=== PATIENT | male | born 1960 ===

== ENCOUNTER 2016-09-08 18:34 | Inpatient (IN) | payer MEDICARE, MEDICAID ==
[2016-09-08 18:34] VITALS: BMI 31.9
--- NOTE | 2016-09-08 19:11 | C.PDOC ---
History Of Present Illness Patient presents to the ER with a complaint of pain and swelling to the dorsal aspect of the left for for the past 3-4 days that worsens with movement. 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 Time Seen by Provider: 09/08/16 19:11 Chief Complaint (Nursing): Lower Extremity Problem/Injury History Per: Patient History/Exam Limitations: no limitations Onset/Duration Of Symptoms: Days Current Symptoms Are (Timing): Still Present Severity: Moderate Pain Scale Rating Of: 4 Recent travel outside of the [place]: No Past Medical History Reviewed: Historical Data, Nursing Documentation, Vital Signs Vital Signs: Last Vital Signs Temp 97.9 F 09/08/16 18:42 Pulse 66 09/08/16 18:42 Resp 18 09/08/16 18:42 BP 121/72 09/08/16 18:42 Pulse Ox 96 09/08/16 20:02 - Medical History PMH: Arthritis, Asthma, Diabetes, HTN, Hypercholesterolemia Denies: Atrial Fibrillation Surgical History: CABG (12/26) Family History: States: No Known Family Hx - Social History Hx Alcohol Use: Yes ([employer]- OCC) Hx Substance Use: No - Immunization History Hx Tetanus Toxoid Vaccination: No Hx Influenza Vaccination: Yes (01/2016) Hx Pneumococcal Vaccination: Yes (01/2016) Review Of Systems Constitutional: Negative for: Fever, Chills Gastrointestinal: Negative for: Nausea, Vomiting Musculoskeletal: Positive for: Foot Pain Skin: Positive for: Other (Swelling) Physical Exam - Physical Exam Appears: Non-toxic Skin: Warm, Dry, Rash Head: Normacephalic Eye(s): bilateral: Normal Inspection Oral Mucosa: Moist Neck: Supple Chest: Symmetrical, No Tenderness Cardiovascular: Rhythm Regular, No Murmur Respiratory: No Rales, No Rhonchi, No Wheezing Gastrointestinal/Abdominal: Soft, No Tenderness Back: No CVA Tenderness Extremity: Tenderness (w/ redness to lateral aspect of left foot), Capillary Refill (good), Swelling (to dorsum of left foot), Other (Interdigital skin break down between 4th and 5th digits of left foot) Extremity: Bilateral: Atraumatic Pulses: Left Femoral: Normal, Right Femoral: Normal, Left Dorsalis Pedis: Normal , Right Dorsalis Pedis: Normal Neurological/Psych: Oriented x3, Normal Speech, Normal Cognition Gait: Steady ED Course And Treatment - Laboratory Results Result Diagrams: 09/08/16 19:50 09/08/16 20:40 ECG: Interpreted By Me, Viewed By Me ECG Rhythm: Sinus Rhythm (67), Nonspecific Changes O2 Sat by Pulse Oximetry: 96 (Room air) Pulse Ox Interpretation: Normal - Radiology CXR: Interpreted by Me, Viewed By Me CXR Interpretation: Yes: Other (top nl heart, cabg). No: Infiltrates, Fracture , Pnemothorax Progress Note: EKG, blood work, CXR, and urinalysis ordered. Morphine administered. using doppler -good dorsal pedis pulses Disposition Discussed With Dr.: Eduin Dee Comment: accepted the pt on his service and took over the care at 9:42 PM Doctor Will See Patient In The: ED Counseled Patient/Family Regarding: Studies Performed, Diagnosis - Disposition Disposition: HOSPITALIZED Disposition Time: 19:11 Condition: FAIR - POA Present On Arrival: Poor Glycemic Control - Clinical Impression Clinical Impression: Cellulitis of foot, left, Hyperglycemia without ketosis - Scribe Statement The provider has reviewed the documentation as recorded by the Scribaz Hernandez All medical record entries made by the Scribe were at my direction and personally dictated by me. I have reviewed the chart and agree that the record accurately reflects my personal performance of the history, physical exam, medical decision making, and the department course for this patient. I have also personally directed, reviewed, and agree with the discharge instructions and disposition. Decision To Admit - Pt Status Changed To: Hospital Disposition Of: Inpatient - Admit Certification Admit to Inpatient:: After my assessment, the patient will require hospitalization for at least two midnights. This is because of the severity of symptoms shown, intensity of services needed, and/or the medical risk in this patient being treated as an outpatient. - InPatient: Physician Admission Certification: I certify that this patient requires 2 or more midnights of care for the following reason:: After my assessment, the patient will require hospitalization for at least two midnights. This is because of the severity of symptoms shown, intensity of services needed, and/or the medical risk in this patient being treated as an outpatient. - . Bed Request Type: Regular Admitting Physician: Eduin Dee Patient Diagnosis: Cellulitis of foot, left, Hyperglycemia without ketosis
[2016-09-08] MEDS ORDERED: Morphine 4 MG/ML VIAL ONE (19:37)
[2016-09-08 19:53] LABS: BASO # 0.1 K/uL (0.0-0.2); EOS # 0.1 K/uL (0.0-0.7); EOS % 0.5 % (0.0-4.0); HEMATOCRIT 35.5 % (35.0-51.0); LYMPH # 2.3 K/uL (1.0-4.3); MEAN CELL VOLUME 87.6 fL (80.0-94.0); MEAN CORPUSCULAR HEMOGLOBIN 28.8 pg (27.0-31.0); MEAN CORPUSCULAR HGB CONC 32.9 g/dL (33.0-37.0); MEAN PLATELET VOLUME 8.8 fL (7.2-11.7); MONO # 1.3 K/uL (0.0-0.8); MONO % 10.7 % (0.0-10.0); NRBC % 0.1 % (0.0-2.0); WHITE BLOOD COUNT 12.3 K/uL (4.8-10.8)
[2016-09-08 20:04] LABS: VENOUS BLOOD GAS BASE EXCESS 1.8 mmol/L (0.0-2.0); VENOUS BLOOD GAS PCO2 53 mmHg (40-60); VENOUS BLOOD PH 7.34 (7.32-7.43)
[2016-09-08 20:11] LABS: RBC URINE < 1 /hpf (0-3); TRANSITIONAL EPITHIAL < 1 /hpf (0-3); URINE BACTERIA RARE (<OCC); URINE BILIRUBIN NEGATIVE (NEGATIVE); URINE BLOOD NEGATIVE (NEGATIVE); URINE COLOR Straw (YELLOW); URINE GLUCOSE (UA) 3+ mg/dL (Normal); URINE KETONE NEGATIVE (NEGATIVE); URINE LEUKOCYTE ESTERASE NEG Leu/uL (Negative); URINE PROTEIN NEGATIVE (NEGATIVE); URINE UROBILINOGEN NORMAL mg/dL (0.2-1.0); WBC URINE < 1 /hpf (0-5)
[2016-09-08 20:54] LABS: CHLORIDE 86 mmol/L (98-107); POTASSIUM 5.1 mmol/L (3.6-5.2); SODIUM 128 mmol/L (132-148)
[2016-09-08 20:56] LABS: BILIRUBIN,TOTAL 0.6 mg/dL (0.2-1.3); GFR AFRICAN-AMERICAN > 60
[2016-09-08 20:57] LABS: ALB/GLOB RATIO 1.2 (1.0-2.1); ALKALINE PHOSPHATASE 73 U/L (38-126); ALT/SGPT 30 U/L (21-72); AST/SGOT 15 U/L (17-59); BLOOD UREA NITROGEN 38 mg/dL (9-20); CALCIUM 8.7 mg/dl (8.6-10.4); CARBON DIOXIDE 27 mmol/L (22-30); TOTAL PROTEIN 6.9 g/dL (6.3-8.3)
[2016-09-08 21:04] LABS: GLUCOSE,RANDOM 548 mg/dL (75-110)
[2016-09-08] MEDS ORDERED: (Novolin R) Insulin Human Regular 100 units/ml vial ONE ×2 (21:18→23:17)
[2016-09-08] MEDS ORDERED: Sodium Chloride 0.9% 1,000 ML IV ONE (21:36)
[2016-09-08] MEDS ORDERED: (Novolin R) Insulin Human Regular 100 units/ml vial SC ONE (21:36)
[2016-09-08] MEDS ORDERED: Clindamycin 300 MG in Sodium Chloride 0.9% 50 ML IVPB STA (21:37)
[2016-09-08] MEDS ORDERED: Vancomycin 1 GM 1 GM/250 ML BAG IVPB STA (21:45)
[2016-09-08] MEDS ORDERED: Vancomycin 1 GM 1 GM/250 ML BAG IVPB ONE (21:56)
[2016-09-08] MEDS ORDERED: (Novolin R) Insulin Human Regular 100 units/ml vial IV ONE (22:56)
--- NOTE | 2016-09-08 23:04 | CP.PCM.HP ---
<Hilaria Sy - Last Filed: 09/09/16 03:28> History of Present Illness - History of Present Illness History of Present Illness: Pt was seen and evaluated at approximately 22:15PM on 09/08/16. CC: foot pain HPI: 55 year old male with PMHx significant for HTN, DM, atrial fibrillation and quadruple bypass surgery presents with complaints of left lower extremity pain of 3 day duration. Patient states that there is some drainage between the webs of his feet and discoloration noted as well. Per son, patient rolled in on his ankle, but denies any physical trauma to the affected foot. Nonetheless, patient did not have associated swelling immediately after the incident. Patient states that he waited to seek evaluation because he was not sure whether he needed to go to the hospital. He eventually came in for further treatment when his symptoms did not improve. Patient states that he has not been complying with a healthy diet in the past few weeks. Patient admits to tenderness to affected area with palpation. He denies any insect bites, nausea, vomiting, diarrhea, constipation, chest pain, headaches, palpitations, subjective fevers or chills PMHx- as noted above Surgical Hx- 4 vessel disease cardiac bypass in 2016 with lower extremity vessel grafting Fam Hx- Several brothers have diabetes Medications- Januvia, Metformin, Novolog ( unknown dose), Oradaxa, Amiodarone, Zetia, Valsartan-HCTZ, Venlafaxine, Seroquel. Please refer to MAR for dosing information Social Hx- Smoked 3-4packs of cigarettes a day for 9 years but has since quit; Patient denies alcohol use; He denies illicit drug use Allergies- Patient denied however medical record indicates shellfish allergy that results in vomiting PMD- Dr. Vines Present on Admission - Present on Admission Any Indicators Present on Admission: No History of Uncontrolled Diabetes: Yes Review of Systems - Review of Systems Systems not reviewed;Unavailable: Language Barrier - Constitutional Constitutional: absent: Chills, Fever, Headache - EENT Eyes: absent: Blurred Vision, Change in Vision - Cardiovascular Cardiovascular: absent: Chest Pain, Chest Pain at Rest, Dyspnea - Respiratory Respiratory: absent: Cough, Dyspnea - Gastrointestinal Gastrointestinal: absent: Nausea, Vomiting - Musculoskeletal Musculoskeletal: absent: Arthralgias, Atrophy - Integumentary Integumentary: Dry Skin, Skin Pain, Swelling, Wounds - Neurological Neurological: absent: Tremor, Weakness - Psychiatric Psychiatric: Anxiety. absent: Confusion - Hematologic/Lymphatic Hematologic: As Per HPI Past Patient History - Past Social History Smoking Status: Former Smoker - CARDIAC Hx Atrial Fibrillation: No Hx Hypercholesterolemia: Yes Hx Hypertension: Yes - PULMONARY Hx Asthma: Yes - NEUROLOGICAL Hx Seizures: No - HEMATOLOGICAL/ONCOLOGICAL Hx Blood Transfusions: No Hx Blood Transfusion Reaction: No - MUSCULOSKELETAL/RHEUMATOLOGICAL Hx Arthritis: Yes - PSYCHIATRIC Hx Substance Use: No - SURGICAL HISTORY Hx Coronary Artery Bypass Graft: Yes (12/26) - ANESTHESIA Hx Anesthesia: Yes Hx Anesthesia Reactions: No Meds Allergies/Adverse Reactions: Allergies Allergy/AdvReac Type Severity Reaction Status Date / Time shellfish derived Allergy Intermediate VOMITING Verified 09/08/16 19:06 Physical Exam - Constitutional Appears: Non-toxic, No Acute Distress - Head Exam Head Exam: ATRAUMATIC, NORMAL INSPECTION, NORMOCEPHALIC - Eye Exam Eye Exam: EOMI, Normal appearance, PERRL Pupil Exam: NORMAL ACCOMODATION - ENT Exam ENT Exam: Mucous Membranes Moist - Neck Exam Neck exam: Positive for: Full Rom - Respiratory Exam Respiratory Exam: NORMAL BREATHING PATTERN. absent: Respiratory Distress - Cardiovascular Exam Cardiovascular Exam: +S1, +S2 - GI/Abdominal Exam GI & Abdominal Exam: Distended, Normal Bowel Sounds, Soft. absent: Firm, Guarding, Tenderness - Extremities Exam Extremities exam: Positive for: full ROM, normal capillary refill, pedal edema ( LLE), tenderness (LLE), pedal pulses present. Negative for: calf tenderness - Expanded Lower Extremities Exam Left Foot/Toe exam: erythema, full ROM, swelling, tenderness (left lateral dorsal surface of foot) Neuro vacular tendon exam: absent: decreased fine/light touch Gait: not tested/not observed (extremity warmer to touch in comparison to RLE) - Back Exam Back exam: FULL ROM - Neurological Exam Neurological exam: Alert, CN II-XII Intact, Oriented x3 - Psychiatric Exam Psychiatric exam: Normal Affect, Normal Mood - Skin Skin Exam: Dry, Erythema, Warm (LLE) Results - Vital Signs Recent Vital Signs: Last Vital Signs Temp 97.9 F 09/08/16 18:42 Pulse 66 09/08/16 18:42 Resp 18 09/08/16 18:42 BP 121/72 09/08/16 18:42 Pulse Ox 96 09/08/16 21:43 - Labs Result Diagrams: 09/08/16 19:50 09/08/16 20:40 Labs: Laboratory Results - last 24 hr 09/08/16 22:42 POC Glucose (mg/dL) 450 H* Assessment & Plan (1) Hyperglycemia without ketosis Assessment and Plan: In ED, Blood glucose initially 548 UA showed 3+ glucose without evidence of serum ketones Patient administered 15 units of Insulin IV and 15 units SC with moderate response Patient to Begin regiment: Lantus 20 units HS, Novolog 8 units TID, and Medium dose sliding scale F/U accuchecks, A1c, lipid panel Patient counseled on dietary changes. Patient could benefit from additional counseling Will hold home meds: Januvia and Metformin at this time. Status: Acute (2) Cellulitis of foot, left Assessment and Plan: Rule out Diabetic source of cellulitis F/U MRI of foot F/U Podiatry recommendations Patient received Vanc and Clindamycin in the ED. Now on Vanc and Zosyn . First dose Vanc started on 09/08. Zosyn to begin 09/09 n.s at 100 cc for dehydration F/U BC Tylenol for pain Monitor Status: Acute (3) History of heart bypass surgery Assessment and Plan: Currently asymptomatic Continue Pradaxa, Cozaar, Zetia Begin ASA daily Status: Acute (4) Atrial fibrillation Assessment and Plan: Amiodarone daily F/U thyroid studies Currently rate controlled and asymptomatic Cont to monitor Status: Acute (5) HTN (hypertension) Assessment and Plan: Continue Cozaar and HCTZ Patient normally takes Diovan at home but non-formulary here. Status: Acute (6) Prophylactic measure Assessment and Plan: Heparin SC Q12 GI prophylaxis not indicated at this time F/U PT evaluation Status: Acute <Eduin Dee P - Last Filed: 09/10/16 05:42> Results - Vital Signs Recent Vital Signs: Last Vital Signs Temp 98.8 F 09/09/16 23:24 Pulse 66 09/09/16 23:24 Resp 20 09/09/16 23:24 BP 146/71 09/09/16 23:24 Pulse Ox 97 09/09/16 23:24 - Labs Result Diagrams: 09/09/16 07:22 09/09/16 07:22 Labs: Laboratory Results - last 24 hr 09/09/16 09/09/16 09/09/16 06:34 07:22 07:22 WBC 10.8 RBC 3.73 L Hgb 10.8 L Hct 31.9 L MCV 85.7 MCH 29.0 MCHC 33.8 RDW 12.5 Plt Count 255 MPV 8.5 Neut % (Auto) 67.7 Lymph % (Auto) 20.5 Roberts % (Auto) 10.7 H Eos % (Auto) 0.3 Baso % (Auto) 0.8 Neut # 7.3 H Lymph # 2.2 Roberts # 1.2 H Eos # 0.0 Baso # 0.1 PT 11.4 INR 1.0 APTT 31 D Sodium Potassium Chloride Carbon Dioxide Anion Gap BUN Creatinine Est GFR ( Amer) Est GFR (Non-Af Amer) POC Glucose (mg/dL) 321 H Random Glucose Hemoglobin A1c Calcium Phosphorus Magnesium Total Bilirubin AST ALT Alkaline Phosphatase Total Protein Albumin Globulin Albumin/Globulin Ratio Triglycerides Cholesterol LDL Cholesterol Direct HDL Cholesterol Free T4 TSH 3rd Generation 09/09/16 09/09/16 09/09/16 07:22 07:22 07:22 WBC RBC Hgb Hct MCV MCH MCHC RDW Plt Count MPV Neut % (Auto) Lymph % (Auto) Roberts % (Auto) Eos % (Auto) Baso % (Auto) Neut # Lymph # Roberts # Eos # Baso # PT INR APTT Sodium 132 Potassium 4.4 Chloride 92 L Carbon Dioxide 26 Anion Gap 18 BUN 29 H Creatinine 1.1 Est GFR ( Amer) > 60 Est GFR (Non-Af Amer) > 60 POC Glucose (mg/dL) Random Glucose 314 H Hemoglobin A1c 13.3 H Calcium 8.4 L Phosphorus 3.3 Magnesium 2.0 Total Bilirubin 0.5 AST 15 L ALT 25 Alkaline Phosphatase 65 Total Protein 6.4 Albumin 3.3 L Globulin 3.1 Albumin/Globulin Ratio 1.1 Triglycerides 109 Cholesterol 78 LDL Cholesterol Direct < 30 HDL Cholesterol 34 Free T4 2.01 TSH 3rd Generation 0.73 09/09/16 09/09/16 09/09/16 11:01 16:21 21:12 WBC RBC Hgb Hct MCV MCH MCHC RDW Plt Count MPV Neut % (Auto) Lymph % (Auto) Roberts % (Auto) Eos % (Auto) Baso % (Auto) Neut # Lymph # Roberts # Eos # Baso # PT INR APTT Sodium Potassium Chloride Carbon Dioxide Anion Gap BUN Creatinine Est GFR ( Amer) Est GFR (Non-Af Amer) POC Glucose (mg/dL) 356 H 327 H 256 H Random Glucose Hemoglobin A1c Calcium Phosphorus Magnesium Total Bilirubin AST ALT Alkaline Phosphatase Total Protein Albumin Globulin Albumin/Globulin Ratio Triglycerides Cholesterol LDL Cholesterol Direct HDL Cholesterol Free T4 TSH 3rd Generation Attending/Attestation - Attestation I have personally seen and examined this patient.: Yes I have fully participated in the care of the patient.: Yes I have reviewed all pertinent clinical information: Yes Notes (Text): Uncontrolled DM, type 2, h/o afib on pradaxa, amiodarone, CAD, CABG, h/o wearing socks for long hours, left foot cellulitis, infected wound bet 4th and 5th toe, maceration of skin between other toes. IV abx with broad coverage, arterial dopplers, MRI of foot, podiatry consult, DM control starting about 44 units of insulin/day as 20 lantus, 8 humlog tidac, with sliding scale coverage, patient on average uses bet 40-60 units of insulin at home. See orders for detail.
[2016-09-09] MEDS: (Novolog) Insulin Aspart, Recombinant 100 u/ml 10 ml vial SC SCH ×7 (02:25→21:42)
[2016-09-09] MEDS: Sodium Chloride 0.9% 1,000 ML IV SCH ×2 (05:42→13:20)
[2016-09-09 07:30] LABS: BASO # 0.1 K/uL (0.0-0.2); BASO % 0.8 % (0.0-2.0); EOS % 0.3 % (0.0-4.0); HEMATOCRIT 31.9 % (35.0-51.0); LYMPH # 2.2 K/uL (1.0-4.3); LYMPH % 20.5 % (20.0-40.0); MEAN CELL VOLUME 85.7 fL (80.0-94.0); MEAN CORPUSCULAR HGB CONC 33.8 g/dL (33.0-37.0); MEAN PLATELET VOLUME 8.5 fL (7.2-11.7); MONO # 1.2 K/uL (0.0-0.8); MONO % 10.7 % (0.0-10.0); RED CELL DISTRIBUTION WIDTH 12.5 % (11.5-14.5); WHITE BLOOD COUNT 10.8 K/uL (4.8-10.8)
[2016-09-09 07:56] LABS: CHLORIDE 92 mmol/L (98-107); SODIUM 132 mmol/L (132-148)
[2016-09-09 07:57] LABS: POTASSIUM 4.4 mmol/L (3.6-5.2)
[2016-09-09 07:58] LABS: CARBON DIOXIDE 26 mmol/L (22-30); CHOLESTEROL 78 mg/dL (0-199); GFR AFRICAN-AMERICAN > 60
[2016-09-09 07:59] LABS: ALB/GLOB RATIO 1.1 (1.0-2.1); ALKALINE PHOSPHATASE 65 U/L (38-126); ALT/SGPT 25 U/L (21-72); AST/SGOT 15 U/L (17-59); BILIRUBIN,TOTAL 0.5 mg/dL (0.2-1.3); BLOOD UREA NITROGEN 29 mg/dL (9-20); CALCIUM 8.4 mg/dl (8.6-10.4); GLUCOSE,RANDOM 314 mg/dL (75-110); PHOSPHOROUS 3.3 mg/dL (2.5-4.5); TOTAL PROTEIN 6.4 g/dL (6.3-8.3)
--- NOTE | 2016-09-09 08:19 | CP.PCM.PN ---
<Desi Guadarrama - Last Filed: 09/09/16 14:05> Subjective - Date & Time of Evaluation Date of Evaluation: 09/09/16 Time of Evaluation: 08:19 - Subjective Subjective: Medicine Note for Dr. Gabriel Patient was seen and examined at bedside. Patient reported left foot pain and requested pain medications. Denied any fever, chills, headache, abdominal pain, n/v/d/c, or urinary symptoms. Objective - Vital Signs/Intake and Output Vital Signs (last 24 hours): Temp Pulse Resp BP Pulse Ox 97.8 F 61 20 125/71 97 09/09/16 07:48 09/09/16 07:48 09/09/16 07:48 09/09/16 07:48 09/09/16 07:48 - Medications Medications: Current Medications Acetaminophen (Tylenol 325mg Tab) 650 mg PO Q6 PRN PRN Reason: Pain, Mild (1-3) Last Admin: 09/09/16 07:02 Dose: 650 mg Amiodarone HCl (Cordarone) 200 mg PO DAILY [facility] Aspirin (Ecotrin) 81 mg PO DAILY [facility] Dabigatran (Pradaxa) 150 mg PO BID [facility] Ezetimibe (Zetia) 10 mg PO DAILY [facility] Heparin Sodium (Porcine) (Heparin) 5,000 units SC Q12 [facility] Hydrochlorothiazide (Hydrodiuril) 25 mg PO DAILY [facility] Piperacillin Sod/Tazobactam (Sod 2.25 gm/ Sodium Chloride) 100 mls @ 200 mls/ hr IVPB Q8H [facility] Vancomycin HCl 1 gm/ Sodium (Chloride) 250 mls @ 166.7 mls/hr IVPB Q24H [facility] Sodium Chloride (Sodium Chloride 0.9%) 1,000 mls @ 100 mls/hr IV .Q10H [facility] Last Admin: 09/09/16 05:42 Dose: 100 mls/hr Influenza Virus Vaccine (Afluria) 45 mcg IM .ONCE ONE Stop: 09/11/16 14:01 Insulin Aspart (Novolog) 0 unit SC ACHS [facility] PRN Reason: Protocol Last Admin: 09/09/16 02:25 Dose: Not Given Insulin Aspart (Novolog) 8 unit SC TID [facility] Insulin Glargine (Lantus) 20 unit SC HS [facility] Losartan Potassium (Cozaar) 100 mg PO DAILY [facility] Pneumococcal Polyvalent Vaccine (Pneumovax 23 Vaccine) 0.5 ml IM .ONCE ONE Stop: 09/11/16 14:01 Quetiapine Fumarate (Seroquel) 200 mg PO HS [facility] Venlafaxine HCl (Effexor Xr) 150 mg PO DAILY [facility] - Labs Labs: 09/09/16 07:22 09/09/16 07:22 PT 10.8 SECONDS (9.7-12.2) 09/08/16 19:50 INR 1.0 09/08/16 19:50 APTT 24 SECONDS (21-34) 09/08/16 19:50 - Constitutional Appears: No Acute Distress - Head Exam Head Exam: NORMAL INSPECTION, NORMOCEPHALIC - Eye Exam Eye Exam: EOMI, Normal appearance, PERRL Pupil Exam: NORMAL ACCOMODATION - ENT Exam ENT Exam: Mucous Membranes Moist - Respiratory Exam Respiratory Exam: Clear to Ausculation Bilateral, NORMAL BREATHING PATTERN. absent: Wheezes - Cardiovascular Exam Cardiovascular Exam: REGULAR RHYTHM, RRR, +S1, +S2 - GI/Abdominal Exam GI & Abdominal Exam: Soft, Normal Bowel Sounds. absent: Distended, Tenderness - Extremities Exam Extremities Exam: Normal Inspection. absent: Pedal Edema, Tenderness Additional comments: Left lateral aspect of the foot was warm to touch, TTP, pus and blood from between 3rd and 4th toes, and 4th and 5th toes. Sensation intact. Motor +5 - Neurological Exam Neurological Exam: Alert, Awake, Oriented x3 - Skin Skin Exam: Dry, Intact, Normal Color, Warm Assessment and Plan - Assessment and Plan (Free Text) Plan: Hyperglycemia without ketosis Assessment and Plan: In ED, Blood glucose initially 548 UA showed 3+ glucose without evidence of serum ketones N.S. at 100 cc for dehydration Patient administered 15 units of Insulin IV and 15 units SC with moderate response Patient was started on: Lantus 20 units HS, Novolog 10 units TID, and Medium dose sliding scale Status: Acute Diabetes Mellitus Assessment and Plan: Accuchecks HbgA1c = 13.3 Will hold home meds: Januvia 100mg QHS and Metformin 1000mg PO BID, and Prandin 1mg PO BID (confirmed with Pharmacy). According to the patient he takes Lantus 20mg SC BID (however the pharmacy did not confirm this). Started on: Lantus 20 units HS, Novolog 10 units TID, and Medium dose sliding scale DM counseling ordered Status: Chronic Cellulitis of foot, left Assessment and Plan: Patient received Vanc and Clindamycin in the ED. Now on Vanc and Zosyn . First dose Vanc started on 09/08. Zosyn to begin 09/09 Perococet PRN and Tylenol PRN for pain F/U Bone Scan of Left Foot (patient refuses to have MRI done due to claustrophobia) F/U Podiatry recommendations F/U BC, WC Status: Acute History of quadriple vessel bypass surgery Assessment and Plan: Currently asymptomatic Continue Pradaxa, Cozaar, Zetia Started on ASA daily Lipid Panel and TSH, T4 - WNL F/U Arterial PVR/ SEG B/L Status: Acute Atrial fibrillation Assessment and Plan: Amiodarone daily TSH, T4 - WNL Currently rate controlled and asymptomatic Cont to monitor Status: Acute HTN (hypertension) Assessment and Plan: Continue Cozaar and HCTZ Patient normally takes Diovan at home but non-formulary here. Status: Acute Prophylactic measure Assessment and Plan: DVT VTE c/i since patient is already on anticoagulation for AFib GI prophylaxis not indicated at this time F/U PT evaluation Status: Acute DW Chiara Forman DO, PGY-1 <Reid Gabriel - Last Filed: 09/09/16 15:58> Objective - Vital Signs/Intake and Output Vital Signs (last 24 hours): Temp Pulse Resp BP Pulse Ox 98 F 60 20 145/77 99 09/09/16 15:23 09/09/16 15:23 09/09/16 15:23 09/09/16 15:23 09/09/16 15:23 - Medications Medications: Current Medications Acetaminophen (Tylenol 325mg Tab) 650 mg PO Q6 PRN PRN Reason: Pain, Mild (1-3) Last Admin: 09/09/16 07:02 Dose: 650 mg Amiodarone HCl (Cordarone) 200 mg PO DAILY [facility] Last Admin: 09/09/16 10:39 Dose: 200 mg Aspirin (Ecotrin) 81 mg PO DAILY [facility] Last Admin: 09/09/16 10:39 Dose: 81 mg Dabigatran (Pradaxa) 150 mg PO BID [facility] Last Admin: 09/09/16 10:39 Dose: 150 mg Ezetimibe (Zetia) 10 mg PO DAILY [facility] Last Admin: 09/09/16 10:40 Dose: 10 mg Hydrochlorothiazide (Hydrodiuril) 25 mg PO DAILY [facility] Last Admin: 09/09/16 10:39 Dose: 25 mg Piperacillin Sod/Tazobactam (Sod 2.25 gm/ Sodium Chloride) 100 mls @ 200 mls/ hr IVPB Q8H [facility] Last Admin: 09/09/16 10:41 Dose: 200 mls/hr Sodium Chloride (Sodium Chloride 0.9%) 1,000 mls @ 100 mls/hr IV .Q10H [facility] Last Admin: 09/09/16 13:20 Dose: Not Given Vancomycin HCl 1 gm/ Sodium (Chloride) 250 mls @ 166.7 mls/hr IVPB Q24H [facility] Last Admin: 09/09/16 12:26 Dose: 166.7 mls/hr Influenza Virus Vaccine (Afluria) 45 mcg IM .ONCE ONE Stop: 09/11/16 14:01 Insulin Aspart (Novolog) 0 unit SC ACHS [facility] PRN Reason: Protocol Last Admin: 09/09/16 11:45 Dose: 8 unit Insulin Aspart (Novolog) 10 unit SC TIDAC [facility] Last Admin: 09/09/16 11:45 Dose: 10 unit Insulin Glargine (Lantus) 20 unit SC [facility] Losartan Potassium (Cozaar) 100 mg PO DAILY [facility] Last Admin: 09/09/16 10:39 Dose: 100 mg Oxycodone/Acetaminophen (Percocet 5/325 Mg Tab) 1 tab PO Q6H PRN PRN Reason: Pain, severe (8-10) Stop: 09/12/16 11:21 Last Admin: 09/09/16 11:45 Dose: 1 tab Pneumococcal Polyvalent Vaccine (Pneumovax 23 Vaccine) 0.5 ml IM .ONCE ONE Stop: 09/11/16 14:01 Quetiapine Fumarate (Seroquel) 200 mg PO [facility] Venlafaxine HCl (Effexor Xr) 150 mg PO DAILY [facility] Last Admin: 09/09/16 10:39 Dose: 150 mg - Labs Labs: 09/09/16 07:22 09/09/16 07:22 PT 11.4 SECONDS (9.7-12.2) 09/09/16 07:22 INR 1.0 09/09/16 07:22 APTT 31 SECONDS (21-34) D 09/09/16 07:22 Attending/Attestation - Attestation I have personally seen and examined this patient.: Yes I have fully participated in the care of the patient.: Yes I have reviewed all pertinent clinical information, including history, physical exam and plan: Yes Notes (Text): 09/09/16 15:57 Patient was seen and examined at bedside with the resident Podiatry is on board. We will obtain MRI of the foot to rule out osteomyelitis Patient is on vancomycin and Zosyn. Follow-up cultures of the wound. Diabetes remains uncontrolled. We'll start the patient on insulin basal bolus regimen and also on sliding scale. We will titrate the medication as needed I discussed the plan of care with the resident and agree with the history and physical and assessment/plan recommended by the resident.
[2016-09-09 08:37] LABS: THYROID STIMULATING HORMONE 0.73 mIU/L (0.46-4.68)
[2016-09-09] MEDS ORDERED: Vitamins A & D Oint UD Foilpak TOP ONE (09:05)
--- NOTE | 2016-09-09 09:08 | RAD ---
PROCEDURE: CHEST RADIOGRAPH, 1 VIEW HISTORY: Shortness of breath COMPARISON: None available. FINDINGS: LUNGS: Mild venous congestion. PLEURA: No pneumothorax or pleural fluid seen. CARDIOVASCULAR: Status post median sternotomy. OSSEOUS STRUCTURES: No significant abnormalities. VISUALIZED UPPER ABDOMEN: Normal. OTHER FINDINGS: None. IMPRESSION: Mild venous congestion.
[2016-09-09] MEDS ORDERED: (Novolog) Insulin Aspart, Recombinant 100 u/ml 10 ml vial SC SCH (10:00)
[2016-09-09] MEDS: Venlafaxine 150 mg ER Cap PO SCH (10:39)
[2016-09-09] MEDS: Piperacillin/Tazobact 2.25 GM in Sodium Chloride 100 ML IVPB SCH ×2 (10:41→18:12)
[2016-09-09] MEDS: Oxycodone/Acetaminophen 5/325 mg Tab PO PRN (11:45)
--- NOTE | 2016-09-09 13:45 | CARD ---
APPROVED REPORT EKG Measurement Heart [id number] MI [id number] [id number] <Conclusion> Normal sinus rhythm Minimal voltage criteria for LVH, may be normal variant Cannot rule out Inferior infarct, age undetermined Abnormal ECG
--- NOTE | 2016-09-09 14:52 | VASCLAB ---
STUDY DESCRIPTION: HISTORY: Diabetic with Peripheral Artery Disease PRIORS: None. TECHNIQUE: Pulse volume recording waveforms and segmental pressures of bilateral lower extremities at multiple levels were obtained. Ankle Brachial Indices (ABIs) were calculated. Report prepared by GIRISH Cummings RIGHT LOWER EXTREMITY: * Brachial artery: Pressure - 139 mmHg. * High thigh: Pressure - 220 mmHg: Ratio - n/c: PVR waveform - Pulsatile * Low thigh: Pressure - 98 mmHg: Ratio - 0.71 PVR waveform: Pulsatile * Calf: Pressure - 97 mmHg: Ratio - 0.70 PVR waveform: Reduced * Posterior tibial Artery: Pressure - 86 mmHg: Ratio - 0.62 PVR waveform: Reduced * Dorsalis pedis Artery: Pressure - 94 mmHg: Ratio - 0.68 PVR waveform: Reduced * Great toe: Pressure - 55 mmHg: Ratio - 0.40 PVR waveform: Reduced Ankle brachial index (SOFI): 0.68 LEFT LOWER EXTREMITY: * Brachial artery: Pressure - 128 mmHg. * High thigh: Pressure - 125 mmHg: Ratio - 0.90: PVR waveform - Pulsatile * Low thigh: Pressure - 90 mmHg: Ratio - 0.65 PVR waveform: Pulsatile * Calf: Pressure - 84 mmHg: Ratio - 0.60 PVR waveform: Reduced * Posterior tibial Artery: Pressure - 79 mmHg: Ratio - 0.57 PVR waveform: Reduced * Dorsalis pedis Artery: Non audible pulse * Great toe: Pressure - 30 mmHg: Ratio - 0.22 PVR waveform: Reduced Ankle brachial index (SOFI): 0.57 OTHER FINDINGS: IMPRESSION: Right: Reduced ankle brachial index of 0.68. Reduced toe brachial index of 0.40. Left: Reduced ankle brachial index of 0.57. Reduced toe brachial index of 0.22. Arterial waveforms and segmental pressures are suggestive of mild to moderate arterial insufficiency of bilateral lower extremities, at rest, beginning at the superficial femoral artery levels. There is more disease of the left lower extremity than of the right.
--- NOTE | 2016-09-09 16:58 | CP.PCM.CON ---
History of Present Illness - History of Present Illness History of Present Illness: 55 year old male with PMHx significant for HTN, DM, atrial fibrillation and quadruple bypass surgery presents with complaints of left lower extremity pain of 4 day duration. Patient states that he has had redness, and swelling in his foot and states that the pain is very severe. Patient appears in NAD and AAOx3. Patient denies any other pedal complaints at this time. Patient denies any numbness or burning in his foot. Patient denies n/f/c/v/d/sob. Review of Systems - Constitutional Constitutional: As Per HPI Past Patient History - Past Medical History & Family History Past Medical History?: Yes - Past Social History Smoking Status: Former Smoker - CARDIAC Hx Hypercholesterolemia: Yes Hx Hypertension: Yes - PULMONARY Hx Asthma: Yes - NEUROLOGICAL Hx Seizures: No - ENDOCRINE/METABOLIC Hx Diabetes Mellitus Type 1: Yes - HEMATOLOGICAL/ONCOLOGICAL Hx Blood Transfusions: No Hx Blood Transfusion Reaction: No - MUSCULOSKELETAL/RHEUMATOLOGICAL Hx Arthritis: Yes - PSYCHIATRIC Hx Substance Use: No - SURGICAL HISTORY Hx Coronary Artery Bypass Graft: Yes (12/26) - ANESTHESIA Hx Anesthesia: Yes Hx Anesthesia Reactions: No Meds Allergies/Adverse Reactions: Allergies Allergy/AdvReac Type Severity Reaction Status Date / Time shellfish derived Allergy Intermediate VOMITING Verified 09/08/16 19:06 - Medications Medications: Current Medications Acetaminophen (Tylenol 325mg Tab) 650 mg PO Q6 PRN PRN Reason: Pain, Mild (1-3) Last Admin: 09/09/16 07:02 Dose: 650 mg Amiodarone HCl (Cordarone) 200 mg PO DAILY [facility] Last Admin: 09/09/16 10:39 Dose: 200 mg Aspirin (Ecotrin) 81 mg PO DAILY [facility] Last Admin: 09/09/16 10:39 Dose: 81 mg Dabigatran (Pradaxa) 150 mg PO BID [facility] Last Admin: 09/09/16 10:39 Dose: 150 mg Ezetimibe (Zetia) 10 mg PO DAILY [facility] Last Admin: 09/09/16 10:40 Dose: 10 mg Hydrochlorothiazide (Hydrodiuril) 25 mg PO DAILY [facility] Last Admin: 09/09/16 10:39 Dose: 25 mg Piperacillin Sod/Tazobactam (Sod 2.25 gm/ Sodium Chloride) 100 mls @ 200 mls/ hr IVPB Q8H [facility] Last Admin: 09/09/16 10:41 Dose: 200 mls/hr Sodium Chloride (Sodium Chloride 0.9%) 1,000 mls @ 100 mls/hr IV .Q10H [facility] Last Admin: 09/09/16 13:20 Dose: Not Given Vancomycin HCl 1 gm/ Sodium (Chloride) 250 mls @ 166.7 mls/hr IVPB Q24H [facility] Last Admin: 09/09/16 12:26 Dose: 166.7 mls/hr Influenza Virus Vaccine (Afluria) 45 mcg IM .ONCE ONE Stop: 09/11/16 14:01 Insulin Aspart (Novolog) 0 unit SC ACHS [facility] PRN Reason: Protocol Last Admin: 09/09/16 11:45 Dose: 8 unit Insulin Aspart (Novolog) 10 unit SC TIDAC [facility] Last Admin: 09/09/16 11:45 Dose: 10 unit Insulin Glargine (Lantus) 20 unit SC HS [facility] Losartan Potassium (Cozaar) 100 mg PO DAILY [facility] Last Admin: 09/09/16 10:39 Dose: 100 mg Oxycodone/Acetaminophen (Percocet 5/325 Mg Tab) 1 tab PO Q6H PRN PRN Reason: Pain, severe (8-10) Stop: 09/12/16 11:21 Last Admin: 09/09/16 11:45 Dose: 1 tab Pneumococcal Polyvalent Vaccine (Pneumovax 23 Vaccine) 0.5 ml IM .ONCE ONE Stop: 09/11/16 14:01 Quetiapine Fumarate (Seroquel) 200 mg PO [facility] Venlafaxine HCl (Effexor Xr) 150 mg PO DAILY [facility] Last Admin: 09/09/16 10:39 Dose: 150 mg Physical Exam - Constitutional Appears: Well, Non-toxic, No Acute Distress - Extremities Exam Additional comments: left lower extremity focused: Vasc: lightly palpable pulses, TG warm to warm, CFT < 3 sec to all digits neuro: grossly intact derm: localized nonpitting edema and erythema extending to the anterior ankle joint, interdigital maceration to left 4th interspace, no probe to bone, mild malodor, no fluctuance, no purulence, no underlying abscess formation ortho: pain on palpation to dorsal left foot - Neurological Exam Neurological exam: Alert, Oriented x3 - Psychiatric Exam Psychiatric exam: Normal Affect, Normal Mood Results - Vital Signs Recent Vital Signs: Last Vital Signs Temp 98 F 09/09/16 15:23 Pulse 60 09/09/16 15:23 Resp 20 09/09/16 15:23 BP 145/77 09/09/16 15:23 Pulse Ox 99 09/09/16 15:23 - Labs Result Diagrams: 09/09/16 07:22 09/09/16 07:22 Labs: Laboratory Results - last 24 hr 09/08/16 09/08/16 09/09/16 22:42 23:35 02:23 WBC RBC Hgb Hct MCV MCH MCHC RDW Plt Count MPV Neut % (Auto) Lymph % (Auto) [place] % (Auto) Eos % (Auto) Baso % (Auto) Neut # Lymph # [place] # Eos # Baso # PT INR APTT Sodium Potassium Chloride Carbon Dioxide Anion Gap BUN Creatinine Est GFR ( Amer) Est GFR (Non-Af Amer) POC Glucose (mg/dL) 450 H* 389 H 251 H Random Glucose Hemoglobin A1c Calcium Phosphorus Magnesium Total Bilirubin AST ALT Alkaline Phosphatase Total Protein Albumin Globulin Albumin/Globulin Ratio Triglycerides Cholesterol LDL Cholesterol Direct HDL Cholesterol Free T4 TSH 3rd Generation 09/09/16 09/09/16 09/09/16 06:34 07:22 07:22 WBC 10.8 RBC 3.73 L Hgb 10.8 L Hct 31.9 L MCV 85.7 MCH 29.0 MCHC 33.8 RDW 12.5 Plt Count 255 MPV 8.5 Neut % (Auto) 67.7 Lymph % (Auto) 20.5 [place] % (Auto) 10.7 H Eos % (Auto) 0.3 Baso % (Auto) 0.8 Neut # 7.3 H Lymph # 2.2 [place] # 1.2 H Eos # 0.0 Baso # 0.1 PT 11.4 INR 1.0 APTT 31 D Sodium Potassium Chloride Carbon Dioxide Anion Gap BUN Creatinine Est GFR ( Amer) Est GFR (Non-Af Amer) POC Glucose (mg/dL) 321 H Random Glucose Hemoglobin A1c Calcium Phosphorus Magnesium Total Bilirubin AST ALT Alkaline Phosphatase Total Protein Albumin Globulin Albumin/Globulin Ratio Triglycerides Cholesterol LDL Cholesterol Direct HDL Cholesterol Free T4 TSH 3rd Generation 09/09/16 09/09/16 09/09/16 07:22 07:22 07:22 WBC RBC Hgb Hct MCV MCH MCHC RDW Plt Count MPV Neut % (Auto) Lymph % (Auto) [place] % (Auto) Eos % (Auto) Baso % (Auto) Neut # Lymph # [place] # Eos # Baso # PT INR APTT Sodium 132 Potassium 4.4 Chloride 92 L Carbon Dioxide 26 Anion Gap 18 BUN 29 H Creatinine 1.1 Est GFR ( Amer) > 60 Est GFR (Non-Af Amer) > 60 POC Glucose (mg/dL) Random Glucose 314 H Hemoglobin A1c 13.3 H Calcium 8.4 L Phosphorus 3.3 Magnesium 2.0 Total Bilirubin 0.5 AST 15 L ALT 25 Alkaline Phosphatase 65 Total Protein 6.4 Albumin 3.3 L Globulin 3.1 Albumin/Globulin Ratio 1.1 Triglycerides 109 Cholesterol 78 LDL Cholesterol Direct < 30 HDL Cholesterol 34 Free T4 2.01 TSH 3rd Generation 0.73 09/09/16 09/09/16 11:01 16:21 WBC RBC Hgb Hct MCV MCH MCHC RDW Plt Count MPV Neut % (Auto) Lymph % (Auto) [place] % (Auto) Eos % (Auto) Baso % (Auto) Neut # Lymph # [place] # Eos # Baso # PT INR APTT Sodium Potassium Chloride Carbon Dioxide Anion Gap BUN Creatinine Est GFR ( Amer) Est GFR (Non-Af Amer) POC Glucose (mg/dL) 356 H 327 H Random Glucose Hemoglobin A1c Calcium Phosphorus Magnesium Total Bilirubin AST ALT Alkaline Phosphatase Total Protein Albumin Globulin Albumin/Globulin Ratio Triglycerides Cholesterol LDL Cholesterol Direct HDL Cholesterol Free T4 TSH 3rd Generation Assessment & Plan - Assessment and Plan (Free Text) Assessment: 55 y/o male seen at bedside regarding left lower extremity cellulitis and interdigital maceration to 4th interspace Plan: patient evaluated and chart reviewed discussed in detail with attending Dr. Jo labs and vitals reviewed; WBC 10.8 applied betadine, DSD to left foot monitor cellulitis continue IV abx as per ID f/u x ray of left foot podiatry will continue to follow while patient remains in house
--- NOTE | 2016-09-09 17:32 | RAD ---
PROCEDURE: Left Foot Radiographs. HISTORY: rule out OM COMPARISON: None. FINDINGS: BONES: No fracture. No osseous erosion or periosteal reaction. Bandage material seen about 5th digit. JOINTS: Normal. SOFT TISSUES: Normal. OTHER FINDINGS: None. IMPRESSION: No plain radiographic evidence of osteomyelitis.
[2016-09-09] MEDS ORDERED: (Lantus) Insulin Glargine, Recombinant SC SCH (22:00)
[2016-09-10] MEDS: Piperacillin/Tazobact 2.25 GM in Sodium Chloride 100 ML IVPB SCH ×3 (01:10→18:00)
[2016-09-10] MEDS: Sodium Chloride 0.9% 1,000 ML IV SCH ×3 (01:12→20:30)
[2016-09-10] MEDS: Oxycodone/Acetaminophen 5/325 mg Tab PO PRN ×2 (05:03→11:11)
[2016-09-10 07:14] LABS: BASO # 0.1 K/uL (0.0-0.2); BASO % 0.6 % (0.0-2.0); EOS % 0.4 % (0.0-4.0); HEMATOCRIT 33.8 % (35.0-51.0); LYMPH # 1.9 K/uL (1.0-4.3); LYMPH % 15.8 % (20.0-40.0); MEAN CELL VOLUME 86.1 fL (80.0-94.0); MEAN CORPUSCULAR HEMOGLOBIN 28.1 pg (27.0-31.0); MEAN CORPUSCULAR HGB CONC 32.7 g/dL (33.0-37.0); MEAN PLATELET VOLUME 8.7 fL (7.2-11.7); MONO # 1.1 K/uL (0.0-0.8); MONO % 8.8 % (0.0-10.0); RED CELL DISTRIBUTION WIDTH 12.2 % (11.5-14.5); WHITE BLOOD COUNT 12.2 K/uL (4.8-10.8)
[2016-09-10 07:38] LABS: CHLORIDE 93 mmol/L (98-107); POTASSIUM 4.6 mmol/L (3.6-5.2); SODIUM 132 mmol/L (132-148)
[2016-09-10 07:40] LABS: BILIRUBIN,TOTAL 0.6 mg/dL (0.2-1.3); GFR AFRICAN-AMERICAN > 60
[2016-09-10 07:41] LABS: ALKALINE PHOSPHATASE 73 U/L (38-126); ALT/SGPT 25 U/L (21-72); AST/SGOT 17 U/L (17-59); BLOOD UREA NITROGEN 13 mg/dL (9-20); CARBON DIOXIDE 24 mmol/L (22-30); GLUCOSE,RANDOM 268 mg/dL (75-110); PHOSPHOROUS 2.2 mg/dL (2.5-4.5); TOTAL PROTEIN 6.8 g/dL (6.3-8.3)
[2016-09-10 07:42] LABS: CALCIUM 8.7 mg/dl (8.6-10.4); MAGNESIUM 1.8 mg/dL (1.6-2.3)
[2016-09-10] MEDS: (Novolog) Insulin Aspart, Recombinant 100 u/ml 10 ml vial SC SCH ×7 (08:29→22:00)
[2016-09-10] MEDS: Venlafaxine 150 mg ER Cap PO SCH (09:55)
--- NOTE | 2016-09-10 10:22 | CP.PCM.PN ---
<Desi Guadarrama - Last Filed: 09/10/16 13:11> Subjective - Date & Time of Evaluation Date of Evaluation: 09/10/16 Time of Evaluation: 07:00 - Subjective Subjective: Medicine Note for Dr. Gabriel Patient was seen and examined at bedside. Patient reports his pain is well controlled. Denied any fever, chills, headache, abdominal pain, n/v/d/c, or urinary symptoms. Patient is to have Bone scan done today to evaluate for Osteomyelitis Objective - Vital Signs/Intake and Output Vital Signs (last 24 hours): Temp Pulse Resp BP Pulse Ox 98.4 F 59 L 18 143/73 98 09/10/16 08:00 09/10/16 08:00 09/10/16 08:00 09/10/16 08:00 09/10/16 08:00 Intake and Output: 09/10/16 09/10/16 06:59 18:59 Intake Total 1100 Output Total 240 Balance 860 - Medications Medications: Current Medications Acetaminophen (Tylenol 325mg Tab) 650 mg PO Q6 PRN PRN Reason: Pain, Mild (1-3) Last Admin: 09/09/16 07:02 Dose: 650 mg Amiodarone HCl (Cordarone) 200 mg PO DAILY [facility] Last Admin: 09/10/16 09:54 Dose: 200 mg Aspirin (Ecotrin) 81 mg PO DAILY [facility] Last Admin: 09/10/16 09:54 Dose: 81 mg Dabigatran (Pradaxa) 150 mg PO BID [facility] Last Admin: 09/10/16 09:53 Dose: 150 mg Ezetimibe (Zetia) 10 mg PO DAILY [facility] Last Admin: 09/10/16 09:54 Dose: 10 mg Hydrochlorothiazide (Hydrodiuril) 25 mg PO DAILY [facility] Last Admin: 09/10/16 09:53 Dose: 25 mg Piperacillin Sod/Tazobactam (Sod 2.25 gm/ Sodium Chloride) 100 mls @ 200 mls/ hr IVPB Q8H [facility] Last Admin: 09/10/16 09:55 Dose: 200 mls/hr Sodium Chloride (Sodium Chloride 0.9%) 1,000 mls @ 100 mls/hr IV .Q10H [facility] Last Admin: 09/10/16 01:12 Dose: 100 mls/hr Vancomycin/Sodium Chloride (Vancocin) 1 gm in 200 mls @ 133.333 mls/hr IVPB Q24H [facility] Influenza Virus Vaccine (Afluria) 45 mcg IM .ONCE ONE Stop: 09/11/16 14:01 Insulin Aspart (Novolog) 0 unit SC ACHS [facility] PRN Reason: Protocol Last Admin: 09/10/16 08:30 Dose: 4 unit Insulin Aspart (Novolog) 10 unit SC TIDAC [facility] Last Admin: 09/10/16 08:29 Dose: 10 unit Insulin Glargine (Lantus) 20 unit SC HS [facility] Last Admin: 09/09/16 21:58 Dose: 20 units Losartan Potassium (Cozaar) 100 mg PO DAILY [facility] Last Admin: 09/10/16 09:53 Dose: 100 mg Oxycodone/Acetaminophen (Percocet 5/325 Mg Tab) 1 tab PO Q6H PRN PRN Reason: Pain, severe (8-10) Stop: 09/12/16 11:21 Last Admin: 09/10/16 05:03 Dose: 1 tab Pneumococcal Polyvalent Vaccine (Pneumovax 23 Vaccine) 0.5 ml IM .ONCE ONE Stop: 09/11/16 14:01 Quetiapine Fumarate (Seroquel) 200 mg PO [facility] Last Admin: 09/09/16 21:55 Dose: Not Given Venlafaxine HCl (Effexor Xr) 150 mg PO DAILY [facility] Last Admin: 09/10/16 09:55 Dose: 150 mg - Labs Labs: 09/10/16 07:01 09/10/16 07:01 PT 11.4 SECONDS (9.7-12.2) 09/09/16 07:22 INR 1.0 09/09/16 07:22 APTT 31 SECONDS (21-34) D 09/09/16 07:22 - Constitutional Appears: No Acute Distress - Head Exam Head Exam: NORMAL INSPECTION, NORMOCEPHALIC - Eye Exam Eye Exam: EOMI, Normal appearance, PERRL Pupil Exam: NORMAL ACCOMODATION - ENT Exam ENT Exam: Mucous Membranes Moist - Neck Exam Neck Exam: Normal Inspection - Respiratory Exam Respiratory Exam: Clear to Ausculation Bilateral, NORMAL BREATHING PATTERN. absent: Wheezes - Cardiovascular Exam Cardiovascular Exam: REGULAR RHYTHM, RRR - GI/Abdominal Exam GI & Abdominal Exam: Soft, Normal Bowel Sounds. absent: Distended, Tenderness - Extremities Exam Extremities Exam: Normal Inspection. absent: Pedal Edema, Tenderness Additional comments: left foot wrapped - Neurological Exam Neurological Exam: Alert, Awake, Oriented x3 - Psychiatric Exam Psychiatric exam: Normal Affect, Normal Mood - Skin Skin Exam: Dry, Intact, Normal Color, Warm Assessment and Plan - Assessment and Plan (Free Text) Plan: Cellulitis of foot, left Assessment and Plan: Want to rule out Osteo Patient received Vanc and Clindamycin in the ED. Now on Vanc and Zosyn . First dose Vanc started on 09/08. Zosyn to begin 09/09 Perococet PRN and Tylenol PRN for pain Left foot xray - no osteo Podiatry recommendations: applied betadine, DSD to left foot, continue current regimen F/U Bone Scan of Left Foot (patient refuses to have MRI done due to claustrophobia) BC- no growth, WC- pending Status: Acute Diabetes Mellitus Assessment and Plan: Accuchecks HbgA1c = 13.3 Will hold home meds: Januvia 100mg QHS and Metformin 1000mg PO BID, and Prandin 1mg PO BID (confirmed with Pharmacy). According to the patient he takes Lantus 20mg SC BID (however the pharmacy did not confirm this). Started on: Lantus increased to 30 units HS, Novolog increased to 12 units TID, and Medium dose sliding scale DM counseling ordered Status: Chronic Hyperglycemia without ketosis Assessment and Plan: In ED, Blood glucose initially 548 UA showed 3+ glucose without evidence of serum ketones N.S. at 100 cc for dehydration Patient administered 15 units of Insulin IV and 15 units SC with moderate response Patient was started on: Lantus increased to 30 units HS, Novolog increased to 12 units TID, and Medium dose sliding scale Status: Acute History of quadriple vessel bypass surgery Assessment and Plan: Currently asymptomatic Continue Pradaxa, Cozaar, Zetia Started on ASA daily Lipid Panel and TSH, T4 - WNL Arterial PVR/ SEG B/L: mild to moderate BL arterial insufficiency beginning at SFA left with more disease than right, L> R. Status: Acute Atrial fibrillation Assessment and Plan: Amiodarone daily TSH, T4 - WNL Currently rate controlled and asymptomatic Cont to monitor Status: Acute HTN (hypertension) Assessment and Plan: Continue Cozaar and HCTZ Patient normally takes Diovan at home but non-formulary here. Status: Acute Prophylactic measure Assessment and Plan: DVT VTE c/i since patient is already on anticoagulation for AFib GI prophylaxis not indicated at this time F/U PT evaluation Status: Acute DW Chiara Forman DO, PGY-1 <Reid Gabriel M - Last Filed: 09/10/16 17:07> Objective - Vital Signs/Intake and Output Vital Signs (last 24 hours): Temp Pulse Resp BP Pulse Ox 98.4 F 59 L 18 143/73 98 09/10/16 08:00 09/10/16 08:00 09/10/16 08:00 09/10/16 08:00 09/10/16 08:00 Intake and Output: 09/10/16 09/10/16 06:59 18:59 Intake Total 1100 1350 Output Total 240 Balance 860 1350 - Medications Medications: Current Medications Acetaminophen (Tylenol 325mg Tab) 650 mg PO Q6 PRN PRN Reason: Pain, Mild (1-3) Last Admin: 09/09/16 07:02 Dose: 650 mg Amiodarone HCl (Cordarone) 200 mg PO DAILY [facility] Last Admin: 09/10/16 09:54 Dose: 200 mg Aspirin (Ecotrin) 81 mg PO DAILY [facility] Last Admin: 09/10/16 09:54 Dose: 81 mg Dabigatran (Pradaxa) 150 mg PO BID [facility] Last Admin: 09/10/16 09:53 Dose: 150 mg Ezetimibe (Zetia) 10 mg PO DAILY [facility] Last Admin: 09/10/16 09:54 Dose: 10 mg Hydrochlorothiazide (Hydrodiuril) 25 mg PO DAILY [facility] Last Admin: 09/10/16 09:53 Dose: 25 mg Piperacillin Sod/Tazobactam (Sod 2.25 gm/ Sodium Chloride) 100 mls @ 200 mls/ hr IVPB Q8H [facility] Last Admin: 09/10/16 09:55 Dose: 200 mls/hr Sodium Chloride (Sodium Chloride 0.9%) 1,000 mls @ 100 mls/hr IV .Q10H [facility] Last Admin: 09/10/16 10:40 Dose: Not Given Vancomycin/Sodium Chloride (Vancocin) 1 gm in 200 mls @ 133.333 mls/hr IVPB Q24H [facility] Last Admin: 09/10/16 12:45 Dose: 133.333 mls/hr Influenza Virus Vaccine (Afluria) 45 mcg IM .ONCE ONE Stop: 09/11/16 14:01 Insulin Aspart (Novolog) 0 unit SC ACHS [facility] PRN Reason: Protocol Last Admin: 09/10/16 12:46 Dose: 4 unit Insulin Aspart (Novolog) 12 unit SC TIDAC [facility] Last Admin: 09/10/16 12:46 Dose: 12 unit Insulin Glargine (Lantus) 30 unit SC HS [facility] Losartan Potassium (Cozaar) 100 mg PO DAILY [facility] Last Admin: 09/10/16 09:53 Dose: 100 mg Oxycodone/Acetaminophen (Percocet 5/325 Mg Tab) 1 tab PO Q6H PRN PRN Reason: Pain, severe (8-10) Stop: 09/12/16 11:21 Last Admin: 09/10/16 11:11 Dose: 1 tab Pneumococcal Polyvalent Vaccine (Pneumovax 23 Vaccine) 0.5 ml IM .ONCE ONE Stop: 09/11/16 14:01 Potassium Phos/Sodium Phos (Neutra-Phos) 1 pkt PO TID [facility] Stop: 09/11/16 11:01 Last Admin: 09/10/16 14:38 Dose: 1 pkt Quetiapine Fumarate (Seroquel) 200 mg PO [facility] Last Admin: 09/09/16 21:55 Dose: Not Given Venlafaxine HCl (Effexor Xr) 150 mg PO DAILY [facility] Last Admin: 09/10/16 09:55 Dose: 150 mg - Labs Labs: 09/10/16 07:01 09/10/16 07:01 PT 11.4 SECONDS (9.7-12.2) 09/09/16 07:22 INR 1.0 09/09/16 07:22 APTT 31 SECONDS (21-34) D 09/09/16 07:22 Attending/Attestation - Attestation I have personally seen and examined this patient.: Yes I have fully participated in the care of the patient.: Yes I have reviewed all pertinent clinical information, including history, physical exam and plan: Yes Notes (Text): 09/10/16 17:05 Patient was seen and examined at bedside with the resident. Complains of pain in the left. Dressing is in place. Podiatry is on board. Follow-up report of the nuclear bone scan. Rule out osteomyelitis Continue IV antibiotics. Patient is on vancomycin and Zosyn. I discussed the plan of care with the resident and agree with the history and physical and assessment/plan recommended above.
[2016-09-10] MEDS ORDERED: (Lantus) Insulin Glargine, Recombinant SC SCH ×2 (11:04→22:00)
[2016-09-10] MEDS ORDERED: Vancomycin 1 gm/NS 200 ml 1 GM/200 ML BAG IVPB SCH (12:00)
[2016-09-10] MEDS: Potassium & Sodium Phosphate PO SCH ×3 (12:46→17:21)
--- NOTE | 2016-09-10 14:22 | CP.PCM.PN ---
Subjective - Date & Time of Evaluation Date of Evaluation: 09/10/16 Time of Evaluation: 11:00 - Subjective Subjective: 55 year old male was seen at bedside regarding left foot cellulitis. He states that he is feeling better today and has a little less pain to his left foot. Patient appears in NAD and AAOx3. Patient denies any other pedal complaints at this time. Patient denies any numbness or burning in his foot. Patient denies n/ f/c/v/d/sob. Objective - Vital Signs/Intake and Output Vital Signs (last 24 hours): Temp Pulse Resp BP Pulse Ox 98.4 F 59 L 18 143/73 98 09/10/16 08:00 09/10/16 08:00 09/10/16 08:00 09/10/16 08:00 09/10/16 08:00 Intake and Output: 09/10/16 09/10/16 06:59 18:59 Intake Total 1100 Output Total 240 Balance 860 - Medications Medications: Current Medications Acetaminophen (Tylenol 325mg Tab) 650 mg PO Q6 PRN PRN Reason: Pain, Mild (1-3) Last Admin: 09/09/16 07:02 Dose: 650 mg Amiodarone HCl (Cordarone) 200 mg PO DAILY [facility] Last Admin: 09/10/16 09:54 Dose: 200 mg Aspirin (Ecotrin) 81 mg PO DAILY [facility] Last Admin: 09/10/16 09:54 Dose: 81 mg Dabigatran (Pradaxa) 150 mg PO BID [facility] Last Admin: 09/10/16 09:53 Dose: 150 mg Ezetimibe (Zetia) 10 mg PO DAILY [facility] Last Admin: 09/10/16 09:54 Dose: 10 mg Hydrochlorothiazide (Hydrodiuril) 25 mg PO DAILY [facility] Last Admin: 09/10/16 09:53 Dose: 25 mg Piperacillin Sod/Tazobactam (Sod 2.25 gm/ Sodium Chloride) 100 mls @ 200 mls/ hr IVPB Q8H [facility] Last Admin: 09/10/16 09:55 Dose: 200 mls/hr Sodium Chloride (Sodium Chloride 0.9%) 1,000 mls @ 100 mls/hr IV .Q10H [facility] Last Admin: 09/10/16 10:40 Dose: Not Given Vancomycin/Sodium Chloride (Vancocin) 1 gm in 200 mls @ 133.333 mls/hr IVPB Q24H [facility] Last Admin: 09/10/16 12:45 Dose: 133.333 mls/hr Influenza Virus Vaccine (Afluria) 45 mcg IM .ONCE ONE Stop: 09/11/16 14:01 Insulin Aspart (Novolog) 0 unit SC ACHS [facility] PRN Reason: Protocol Last Admin: 09/10/16 12:46 Dose: 4 unit Insulin Aspart (Novolog) 12 unit SC TIDAC [facility] Last Admin: 09/10/16 12:46 Dose: 12 unit Insulin Glargine (Lantus) 30 unit SC HS [facility] Losartan Potassium (Cozaar) 100 mg PO DAILY [facility] Last Admin: 09/10/16 09:53 Dose: 100 mg Oxycodone/Acetaminophen (Percocet 5/325 Mg Tab) 1 tab PO Q6H PRN PRN Reason: Pain, severe (8-10) Stop: 09/12/16 11:21 Last Admin: 09/10/16 11:11 Dose: 1 tab Pneumococcal Polyvalent Vaccine (Pneumovax 23 Vaccine) 0.5 ml IM .ONCE ONE Stop: 09/11/16 14:01 Potassium Phos/Sodium Phos (Neutra-Phos) 1 pkt PO TID [facility] Stop: 09/11/16 11:01 Last Admin: 09/10/16 12:46 Dose: 1 pkt Quetiapine Fumarate (Seroquel) 200 mg PO HS [facility] Last Admin: 09/09/16 21:55 Dose: Not Given Venlafaxine HCl (Effexor Xr) 150 mg PO DAILY [facility] Last Admin: 09/10/16 09:55 Dose: 150 mg - Labs Labs: 09/10/16 07:01 09/10/16 07:01 PT 11.4 SECONDS (9.7-12.2) 09/09/16 07:22 INR 1.0 09/09/16 07:22 APTT 31 SECONDS (21-34) D 09/09/16 07:22 - Constitutional Appears: Well, Non-toxic, No Acute Distress - Extremities Exam Additional comments: left lower extremity focused exam: Vasc: DP and PT pulses palpable 1/4, TG warm to warm with increased warmth noted to the lateral aspect of the left foot, CFT < 3 sec to all digits neuro: gross sensation intact derm: localized non-pitting edema and erythema extending to from the 4th and 5th digits to the lateral aspect of the midfoot, interdigital maceration to left 4th interspace, no probe to bone, mild malodor, no fluctuance, no purulence , no underlying abscess formation ortho: pain on palpation to dorsal left foot - Neurological Exam Neurological Exam: Alert, Awake, Oriented x3 - Psychiatric Exam Psychiatric exam: Normal Affect, Normal Mood Assessment and Plan - Assessment and Plan (Free Text) Assessment: 55 y/o male with left lower extremity cellulitis and interdigital maceration to 4th interspace Plan: patient examined and evaluated discussed in detail with attending Dr. Jo chart,labs and vitals reviewed; WBC 12.2 applied betadine, DSD to left foot monitor cellulitis continue IV abx as per ID bone scan pending podiatry will continue to follow while patient remains in house
--- NOTE | 2016-09-10 16:19 | NM ---
PROCEDURE: Whole Body Bone Scan HISTORY: Cellulitis left foot. Negative study COMPARISON: September 09, 2016. Radiographs left foot. September 09, 2016. Arterial low peripheral vascular ankle-brachial index examination TECHNIQUE: 24.1 mCi technetium 99 M MDP administered intravenously right upper extremity indwelling IV line. FINDINGS: Flow component: Increased flow left lower extremity primarily foot and left ankle without focal abnormality. Blood pool component: Increased Accumulation of radionuclide in the soft tissues left ankle left foot compared to the right. Delayed images at 3:00: Retention of radionuclide primarily in the soft tissues left ankle-foot compared to right. IMPRESSION: Negative study For acute osseous process. Findings consistent with severe cellulitis left ankle and left foot.
[2016-09-11] MEDS: Piperacillin/Tazobact 2.25 GM in Sodium Chloride 100 ML IVPB SCH (01:32)
[2016-09-11 07:20] LABS: BASO # 0.1 K/uL (0.0-0.2); BASO % 0.8 % (0.0-2.0); EOS % 0.4 % (0.0-4.0); HEMATOCRIT 35.3 % (35.0-51.0); LYMPH # 2.3 K/uL (1.0-4.3); LYMPH % 18.2 % (20.0-40.0); MEAN CORPUSCULAR HEMOGLOBIN 28.3 pg (27.0-31.0); MEAN CORPUSCULAR HGB CONC 32.9 g/dL (33.0-37.0); MEAN PLATELET VOLUME 8.5 fL (7.2-11.7); MONO # 1.2 K/uL (0.0-0.8); MONO % 9.8 % (0.0-10.0); RED CELL DISTRIBUTION WIDTH 12.7 % (11.5-14.5); WHITE BLOOD COUNT 12.4 K/uL (4.8-10.8)
[2016-09-11 07:38] LABS: CHLORIDE 92 mmol/L (98-107); POTASSIUM 4.4 mmol/L (3.6-5.2); SODIUM 134 mmol/L (132-148)
[2016-09-11 07:40] LABS: GFR AFRICAN-AMERICAN > 60
[2016-09-11 07:41] LABS: ALB/GLOB RATIO 1.1 (1.0-2.1); ALKALINE PHOSPHATASE 75 U/L (38-126); ALT/SGPT 22 U/L (21-72); AST/SGOT 18 U/L (17-59); BILIRUBIN,TOTAL 0.6 mg/dL (0.2-1.3); BLOOD UREA NITROGEN 6 mg/dL (9-20); CARBON DIOXIDE 26 mmol/L (22-30); GLUCOSE,RANDOM 232 mg/dL (75-110); PHOSPHOROUS 2.7 mg/dL (2.5-4.5); TOTAL PROTEIN 7.1 g/dL (6.3-8.3)
[2016-09-11 07:42] LABS: CALCIUM 9.1 mg/dl (8.6-10.4); MAGNESIUM 1.5 mg/dL (1.6-2.3)
[2016-09-11] MEDS: (Novolog) Insulin Aspart, Recombinant 100 u/ml 10 ml vial SC SCH ×7 (08:12→21:36)
--- NOTE | 2016-09-11 09:11 | CP.PCM.PN ---
Addendum entered and electronically signed by Desi Guadarrama DO 09/11/16 12:22 : IR consult placed for PICC line so patient can be discharged to TCU. Original Note: <Desi Guadarrama - Last Filed: 09/11/16 09:07> Subjective - Date & Time of Evaluation Date of Evaluation: 09/11/16 Time of Evaluation: 07:00 - Subjective Subjective: Medicine Note for Dr. Gabriel Patient was seen and examined at bedside. Patient reports his pain is well controlled. Denied any fever, chills, headache, abdominal pain, n/v/d/c, or urinary symptoms. Objective - Vital Signs/Intake and Output Vital Signs (last 24 hours): Temp Pulse Resp BP Pulse Ox 98 F 79 20 129/69 99 09/11/16 08:15 09/11/16 08:15 09/11/16 08:15 09/11/16 08:15 09/11/16 08:15 Intake and Output: 09/11/16 09/11/16 06:59 18:59 Intake Total 1100 Output Total 1 Balance 1099 - Medications Medications: Current Medications Acetaminophen (Tylenol 325mg Tab) 650 mg PO Q6 PRN PRN Reason: Pain, Mild (1-3) Last Admin: 09/09/16 07:02 Dose: 650 mg Amiodarone HCl (Cordarone) 200 mg PO DAILY [facility] Last Admin: 09/10/16 09:54 Dose: 200 mg Aspirin (Ecotrin) 81 mg PO DAILY [facility] Last Admin: 09/10/16 09:54 Dose: 81 mg Dabigatran (Pradaxa) 150 mg PO BID [facility] Last Admin: 09/10/16 18:00 Dose: 150 mg Ezetimibe (Zetia) 10 mg PO DAILY [facility] Last Admin: 09/10/16 09:54 Dose: 10 mg Hydrochlorothiazide (Hydrodiuril) 25 mg PO DAILY [facility] Last Admin: 09/10/16 09:53 Dose: 25 mg Sodium Chloride (Sodium Chloride 0.9%) 1,000 mls @ 100 mls/hr IV .Q10H [facility] Last Admin: 09/10/16 20:30 Dose: 100 mls/hr Ciprofloxacin (Cipro 400mg/200ml Dsw) 400 mg in 200 mls @ 133 mls/hr IVPB Q12H [facility] Influenza Virus Vaccine (Afluria) 45 mcg IM .ONCE ONE Stop: 09/11/16 14:01 Insulin Aspart (Novolog) 0 unit SC ACHS [facility] PRN Reason: Protocol Last Admin: 09/11/16 08:12 Dose: 3 unit Insulin Aspart (Novolog) 12 unit SC TIDAC [facility] Last Admin: 09/11/16 08:13 Dose: 12 unit Insulin Glargine (Lantus) [address] [facility] Last Admin: 09/10/16 22:01 Dose: 25 units Losartan Potassium (Cozaar) 100 mg PO DAILY [facility] Last Admin: 09/10/16 09:53 Dose: 100 mg Oxycodone/Acetaminophen (Percocet 5/325 Mg Tab) 1 tab PO Q6H PRN PRN Reason: Pain, severe (8-10) Stop: 09/12/16 11:21 Last Admin: 09/10/16 11:11 Dose: 1 tab Pneumococcal Polyvalent Vaccine (Pneumovax 23 Vaccine) 0.5 ml IM .ONCE ONE Stop: 09/11/16 14:01 Potassium Phos/Sodium Phos (Neutra-Phos) 1 pkt PO TID [facility] Stop: 09/11/16 11:01 Last Admin: 09/10/16 17:21 Dose: 1 pkt Quetiapine Fumarate (Seroquel) [address] [facility] Last Admin: 09/10/16 21:58 Dose: 200 mg Venlafaxine HCl (Effexor Xr) 150 mg PO DAILY [facility] Last Admin: 09/10/16 09:55 Dose: 150 mg - Labs Labs: 09/11/16 06:53 09/11/16 06:53 PT 11.4 SECONDS (9.7-12.2) 09/09/16 07:22 INR 1.0 09/09/16 07:22 APTT 31 SECONDS (21-34) D 09/09/16 07:22 - Constitutional Appears: No Acute Distress - Head Exam Head Exam: NORMAL INSPECTION, NORMOCEPHALIC - Eye Exam Eye Exam: EOMI, Normal appearance, PERRL Pupil Exam: NORMAL ACCOMODATION - ENT Exam ENT Exam: Mucous Membranes Moist, Normal Exam - Respiratory Exam Respiratory Exam: Clear to Ausculation Bilateral, NORMAL BREATHING PATTERN. absent: Wheezes - Cardiovascular Exam Cardiovascular Exam: REGULAR RHYTHM, RRR, +S1, +S2 - GI/Abdominal Exam GI & Abdominal Exam: Soft, Normal Bowel Sounds. absent: Distended, Tenderness - Extremities Exam Extremities Exam: Normal Inspection. absent: Pedal Edema, Tenderness - Neurological Exam Neurological Exam: Alert, Awake, Oriented x3 - Skin Skin Exam: Dry, Intact, Normal Color, Warm Assessment and Plan - Assessment and Plan (Free Text) Plan: Cellulitis of foot, left Assessment and Plan: Patient received Vanc and Clindamycin in the ED. Perococet PRN and Tylenol PRN for pain Now on Vanc and Zosyn . First dose Vanc started on 09/08. Zosyn to begin 09/09 Left foot xray - no osteo Podiatry recommendations: applied betadine, DSD to left foot, continue current regimen BC- no growth Bone Scan of Left Foot (patient refuses to have MRI done due to claustrophobia) : NO OSTEOMYELITIS Continued leukocytosis. WC- proteus +, started on Cipro 400mg IV Q12 09/11/16 Status: Acute Diabetes Mellitus Assessment and Plan: Accuchecks HbgA1c = 13.3 Will hold home meds: Januvia 100mg QHS and Metformin 1000mg PO BID, and Prandin 1mg PO BID (confirmed with Pharmacy). According to the patient he takes Lantus 20mg SC BID (however the pharmacy did not confirm this). Started on: Lantus increased to 30 units HS, Novolog increased to 12 units TID, and Medium dose sliding scale DM counseling ordered Status: Chronic Hyperglycemia without ketosis Assessment and Plan: RESOLVED In ED, Blood glucose initially 548 UA showed 3+ glucose without evidence of serum ketones N.S. at 100 cc for dehydration Patient administered 15 units of Insulin IV and 15 units SC with moderate response Patient was started on: Lantus increased to 30 units HS, Novolog increased to 12 units TID, and Medium dose sliding scale Status: Acute History of quadriple vessel bypass surgery Assessment and Plan: Currently asymptomatic Continue Pradaxa, Cozaar, Zetia Started on ASA daily Lipid Panel and TSH, T4 - WNL Arterial PVR/ SEG B/L: mild to moderate BL arterial insufficiency beginning at SFA left with more disease than right, L> R. Status: Acute Atrial fibrillation Assessment and Plan: Amiodarone daily TSH, T4 - WNL Currently rate controlled and asymptomatic Cont to monitor Status: Acute HTN (hypertension) Assessment and Plan: Continue Cozaar and HCTZ Patient normally takes Diovan at home but non-formulary here. Status: Acute Prophylactic measure Assessment and Plan: DVT VTE c/i since patient is already on anticoagulation for AFib GI prophylaxis not indicated at this time PT evaluation- recommend TCU Status: Acute DW Chiara Forman DO, PGY-1 <Reid Gabriel - Last Filed: 09/11/16 17:55> Objective - Vital Signs/Intake and Output Vital Signs (last 24 hours): Temp Pulse Resp BP Pulse Ox 97.8 F 75 20 129/69 99 09/11/16 15:00 09/11/16 15:59 09/11/16 15:00 09/11/16 15:59 09/11/16 15:59 Intake and Output: 09/11/16 09/11/16 06:59 18:59 Intake Total 1100 1580 Output Total 1 800 Balance 1099 780 - Medications Medications: Current Medications Acetaminophen (Tylenol 325mg Tab) 650 mg PO Q6 PRN PRN Reason: Pain, Mild (1-3) Last Admin: 09/09/16 07:02 Dose: 650 mg Amiodarone HCl (Cordarone) 200 mg PO DAILY [facility] Last Admin: 09/11/16 09:31 Dose: 200 mg Aspirin (Ecotrin) 81 mg PO DAILY [facility] Last Admin: 09/11/16 09:32 Dose: 81 mg Dabigatran (Pradaxa) 150 mg PO BID [facility] Last Admin: 09/11/16 17:13 Dose: 150 mg Ezetimibe (Zetia) 10 mg PO DAILY [facility] Last Admin: 09/11/16 10:00 Dose: 10 mg Hydrochlorothiazide (Hydrodiuril) 25 mg PO DAILY [facility] Last Admin: 09/11/16 09:32 Dose: 25 mg Sodium Chloride (Sodium Chloride 0.9%) 1,000 mls @ 100 mls/hr IV .Q10H [facility] Last Admin: 09/11/16 17:15 Dose: 100 mls/hr Ciprofloxacin (Cipro 400mg/200ml Dsw) 400 mg in 200 mls @ 133 mls/hr IVPB Q12H [facility] Last Admin: 09/11/16 10:56 Dose: 133 mls/hr Insulin Aspart (Novolog) 0 unit SC ACHS [facility] PRN Reason: Protocol Last Admin: 09/11/16 17:12 Dose: 4 unit Insulin Aspart (Novolog) 12 unit SC TIDAC [facility] Last Admin: 09/11/16 17:12 Dose: 12 unit Insulin Glargine (Lantus) 30 unit SC HS [facility] Losartan Potassium (Cozaar) 100 mg PO DAILY [facility] Last Admin: 09/11/16 09:32 Dose: 100 mg Oxycodone/Acetaminophen (Percocet 5/325 Mg Tab) 1 tab PO Q6H PRN PRN Reason: Pain, severe (8-10) Stop: 09/12/16 11:21 Last Admin: 09/11/16 09:38 Dose: 1 tab Quetiapine Fumarate (Seroquel) 200 mg PO HS [facility] Last Admin: 09/10/16 21:58 Dose: 200 mg Venlafaxine HCl (Effexor Xr) 150 mg PO DAILY [facility] Last Admin: 09/11/16 09:32 Dose: 150 mg - Labs Labs: 09/11/16 06:53 09/11/16 06:53 PT 11.4 SECONDS (9.7-12.2) 09/09/16 07:22 INR 1.0 09/09/16 07:22 APTT 31 SECONDS (21-34) D 09/09/16 07:22 Attending/Attestation - Attestation I have personally seen and examined this patient.: Yes I have fully participated in the care of the patient.: Yes I have reviewed all pertinent clinical information, including history, physical exam and plan: Yes Notes (Text): 09/11/16 17:52 Patient was seen and examined at bedside with the resident Left foot pain is improving Discussed with podiatry. Still has the significant inflammation and redness of the site. We'll continue IV antibiotics. Antibiotic has been chest to ciprofloxacin because of the sensitivities of the culture. Patient has received a PICC line today. Discharge planning to TCU tomorrow if the patient is medically stable. I discussed the plan of care with the resident and agree with the assessment plan recommended above.
[2016-09-11] MEDS: Venlafaxine 150 mg ER Cap PO SCH (09:32)
[2016-09-11] MEDS: Potassium & Sodium Phosphate PO SCH (09:33)
[2016-09-11] MEDS: Oxycodone/Acetaminophen 5/325 mg Tab PO PRN ×2 (09:38→19:28)
[2016-09-11] MEDS: Ciprofloxacin 400mg/200ml D5W 400 MG/200 ML BAG IVPB SCH ×2 (10:56→20:59)
--- NOTE | 2016-09-11 12:26 | CP.PCM.PN ---
Subjective - Date & Time of Evaluation Date of Evaluation: 09/11/16 Time of Evaluation: 12:24 - Subjective Subjective: 55 year old male was seen at bedside regarding left foot cellulitis. He states that he is feeling better today and has a little less pain to his left foot than yesterday. He states that his antibiotics have also been changed. Patient appears in NAD and AAOx3. Patient denies any other pedal complaints at this time. Patient denies n/f/c/v/d/sob. Objective - Vital Signs/Intake and Output Vital Signs (last 24 hours): Temp Pulse Resp BP Pulse Ox 98 F 79 20 129/69 99 09/11/16 08:15 09/11/16 08:15 09/11/16 08:15 09/11/16 08:15 09/11/16 08:15 Intake and Output: 09/11/16 09/11/16 06:59 18:59 Intake Total 1100 Output Total 1 Balance 1099 - Medications Medications: Current Medications Acetaminophen (Tylenol 325mg Tab) 650 mg PO Q6 PRN PRN Reason: Pain, Mild (1-3) Last Admin: 09/09/16 07:02 Dose: 650 mg Amiodarone HCl (Cordarone) 200 mg PO DAILY [facility] Last Admin: 09/11/16 09:31 Dose: 200 mg Aspirin (Ecotrin) 81 mg PO DAILY [facility] Last Admin: 09/11/16 09:32 Dose: 81 mg Dabigatran (Pradaxa) 150 mg PO BID [facility] Last Admin: 09/11/16 09:33 Dose: 150 mg Ezetimibe (Zetia) 10 mg PO DAILY [facility] Last Admin: 09/10/16 09:54 Dose: 10 mg Hydrochlorothiazide (Hydrodiuril) 25 mg PO DAILY [facility] Last Admin: 09/11/16 09:32 Dose: 25 mg Sodium Chloride (Sodium Chloride 0.9%) 1,000 mls @ 100 mls/hr IV .Q10H [facility] Last Admin: 09/10/16 20:30 Dose: 100 mls/hr Ciprofloxacin (Cipro 400mg/200ml Dsw) 400 mg in 200 mls @ 133 mls/hr IVPB Q12H [facility] Last Admin: 09/11/16 10:56 Dose: 133 mls/hr Influenza Virus Vaccine (Afluria) 45 mcg IM .ONCE ONE Stop: 09/11/16 14:01 Insulin Aspart (Novolog) 0 unit SC ACHS [facility] PRN Reason: Protocol Last Admin: 09/11/16 08:12 Dose: 3 unit Insulin Aspart (Novolog) 12 unit SC TIDAC [facility] Last Admin: 09/11/16 08:13 Dose: 12 unit Insulin Glargine (Lantus) 30 unit SC HS [facility] Losartan Potassium (Cozaar) 100 mg PO DAILY [facility] Last Admin: 09/11/16 09:32 Dose: 100 mg Oxycodone/Acetaminophen (Percocet 5/325 Mg Tab) 1 tab PO Q6H PRN PRN Reason: Pain, severe (8-10) Stop: 09/12/16 11:21 Last Admin: 09/11/16 09:38 Dose: 1 tab Pneumococcal Polyvalent Vaccine (Pneumovax 23 Vaccine) 0.5 ml IM .ONCE ONE Stop: 09/11/16 14:01 Quetiapine Fumarate (Seroquel) 200 mg PO [facility] Last Admin: 09/10/16 21:58 Dose: 200 mg Venlafaxine HCl (Effexor Xr) 150 mg PO DAILY [facility] Last Admin: 09/11/16 09:32 Dose: 150 mg - Labs Labs: 09/11/16 06:53 09/11/16 06:53 PT 11.4 SECONDS (9.7-12.2) 09/09/16 07:22 INR 1.0 09/09/16 07:22 APTT 31 SECONDS (21-34) D 09/09/16 07:22 - Constitutional Appears: Well, Non-toxic, No Acute Distress - Extremities Exam Additional comments: left lower extremity focused exam: Vasc: DP and PT pulses palpable 1/4, TG warm to warm with increased warmth noted to the lateral aspect of the left foot, CFT < 3 sec to all digits neuro: gross sensation intact derm: localized non-pitting edema and erythema extending to from the 4th and 5th digits to the lateral aspect of the midfoot, interdigital maceration to left 4th interspace, no probe to bone, mild malodor, no fluctuance, no purulence , no underlying abscess formation ortho: pain on palpation to dorsal left foot - Neurological Exam Neurological Exam: Alert, Awake, Oriented x3 - Psychiatric Exam Psychiatric exam: Normal Affect, Normal Mood Assessment and Plan - Assessment and Plan (Free Text) Assessment: 55 y/o male with left lower extremity cellulitis and interdigital maceration to 4th interspace Plan: patient examined and evaluated discussed in detail with attending Dr. Jo chart,labs and vitals reviewed; WBC 12.4 applied betadine, DSD to left foot monitor cellulitis continue IV abx as per primary bone scan-cellulitis, No OM podiatry will continue to follow while patient remains in house
[2016-09-11] MEDS ORDERED: Lidocaine 2% Inj (20ml) ONE (13:17)
--- NOTE | 2016-09-11 13:30 | PCM.SURG1 ---
Surgeon's Initial Post Op Note - Surgeon's Notes Surgeon: Kory Furniture Builder: None Type of Anesthesia: Local Pre-Operative Diagnosis: Need for IV Access. Operative Findings: Patent right basilic vein Post-Operative Diagnosis: Need for IV Access. Operation Performed: Right basilic vein 4F SL 35cm PICC placed with tip at the RA/SVC juntion. Specimen/Specimens Removed: None Estimated Blood Loss: EBL {In ML}: 1 Date of Surgery/Procedure: 09/11/16 Time of Surgery/Procedure: 13:20
[2016-09-11] MEDS ORDERED: Pneumococcal 23-Valent Vaccine IM ONE (14:00)
[2016-09-11] MEDS ORDERED: Influenza Virus Vaccine 45 mcg/0.5 ml Syr IM ONE (14:00)
[2016-09-11] MEDS: Sodium Chloride 0.9% 1,000 ML IV SCH (17:15)
[2016-09-11] MEDS: (Lantus) Insulin Glargine, Recombinant SC SCH (21:36)
[2016-09-12] MEDS: Sodium Chloride 0.9% 1,000 ML IV SCH ×3 (02:15→21:40)
[2016-09-12] MEDS: Oxycodone/Acetaminophen 5/325 mg Tab PO PRN ×4 (02:22→18:18)
[2016-09-12 06:46] LABS: BASO # 0.1 K/uL (0.0-0.2); EOS # 0.1 K/uL (0.0-0.7); EOS % 0.6 % (0.0-4.0); HEMATOCRIT 34.3 % (35.0-51.0); LYMPH # 2.6 K/uL (1.0-4.3); LYMPH % 19.7 % (20.0-40.0); MEAN CELL VOLUME 86.4 fL (80.0-94.0); MEAN CORPUSCULAR HEMOGLOBIN 27.5 pg (27.0-31.0); MEAN CORPUSCULAR HGB CONC 31.9 g/dL (33.0-37.0); MEAN PLATELET VOLUME 8.3 fL (7.2-11.7); MONO # 1.4 K/uL (0.0-0.8); MONO % 10.6 % (0.0-10.0); RED CELL DISTRIBUTION WIDTH 12.9 % (11.5-14.5); WHITE BLOOD COUNT 13.2 K/uL (4.8-10.8)
[2016-09-12 07:05] LABS: ALB/GLOB RATIO 1.1 (1.0-2.1); ALKALINE PHOSPHATASE 75 U/L (38-126); ALT/SGPT 28 U/L (21-72); AST/SGOT 28 U/L (17-59); BILIRUBIN,TOTAL 0.3 mg/dL (0.2-1.3); BLOOD UREA NITROGEN 8 mg/dL (9-20); CARBON DIOXIDE 31 mmol/L (22-30); CHLORIDE 92 mmol/L (98-107); GFR AFRICAN-AMERICAN > 60; GLUCOSE,RANDOM 228 mg/dL (75-110); MAGNESIUM 1.7 mg/dL (1.6-2.3); PHOSPHOROUS 3.4 mg/dL (2.5-4.5); POTASSIUM 4.2 mmol/L (3.6-5.2); SODIUM 135 mmol/L (132-148); TOTAL PROTEIN 6.6 g/dL (6.3-8.3)
[2016-09-12] MEDS: (Novolog) Insulin Aspart, Recombinant 100 u/ml 10 ml vial SC SCH ×7 (07:50→22:00)
[2016-09-12] MEDS: Vancomycin 1 gm/NS 200 ml 1 GM/200 ML BAG IVPB SCH ×2 (08:28→20:00)
[2016-09-12] MEDS: Venlafaxine 150 mg ER Cap PO SCH (09:11)
[2016-09-12] MEDS: Saccharomyces Boulardi 250 mg Cap PO SCH ×2 (09:12→18:17)
[2016-09-12] MEDS: Ciprofloxacin 400mg/200ml D5W 400 MG/200 ML BAG IVPB SCH (11:03)
--- NOTE | 2016-09-12 11:34 | CP.PCM.PN ---
Subjective - Date & Time of Evaluation Date of Evaluation: 09/12/16 Time of Evaluation: 11:34 - Subjective Subjective: 55 year old male was seen at bedside with attending, Dr. Jo regarding left foot cellulitis. He states that he is still having pain to his left leg. Patient appears in NAD and AAOx3. Patient denies any other pedal complaints at this time. He is aware that tomorrow afternoon he is going for and I and D of the left foot. Patient denies n/f/c/v/d/sob. Objective - Vital Signs/Intake and Output Vital Signs (last 24 hours): Temp Pulse Resp BP Pulse Ox 98 F 70 20 177/77 H 100 09/12/16 07:37 09/12/16 07:37 09/12/16 07:37 09/12/16 07:37 09/12/16 07:37 Intake and Output: 09/12/16 09/12/16 06:59 18:59 Intake Total 1150 Output Total 405 Balance 745 - Medications Medications: Current Medications Acetaminophen (Tylenol 325mg Tab) 650 mg PO Q6 PRN PRN Reason: Pain, Mild (1-3) Last Admin: 09/09/16 07:02 Dose: 650 mg Amiodarone HCl (Cordarone) 200 mg PO DAILY [facility] Last Admin: 09/12/16 09:11 Dose: 200 mg Aspirin (Ecotrin) 81 mg PO DAILY [facility] Last Admin: 09/12/16 09:11 Dose: 81 mg Dabigatran (Pradaxa) 150 mg PO BID [facility] Last Admin: 09/12/16 09:12 Dose: 150 mg Ezetimibe (Zetia) 10 mg PO DAILY [facility] Last Admin: 09/11/16 10:00 Dose: 10 mg Hydrochlorothiazide (Hydrodiuril) 25 mg PO DAILY [facility] Last Admin: 09/12/16 09:12 Dose: 25 mg Sodium Chloride (Sodium Chloride 0.9%) 1,000 mls @ 100 mls/hr IV .Q10H [facility] Last Admin: 09/12/16 05:41 Dose: 100 mls/hr Ciprofloxacin (Cipro 400mg/200ml Dsw) 400 mg in 200 mls @ 133 mls/hr IVPB Q12H [facility] Last Admin: 09/12/16 11:03 Dose: 133 mls/hr Vancomycin/Sodium Chloride (Vancocin) 1 gm in 200 mls @ 133 mls/hr IVPB Q12H [facility] Stop: 09/17/16 08:01 Last Admin: 09/12/16 08:28 Dose: 133 mls/hr Insulin Aspart (Novolog) 0 unit SC ACHS [facility] PRN Reason: Protocol Last Admin: 09/12/16 07:50 Dose: 3 unit Insulin Aspart (Novolog) 12 unit SC TIDAC [facility] Last Admin: 09/12/16 07:51 Dose: 12 unit Insulin Glargine (Lantus) 30 unit SC HS [facility] Last Admin: 09/11/16 21:36 Dose: 30 unit Losartan Potassium (Cozaar) 100 mg PO DAILY [facility] Last Admin: 09/12/16 09:11 Dose: 100 mg Oxycodone/Acetaminophen (Percocet 5/325 Mg Tab) 2 tab PO Q6H PRN PRN Reason: Pain, moderate (4-7) Stop: 09/15/16 07:01 Last Admin: 09/12/16 07:08 Dose: 2 tab Quetiapine Fumarate (Seroquel) 200 mg PO HS [facility] Last Admin: 09/11/16 21:37 Dose: 200 mg Saccharomyces Boulardii (Florastor) 250 mg PO BID [facility] Last Admin: 09/12/16 09:12 Dose: 250 mg Venlafaxine HCl (Effexor Xr) 150 mg PO DAILY [facility] Last Admin: 09/12/16 09:11 Dose: 150 mg - Labs Labs: 09/12/16 06:17 09/12/16 06:17 PT 11.4 SECONDS (9.7-12.2) 09/09/16 07:22 INR 1.0 09/09/16 07:22 APTT 31 SECONDS (21-34) D 09/09/16 07:22 - Constitutional Appears: Well, Non-toxic, No Acute Distress - Extremities Exam Additional comments: left lower extremity focused exam: Vasc: DP and PT pulses palpable 1/4, TG warm to warm with increased warmth noted to the lateral aspect of the left foot, CFT < 3 sec to all digits neuro: gross sensation intact derm: localized non-pitting edema and erythema extending to from the 4th and 5th digits to the dorsolateral aspect of the midfoot, interdigital maceration to left 4th interspace with scant amount of sangionus drainage, small area of maceration noted to the dorsolateral aspect of the left foot. no probe to bone, mild malodor, no purulence noted. ortho: pain on palpation to dorsal left foot - Neurological Exam Neurological Exam: Alert, Awake, Oriented x3 - Psychiatric Exam Psychiatric exam: Normal Affect, Normal Mood Assessment and Plan - Assessment and Plan (Free Text) Assessment: 55 y/o male with left lower extremity cellulitis and interdigital maceration to 4th interspace Plan: patient examined and evaluated with attending Dr. Jo chart,labs and vitals reviewed; WBC 13.2, afebrile vascular Dr. Sanders consulted for PVD applied xeroform, DSD to left foot continue IV abx as per primary/ID-vanco and cipro bone scan-cellulitis, No OM patient refused MRI patient to OR tomorrow PM for left foot I and D, pt is agreeable and understands the risk, benefits, and complications medical optimization in chart patient to be NPO after breakfast anticoagulants held podiatry will continue to follow while patient remains in house
--- NOTE | 2016-09-12 13:45 | CP.PCM.PN ---
<Desi Guadarrama - Last Filed: 09/12/16 13:34> Subjective - Date & Time of Evaluation Date of Evaluation: 09/12/16 Time of Evaluation: 07:00 - Subjective Subjective: Medicine Note for Dr. Gabriel Patient was seen and examined at bedside. Patient reports his left foot was hurting more last night. Patient was seen by podiatry this morning, plan for I & D tomorrow. Denied any fever, chills, headache, abdominal pain, n/v/d/c, or urinary symptoms. Objective - Vital Signs/Intake and Output Vital Signs (last 24 hours): Temp Pulse Resp BP Pulse Ox 98 F 70 20 177/77 H 100 09/12/16 07:37 09/12/16 07:37 09/12/16 07:37 09/12/16 07:37 09/12/16 07:37 Intake and Output: 09/12/16 09/12/16 06:59 18:59 Intake Total 1150 Output Total 405 Balance 745 - Medications Medications: Current Medications Acetaminophen (Tylenol 325mg Tab) 650 mg PO Q6 PRN PRN Reason: Pain, Mild (1-3) Last Admin: 09/09/16 07:02 Dose: 650 mg Amiodarone HCl (Cordarone) 200 mg PO DAILY [facility] Last Admin: 09/12/16 09:11 Dose: 200 mg Aspirin (Ecotrin) 81 mg PO DAILY [facility] Last Admin: 09/12/16 09:11 Dose: 81 mg Dabigatran (Pradaxa) 150 mg PO BID [facility] Last Admin: 09/12/16 09:12 Dose: 150 mg Ezetimibe (Zetia) 10 mg PO DAILY [facility] Last Admin: 09/11/16 10:00 Dose: 10 mg Hydrochlorothiazide (Hydrodiuril) 25 mg PO DAILY [facility] Last Admin: 09/12/16 09:12 Dose: 25 mg Sodium Chloride (Sodium Chloride 0.9%) 1,000 mls @ 100 mls/hr IV .Q10H [facility] Last Admin: 09/12/16 05:41 Dose: 100 mls/hr Ciprofloxacin (Cipro 400mg/200ml Dsw) 400 mg in 200 mls @ 133 mls/hr IVPB Q12H [facility] Last Admin: 09/12/16 11:03 Dose: 133 mls/hr Vancomycin/Sodium Chloride (Vancocin) 1 gm in 200 mls @ 133 mls/hr IVPB Q12H [facility] Stop: 09/17/16 08:01 Last Admin: 09/12/16 08:28 Dose: 133 mls/hr Insulin Aspart (Novolog) 0 unit SC ACHS [facility] PRN Reason: Protocol Last Admin: 09/12/16 11:47 Dose: 4 unit Insulin Aspart (Novolog) 12 unit SC TIDAC [facility] Last Admin: 09/12/16 11:48 Dose: 12 unit Insulin Glargine (Lantus) 30 unit SC HS [facility] Last Admin: 09/11/16 21:36 Dose: 30 unit Losartan Potassium (Cozaar) 100 mg PO DAILY [facility] Last Admin: 09/12/16 09:11 Dose: 100 mg Oxycodone/Acetaminophen (Percocet 5/325 Mg Tab) 2 tab PO Q6H PRN PRN Reason: Pain, moderate (4-7) Stop: 09/15/16 07:01 Last Admin: 09/12/16 13:04 Dose: 2 tab Quetiapine Fumarate (Seroquel) 200 mg PO [facility] Last Admin: 09/11/16 21:37 Dose: 200 mg Saccharomyces Boulardii (Florastor) 250 mg PO BID [facility] Last Admin: 09/12/16 09:12 Dose: 250 mg Venlafaxine HCl (Effexor Xr) 150 mg PO DAILY [facility] Last Admin: 09/12/16 09:11 Dose: 150 mg - Labs Labs: 09/12/16 06:17 09/12/16 06:17 PT 11.4 SECONDS (9.7-12.2) 09/09/16 07:22 INR 1.0 09/09/16 07:22 APTT 31 SECONDS (21-34) D 09/09/16 07:22 - Constitutional Appears: No Acute Distress - Head Exam Head Exam: NORMAL INSPECTION, NORMOCEPHALIC - Eye Exam Eye Exam: EOMI, Normal appearance, PERRL Pupil Exam: NORMAL ACCOMODATION - ENT Exam ENT Exam: Mucous Membranes Moist, Normal Exam - Respiratory Exam Respiratory Exam: NORMAL BREATHING PATTERN. absent: Clear to Ausculation Bilateral - Cardiovascular Exam Cardiovascular Exam: REGULAR RHYTHM, RRR, +S1, +S2 - GI/Abdominal Exam GI & Abdominal Exam: Soft, Normal Bowel Sounds. absent: Distended, Tenderness - Extremities Exam Extremities Exam: Normal Inspection. absent: Pedal Edema, Tenderness - Neurological Exam Neurological Exam: Alert, Awake, Oriented x3 - Psychiatric Exam Psychiatric exam: Normal Affect, Normal Mood - Skin Skin Exam: Dry, Intact, Normal Color, Warm Assessment and Plan - Assessment and Plan (Free Text) Plan: Cellulitis of foot, left Assessment and Plan: Patient received Vanc and Clindamycin in the ED. Perococet PRN and Tylenol PRN for pain Now on Vanc and Zosyn . First dose Vanc started on 09/08. Zosyn to begin 09/09 Left foot xray - no osteo Podiatry recommendations: applied betadine, DSD to left foot, continue current regimen BC- no growth Bone Scan of Left Foot (patient refuses to have MRI done due to claustrophobia) : NO OSTEOMYELITIS Continued leukocytosis. WC- proteus +, started on Cipro 400mg IV Q12 09/11/16, added Vancomycin back 09/10/16. ID consulted for persistent leukocytosis - Dr. Asher- help appreciated Podiatry will perform an I&D tomorrow. Patient is medically stable for I&D tomorrow. Pt has a Detsky score of 5, Class 1 low risk of perioperative cardiovascular event. Podiatry and Anesthesia to explain the risks and benefits of procedure. Status: Acute PVD Assessment and Plan: Arterial PVR/ SEG B/L: mild to moderate BL arterial insufficiency beginning at SFA left with more disease than right, L> R. Surgery Consulted- Dr. Sanders - karol appreciated - f/u CT Ab ileofem angiography Status: Chronic Diabetes Mellitus Assessment and Plan: Accuchecks HbgA1c = 13.3 Will hold home meds: Januvia 100mg QHS and Metformin 1000mg PO BID, and Prandin 1mg PO BID (confirmed with Pharmacy). According to the patient he takes Lantus 20mg SC BID (however the pharmacy did not confirm this). Started on: Lantus increased to 30 units HS, Novolog increased to 12 units TID, and Medium dose sliding scale DM counseling ordered Status: Chronic History of quadriple vessel bypass surgery Assessment and Plan: Currently asymptomatic Continue Pradaxa, Cozaar, Zetia Started on ASA daily Lipid Panel and TSH, T4 - WNL Status: Acute Atrial fibrillation Assessment and Plan: Amiodarone daily TSH, T4 - WNL Currently rate controlled and asymptomatic Cont to monitor Status: Acute HTN (hypertension) Assessment and Plan: Continue Cozaar and HCTZ Patient normally takes Diovan at home but non-formulary here. Status: Acute Hyperglycemia without ketosis Assessment and Plan: RESOLVED In ED, Blood glucose initially 548 UA showed 3+ glucose without evidence of serum ketones N.S. at 100 cc for dehydration Patient administered 15 units of Insulin IV and 15 units SC with moderate response Patient was started on: Lantus increased to 30 units HS, Novolog increased to 12 units TID, and Medium dose sliding scale Status: Acute Prophylactic measure Assessment and Plan: DVT VTE c/i since patient is already on anticoagulation for AFib GI prophylaxis not indicated at this time PT evaluation- recommend TCU Status: Acute Disposition: Patient will be discharged to [facility] once medically stable. DW Chiara Forman DO, PGY-1 <Reid Gabriel - Last Filed: 09/13/16 09:34> Objective - Vital Signs/Intake and Output Vital Signs (last 24 hours): Temp Pulse Resp BP Pulse Ox 99 F 72 21 118/71 98 09/13/16 07:52 09/13/16 07:52 09/13/16 07:52 09/13/16 07:52 09/13/16 07:52 - Medications Medications: Current Medications Acetaminophen (Tylenol 325mg Tab) 650 mg PO Q6 PRN PRN Reason: Pain, Mild (1-3) Last Admin: 09/09/16 07:02 Dose: 650 mg Amiodarone HCl (Cordarone) 200 mg PO DAILY [facility] Last Admin: 09/12/16 09:11 Dose: 200 mg Aspirin (Ecotrin) 81 mg PO DAILY [facility] Last Admin: 09/12/16 09:11 Dose: 81 mg Dabigatran (Pradaxa) 150 mg PO BID [facility] Last Admin: 09/12/16 09:12 Dose: 150 mg Ezetimibe (Zetia) 10 mg PO DAILY [facility] Last Admin: 09/11/16 10:00 Dose: 10 mg Hydrochlorothiazide (Hydrodiuril) 25 mg PO DAILY [facility] Last Admin: 09/12/16 09:12 Dose: 25 mg Sodium Chloride (Sodium Chloride 0.9%) 1,000 mls @ 100 mls/hr IV .Q10H [facility] Last Admin: 09/12/16 21:40 Dose: 100 mls/hr Vancomycin/Sodium Chloride (Vancocin) 1 gm in 200 mls @ 133 mls/hr IVPB Q12H [facility] Stop: 09/17/16 08:01 Last Admin: 09/12/16 20:00 Dose: 133 mls/hr Meropenem 1 gm/ Sodium (Chloride) 100 mls @ 100 mls/hr IVPB Q8 [facility] Last Admin: 09/13/16 05:37 Dose: 100 mls/hr Insulin Aspart (Novolog) 0 unit SC ACHS [facility] PRN Reason: Protocol Last Admin: 09/12/16 22:00 Dose: Not Given Insulin Aspart (Novolog) 12 unit SC TIDAC [facility] Last Admin: 09/12/16 16:30 Dose: 12 unit Insulin Glargine (Lantus) 30 unit SC HS [facility] Last Admin: 09/12/16 22:16 Dose: 30 unit Losartan Potassium (Cozaar) 100 mg PO DAILY [facility] Last Admin: 09/12/16 09:11 Dose: 100 mg Oxycodone/Acetaminophen (Percocet 5/325 Mg Tab) 2 tab PO Q6H PRN PRN Reason: Pain, moderate (4-7) Stop: 09/15/16 07:01 Last Admin: 09/13/16 06:34 Dose: 2 tab Quetiapine Fumarate (Seroquel) 200 mg PO HS [facility] Last Admin: 09/11/16 21:37 Dose: 200 mg Saccharomyces Boulardii (Florastor) 250 mg PO BID [facility] Last Admin: 09/12/16 18:17 Dose: 250 mg Venlafaxine HCl (Effexor Xr) 150 mg PO DAILY [facility] Last Admin: 09/12/16 09:11 Dose: 150 mg - Labs Labs: 09/13/16 07:15 09/13/16 07:15 PT 11.4 SECONDS (9.7-12.2) 09/09/16 07:22 INR 1.0 09/09/16 07:22 APTT 31 SECONDS (21-34) D 09/09/16 07:22 Attending/Attestation - Attestation I have personally seen and examined this patient.: Yes I have fully participated in the care of the patient.: Yes I have reviewed all pertinent clinical information, including history, physical exam and plan: Yes Notes (Text): 09/13/16 09:33 Patient was seen and examined at bedside with the resident Patient is still complains of pain in the left foot Discussed with podiatry Plan for surgery with possible incision and drainage of the left foot wound. I agree with the history and physical and assessment/plan documented by the resident above. Patient is medically stable for the surgical procedure.
--- NOTE | 2016-09-12 14:21 | CP.PCM.CON ---
History of Present Illness - History of Present Illness History of Present Illness: Vascular Surgery- Dr. Sanders 55M PMHx DM, HTN, Afib, CABG quadruple bypass presented with LLE pain 4 days duration. Pt states redness, swelling and tenderness with worsening pain. Pt states pain is well controlled at this time. IV antibiotics are currently running. Denies numbness or burning is his foot at this time. Denies N/V F/C CP/ SOB PMHx: HTN AFIB DM PSH: Quadruple bypass- saphenous vein used ALL: Shellfish Review of Systems - Review of Systems All systems: reviewed and no additional remarkable complaints except Past Patient History - Past Medical History & Family History Past Medical History?: Yes - Past Social History Smoking Status: Former Smoker - CARDIAC Hx Hypercholesterolemia: Yes Hx Hypertension: Yes - PULMONARY Hx Asthma: Yes - NEUROLOGICAL Hx Seizures: No - ENDOCRINE/METABOLIC Hx Diabetes Mellitus Type 1: Yes - HEMATOLOGICAL/ONCOLOGICAL Hx Blood Transfusions: No Hx Blood Transfusion Reaction: No - MUSCULOSKELETAL/RHEUMATOLOGICAL Hx Arthritis: Yes - PSYCHIATRIC Hx Substance Use: No - SURGICAL HISTORY Hx Coronary Artery Bypass Graft: Yes (12/26) - ANESTHESIA Hx Anesthesia: Yes Hx Anesthesia Reactions: No Meds Allergies/Adverse Reactions: Allergies Allergy/AdvReac Type Severity Reaction Status Date / Time shellfish derived Allergy Intermediate VOMITING Verified 09/08/16 19:06 - Medications Medications: Current Medications Acetaminophen (Tylenol 325mg Tab) 650 mg PO Q6 PRN PRN Reason: Pain, Mild (1-3) Last Admin: 09/09/16 07:02 Dose: 650 mg Amiodarone HCl (Cordarone) 200 mg PO DAILY [facility] Last Admin: 09/12/16 09:11 Dose: 200 mg Aspirin (Ecotrin) 81 mg PO DAILY [facility] Last Admin: 09/12/16 09:11 Dose: 81 mg Dabigatran (Pradaxa) 150 mg PO BID [facility] Last Admin: 09/12/16 09:12 Dose: 150 mg Ezetimibe (Zetia) 10 mg PO DAILY [facility] Last Admin: 09/11/16 10:00 Dose: 10 mg Hydrochlorothiazide (Hydrodiuril) 25 mg PO DAILY [facility] Last Admin: 09/12/16 09:12 Dose: 25 mg Sodium Chloride (Sodium Chloride 0.9%) 1,000 mls @ 100 mls/hr IV .Q10H [facility] Last Admin: 09/12/16 05:41 Dose: 100 mls/hr Ciprofloxacin (Cipro 400mg/200ml Dsw) 400 mg in 200 mls @ 133 mls/hr IVPB Q12H [facility] Last Admin: 09/12/16 11:03 Dose: 133 mls/hr Vancomycin/Sodium Chloride (Vancocin) 1 gm in 200 mls @ 133 mls/hr IVPB Q12H [facility] Stop: 09/17/16 08:01 Last Admin: 09/12/16 08:28 Dose: 133 mls/hr Insulin Aspart (Novolog) 0 unit SC ACHS [facility] PRN Reason: Protocol Last Admin: 09/12/16 11:47 Dose: 4 unit Insulin Aspart (Novolog) 12 unit SC TIDAC [facility] Last Admin: 09/12/16 11:48 Dose: 12 unit Insulin Glargine (Lantus) 30 unit SC HS [facility] Last Admin: 09/11/16 21:36 Dose: 30 unit Losartan Potassium (Cozaar) 100 mg PO DAILY [facility] Last Admin: 09/12/16 09:11 Dose: 100 mg Oxycodone/Acetaminophen (Percocet 5/325 Mg Tab) 2 tab PO Q6H PRN PRN Reason: Pain, moderate (4-7) Stop: 09/15/16 07:01 Last Admin: 09/12/16 13:04 Dose: 2 tab Quetiapine Fumarate (Seroquel) 200 mg PO [facility] Last Admin: 09/11/16 21:37 Dose: 200 mg Saccharomyces Boulardii (Florastor) 250 mg PO BID [facility] Last Admin: 09/12/16 09:12 Dose: 250 mg Venlafaxine HCl (Effexor Xr) 150 mg PO DAILY [facility] Last Admin: 09/12/16 09:11 Dose: 150 mg Physical Exam - Constitutional Appears: No Acute Distress - Head Exam Head Exam: ATRAUMATIC - Eye Exam Eye Exam: EOMI - ENT Exam ENT Exam: Mucous Membranes Moist - Respiratory Exam Respiratory Exam: NORMAL BREATHING PATTERN. absent: Accessory Muscle Use, Rhonchi, Wheezes, Respiratory Distress - Cardiovascular Exam Cardiovascular Exam: +S1, +S2 - GI/Abdominal Exam GI & Abdominal Exam: Normal Bowel Sounds, Soft. absent: Firm, Rigid - Extremities Exam Additional comments: LLE wrapped with xeroform and krillex. Black eschar on 5th digit. Left DP pulses non-palpable left +2 Femoral pulses - Neurological Exam Neurological exam: Alert, Oriented x3 - Psychiatric Exam Psychiatric exam: Normal Affect Results - Vital Signs Recent Vital Signs: Last Vital Signs Temp 98 F 09/12/16 07:37 Pulse 70 09/12/16 07:37 Resp 20 09/12/16 07:37 BP 177/77 H 09/12/16 07:37 Pulse Ox 100 09/12/16 07:37 - Labs Result Diagrams: 09/12/16 06:17 09/12/16 06:17 Labs: Laboratory Results - last 24 hr 09/11/16 09/11/16 09/11/16 16:37 18:30 21:24 WBC RBC Hgb Hct MCV MCH MCHC RDW Plt Count MPV Neut % (Auto) Lymph % (Auto) [place] % (Auto) Eos % (Auto) Baso % (Auto) Neut # Lymph # [place] # Eos # Baso # Sodium Potassium Chloride Carbon Dioxide Anion Gap BUN Creatinine Est GFR ( Amer) Est GFR (Non-Af Amer) POC Glucose (mg/dL) 263 H 189 H Random Glucose Calcium Phosphorus Magnesium Total Bilirubin AST ALT Alkaline Phosphatase Total Protein Albumin Globulin Albumin/Globulin Ratio C. difficile Ag & Toxin Negative 09/12/16 09/12/16 09/12/16 06:17 06:17 07:13 WBC 13.2 H RBC 3.97 L Hgb 10.9 L Hct 34.3 L MCV 86.4 MCH 27.5 MCHC 31.9 L RDW 12.9 Plt Count 313 MPV 8.3 Neut % (Auto) 68.1 Lymph % (Auto) 19.7 L [place] % (Auto) 10.6 H Eos % (Auto) 0.6 Baso % (Auto) 1.0 Neut # 9.0 H Lymph # 2.6 [place] # 1.4 H Eos # 0.1 Baso # 0.1 Sodium 135 Potassium 4.2 Chloride 92 L Carbon Dioxide 31 H Anion Gap 16 BUN 8 L Creatinine 0.7 L Est GFR ( Amer) > 60 Est GFR (Non-Af Amer) > 60 POC Glucose (mg/dL) 216 H Random Glucose 228 H Calcium 9.0 Phosphorus 3.4 Magnesium 1.7 Total Bilirubin 0.3 AST 28 ALT 28 Alkaline Phosphatase 75 Total Protein 6.6 Albumin 3.4 L Globulin 3.1 Albumin/Globulin Ratio 1.1 C. difficile Ag & Toxin 09/12/16 11:00 WBC RBC Hgb Hct MCV MCH MCHC RDW Plt Count MPV Neut % (Auto) Lymph % (Auto) [place] % (Auto) Eos % (Auto) Baso % (Auto) Neut # Lymph # [place] # Eos # Baso # Sodium Potassium Chloride Carbon Dioxide Anion Gap BUN Creatinine Est GFR ( Amer) Est GFR (Non-Af Amer) POC Glucose (mg/dL) 280 H Random Glucose Calcium Phosphorus Magnesium Total Bilirubin AST ALT Alkaline Phosphatase Total Protein Albumin Globulin Albumin/Globulin Ratio C. difficile Ag & Toxin Assessment & Plan - Assessment and Plan (Free Text) Assessment: 55M LLE cellulitis and PVD Plan: - CTA of the left leg * if vessels patent with good run off, cleared for surgery tomorrow - NPO - Podiatry recs - further recs per Dr. Sanders d/w Dr. Marilyn Forbes PGY1
[2016-09-12] MEDS ORDERED: DiphenhydrAMINE 50 mg/ml Inj IVP PRN (15:20)
--- NOTE | 2016-09-12 19:04 | CP.PCM.CON ---
History of Present Illness - History of Present Illness History of Present Illness: 55 year old male with PMHx significant for HTN, DM, atrial fibrillation and quadruple bypass surgery presents with complaints of left lower extremity pain of 4 day duration. Patient states that he has had redness, and swelling in his foot and states that the pain is very severe. Review of Systems - Constitutional Constitutional: As Per HPI - EENT Eyes: absent: As Per HPI, Blind Spots, Blurred Vision, Change in Vision, Decreased Night Vision, Diplopia, Discharge, Dry Eye, Exophthalmos, Floaters, Irritation, Itchy Eyes, Loss of Peripheral Vision, Pain, Photophobia, Requires Corrective Lenses, Sees Flashes, Spots in Vision, Tunnel Vision, Other Visual Disturbances, Loss of Vision, Other Ears: absent: As Per HPI, Decreased Hearing, Ear Discharge, Ear Pain, Tinnitus, Abnormal Hearing, Disequilibrium, Dizziness, Other Nose/Mouth/Throat: absent: As Per HPI, Epistaxis, Nasal Congestion, Nasal Discharge, Nasal Obstruction, Nasal Trauma, Nose Pain, Post Nasal Drip, Sinus Pain, Sinus Pressure, Bleeding Gums, Change in Voice, Dental Pain, Dry Mouth, Dysphagia, Halitosis, Hoarsness, Lip Swelling, Mouth Lesions, Mouth Pain, Odynophagia, Sore Throat, Throat Swelling, Tongue Swelling, Facial Pain, Neck Pain, Neck Mass, Other - Cardiovascular Cardiovascular: absent: As Per HPI, Acrocyanosis, Chest Pain, Chest Pain at Rest , Chest Pain with Activity, Claudication, Diaphoresis, Dyspnea, Dyspnea on Exertion, Edema, Irregular Heart Rhythm, Pain Radiating to Arm/Neck/Jaw, Leg Edema, Leg Ulcers, Lightheadedness, Orthopnea, Palpitations, Paroxysmal Nocturnal Dyspnea, Pedal Edema, Radiating Pain, Rapid Heart Rate, Slow Heart Rate, Syncope, Other - Respiratory Respiratory: absent: As Per HPI, Cough, Dyspnea, Hemoptysis, Dyspnea on Exertion , Wheezing, Snoring, Stridor, Pain on Inspiration, Chest Congestion, Excessive Mucous Production, Change in Mucous Color, Pain with Coughing, Other - Gastrointestinal Gastrointestinal: absent: As Per HPI, Abdominal Pain, Belching, Bloating, Change in Bowel Habits, Change in Stool Character, Coffee Ground Emesis, Constipation, Cramping, Diarrhea, Dyspepsia, Dysphagia, Early Satiety, Excessive Flatus, Fecal Incontinence, Heartburn, Hematemesis, Hematochezia, Loose Stools, Melena, Nausea, Odynophagia, Temesmus, Vomiting, Other - Genitourinary Genitourinary: absent: As Per HPI, Change in Urinary Stream, Difficulty Urinating, Dysuria, Flank Pain, Hematuria, Pyuria, Nocturia, Urinary Incontinence, Urinary Frequency, Urinary Hesitance, Urinary Urgency, Voiding Freq/Small Amts, Freq UTI, Hx Renal/Bladder Calculi, Hx /Renal Surgery, Bladder Distension, Other - Musculoskeletal Musculoskeletal: As Per HPI - Integumentary Integumentary: As Per HPI - Neurological Neurological: As Per HPI - Psychiatric Psychiatric: absent: As Per HPI, Abnormal Sleep Pattern, Anhedonia, Anxiety, Auditory Hallucinations, Behavioral Changes, Change in Appetite, Change in Libido, Confusion, Depression, Difficulty Concentrating, Hallucinations, Homicidal Ideation, Hopelessness, Irritability, Memory Loss, Mood Swings, Panic Attacks, Paranoia, Suicidal Ideation, Visual Hallucinations, Tactile Hallucinations, Other - Endocrine Endocrine: absent: As Per HPI, Change in Body Appearance, Change in Libido, Cold Intolorance, Deepening of Voice, Excessive Sweating, Fatigue, Flushing, Heat Intolorance, Increase in Ring/Shoe/Hat Size, Palpitations, Polydipsia, Polyphagia, Polyuria, Other - Hematologic/Lymphatic Hematologic: absent: As Per HPI, Easy Bleeding, Easy Bruising, Lymphadenopathy, Other Past Patient History - Past Medical History & Family History Past Medical History?: Yes - Past Social History Smoking Status: Former Smoker - CARDIAC Hx Hypercholesterolemia: Yes Hx Hypertension: Yes - PULMONARY Hx Asthma: Yes - NEUROLOGICAL Hx Seizures: No - ENDOCRINE/METABOLIC Hx Diabetes Mellitus Type 1: Yes - HEMATOLOGICAL/ONCOLOGICAL Hx Blood Transfusions: No Hx Blood Transfusion Reaction: No - MUSCULOSKELETAL/RHEUMATOLOGICAL Hx Arthritis: Yes - PSYCHIATRIC Hx Substance Use: No - SURGICAL HISTORY Hx Coronary Artery Bypass Graft: Yes (12/26) - ANESTHESIA Hx Anesthesia: Yes Hx Anesthesia Reactions: No Meds Allergies/Adverse Reactions: Allergies Allergy/AdvReac Type Severity Reaction Status Date / Time shellfish derived Allergy Intermediate VOMITING Verified 09/08/16 19:06 - Medications Medications: Current Medications Acetaminophen (Tylenol 325mg Tab) 650 mg PO Q6 PRN PRN Reason: Pain, Mild (1-3) Last Admin: 09/09/16 07:02 Dose: 650 mg Amiodarone HCl (Cordarone) 200 mg PO DAILY [facility] Last Admin: 09/12/16 09:11 Dose: 200 mg Aspirin (Ecotrin) 81 mg PO DAILY [facility] Last Admin: 09/12/16 09:11 Dose: 81 mg Dabigatran (Pradaxa) 150 mg PO BID [facility] Last Admin: 09/12/16 09:12 Dose: 150 mg Diphenhydramine HCl (Benadryl) 50 mg IVP ONCE PRN PRN Reason: Allergy symptoms Stop: 09/12/16 23:59 Ezetimibe (Zetia) 10 mg PO DAILY [facility] Last Admin: 09/11/16 10:00 Dose: 10 mg Hydrochlorothiazide (Hydrodiuril) 25 mg PO DAILY [facility] Last Admin: 09/12/16 09:12 Dose: 25 mg Sodium Chloride (Sodium Chloride 0.9%) 1,000 mls @ 100 mls/hr IV .Q10H [facility] Last Admin: 09/12/16 05:41 Dose: 100 mls/hr Ciprofloxacin (Cipro 400mg/200ml Dsw) 400 mg in 200 mls @ 133 mls/hr IVPB Q12H [facility] Last Admin: 09/12/16 11:03 Dose: 133 mls/hr Vancomycin/Sodium Chloride (Vancocin) 1 gm in 200 mls @ 133 mls/hr IVPB Q12H [facility] Stop: 09/17/16 08:01 Last Admin: 09/12/16 08:28 Dose: 133 mls/hr Insulin Aspart (Novolog) 0 unit SC ACHS [facility] PRN Reason: Protocol Last Admin: 09/12/16 16:30 Dose: 4 unit Insulin Aspart (Novolog) 12 unit SC TIDAC [facility] Last Admin: 09/12/16 16:30 Dose: 12 unit Insulin Glargine (Lantus) 30 unit SC HS [facility] Last Admin: 09/11/16 21:36 Dose: 30 unit Losartan Potassium (Cozaar) 100 mg PO DAILY [facility] Last Admin: 09/12/16 09:11 Dose: 100 mg Oxycodone/Acetaminophen (Percocet 5/325 Mg Tab) 2 tab PO Q6H PRN PRN Reason: Pain, moderate (4-7) Stop: 09/15/16 07:01 Last Admin: 09/12/16 18:18 Dose: 2 tab Quetiapine Fumarate (Seroquel) 200 mg PO HS [facility] Last Admin: 09/11/16 21:37 Dose: 200 mg Saccharomyces Boulardii (Florastor) 250 mg PO BID [facility] Last Admin: 09/12/16 18:17 Dose: 250 mg Venlafaxine HCl (Effexor Xr) 150 mg PO DAILY [facility] Last Admin: 09/12/16 09:11 Dose: 150 mg Physical Exam - Constitutional Appears: Non-toxic, Chronically Ill - Head Exam Head Exam: NORMOCEPHALIC - Eye Exam Eye Exam: PERRL. absent: Scleral icterus - ENT Exam ENT Exam: Mucous Membranes Dry, Normal External Ear Exam - Neck Exam Neck exam: Negative for: Lymphadenopathy - Respiratory Exam Respiratory Exam: Decreased Breath Sounds, Clear to Auscultation Bilateral - Cardiovascular Exam Cardiovascular Exam: REGULAR RHYTHM, +S1, +S2 - GI/Abdominal Exam GI & Abdominal Exam: Diminished Bowel Sounds, Soft. absent: Tenderness - Rectal Exam Rectal Exam: Deferred - Exam Exam: NORMAL INSPECTION - Extremities Exam Extremities exam: Positive for: pedal edema, tenderness. Negative for: calf tenderness, pedal pulses present Additional comments: left lower extremity focused exam: Vasc: DP and PT pulses palpable 1/4, TG warm to warm with increased warmth noted to the lateral aspect of the left foot, CFT < 3 sec to all digits neuro: gross sensation intact derm: localized non-pitting edema and erythema extending to from the 4th and 5th digits to the dorsolateral aspect of the midfoot, interdigital maceration to left 4th interspace with scant amount of sangionus drainage, small area of maceration noted to the dorsolateral aspect of the left foot. no probe to bone, mild malodor, no purulence noted. ortho: pain on palpation to dorsal left foot - Back Exam Back exam: absent: CVA tenderness (L), CVA tenderness (R) - Neurological Exam Neurological exam: Alert, CN II-XII Intact, Oriented x3, Reflexes Normal - Psychiatric Exam Psychiatric exam: Normal Mood - Skin Skin Exam: Dry Results - Vital Signs Recent Vital Signs: Last Vital Signs Temp 98.3 F 09/12/16 15:00 Pulse 62 09/12/16 15:00 Resp 20 09/12/16 15:00 BP 117/72 09/12/16 15:00 Pulse Ox 97 09/12/16 15:00 - Labs Result Diagrams: 09/12/16 06:17 09/12/16 06:17 Labs: Laboratory Results - last 24 hr 09/11/16 09/11/16 09/12/16 18:30 21:24 06:17 WBC 13.2 H RBC 3.97 L Hgb 10.9 L Hct 34.3 L MCV 86.4 MCH 27.5 MCHC 31.9 L RDW 12.9 Plt Count 313 MPV 8.3 Neut % (Auto) 68.1 Lymph % (Auto) 19.7 L [place] % (Auto) 10.6 H Eos % (Auto) 0.6 Baso % (Auto) 1.0 Neut # 9.0 H Lymph # 2.6 [place] # 1.4 H Eos # 0.1 Baso # 0.1 Sodium Potassium Chloride Carbon Dioxide Anion Gap BUN Creatinine Est GFR ( Amer) Est GFR (Non-Af Amer) POC Glucose (mg/dL) 189 H Random Glucose Calcium Phosphorus Magnesium Total Bilirubin AST ALT Alkaline Phosphatase Total Protein Albumin Globulin Albumin/Globulin Ratio C. difficile Ag & Toxin Negative 09/12/16 09/12/16 09/12/16 06:17 07:13 11:00 WBC RBC Hgb Hct MCV MCH MCHC RDW Plt Count MPV Neut % (Auto) Lymph % (Auto) [place] % (Auto) Eos % (Auto) Baso % (Auto) Neut # Lymph # [place] # Eos # Baso # Sodium 135 Potassium 4.2 Chloride 92 L Carbon Dioxide 31 H Anion Gap 16 BUN 8 L Creatinine 0.7 L Est GFR ( Amer) > 60 Est GFR (Non-Af Amer) > 60 POC Glucose (mg/dL) 216 H 280 H Random Glucose 228 H Calcium 9.0 Phosphorus 3.4 Magnesium 1.7 Total Bilirubin 0.3 AST 28 ALT 28 Alkaline Phosphatase 75 Total Protein 6.6 Albumin 3.4 L Globulin 3.1 Albumin/Globulin Ratio 1.1 C. difficile Ag & Toxin 09/12/16 16:50 WBC RBC Hgb Hct MCV MCH MCHC RDW Plt Count MPV Neut % (Auto) Lymph % (Auto) [place] % (Auto) Eos % (Auto) Baso % (Auto) Neut # Lymph # [place] # Eos # Baso # Sodium Potassium Chloride Carbon Dioxide Anion Gap BUN Creatinine Est GFR ( Amer) Est GFR (Non-Af Amer) POC Glucose (mg/dL) 217 H Random Glucose Calcium Phosphorus Magnesium Total Bilirubin AST ALT Alkaline Phosphatase Total Protein Albumin Globulin Albumin/Globulin Ratio C. difficile Ag & Toxin Assessment & Plan (1) Atrial fibrillation Status: Acute (2) Cellulitis of foot, left Status: Acute (3) HTN (hypertension) Status: Acute (4) History of heart bypass surgery Status: Acute (5) Hyperglycemia without ketosis Status: Acute - Assessment and Plan (Free Text) Assessment: severe necrotizing cellulitis left foot possible ischemic component vascular on board] iv antibiotics optimized prognosis guarded
[2016-09-12] MEDS: Meropenem 1 GM in Sodium Chloride 0.9% 100 ML IVPB SCH (22:15)
[2016-09-12] MEDS: (Lantus) Insulin Glargine, Recombinant SC SCH (22:16)
[2016-09-12] MEDS ORDERED: Iodixanol 320 mg/ml 150 ml Bottle IV ONE (22:18)
[2016-09-12] MEDS ORDERED: Iodixanol 320 MG/ML 200 ML BOTTLE IV ONE (22:25)
[2016-09-13] MEDS: Oxycodone/Acetaminophen 5/325 mg Tab PO PRN ×3 (00:26→20:54)
--- NOTE | 2016-09-13 01:47 | CT ---
EXAM: CT Angiography Abdomen and Pelvis With Runoff to the Lower Extremities With Intravenous Contrast CLINICAL HISTORY: 55 years old, male; Condition or disease; Peripheral vascular disease; Patient HX: Cellulitis left foot; Additional info: Pvd TECHNIQUE: Axial computed tomographic angiography images of the abdomen, pelvis and lower extremities with intravenous contrast using CT angiography protocol. This CT exam was performed using one or more of the following dose reduction techniques: automated exposure control, adjustment of the mA and/or kV according to patient size, and/or use of iterative reconstruction technique. 3D reconstructed images were created and reviewed. Coronal and sagittal reformatted images were created and reviewed. CONTRAST: 150 mL of VISIPAQUE 320 administered intravenously. COMPARISON: No relevant prior studies available. FINDINGS: Lower thorax: There is minimal bibasilar atelectasis. The heart as visualized appears mildly enlarged. VASCULATURE: Aorta: The aorta demonstrates moderate atherosclerotic calcification. No abdominal aortic aneurysm. No dissection. Celiac trunk and mesenteric arteries: No acute findings. No occlusion or significant stenosis. Renal arteries: No acute findings. No occlusion or significant stenosis. Right iliac arteries: No acute findings. No occlusion or significant stenosis. Right femoral/popliteal arteries: Extensive atherosclerotic calcification especially limits evaluation of the small arteries in both lower legs. Bilateral superficial femoral arteries appear grossly patent with multifocal moderate to high-grade stenoses. Right calf/foot arteries: No acute findings. No occlusion or significant stenosis. Left iliac arteries: No acute findings. No occlusion or significant stenosis. Left femoral/popliteal arteries: See above. Left calf/foot arteries: No acute findings. No occlusion or significant stenosis. ABDOMEN: Liver: There is a diffuse decrease in hepatic parenchymal density, consistent with fatty infiltration. There are no focal liver lesions present. Gallbladder and bile ducts: The gallbladder is contracted but otherwise normal. No calcified stones. No ductal dilation. Pancreas: Pancreas is slightly fatty replaced. No ductal dilation. Spleen: The spleen is normal. Adrenals: The adrenal glands are normal. Kidneys and ureters: The kidneys are unremarkable aside from small pole renal cyst. No hydronephrosis. Stomach and bowel: Stomach is predominantly decompressed and grossly unremarkable. There is no evidence of intestinal obstruction. No mucosal thickening. Appendix: A normal appendix is identified. PELVIS: Bladder: Bladder is decompressed. Reproductive: The prostate gland and seminal vesicles are normal. ABDOMEN, PELVIS and LOWER EXTREMITIES: Intraperitoneal space: There is no evidence of free intraperitoneal fluid. There is no free intraperitoneal air. Bones/joints: There are mild degenerative changes present. No acute fracture. No dislocation. Soft tissues: Unremarkable. Lymph nodes: There is no evidence of lymphadenopathy. IMPRESSION: Extensive atherosclerotic calcification especially limits evaluation of the small arteries in both lower legs. Bilateral superficial femoral arteries appear grossly patent with multifocal moderate to high-grade stenoses.
[2016-09-13] MEDS: Meropenem 1 GM in Sodium Chloride 0.9% 100 ML IVPB SCH ×3 (05:37→21:55)
[2016-09-13] MEDS: (Novolog) Insulin Aspart, Recombinant 100 u/ml 10 ml vial SC SCH ×7 (07:30→21:53)
[2016-09-13 07:54] LABS: BASO # 0.1 K/uL (0.0-0.2); BASO % 0.7 % (0.0-2.0); EOS # 0.1 K/uL (0.0-0.7); EOS % 0.9 % (0.0-4.0); HEMATOCRIT 31.7 % (35.0-51.0); LYMPH # 2.7 K/uL (1.0-4.3); LYMPH % 21.8 % (20.0-40.0); MEAN CELL VOLUME 86.7 fL (80.0-94.0); MEAN CORPUSCULAR HEMOGLOBIN 27.9 pg (27.0-31.0); MEAN CORPUSCULAR HGB CONC 32.2 g/dL (33.0-37.0); MONO # 1.4 K/uL (0.0-0.8); MONO % 11.5 % (0.0-10.0); RED CELL DISTRIBUTION WIDTH 12.9 % (11.5-14.5); WHITE BLOOD COUNT 12.3 K/uL (4.8-10.8)
[2016-09-13] MEDS: Sodium Chloride 0.9% 1,000 ML IV SCH ×3 (08:00→18:00)
[2016-09-13 08:05] LABS: CHLORIDE 93 mmol/L (98-107); POTASSIUM 3.8 mmol/L (3.6-5.2); SODIUM 135 mmol/L (132-148)
[2016-09-13 08:07] LABS: AST/SGOT 29 U/L (17-59); BILIRUBIN,TOTAL 0.4 mg/dL (0.2-1.3); GFR AFRICAN-AMERICAN > 60
[2016-09-13 08:08] LABS: ALKALINE PHOSPHATASE 79 U/L (38-126); ALT/SGPT 32 U/L (21-72); BLOOD UREA NITROGEN 8 mg/dL (9-20); CALCIUM 8.5 mg/dl (8.6-10.4); CARBON DIOXIDE 28 mmol/L (22-30); GLUCOSE,RANDOM 184 mg/dL (75-110); PHOSPHOROUS 3.6 mg/dL (2.5-4.5); TOTAL PROTEIN 6.6 g/dL (6.3-8.3)
[2016-09-13 08:09] LABS: MAGNESIUM 1.6 mg/dL (1.6-2.3)
--- NOTE | 2016-09-13 11:24 | CP.PCM.PN ---
Subjective - Date & Time of Evaluation Date of Evaluation: 09/13/16 Time of Evaluation: 11:21 - Subjective Subjective: 55 year old male was seen at bedside regarding left foot cellulitis. He states that he is still having pain to his left foot especially on palpation. Patient appears in NAD and AAOx3. Patient denies any other pedal complaints at this time. He is aware that this afternoon he is going for and I and D of the left foot. Patient denies n/f/c/v/d/sob. Objective - Vital Signs/Intake and Output Vital Signs (last 24 hours): Temp Pulse Resp BP Pulse Ox 99 F 72 21 118/71 98 09/13/16 07:52 09/13/16 07:52 09/13/16 07:52 09/13/16 07:52 09/13/16 07:52 - Medications Medications: Current Medications Acetaminophen (Tylenol 325mg Tab) 650 mg PO Q6 PRN PRN Reason: Pain, Mild (1-3) Last Admin: 09/09/16 07:02 Dose: 650 mg Amiodarone HCl (Cordarone) 200 mg PO DAILY [facility] Last Admin: 09/12/16 09:11 Dose: 200 mg Aspirin (Ecotrin) 81 mg PO DAILY [facility] Last Admin: 09/12/16 09:11 Dose: 81 mg Dabigatran (Pradaxa) 150 mg PO BID [facility] Last Admin: 09/12/16 09:12 Dose: 150 mg Ezetimibe (Zetia) 10 mg PO DAILY [facility] Last Admin: 09/11/16 10:00 Dose: 10 mg Hydrochlorothiazide (Hydrodiuril) 25 mg PO DAILY [facility] Last Admin: 09/12/16 09:12 Dose: 25 mg Sodium Chloride (Sodium Chloride 0.9%) 1,000 mls @ 100 mls/hr IV .Q10H [facility] Last Admin: 09/13/16 10:26 Dose: 100 mls/hr Vancomycin/Sodium Chloride (Vancocin) 1 gm in 200 mls @ 133 mls/hr IVPB Q12H [facility] Stop: 09/17/16 08:01 Last Admin: 09/12/16 20:00 Dose: 133 mls/hr Meropenem 1 gm/ Sodium (Chloride) 100 mls @ 100 mls/hr IVPB Q8 [facility] Last Admin: 08/04/17 05:37 Dose: 100 mls/hr Insulin Aspart (Novolog) 0 unit SC ACHS [facility] PRN Reason: Protocol Last Admin: 09/12/16 22:00 Dose: Not Given Insulin Aspart (Novolog) 12 unit SC TIDAC [facility] Last Admin: 09/13/16 10:25 Dose: Not Given Insulin Glargine (Lantus) 30 unit SC HS [facility] Last Admin: 09/12/16 22:16 Dose: 30 unit Losartan Potassium (Cozaar) 100 mg PO DAILY [facility] Last Admin: 09/13/16 10:23 Dose: 100 mg Oxycodone/Acetaminophen (Percocet 5/325 Mg Tab) 2 tab PO Q6H PRN PRN Reason: Pain, moderate (4-7) Stop: 09/15/16 07:01 Last Admin: 09/13/16 06:34 Dose: 2 tab Quetiapine Fumarate (Seroquel) 200 mg PO HS [facility] Last Admin: 09/11/16 21:37 Dose: 200 mg Saccharomyces Boulardii (Florastor) 250 mg PO BID [facility] Last Admin: 09/12/16 18:17 Dose: 250 mg Venlafaxine HCl (Effexor Xr) 150 mg PO DAILY [facility] Last Admin: 09/12/16 09:11 Dose: 150 mg - Labs Labs: 09/13/16 07:15 09/13/16 07:15 PT 11.4 SECONDS (9.7-12.2) 09/09/16 07:22 INR 1.0 09/09/16 07:22 APTT 31 SECONDS (21-34) D 09/09/16 07:22 - Constitutional Appears: Well, Non-toxic, No Acute Distress - Extremities Exam Additional comments: dressing clean, dry, intact to LLE - Neurological Exam Neurological Exam: Alert, Awake, Oriented x3 - Psychiatric Exam Psychiatric exam: Normal Affect, Normal Mood Assessment and Plan - Assessment and Plan (Free Text) Assessment: 55 y/o male with left lower extremity cellulitis and interdigital maceration to 4th interspace Plan: Pt was seen and examined Cont IV abx per ID Angio scheduled today with Vasc Pt NPO status was confirmed Pt for Left foot I and D this afternoon after 3:30pm All Pre-op testing and clearance was in the chart Pt has exhausted all conservative treatment at this time and is opting for surgical intervention Pt was explained procedure and post-operative course All pt's questions were answered to satisfaction No guarantees were made Pt understands all risks, benefits and complications of procedure Pt will follow-up with Dr. Jo Podiatry will continue to follow patient while in house
--- NOTE | 2016-09-13 11:41 | US ---
Procedure: Ultrasound and fluoroscopically placed Right upper extremity PICC. Clinical indication: Long-term IV antibiotics. Technique: The relative risks and indications of the procedure were explained to the patient and written informed consent obtained. The patient was placed supine on the angiographic table and the right arm prepped and draped in the usual sterile fashion. A tourniquet was applied to the right axilla. 1% lidocaine was used to anesthetize the skin and soft tissues at the puncture site above the elbow. The right basilic vein was punctured under direct ultrasound guidance with a micropuncture set. A permanent image was stored. A 0.018 guidewire was advanced centrally and used to measure the length to the SVC/RA junction. A 4 [place] single-lumen PICC, size 35 cm, was advanced to the SVC/RA junction under fluoroscopic guidance. The catheter was flushed and secured. The patient tolerated the procedure well. Postprocedure chest image was obtained to ensure location of the catheter tip at the SVC right atrial junction. Impression: Ultrasound and fluoroscopically placed right upper extremity PICC. A 4 [place] single-lumen PICC, size 35 cm was advanced to the SVC/RA junction. PICC ready for use.
[2016-09-13] MEDS: Saccharomyces Boulardi 250 mg Cap PO SCH ×2 (12:16→21:49)
[2016-09-13] MEDS: Vancomycin 1 gm/NS 200 ml 1 GM/200 ML BAG IVPB SCH ×2 (12:19→20:48)
--- NOTE | 2016-09-13 13:30 | CP.PCM.PN ---
<ChiaraDesi - Last Filed: 09/13/16 13:24> Subjective - Date & Time of Evaluation Date of Evaluation: 09/13/16 Time of Evaluation: 07:00 - Subjective Subjective: Medicine Note for Dr. Gabriel Patient was seen and examined at bedside. Patient reports his left foot continues to hurt and at times there is a sharp pain. Denied any fever, chills , headache, abdominal pain, n/v/d/c, or urinary symptoms. I&D today with Podiatry. Plan for angiogram on Friday with Dr. Sanders. Objective - Vital Signs/Intake and Output Vital Signs (last 24 hours): Temp Pulse Resp BP Pulse Ox 99 F 72 21 118/71 98 09/13/16 07:52 09/13/16 07:52 09/13/16 07:52 09/13/16 07:52 09/13/16 07:52 - Medications Medications: Current Medications Acetaminophen (Tylenol 325mg Tab) 650 mg PO Q6 PRN PRN Reason: Pain, Mild (1-3) Last Admin: 09/09/16 07:02 Dose: 650 mg Amiodarone HCl (Cordarone) 200 mg PO DAILY [facility] Last Admin: 09/12/16 09:11 Dose: 200 mg Aspirin (Ecotrin) 81 mg PO DAILY [facility] Last Admin: 09/12/16 09:11 Dose: 81 mg Dabigatran (Pradaxa) 150 mg PO BID [facility] Last Admin: 09/12/16 09:12 Dose: 150 mg Ezetimibe (Zetia) 10 mg PO DAILY [facility] Last Admin: 09/11/16 10:00 Dose: 10 mg Hydrochlorothiazide (Hydrodiuril) 25 mg PO DAILY [facility] Last Admin: 09/12/16 09:12 Dose: 25 mg Sodium Chloride (Sodium Chloride 0.9%) 1,000 mls @ 100 mls/hr IV .Q10H [facility] Last Admin: 09/13/16 10:26 Dose: 100 mls/hr Vancomycin/Sodium Chloride (Vancocin) 1 gm in 200 mls @ 133 mls/hr IVPB Q12H [facility] Stop: 09/17/16 08:01 Last Admin: 09/13/16 12:19 Dose: 133 mls/hr Meropenem 1 gm/ Sodium (Chloride) 100 mls @ 100 mls/hr IVPB Q8 [facility] Last Admin: 09/13/16 05:37 Dose: 100 mls/hr Insulin Aspart (Novolog) 0 unit SC ACHS [facility] PRN Reason: Protocol Last Admin: 09/13/16 12:17 Dose: Not Given Insulin Aspart (Novolog) 12 unit SC TIDAC [facility] Last Admin: 09/13/16 12:17 Dose: Not Given Insulin Glargine (Lantus) 30 unit SC HS [facility] Last Admin: 09/12/16 22:16 Dose: 30 unit Losartan Potassium (Cozaar) 100 mg PO DAILY [facility] Last Admin: 09/13/16 10:23 Dose: 100 mg Oxycodone/Acetaminophen (Percocet 5/325 Mg Tab) 2 tab PO Q6H PRN PRN Reason: Pain, moderate (4-7) Stop: 09/15/16 07:01 Last Admin: 09/13/16 06:34 Dose: 2 tab Quetiapine Fumarate (Seroquel) 200 mg PO [facility] Last Admin: 09/11/16 21:37 Dose: 200 mg Saccharomyces Boulardii (Florastor) 250 mg PO BID [facility] Last Admin: 09/13/16 12:16 Dose: Not Given Venlafaxine HCl (Effexor Xr) 150 mg PO DAILY [facility] Last Admin: 09/12/16 09:11 Dose: 150 mg - Labs Labs: 09/13/16 07:15 09/13/16 07:15 PT 11.4 SECONDS (9.7-12.2) 09/09/16 07:22 INR 1.0 09/09/16 07:22 APTT 31 SECONDS (21-34) D 09/09/16 07:22 - Constitutional Appears: No Acute Distress - Head Exam Head Exam: NORMAL INSPECTION, NORMOCEPHALIC - Eye Exam Eye Exam: EOMI, Normal appearance, PERRL Pupil Exam: NORMAL ACCOMODATION - ENT Exam ENT Exam: Mucous Membranes Moist, Normal Exam - Neck Exam Neck Exam: Normal Inspection - Respiratory Exam Respiratory Exam: Clear to Ausculation Bilateral, NORMAL BREATHING PATTERN. absent: Decreased Breath Sounds, Rhonchi, Wheezes - Cardiovascular Exam Cardiovascular Exam: REGULAR RHYTHM, RRR, +S1, +S2 - GI/Abdominal Exam GI & Abdominal Exam: Soft, Normal Bowel Sounds. absent: Distended, Tenderness - Extremities Exam Extremities Exam: Normal Inspection. absent: Pedal Edema, Tenderness Additional comments: left foot wrapped - Neurological Exam Neurological Exam: Alert, Awake, Oriented x3 - Psychiatric Exam Psychiatric exam: Normal Affect, Normal Mood - Skin Skin Exam: Dry, Intact, Normal Color, Warm Assessment and Plan - Assessment and Plan (Free Text) Plan: Cellulitis of foot, left Assessment and Plan: Patient received Vanc and Clindamycin in the ED. Perococet PRN and Tylenol PRN for pain Left foot xray - no osteo Podiatry recommendations: applied betadine, DSD to left foot, continue current regimen BC- no growth Bone Scan of Left Foot (patient refuses to have MRI done due to claustrophobia) : NO OSTEOMYELITIS Wound Culture: grew Proteus + ID consulted for persistent leukocytosis - Dr. Asher- help appreciated - IV antibiotics switched to Meropenem 1gram IVP Q8H, continued Vancomycin. Patient is medically stable for I&D tomorrow. Pt has a Detsky score of 5, Class 1 low risk of perioperative cardiovascular event. Podiatry and Anesthesia to explain the risks and benefits of procedure. Patient for I & D today with podiatry. Status: Acute PVD Assessment and Plan: Arterial PVR/ SEG B/L: mild to moderate BL arterial insufficiency beginning at SFA left with more disease than right, L> R. Surgery Consulted- Dr. Sanders - karol appreciated CT Ab ileofem angiography: BL excessive atherosclertic disease. B/L SFA multifocal mild to moderate high grade stenosis. Plan for angiogram Friday09/16/16 Status: Chronic Diabetes Mellitus Assessment and Plan: Accuchecks HbgA1c = 13.3 Will hold home meds: Januvia 100mg QHS and Metformin 1000mg PO BID, and Prandin 1mg PO BID (confirmed with Pharmacy). According to the patient he takes Lantus 20mg SC BID (however the pharmacy did not confirm this). Started on: Lantus increased to 30 units HS, Novolog increased to 12 units TID, and Medium dose sliding scale DM counseling ordered Status: Chronic History of quadriple vessel bypass surgery Assessment and Plan: Currently asymptomatic Continue Pradaxa, Cozaar, Zetia Started on ASA daily Lipid Panel and TSH, T4 - WNL Status: Acute Atrial fibrillation Assessment and Plan: Amiodarone daily TSH, T4 - WNL Currently rate controlled and asymptomatic Cont to monitor Status: Acute HTN (hypertension) Assessment and Plan: Continue Cozaar and HCTZ Patient normally takes Diovan at home but non-formulary here. Status: Acute Prophylactic measure Assessment and Plan: DVT VTE c/i since patient is already on anticoagulation for AFib GI prophylaxis not indicated at this time PT evaluation- recommend TCU Status: Acute Disposition: Patient will be discharged to [facility] once medically stable. DW Chiara Forman DO, PGY-1 <Reid Gabriel - Last Filed: 09/14/16 12:02> Objective - Vital Signs/Intake and Output Vital Signs (last 24 hours): Temp Pulse Resp BP Pulse Ox 98.1 F 66 20 124/72 96 09/14/16 07:53 09/14/16 07:53 09/14/16 07:53 09/14/16 07:53 09/14/16 07:53 Intake and Output: 09/14/16 09/14/16 06:59 18:59 Intake Total 600 Output Total 200 Balance 400 - Medications Medications: Current Medications Acetaminophen (Tylenol 325mg Tab) 650 mg PO Q6 PRN PRN Reason: Pain, Mild (1-3) Last Admin: 09/09/16 07:02 Dose: 650 mg Amiodarone HCl (Cordarone) 200 mg PO DAILY [facility] Last Admin: 09/14/16 10:24 Dose: 200 mg Aspirin (Ecotrin) 81 mg PO DAILY [facility] Last Admin: 09/14/16 10:24 Dose: 81 mg Dabigatran (Pradaxa) 150 mg PO BID [facility] Last Admin: 09/14/16 10:25 Dose: 150 mg Ezetimibe (Zetia) 10 mg PO DAILY [facility] Last Admin: 09/14/16 10:25 Dose: 10 mg Hydrochlorothiazide (Hydrodiuril) 25 mg PO DAILY [facility] Last Admin: 09/14/16 10:24 Dose: 25 mg Vancomycin/Sodium Chloride (Vancocin) 1 gm in 200 mls @ 133 mls/hr IVPB Q12H [facility] Stop: 09/17/16 08:01 Last Admin: 09/14/16 10:30 Dose: 133 mls/hr Meropenem 1 gm/ Sodium (Chloride) 100 mls @ 100 mls/hr IVPB Q8 [facility] Last Admin: 09/14/16 05:29 Dose: 100 mls/hr Insulin Aspart (Novolog) 0 unit SC ACHS [facility] PRN Reason: Protocol Last Admin: 09/14/16 08:47 Dose: 3 unit Insulin Aspart (Novolog) 12 unit SC TIDAC [facility] Last Admin: 09/14/16 08:47 Dose: 12 unit Insulin Glargine (Lantus) 30 unit SC HS [facility] Last Admin: 09/13/16 21:49 Dose: 30 unit Losartan Potassium (Cozaar) 100 mg PO DAILY [facility] Last Admin: 09/14/16 10:24 Dose: 100 mg Oxycodone/Acetaminophen (Percocet 5/325 Mg Tab) 2 tab PO Q6H PRN PRN Reason: Pain, moderate (4-7) Stop: 09/15/16 07:01 Last Admin: 09/14/16 08:54 Dose: 2 tab Quetiapine Fumarate (Seroquel) 200 mg PO HS [facility] Last Admin: 09/13/16 21:51 Dose: 200 mg Saccharomyces Boulardii (Florastor) 250 mg PO BID [facility] Last Admin: 09/14/16 10:25 Dose: 250 mg Venlafaxine HCl (Effexor Xr) 150 mg PO DAILY [facility] Last Admin: 09/14/16 10:25 Dose: 150 mg - Labs Labs: 09/14/16 07:15 09/14/16 07:15 PT 11.4 SECONDS (9.7-12.2) 09/09/16 07:22 INR 1.0 09/09/16 07:22 APTT 31 SECONDS (21-34) D 09/09/16 07:22 Attending/Attestation - Attestation I have personally seen and examined this patient.: Yes I have fully participated in the care of the patient.: Yes I have reviewed all pertinent clinical information, including history, physical exam and plan: Yes Notes (Text): 09/14/16 12:01 Patient was seen and examined at bedside with the resident Patient is scheduled for incision and drainage of podiatry today Vascular surgery evaluation seen in appreciated Continue antibiotics as per the condition of ID I agree with the assessment and plan recommended by the resident.
[2016-09-13] MEDS ORDERED: Bupivacaine HCl 0.5% PF (10 ml) Inj ONE (18:01)
[2016-09-13] MEDS ORDERED: Lactated Ringer's 1,000 ML IV ONE ×2 (18:02→19:05)
[2016-09-13] MEDS: Bupivacaine HCl 0.5% PF (10 ml) Inj ONE ×2 (18:05→18:10)
[2016-09-13] MEDS: Lidocaine 1% Inj (20ml) ONE ×2 (18:05→18:10)
[2016-09-13] MEDS ORDERED: Propofol 10 mg/ml Inj (20 ML) ONE ×2 (18:07→18:20)
[2016-09-13] MEDS ORDERED: Midazolam 2 MG/2 ML VIAL ONE (18:07)
--- NOTE | 2016-09-13 18:27 | CP.PCM.PN ---
Subjective - Date & Time of Evaluation Date of Evaluation: 09/13/16 Time of Evaluation: 07:55 - Subjective Subjective: Vascular Surgery- Dr. Sanders Pt S&E at bedside this AM. No acute events overnight. CTA performed yesterday. Denies F/C CP/SOB N/V/D, numbness or tingling in the extremities, vision changes , LOC. Objective - Vital Signs/Intake and Output Vital Signs (last 24 hours): Temp Pulse Resp BP Pulse Ox 98.9 F 70 20 120/70 98 09/13/16 16:00 09/13/16 16:00 09/13/16 16:00 09/13/16 16:00 09/13/16 16:00 - Medications Medications: Current Medications Acetaminophen (Tylenol 325mg Tab) 650 mg PO Q6 PRN PRN Reason: Pain, Mild (1-3) Last Admin: 09/09/16 07:02 Dose: 650 mg Amiodarone HCl (Cordarone) 200 mg PO DAILY [facility] Last Admin: 09/12/16 09:11 Dose: 200 mg Aspirin (Ecotrin) 81 mg PO DAILY [facility] Last Admin: 09/12/16 09:11 Dose: 81 mg Dabigatran (Pradaxa) 150 mg PO BID [facility] Last Admin: 09/12/16 09:12 Dose: 150 mg Ezetimibe (Zetia) 10 mg PO DAILY [facility] Last Admin: 09/11/16 10:00 Dose: 10 mg Hydrochlorothiazide (Hydrodiuril) 25 mg PO DAILY [facility] Last Admin: 09/12/16 09:12 Dose: 25 mg Sodium Chloride (Sodium Chloride 0.9%) 1,000 mls @ 100 mls/hr IV .Q10H [facility] Last Admin: 09/13/16 10:26 Dose: 100 mls/hr Vancomycin/Sodium Chloride (Vancocin) 1 gm in 200 mls @ 133 mls/hr IVPB Q12H [facility] Stop: 09/17/16 08:01 Last Admin: 09/13/16 12:19 Dose: 133 mls/hr Meropenem 1 gm/ Sodium (Chloride) 100 mls @ 100 mls/hr IVPB Q8 [facility] Last Admin: 09/13/16 05:37 Dose: 100 mls/hr Insulin Aspart (Novolog) 0 unit SC ACHS [facility] PRN Reason: Protocol Last Admin: 09/13/16 12:17 Dose: Not Given Insulin Aspart (Novolog) 12 unit SC TIDAC [facility] Last Admin: 09/13/16 12:17 Dose: Not Given Insulin Glargine (Lantus) 30 unit SC HS [facility] Last Admin: 09/12/16 22:16 Dose: 30 unit Losartan Potassium (Cozaar) 100 mg PO DAILY [facility] Last Admin: 09/13/16 10:23 Dose: 100 mg Oxycodone/Acetaminophen (Percocet 5/325 Mg Tab) 2 tab PO Q6H PRN PRN Reason: Pain, moderate (4-7) Stop: 09/15/16 07:01 Last Admin: 09/13/16 06:34 Dose: 2 tab Quetiapine Fumarate (Seroquel) 200 mg PO [facility] Last Admin: 09/11/16 21:37 Dose: 200 mg Saccharomyces Boulardii (Florastor) 250 mg PO BID [facility] Last Admin: 09/13/16 12:16 Dose: Not Given Venlafaxine HCl (Effexor Xr) 150 mg PO DAILY [facility] Last Admin: 09/12/16 09:11 Dose: 150 mg - Labs Labs: 09/13/16 07:15 09/13/16 07:15 PT 11.4 SECONDS (9.7-12.2) 09/09/16 07:22 INR 1.0 09/09/16 07:22 APTT 31 SECONDS (21-34) D 09/09/16 07:22 - Constitutional Appears: No Acute Distress - Head Exam Head Exam: ATRAUMATIC - Eye Exam Eye Exam: EOMI - ENT Exam ENT Exam: Mucous Membranes Moist - Respiratory Exam Respiratory Exam: NORMAL BREATHING PATTERN. absent: Accessory Muscle Use, Rhonchi, Wheezes - Cardiovascular Exam Cardiovascular Exam: +S1, +S2 - GI/Abdominal Exam GI & Abdominal Exam: Soft, Normal Bowel Sounds. absent: Distended, Tenderness - Extremities Exam Extremities Exam: Pedal Edema Additional comments: Left foot wrapped. Dressing C/D/I. Femoral pulses +1 b/l Assessment and Plan - Assessment and Plan (Free Text) Assessment: 55M PAD left foot abscess Plan: - CTA performed yesterday - Podiatry OR today for I&D - Plan for Peripheral Angio on Friday - Further recs per Dr. Sanders D/W Dr. Marilyn Forbes PGY1
--- NOTE | 2016-09-13 19:00 | CP.PCM.PN ---
Subjective - Date & Time of Evaluation Date of Evaluation: 09/13/16 Time of Evaluation: 06:00 - Subjective Subjective: recent cultures noted one c/s shows proteus sens to merrem while the other only sen to cipro cipro added ppending or cultures Objective - Vital Signs/Intake and Output Vital Signs (last 24 hours): Temp Pulse Resp BP Pulse Ox 98.9 F 70 20 120/70 98 09/13/16 16:00 09/13/16 16:00 09/13/16 16:00 09/13/16 16:00 09/13/16 16:00 - Medications Medications: Current Medications Acetaminophen (Tylenol 325mg Tab) 650 mg PO Q6 PRN PRN Reason: Pain, Mild (1-3) Last Admin: 09/09/16 07:02 Dose: 650 mg Amiodarone HCl (Cordarone) 200 mg PO DAILY [facility] Last Admin: 09/12/16 09:11 Dose: 200 mg Aspirin (Ecotrin) 81 mg PO DAILY [facility] Last Admin: 09/12/16 09:11 Dose: 81 mg Dabigatran (Pradaxa) 150 mg PO BID [facility] Last Admin: 09/12/16 09:12 Dose: 150 mg Ezetimibe (Zetia) 10 mg PO DAILY [facility] Last Admin: 09/11/16 10:00 Dose: 10 mg Hydrochlorothiazide (Hydrodiuril) 25 mg PO DAILY [facility] Last Admin: 09/12/16 09:12 Dose: 25 mg Hydromorphone HCl (Dilaudid) 0.5 mg IVP Q10M PRN PRN Reason: Pain, moderate (4-7) Stop: 09/13/16 20:35 Sodium Chloride (Sodium Chloride 0.9%) 1,000 mls @ 100 mls/hr IV .Q10H [facility] Last Admin: 09/13/16 10:26 Dose: 100 mls/hr Vancomycin/Sodium Chloride (Vancocin) 1 gm in 200 mls @ 133 mls/hr IVPB Q12H [facility] Stop: 09/17/16 08:01 Last Admin: 09/13/16 12:19 Dose: 133 mls/hr Meropenem 1 gm/ Sodium (Chloride) 100 mls @ 100 mls/hr IVPB Q8 [facility] Last Admin: 09/13/16 05:37 Dose: 100 mls/hr Insulin Aspart (Novolog) 0 unit SC ACHS [facility] PRN Reason: Protocol Last Admin: 09/13/16 12:17 Dose: Not Given Insulin Aspart (Novolog) 12 unit SC TIDAC [facility] Last Admin: 09/13/16 12:17 Dose: Not Given Insulin Glargine (Lantus) 30 unit SC HS [facility] Last Admin: 09/12/16 22:16 Dose: 30 unit Losartan Potassium (Cozaar) 100 mg PO DAILY [facility] Last Admin: 09/13/16 10:23 Dose: 100 mg Oxycodone/Acetaminophen (Percocet 5/325 Mg Tab) 2 tab PO Q6H PRN PRN Reason: Pain, moderate (4-7) Stop: 09/15/16 07:01 Last Admin: 09/13/16 06:34 Dose: 2 tab Quetiapine Fumarate (Seroquel) 200 mg PO [facility] Last Admin: 09/11/16 21:37 Dose: 200 mg Saccharomyces Boulardii (Florastor) 250 mg PO BID [facility] Last Admin: 09/13/16 12:16 Dose: Not Given Venlafaxine HCl (Effexor Xr) 150 mg PO DAILY [facility] Last Admin: 09/12/16 09:11 Dose: 150 mg - Labs Labs: 09/13/16 07:15 09/13/16 07:15 PT 11.4 SECONDS (9.7-12.2) 09/09/16 07:22 INR 1.0 09/09/16 07:22 APTT 31 SECONDS (21-34) D 09/09/16 07:22 Assessment and Plan (1) Atrial fibrillation Status: Acute (2) Cellulitis of foot, left Status: Acute (3) HTN (hypertension) Status: Acute (4) History of heart bypass surgery Status: Acute (5) Hyperglycemia without ketosis Status: Acute
--- NOTE | 2016-09-13 19:10 | PCM.SURG1 ---
Surgeon's Initial Post Op Note - Surgeon's Notes Surgeon: Dr. Jo, DPM Osteopathy Doctor: Dr. Porfirio Zamudio PGY1, Dr. Maggi Acosta PGY2 Type of Anesthesia: IV Sedation, Local Anesthesia Administered By: Dr. Kay Pre-Operative Diagnosis: Left foot cellulitis with underlying abscess Operative Findings: See dictation. I- 30 cc 1:1 1% lidocaine plain and 0.5% marcaine plain. M- 1/2 inch plain packing Post-Operative Diagnosis: Same Operation Performed: Incision and drainage of left foot abscess with removal of all nonviable tissue Specimen/Specimens Removed: None Estimated Blood Loss: EBL {In ML}: 5 Drains Used: No Drains Post-Op Condition: Good Date of Surgery/Procedure: 09/13/16 Time of Surgery/Procedure: 19:11
[2016-09-13] MEDS: HYDROmorphone 0.5 mg/0.5 ml ISec IVP PRN ×2 (19:25→19:30)
[2016-09-13] MEDS: (Lantus) Insulin Glargine, Recombinant SC SCH (21:49)
[2016-09-13] MEDS: Venlafaxine 150 mg ER Cap PO SCH (21:50)
--- NOTE | 2016-09-14 02:51 | CP.PCM.PN ---
<Brock Joseph - Last Filed: 09/14/16 02:52> Subjective - Date & Time of Evaluation Date of Evaluation: 09/14/16 Time of Evaluation: 02:49 - Subjective Subjective: PGY-[address] Gabriel HPI: Patient was seen and examined at bedside. Doing well. Complaining of Pain in his foot. Pt had I/D today. Plan for angiogram friday. Pt aware of plan and agrees. No other complaints at this time. Denies N/V/D/F/CP/SOB Objective - Vital Signs/Intake and Output Vital Signs (last 24 hours): Temp Pulse Resp BP Pulse Ox 98.8 F 66 20 112/62 98 09/14/16 00:00 09/14/16 00:00 09/14/16 00:00 09/14/16 00:00 09/14/16 00:00 Intake and Output: 09/13/16 09/14/16 18:59 06:59 Intake Total 400 600 Output Total 800 200 Balance -400 400 - Medications Medications: Current Medications Acetaminophen (Tylenol 325mg Tab) 650 mg PO Q6 PRN PRN Reason: Pain, Mild (1-3) Last Admin: 09/09/16 07:02 Dose: 650 mg Amiodarone HCl (Cordarone) 200 mg PO DAILY [facility] Last Admin: 09/13/16 21:50 Dose: 200 mg Aspirin (Ecotrin) 81 mg PO DAILY [facility] Last Admin: 09/12/16 09:11 Dose: 81 mg Dabigatran (Pradaxa) 150 mg PO BID [facility] Last Admin: 09/12/16 09:12 Dose: 150 mg Ezetimibe (Zetia) 10 mg PO DAILY [facility] Last Admin: 09/13/16 21:54 Dose: 10 mg Hydrochlorothiazide (Hydrodiuril) 25 mg PO DAILY [facility] Last Admin: 09/13/16 21:49 Dose: 25 mg Sodium Chloride (Sodium Chloride 0.9%) 1,000 mls @ 100 mls/hr IV .Q10H [facility] Last Admin: 09/13/16 18:00 Dose: Not Given Vancomycin/Sodium Chloride (Vancocin) 1 gm in 200 mls @ 133 mls/hr IVPB Q12H [facility] Stop: 09/17/16 08:01 Last Admin: 09/13/16 20:48 Dose: 133 mls/hr Meropenem 1 gm/ Sodium (Chloride) 100 mls @ 100 mls/hr IVPB Q8 [facility] Last Admin: 09/13/16 21:55 Dose: 100 mls/hr Insulin Aspart (Novolog) 0 unit SC ACHS [facility] PRN Reason: Protocol Last Admin: 09/13/16 21:53 Dose: Not Given Insulin Aspart (Novolog) 12 unit SC TIDAC [facility] Last Admin: 09/13/16 16:30 Dose: Not Given Insulin Glargine (Lantus) 30 unit SC HS [facility] Last Admin: 09/13/16 21:49 Dose: 30 unit Losartan Potassium (Cozaar) 100 mg PO DAILY [facility] Last Admin: 09/13/16 10:23 Dose: 100 mg Oxycodone/Acetaminophen (Percocet 5/325 Mg Tab) 2 tab PO Q6H PRN PRN Reason: Pain, moderate (4-7) Stop: 09/15/16 07:01 Last Admin: 09/13/16 20:54 Dose: 2 tab Quetiapine Fumarate (Seroquel) 200 mg PO [facility] Last Admin: 09/13/16 21:51 Dose: 200 mg Saccharomyces Boulardii (Florastor) 250 mg PO BID [facility] Last Admin: 09/13/16 21:49 Dose: 250 mg Venlafaxine HCl (Effexor Xr) 150 mg PO DAILY [facility] Last Admin: 09/13/16 21:50 Dose: 150 mg - Labs Labs: 09/13/16 07:15 09/13/16 07:15 PT 11.4 SECONDS (9.7-12.2) 09/09/16 07:22 INR 1.0 09/09/16 07:22 APTT 31 SECONDS (21-34) D 09/09/16 07:22 - Constitutional Appears: Well, Non-toxic, No Acute Distress - Eye Exam Eye Exam: EOMI - ENT Exam ENT Exam: Mucous Membranes Moist - Respiratory Exam Respiratory Exam: Clear to Ausculation Bilateral - Cardiovascular Exam Cardiovascular Exam: REGULAR RHYTHM - GI/Abdominal Exam GI & Abdominal Exam: Soft. absent: Bruit, Distended, Firm, Guarding, Rigid, Tenderness - Extremities Exam Additional comments: L. foot ulcer s/p I/D. Surgery taking care of dressing changes Assessment and Plan - Assessment and Plan (Free Text) Assessment: Cellulitis of foot, left Assessment and Plan: Patient received Vanc and Clindamycin in the ED. Perococet PRN and Tylenol PRN for pain Left foot xray - no osteo Podiatry recommendations: applied betadine, DSD to left foot, continue current regimen BC- no growth Bone Scan of Left Foot (patient refuses to have MRI done due to claustrophobia) : NO OSTEOMYELITIS Wound Culture: grew Proteus + ID consulted for persistent leukocytosis - Dr. Asher- help appreciated - IV antibiotics switched to Meropenem 1gram IVP Q8H, continued Vancomycin. Patient is medically stable for I&D tomorrow. Pt has a Detsky score of 5, Class 1 low risk of perioperative cardiovascular event. Podiatry and Anesthesia to explain the risks and benefits of procedure. S/P I/D - surgery taking care of dressing changes Status: Acute PVD Assessment and Plan: Arterial PVR/ SEG B/L: mild to moderate BL arterial insufficiency beginning at SFA left with more disease than right, L> R. Surgery Consulted- Dr. Sanders - help appreciated CT Ab ileofem angiography: BL excessive atherosclertic disease. B/L SFA multifocal mild to moderate high grade stenosis. Plan for angiogram Friday09/16/16 Status: Chronic Diabetes Mellitus Assessment and Plan: Accuchecks HbgA1c = 13.3 Will hold home meds: Januvia 100mg QHS and Metformin 1000mg PO BID, and Prandin 1mg PO BID (confirmed with Pharmacy). According to the patient he takes Lantus 20mg SC BID (however the pharmacy did not confirm this). Started on: Lantus increased to 30 units HS, Novolog increased to 12 units TID, and Medium dose sliding scale DM counseling ordered Status: Chronic History of quadriple vessel bypass surgery Assessment and Plan: Currently asymptomatic Continue Pradaxa, Cozaar, Zetia Started on ASA daily Lipid Panel and TSH, T4 - WNL Status: Acute Atrial fibrillation Assessment and Plan: Amiodarone daily TSH, T4 - WNL Currently rate controlled and asymptomatic Cont to monitor Status: Acute HTN (hypertension) Assessment and Plan: Continue Cozaar and HCTZ Patient normally takes Diovan at home but non-formulary here. Status: Acute Prophylactic measure Assessment and Plan: DVT VTE c/i since patient is already on anticoagulation for AFib GI prophylaxis not indicated at this time PT evaluation- recommend TCU Status: Acute Disposition: Patient will be discharged to [facility] once medically stable. <Reid Gabriel - Last Filed: 09/14/16 18:31> Objective - Vital Signs/Intake and Output Vital Signs (last 24 hours): Temp Pulse Resp BP Pulse Ox 98.4 F 63 20 112/62 98 09/14/16 15:00 09/14/16 15:00 09/14/16 15:00 09/14/16 15:00 09/14/16 15:00 Intake and Output: 09/14/16 09/14/16 06:59 18:59 Intake Total 600 1300 Output Total 200 1150 Balance 400 150 - Medications Medications: Current Medications Acetaminophen (Tylenol 325mg Tab) 650 mg PO Q6 PRN PRN Reason: Pain, Mild (1-3) Last Admin: 09/09/16 07:02 Dose: 650 mg Amiodarone HCl (Cordarone) 200 mg PO DAILY [facility] Last Admin: 09/14/16 10:24 Dose: 200 mg Aspirin (Ecotrin) 81 mg PO DAILY [facility] Last Admin: 09/14/16 10:24 Dose: 81 mg Dabigatran (Pradaxa) 150 mg PO BID [facility] Last Admin: 09/14/16 17:32 Dose: 150 mg Ezetimibe (Zetia) 10 mg PO DAILY [facility] Last Admin: 09/14/16 10:25 Dose: 10 mg Hydrochlorothiazide (Hydrodiuril) 25 mg PO DAILY [facility] Last Admin: 09/14/16 10:24 Dose: 25 mg Vancomycin/Sodium Chloride (Vancocin) 1 gm in 200 mls @ 133 mls/hr IVPB Q12H [facility] Stop: 09/17/16 08:01 Last Admin: 09/14/16 10:30 Dose: 133 mls/hr Meropenem 1 gm/ Sodium (Chloride) 100 mls @ 100 mls/hr IVPB Q8 [facility] Last Admin: 09/14/16 13:42 Dose: 100 mls/hr Insulin Aspart (Novolog) 0 unit SC ACHS [facility] PRN Reason: Protocol Last Admin: 09/14/16 17:10 Dose: 4 unit Insulin Aspart (Novolog) 12 unit SC TIDAC [facility] Last Admin: 09/14/16 17:10 Dose: 12 unit Insulin Glargine (Lantus) 30 unit SC HS [facility] Last Admin: 09/13/16 21:49 Dose: 30 unit Losartan Potassium (Cozaar) 100 mg PO DAILY [facility] Last Admin: 09/14/16 10:24 Dose: 100 mg Oxycodone/Acetaminophen (Percocet 5/325 Mg Tab) 2 tab PO Q6H PRN PRN Reason: Pain, moderate (4-7) Stop: 09/15/16 07:01 Last Admin: 09/14/16 15:25 Dose: 2 tab Quetiapine Fumarate (Seroquel) 200 mg PO HS [facility] Last Admin: 09/13/16 21:51 Dose: 200 mg Saccharomyces Boulardii (Florastor) 250 mg PO BID [facility] Last Admin: 09/14/16 17:31 Dose: 250 mg Venlafaxine HCl (Effexor Xr) 150 mg PO DAILY [facility] Last Admin: 09/14/16 10:25 Dose: 150 mg - Labs Labs: 09/14/16 07:15 09/14/16 07:15 PT 11.4 SECONDS (9.7-12.2) 09/09/16 07:22 INR 1.0 09/09/16 07:22 APTT 31 SECONDS (21-34) D 09/09/16 07:22 Attending/Attestation - Attestation I have personally seen and examined this patient.: Yes I have fully participated in the care of the patient.: Yes I have reviewed all pertinent clinical information, including history, physical exam and plan: Yes Notes (Text): 09/14/16 18:30 Patient was seen and examined at bedside with the resident Patient is status post incision and drainage of the left foot cellulitis wound Plan for lower extremity angiography by Dr. Sanders on Friday Continue IV antibiotics Discussed the plan of care with the resident and agree with the assessment and plan documented above.
[2016-09-14] MEDS: Sodium Chloride 0.9% 1,000 ML IV SCH ×3 (03:08→17:21)
[2016-09-14] MEDS: Oxycodone/Acetaminophen 5/325 mg Tab PO PRN ×4 (03:09→21:45)
[2016-09-14] MEDS: Meropenem 1 GM in Sodium Chloride 0.9% 100 ML IVPB SCH ×3 (05:29→21:42)
[2016-09-14 07:28] LABS: BASO # 0.1 K/uL (0.0-0.2); BASO % 0.5 % (0.0-2.0); EOS # 0.1 K/uL (0.0-0.7); EOS % 0.5 % (0.0-4.0); HEMATOCRIT 31.4 % (35.0-51.0); LYMPH % 16.6 % (20.0-40.0); MEAN CELL VOLUME 86.3 fL (80.0-94.0); MEAN CORPUSCULAR HEMOGLOBIN 28.1 pg (27.0-31.0); MEAN CORPUSCULAR HGB CONC 32.6 g/dL (33.0-37.0); MEAN PLATELET VOLUME 8.1 fL (7.2-11.7); MONO # 1.3 K/uL (0.0-0.8); MONO % 10.8 % (0.0-10.0); NRBC % 0.1 % (0.0-2.0); RED CELL DISTRIBUTION WIDTH 12.6 % (11.5-14.5); WHITE BLOOD COUNT 12.2 K/uL (4.8-10.8)
[2016-09-14 07:40] LABS: CHLORIDE 92 mmol/L (98-107); POTASSIUM 3.8 mmol/L (3.6-5.2); SODIUM 135 mmol/L (132-148)
[2016-09-14 07:42] LABS: ALKALINE PHOSPHATASE 79 U/L (38-126); AST/SGOT 29 U/L (17-59); BILIRUBIN,TOTAL 0.5 mg/dL (0.2-1.3); CARBON DIOXIDE 29 mmol/L (22-30); GFR AFRICAN-AMERICAN > 60; TOTAL PROTEIN 6.7 g/dL (6.3-8.3)
[2016-09-14 07:43] LABS: ALT/SGPT 34 U/L (21-72); BLOOD UREA NITROGEN 9 mg/dL (9-20); CALCIUM 8.7 mg/dl (8.6-10.4); GLUCOSE,RANDOM 219 mg/dL (75-110); MAGNESIUM 1.7 mg/dL (1.6-2.3)
[2016-09-14] MEDS: (Novolog) Insulin Aspart, Recombinant 100 u/ml 10 ml vial SC SCH ×7 (08:47→21:49)
--- NOTE | 2016-09-14 09:54 | CP.PCM.PN ---
Subjective - Date & Time of Evaluation Date of Evaluation: 09/14/16 Time of Evaluation: 08:00 - Subjective Subjective: Pt S&E this AM, patient is s/p I&D by podiatry. Patient has no complaints. Scheduled for peripheral angio on Friday. Objective - Vital Signs/Intake and Output Vital Signs (last 24 hours): Temp Pulse Resp BP Pulse Ox 98.1 F 66 20 124/72 96 09/14/16 07:53 09/14/16 07:53 09/14/16 07:53 09/14/16 07:53 09/14/16 07:53 Intake and Output: 09/14/16 09/14/16 06:59 18:59 Intake Total 600 Output Total 200 Balance 400 - Medications Medications: Current Medications Acetaminophen (Tylenol 325mg Tab) 650 mg PO Q6 PRN PRN Reason: Pain, Mild (1-3) Last Admin: 09/09/16 07:02 Dose: 650 mg Amiodarone HCl (Cordarone) 200 mg PO DAILY [facility] Last Admin: 09/13/16 21:50 Dose: 200 mg Aspirin (Ecotrin) 81 mg PO DAILY [facility] Last Admin: 09/12/16 09:11 Dose: 81 mg Dabigatran (Pradaxa) 150 mg PO BID [facility] Last Admin: 09/12/16 09:12 Dose: 150 mg Ezetimibe (Zetia) 10 mg PO DAILY [facility] Last Admin: 09/13/16 21:54 Dose: 10 mg Hydrochlorothiazide (Hydrodiuril) 25 mg PO DAILY [facility] Last Admin: 09/13/16 21:49 Dose: 25 mg Sodium Chloride (Sodium Chloride 0.9%) 1,000 mls @ 100 mls/hr IV .Q10H [facility] Last Admin: 09/14/16 03:08 Dose: 100 mls/hr Vancomycin/Sodium Chloride (Vancocin) 1 gm in 200 mls @ 133 mls/hr IVPB Q12H [facility] Stop: 09/17/16 08:01 Last Admin: 09/13/16 20:48 Dose: 133 mls/hr Meropenem 1 gm/ Sodium (Chloride) 100 mls @ 100 mls/hr IVPB Q8 [facility] Last Admin: 09/14/16 05:29 Dose: 100 mls/hr Insulin Aspart (Novolog) 0 unit SC ACHS [facility] PRN Reason: Protocol Last Admin: 09/14/16 08:47 Dose: 3 unit Insulin Aspart (Novolog) 12 unit SC TIDAC [facility] Last Admin: 09/14/16 08:47 Dose: 12 unit Insulin Glargine (Lantus) 30 unit SC HS [facility] Last Admin: 09/13/16 21:49 Dose: 30 unit Losartan Potassium (Cozaar) 100 mg PO DAILY [facility] Last Admin: 09/13/16 10:23 Dose: 100 mg Oxycodone/Acetaminophen (Percocet 5/325 Mg Tab) 2 tab PO Q6H PRN PRN Reason: Pain, moderate (4-7) Stop: 09/15/16 07:01 Last Admin: 09/14/16 08:54 Dose: 2 tab Quetiapine Fumarate (Seroquel) 200 mg PO HS [facility] Last Admin: 09/13/16 21:51 Dose: 200 mg Saccharomyces Boulardii (Florastor) 250 mg PO BID [facility] Last Admin: 09/13/16 21:49 Dose: 250 mg Venlafaxine HCl (Effexor Xr) 150 mg PO DAILY [facility] Last Admin: 09/13/16 21:50 Dose: 150 mg - Labs Labs: 09/14/16 07:15 09/14/16 07:15 PT 11.4 SECONDS (9.7-12.2) 09/09/16 07:22 INR 1.0 09/09/16 07:22 APTT 31 SECONDS (21-34) D 09/09/16 07:22 - Constitutional Appears: Non-toxic - Head Exam Head Exam: NORMOCEPHALIC - Eye Exam Eye Exam: Normal appearance - ENT Exam ENT Exam: Mucous Membranes Moist - Respiratory Exam Respiratory Exam: NORMAL BREATHING PATTERN - Cardiovascular Exam Cardiovascular Exam: +S1, +S2 - GI/Abdominal Exam GI & Abdominal Exam: Soft - Neurological Exam Neurological Exam: Alert, Awake, Oriented x3 - Skin Skin Exam: Normal Color, Warm Assessment and Plan - Assessment and Plan (Free Text) Assessment: 55M w/ PAD left foot abscess s/p I&D w/ moderate to high grade stenoses along femoral arteries b/l -NPO Friday past MN - Plan for Peripheral Angio on Friday - Further recs per Dr. Sanders D/W Dr. Sanders
[2016-09-14] MEDS: Saccharomyces Boulardi 250 mg Cap PO SCH ×2 (10:25→17:31)
[2016-09-14] MEDS: Venlafaxine 150 mg ER Cap PO SCH (10:25)
[2016-09-14] MEDS: Vancomycin 1 gm/NS 200 ml 1 GM/200 ML BAG IVPB SCH ×2 (10:30→20:30)
--- NOTE | 2016-09-14 14:52 | CP.PCM.PN ---
Subjective - Date & Time of Evaluation Date of Evaluation: 09/14/16 Time of Evaluation: 12:49 - Subjective Subjective: Patient seen and evaluated at bedside with attending Dr. Jo 1 day s/p left foot I and D. Patient is AAOx3 and NAD. Patient denies any acute overnight events and states that he is feeling well. Patient denies N/V/F/C/CP/SOB. Patient denies any further pedal complaints at this time. Objective - Vital Signs/Intake and Output Vital Signs (last 24 hours): Temp Pulse Resp BP Pulse Ox 98.1 F 66 20 124/72 96 09/14/16 07:53 09/14/16 07:53 09/14/16 07:53 09/14/16 07:53 09/14/16 07:53 Intake and Output: 09/14/16 09/14/16 06:59 18:59 Intake Total 600 1300 Output Total 200 1150 Balance 400 150 - Medications Medications: Current Medications Acetaminophen (Tylenol 325mg Tab) 650 mg PO Q6 PRN PRN Reason: Pain, Mild (1-3) Last Admin: 09/09/16 07:02 Dose: 650 mg Amiodarone HCl (Cordarone) 200 mg PO DAILY [facility] Last Admin: 09/14/16 10:24 Dose: 200 mg Aspirin (Ecotrin) 81 mg PO DAILY [facility] Last Admin: 09/14/16 10:24 Dose: 81 mg Dabigatran (Pradaxa) 150 mg PO BID [facility] Last Admin: 09/14/16 10:25 Dose: 150 mg Ezetimibe (Zetia) 10 mg PO DAILY [facility] Last Admin: 09/14/16 10:25 Dose: 10 mg Hydrochlorothiazide (Hydrodiuril) 25 mg PO DAILY [facility] Last Admin: 09/14/16 10:24 Dose: 25 mg Vancomycin/Sodium Chloride (Vancocin) 1 gm in 200 mls @ 133 mls/hr IVPB Q12H [facility] Stop: 09/17/16 08:01 Last Admin: 09/14/16 10:30 Dose: 133 mls/hr Meropenem 1 gm/ Sodium (Chloride) 100 mls @ 100 mls/hr IVPB Q8 [facility] Last Admin: 09/14/16 13:42 Dose: 100 mls/hr Insulin Aspart (Novolog) 0 unit SC ACHS [facility] PRN Reason: Protocol Last Admin: 09/14/16 12:40 Dose: 4 unit Insulin Aspart (Novolog) 12 unit SC TIDAC [facility] Last Admin: 09/14/16 12:40 Dose: 12 unit Insulin Glargine (Lantus) 30 unit SC HS [facility] Last Admin: 09/13/16 21:49 Dose: 30 unit Losartan Potassium (Cozaar) 100 mg PO DAILY [facility] Last Admin: 09/14/16 10:24 Dose: 100 mg Oxycodone/Acetaminophen (Percocet 5/325 Mg Tab) 2 tab PO Q6H PRN PRN Reason: Pain, moderate (4-7) Stop: 09/15/16 07:01 Last Admin: 09/14/16 08:54 Dose: 2 tab Quetiapine Fumarate (Seroquel) 200 mg PO [facility] Last Admin: 09/13/16 21:51 Dose: 200 mg Saccharomyces Boulardii (Florastor) 250 mg PO BID [facility] Last Admin: 09/14/16 10:25 Dose: 250 mg Venlafaxine HCl (Effexor Xr) 150 mg PO DAILY [facility] Last Admin: 09/14/16 10:25 Dose: 150 mg - Labs Labs: 09/14/16 07:15 09/14/16 07:15 PT 11.4 SECONDS (9.7-12.2) 09/09/16 07:22 INR 1.0 09/09/16 07:22 APTT 31 SECONDS (21-34) D 09/09/16 07:22 - Constitutional Appears: Well, Non-toxic, No Acute Distress - Extremities Exam Additional comments: left lower extremity focused exam: Vasc: DP and PT pulses palpable 1/4, TG warm to warm, CFT < 3 sec to all digits neuro: gross sensation intact derm: Open surgical site noted to left foot with packing noted within. No malodor, purulent drainage or erythematous border noted at this time. Red, granular base noted to surgical site ortho: pain on palpation to surgical site - Neurological Exam Neurological Exam: Alert, Awake, Oriented x3 - Psychiatric Exam Psychiatric exam: Normal Affect, Normal Mood Assessment and Plan - Assessment and Plan (Free Text) Assessment: 55 year old man 1 day s/p left foot incision and drainage secondary to cellulitis with underlying abscess Plan: Patient seen and evaluated at bedside with Dr. Jo Charts, labs and vitals reviewed Packing within surgical site partially removed Site dressed with xeroform, 4x4, ABD, Kirlix, JUSTIN Patient to undergo peripheral angio on Friday Continue abx per ID Podiatry will continue to follow
[2016-09-14] MEDS: (Lantus) Insulin Glargine, Recombinant SC SCH (21:44)
--- NOTE | 2016-09-14 22:40 | OP ---
PROCEDURE DATE: 09/13/2016 PREOPERATIVE DIAGNOSIS: Left foot cellulitis with underlying abscess. POSTOPERATIVE DIAGNOSIS: Left foot cellulitis with underlying abscess. PROCEDURE: Incision and drainage of left foot abscess with removal on all nonviable tissue. SURGEON: Frederick Jo DPM KIT ASSEMBLER: Porfirio Zamudio, PGY-1 and Maggi Acosta, PGY-2. TYPE OF ANESTHESIA: IV sedation with local. ANESTHESIA ADMINISTERED BY: Dr. Linares. INDICATION: The patient is a 55-year-old male with the above diagnosis. The patient has exhausted all conservative treatment at this time and now requires surgical intervention. The patient signed the consent after careful explanation of risks, benefits, complications, and alternatives of surgical procedure. No guarantees were given or implied. PREPARATION: The patient was brought into the operating room and placed on the operating room table in a supine position. Time-out was performed via identification of the correct patient and procedure. After induction of IV sedation, the patient received a total of 30 mm of 1:1 mixture of 0.5% Marcaine plain and 1% lidocaine plain in a local block-type fashion to the left forefoot. Once local anesthesia was achieved, the left foot was then prepped and draped in a normal sterile manner. No tourniquet was used during the procedure. DESCRIPTION OF PROCEDURE: Attention was then directed to the dorsal aspect of the left foot at the level of the fifth metatarsal where fluctuant skin and a blister was present as well as to the fourth interdigital space where an open wound was present. Utilizing a #15 blade, an approximately 10 cm incision was made dorsally, proximal to distal from the area of fluctuant skin connecting to the open wound of the fourth digital interspace. The incisions were deepened to the bone using a #15 blade. At this time, approximately 5 mL of purulence was expressed from the incision site at the area where fluctuant skin had been noted. One wound culture was obtained and sent for pathology. Next, using Misonix curette handle on setting 7 the ulcer was excisionally debrided of all nonviable tissue until fresh and healthy bleeding of granular tissue appeared. Any remaining nonviable tissue was excisionally debrided using a #15 blade. Next, the area was copiously irrigated utilizing a pulse lavage of 3 liters of normal saline. The surgical site was then packed with one-half inch plain packing, and dressed with Xeroform , sterile gauze, two ABDs, Kerlix and Coban. It cannot be definitively stated at this time that the area was clear of all infection and secondary procedures may be necessary in the future. POSTOPERATIVE CONDITION: The patient tolerated the anesthesia and procedure well and was escorted to the recovery room with vital signs stable and neurovascular status intact to the left foot. This patient will be seen and followed by Dr. Jo while the patient remains in the hospital. Porfirio Zamudio DPM [id number]
[2016-09-15] MEDS: Meropenem 1 GM in Sodium Chloride 0.9% 100 ML IVPB SCH ×3 (05:36→21:30)
[2016-09-15] MEDS: Sodium Chloride 0.9% 1,000 ML IV SCH ×2 (05:37→21:42)
[2016-09-15] MEDS: Oxycodone/Acetaminophen 5/325 mg Tab PO PRN ×3 (06:16→22:41)
--- NOTE | 2016-09-15 07:52 | CP.PCM.PN ---
<Brock Joseph - Last Filed: 09/15/16 07:54> Subjective - Date & Time of Evaluation Date of Evaluation: 09/15/16 Time of Evaluation: 07:50 - Subjective Subjective: PGY-[address] Gabriel HPI: Patient was seen and examined at bedside. Doing well. Complaining of Pain in his foot. Dressing changes per podiatry. Plan for angiogram friday. Pt aware of plan and agrees. No other complaints at this time. Denies N/V/D/F/CP/SOB Objective - Vital Signs/Intake and Output Vital Signs (last 24 hours): Temp Pulse Resp BP Pulse Ox 99.2 F 64 20 115/70 97 09/15/16 00:00 09/15/16 00:00 09/15/16 00:00 09/15/16 00:00 09/15/16 00:00 Intake and Output: 09/15/16 09/15/16 06:59 18:59 Intake Total 1100 Output Total 900 Balance 200 - Medications Medications: Current Medications Acetaminophen (Tylenol 325mg Tab) 650 mg PO Q6 PRN PRN Reason: Pain, Mild (1-3) Last Admin: 09/09/16 07:02 Dose: 650 mg Amiodarone HCl (Cordarone) 200 mg PO DAILY [facility] Last Admin: 09/14/16 10:24 Dose: 200 mg Aspirin (Ecotrin) 81 mg PO DAILY [facility] Last Admin: 09/14/16 10:24 Dose: 81 mg Dabigatran (Pradaxa) 150 mg PO BID [facility] Last Admin: 09/14/16 17:32 Dose: 150 mg Ezetimibe (Zetia) 10 mg PO DAILY [facility] Last Admin: 09/14/16 10:25 Dose: 10 mg Hydrochlorothiazide (Hydrodiuril) 25 mg PO DAILY [facility] Last Admin: 09/14/16 10:24 Dose: 25 mg Vancomycin/Sodium Chloride (Vancocin) 1 gm in 200 mls @ 133 mls/hr IVPB Q12H [facility] Stop: 09/17/16 08:01 Last Admin: 09/14/16 20:30 Dose: 133 mls/hr Meropenem 1 gm/ Sodium (Chloride) 100 mls @ 100 mls/hr IVPB Q8 [facility] Last Admin: 09/15/16 05:36 Dose: 100 mls/hr Insulin Aspart (Novolog) 0 unit SC ACHS [facility] PRN Reason: Protocol Last Admin: 09/14/16 21:49 Dose: Not Given Insulin Aspart (Novolog) 12 unit SC TIDAC [facility] Last Admin: 09/14/16 17:10 Dose: 12 unit Insulin Glargine (Lantus) 30 unit SC HS [facility] Last Admin: 09/14/16 21:44 Dose: 30 unit Losartan Potassium (Cozaar) 100 mg PO DAILY [facility] Last Admin: 09/14/16 10:24 Dose: 100 mg Quetiapine Fumarate (Seroquel) 200 mg PO HS [facility] Last Admin: 09/14/16 21:40 Dose: 200 mg Saccharomyces Boulardii (Florastor) 250 mg PO BID [facility] Last Admin: 09/14/16 17:31 Dose: 250 mg Venlafaxine HCl (Effexor Xr) 150 mg PO DAILY [facility] Last Admin: 09/14/16 10:25 Dose: 150 mg - Labs Labs: 09/14/16 07:15 09/14/16 07:15 PT 11.4 SECONDS (9.7-12.2) 09/09/16 07:22 INR 1.0 09/09/16 07:22 APTT 31 SECONDS (21-34) D 09/09/16 07:22 - Constitutional Appears: Well, No Acute Distress - Head Exam Head Exam: ATRAUMATIC, NORMAL INSPECTION, NORMOCEPHALIC - Eye Exam Eye Exam: EOMI - ENT Exam ENT Exam: Mucous Membranes Moist - Respiratory Exam Respiratory Exam: Clear to Ausculation Bilateral, NORMAL BREATHING PATTERN - Cardiovascular Exam Cardiovascular Exam: REGULAR RHYTHM - GI/Abdominal Exam GI & Abdominal Exam: Normal Bowel Sounds - Neurological Exam Neurological Exam: Alert, Awake, Oriented x3 - Psychiatric Exam Psychiatric exam: Normal Affect, Normal Mood - Skin Skin Exam: Dry, Intact, Normal Color, Warm Additional comments: Left foot ulcer, no sings of infection. dressing changes per podiatry Assessment and Plan - Assessment and Plan (Free Text) Assessment: Cellulitis of foot, left Assessment and Plan: Patient received Vanc and Clindamycin in the ED. Perococet PRN and Tylenol PRN for pain Left foot xray - no osteo Podiatry recommendations: applied betadine, DSD to left foot, continue current regimen BC- no growth Bone Scan of Left Foot (patient refuses to have MRI done due to claustrophobia) : NO OSTEOMYELITIS Wound Culture: grew Proteus + ID consulted for persistent leukocytosis - Dr. Asher- help appreciated - IV antibiotics switched to Meropenem 1gram IVP Q8H, continued Vancomycin. Patient is medically stable for I&D tomorrow. Pt has a Detsky score of 5, Class 1 low risk of perioperative cardiovascular event. Podiatry and Anesthesia to explain the risks and benefits of procedure. S/P I/D - surgery taking care of dressing changes Status: Acute PVD Assessment and Plan: Arterial PVR/ SEG B/L: mild to moderate BL arterial insufficiency beginning at SFA left with more disease than right, L> R. Surgery Consulted- Dr. Sanders - help appreciated CT Ab ileofem angiography: BL excessive atherosclertic disease. B/L SFA multifocal mild to moderate high grade stenosis. Plan for angiogram Friday09/16/16 Status: Chronic Diabetes Mellitus Assessment and Plan: Accuchecks HbgA1c = 13.3 Will hold home meds: Januvia 100mg QHS and Metformin 1000mg PO BID, and Prandin 1mg PO BID (confirmed with Pharmacy). According to the patient he takes Lantus 20mg SC BID (however the pharmacy did not confirm this). Started on: Lantus increased to 30 units HS, Novolog increased to 12 units TID, and Medium dose sliding scale DM counseling ordered Status: Chronic History of quadriple vessel bypass surgery Assessment and Plan: Currently asymptomatic Continue Pradaxa, Cozaar, Zetia Started on ASA daily Lipid Panel and TSH, T4 - WNL Status: Acute Atrial fibrillation Assessment and Plan: Amiodarone daily TSH, T4 - WNL Currently rate controlled and asymptomatic Cont to monitor Status: Acute HTN (hypertension) Assessment and Plan: Continue Cozaar and HCTZ Patient normally takes Diovan at home but non-formulary here. Status: Acute Prophylactic measure Assessment and Plan: DVT VTE c/i since patient is already on anticoagulation for AFib GI prophylaxis not indicated at this time PT evaluation- recommend TCU Status: Acute Disposition: Patient will be discharged to [facility] once medically stable. <Reid Gabriel - Last Filed: 09/15/16 15:21> Objective - Vital Signs/Intake and Output Vital Signs (last 24 hours): Temp Pulse Resp BP Pulse Ox 99.2 F 64 20 115/70 97 09/15/16 00:00 09/15/16 00:00 09/15/16 00:00 09/15/16 00:00 09/15/16 00:00 Intake and Output: 09/15/16 09/15/16 06:59 18:59 Intake Total 1100 1040 Output Total 900 Balance 200 1040 - Medications Medications: Current Medications Acetaminophen (Tylenol 325mg Tab) 650 mg PO Q6 PRN PRN Reason: Pain, Mild (1-3) Last Admin: 09/09/16 07:02 Dose: 650 mg Amiodarone HCl (Cordarone) 200 mg PO DAILY [facility] Last Admin: 09/15/16 10:07 Dose: Not Given Aspirin (Ecotrin) 81 mg PO DAILY [facility] Last Admin: 09/15/16 10:12 Dose: 81 mg Dabigatran (Pradaxa) 150 mg PO BID [facility] Last Admin: 09/15/16 10:13 Dose: 150 mg Ezetimibe (Zetia) 10 mg PO DAILY [facility] Last Admin: 09/15/16 10:13 Dose: 10 mg Hydrochlorothiazide (Hydrodiuril) 25 mg PO DAILY [facility] Last Admin: 09/15/16 10:07 Dose: Not Given Vancomycin/Sodium Chloride (Vancocin) 1 gm in 200 mls @ 133 mls/hr IVPB Q12H [facility] Stop: 09/17/16 08:01 Last Admin: 09/15/16 08:05 Dose: 133 mls/hr Meropenem 1 gm/ Sodium (Chloride) 100 mls @ 100 mls/hr IVPB Q8 [facility] Last Admin: 09/15/16 13:55 Dose: 100 mls/hr Insulin Aspart (Novolog) 0 unit SC ACHS [facility] PRN Reason: Protocol Last Admin: 09/15/16 12:17 Dose: 4 unit Insulin Aspart (Novolog) 15 unit SC TIDAC [facility] Last Admin: 09/15/16 12:17 Dose: 15 unit Insulin Glargine (Lantus) 30 unit SC HS [facility] Last Admin: 09/14/16 21:44 Dose: 30 unit Losartan Potassium (Cozaar) 100 mg PO DAILY [facility] Last Admin: 09/15/16 10:07 Dose: Not Given Quetiapine Fumarate (Seroquel) 200 mg PO HS [facility] Last Admin: 09/14/16 21:40 Dose: 200 mg Saccharomyces Boulardii (Florastor) 250 mg PO BID [facility] Last Admin: 09/15/16 10:13 Dose: 250 mg Venlafaxine HCl (Effexor Xr) 150 mg PO DAILY [facility] Last Admin: 09/15/16 10:13 Dose: 150 mg - Labs Labs: 09/15/16 08:05 09/15/16 08:05 PT 11.4 SECONDS (9.7-12.2) 09/09/16 07:22 INR 1.0 09/09/16 07:22 APTT 31 SECONDS (21-34) D 09/09/16 07:22 Attending/Attestation - Attestation I have personally seen and examined this patient.: Yes I have fully participated in the care of the patient.: Yes I have reviewed all pertinent clinical information, including history, physical exam and plan: Yes Notes (Text): 09/15/16 15:20 Patient was seen and examined at bedside with the resident and I sent patient states that leg pain is improving Status post incision and drainage of the left foot cellulitis wound Patient for iliofemoral angiography tomorrow with Dr. Sanders I discussed the plan of care with the resident and agree with the assessment and plan recommended above.
[2016-09-15] MEDS: Vancomycin 1 gm/NS 200 ml 1 GM/200 ML BAG IVPB SCH ×2 (08:05→20:36)
[2016-09-15 08:21] LABS: BASO # 0.1 K/uL (0.0-0.2); BASO % 0.8 % (0.0-2.0); EOS # 0.1 K/uL (0.0-0.7); EOS % 1.4 % (0.0-4.0); HEMATOCRIT 30.7 % (35.0-51.0); LYMPH # 2.1 K/uL (1.0-4.3); LYMPH % 20.3 % (20.0-40.0); MEAN CELL VOLUME 86.1 fL (80.0-94.0); MEAN CORPUSCULAR HEMOGLOBIN 28.4 pg (27.0-31.0); MEAN PLATELET VOLUME 7.9 fL (7.2-11.7); MONO # 1.1 K/uL (0.0-0.8); MONO % 10.6 % (0.0-10.0); RED CELL DISTRIBUTION WIDTH 12.9 % (11.5-14.5); WHITE BLOOD COUNT 10.2 K/uL (4.8-10.8)
[2016-09-15] MEDS: (Novolog) Insulin Aspart, Recombinant 100 u/ml 10 ml vial SC SCH ×7 (08:28→22:00)
[2016-09-15 08:35] LABS: CHLORIDE 91 mmol/L (98-107)
[2016-09-15 08:36] LABS: SODIUM 136 mmol/L (132-148)
[2016-09-15 08:38] LABS: BILIRUBIN,TOTAL 0.4 mg/dL (0.2-1.3); CARBON DIOXIDE 33 mmol/L (22-30); GFR AFRICAN-AMERICAN > 60
[2016-09-15 08:39] LABS: ALB/GLOB RATIO 0.9 (1.0-2.1); ALKALINE PHOSPHATASE 78 U/L (38-126); ALT/SGPT 29 U/L (21-72); AST/SGOT 20 U/L (17-59); BLOOD UREA NITROGEN 11 mg/dL (9-20); CALCIUM 8.8 mg/dl (8.6-10.4); GLUCOSE,RANDOM 236 mg/dL (75-110); MAGNESIUM 1.8 mg/dL (1.6-2.3); PHOSPHOROUS 2.8 mg/dL (2.5-4.5); TOTAL PROTEIN 6.5 g/dL (6.3-8.3)
[2016-09-15] MEDS: Saccharomyces Boulardi 250 mg Cap PO SCH ×2 (10:13→17:51)
[2016-09-15] MEDS: Venlafaxine 150 mg ER Cap PO SCH (10:13)
--- NOTE | 2016-09-15 11:34 | CP.PCM.PN ---
Subjective - Date & Time of Evaluation Date of Evaluation: 09/15/16 Time of Evaluation: 11:32 - Subjective Subjective: Vascular surgery - Dr. Sanders Pt s&E. GEOVANNI. Pt denies any complaints at this time. He is aware of plan for angio tomorrow w/ Dr. Sanders, aware to be NPO after midnight. Objective - Vital Signs/Intake and Output Vital Signs (last 24 hours): Temp Pulse Resp BP Pulse Ox 99.2 F 64 20 115/70 97 09/15/16 00:00 09/15/16 00:00 09/15/16 00:00 09/15/16 00:00 09/15/16 00:00 Intake and Output: 09/15/16 09/15/16 06:59 18:59 Intake Total 1100 Output Total 900 Balance 200 - Medications Medications: Current Medications Acetaminophen (Tylenol 325mg Tab) 650 mg PO Q6 PRN PRN Reason: Pain, Mild (1-3) Last Admin: 09/09/16 07:02 Dose: 650 mg Amiodarone HCl (Cordarone) 200 mg PO DAILY [facility] Last Admin: 09/15/16 10:07 Dose: Not Given Aspirin (Ecotrin) 81 mg PO DAILY [facility] Last Admin: 09/15/16 10:12 Dose: 81 mg Dabigatran (Pradaxa) 150 mg PO BID [facility] Last Admin: 09/15/16 10:13 Dose: 150 mg Ezetimibe (Zetia) 10 mg PO DAILY [facility] Last Admin: 09/15/16 10:13 Dose: 10 mg Hydrochlorothiazide (Hydrodiuril) 25 mg PO DAILY [facility] Last Admin: 09/15/16 10:07 Dose: Not Given Vancomycin/Sodium Chloride (Vancocin) 1 gm in 200 mls @ 133 mls/hr IVPB Q12H [facility] Stop: 09/17/16 08:01 Last Admin: 09/15/16 08:05 Dose: 133 mls/hr Meropenem 1 gm/ Sodium (Chloride) 100 mls @ 100 mls/hr IVPB Q8 [facility] Last Admin: 09/15/16 05:36 Dose: 100 mls/hr Insulin Aspart (Novolog) 0 unit SC ACHS [facility] PRN Reason: Protocol Last Admin: 09/15/16 08:29 Dose: 4 unit Insulin Aspart (Novolog) 15 unit SC TIDAC [facility] Insulin Glargine (Lantus) 30 unit SC [facility] Last Admin: 09/14/16 21:44 Dose: 30 unit Losartan Potassium (Cozaar) 100 mg PO DAILY [facility] Last Admin: 09/15/16 10:07 Dose: Not Given Quetiapine Fumarate (Seroquel) 200 mg PO HS [facility] Last Admin: 09/14/16 21:40 Dose: 200 mg Saccharomyces Boulardii (Florastor) 250 mg PO BID [facility] Last Admin: 09/15/16 10:13 Dose: 250 mg Venlafaxine HCl (Effexor Xr) 150 mg PO DAILY [facility] Last Admin: 09/15/16 10:13 Dose: 150 mg - Labs Labs: 09/15/16 08:05 09/15/16 08:05 PT 11.4 SECONDS (9.7-12.2) 09/09/16 07:22 INR 1.0 09/09/16 07:22 APTT 31 SECONDS (21-34) D 09/09/16 07:22 - Constitutional Appears: No Acute Distress - Head Exam Head Exam: ATRAUMATIC, NORMAL INSPECTION, NORMOCEPHALIC - Eye Exam Eye Exam: Normal appearance - Respiratory Exam Respiratory Exam: NORMAL BREATHING PATTERN. absent: Respiratory Distress - Extremities Exam Additional comments: dressing to L foot as per podiatry - Neurological Exam Neurological Exam: Alert, Oriented x3 - Psychiatric Exam Psychiatric exam: Normal Affect, Normal Mood - Skin Skin Exam: Dry, Intact Assessment and Plan - Assessment and Plan (Free Text) Assessment: 55M w/ PAD left foot abscess s/p I&D w/ moderate to high grade stenoses along femoral arteries b/l -Angio tomorrow w/ Dr. Sanders -NPO past midnight [facility] PGY3
--- NOTE | 2016-09-15 15:42 | CP.PCM.PN ---
Subjective - Date & Time of Evaluation Date of Evaluation: 09/15/16 Time of Evaluation: 09:00 - Subjective Subjective: improving on iv rx for angio in am may need out pt iv antibiotics Objective - Vital Signs/Intake and Output Vital Signs (last 24 hours): Temp Pulse Resp BP Pulse Ox 99.2 F 64 20 115/70 97 09/15/16 00:00 09/15/16 00:00 09/15/16 00:00 09/15/16 00:00 09/15/16 00:00 Intake and Output: 09/15/16 09/15/16 06:59 18:59 Intake Total 1100 1040 Output Total 900 Balance 200 1040 - Medications Medications: Current Medications Acetaminophen (Tylenol 325mg Tab) 650 mg PO Q6 PRN PRN Reason: Pain, Mild (1-3) Last Admin: 09/09/16 07:02 Dose: 650 mg Amiodarone HCl (Cordarone) 200 mg PO DAILY [facility] Last Admin: 09/15/16 10:07 Dose: Not Given Aspirin (Ecotrin) 81 mg PO DAILY [facility] Last Admin: 09/15/16 10:12 Dose: 81 mg Dabigatran (Pradaxa) 150 mg PO BID [facility] Last Admin: 09/15/16 10:13 Dose: 150 mg Ezetimibe (Zetia) 10 mg PO DAILY [facility] Last Admin: 09/15/16 10:13 Dose: 10 mg Hydrochlorothiazide (Hydrodiuril) 25 mg PO DAILY [facility] Last Admin: 09/15/16 10:07 Dose: Not Given Vancomycin/Sodium Chloride (Vancocin) 1 gm in 200 mls @ 133 mls/hr IVPB Q12H [facility] Stop: 09/17/16 08:01 Last Admin: 09/15/16 08:05 Dose: 133 mls/hr Meropenem 1 gm/ Sodium (Chloride) 100 mls @ 100 mls/hr IVPB Q8 [facility] Last Admin: 09/15/16 13:55 Dose: 100 mls/hr Insulin Aspart (Novolog) 0 unit SC ACHS [facility] PRN Reason: Protocol Last Admin: 09/15/16 12:17 Dose: 4 unit Insulin Aspart (Novolog) 15 unit SC TIDAC [facility] Last Admin: 09/15/16 12:17 Dose: 15 unit Insulin Glargine (Lantus) 30 unit SC HS [facility] Last Admin: 09/14/16 21:44 Dose: 30 unit Losartan Potassium (Cozaar) 100 mg PO DAILY [facility] Last Admin: 09/15/16 10:07 Dose: Not Given Quetiapine Fumarate (Seroquel) 200 mg PO HS [facility] Last Admin: 09/14/16 21:40 Dose: 200 mg Saccharomyces Boulardii (Florastor) 250 mg PO BID [facility] Last Admin: 09/15/16 10:13 Dose: 250 mg Venlafaxine HCl (Effexor Xr) 150 mg PO DAILY [facility] Last Admin: 09/15/16 10:13 Dose: 150 mg - Labs Labs: 09/15/16 08:05 09/15/16 08:05 PT 11.4 SECONDS (9.7-12.2) 09/09/16 07:22 INR 1.0 09/09/16 07:22 APTT 31 SECONDS (21-34) D 09/09/16 07:22 - Constitutional Appears: Non-toxic, Chronically Ill - Head Exam Head Exam: NORMOCEPHALIC - Eye Exam Eye Exam: PERRL - ENT Exam ENT Exam: Mucous Membranes Dry - Neck Exam Neck Exam: absent: Lymphadenopathy - Respiratory Exam Respiratory Exam: Decreased Breath Sounds - Cardiovascular Exam Cardiovascular Exam: REGULAR RHYTHM - GI/Abdominal Exam GI & Abdominal Exam: Distended - Rectal Exam Rectal Exam: Deferred Assessment and Plan (1) Atrial fibrillation Status: Acute (2) Cellulitis of foot, left Status: Acute (3) HTN (hypertension) Status: Acute (4) History of heart bypass surgery Status: Acute (5) Hyperglycemia without ketosis Status: Acute
--- NOTE | 2016-09-15 16:01 | CP.PCM.PN ---
Subjective - Date & Time of Evaluation Date of Evaluation: 09/15/16 Time of Evaluation: 12:59 - Subjective Subjective: Patient seen and evaluated at bedside 2 days s/p left foot I and D. Patient is AAOx3 and NAD. Patient denies any acute overnight events and states that he is feeling well. Patient denies N/V/F/C/CP/SOB. Patient denies any further pedal complaints at this time. Patient is aware that he is going for iliofemoral angio in the AM. Objective - Vital Signs/Intake and Output Vital Signs (last 24 hours): Temp Pulse Resp BP Pulse Ox 99.2 F 64 20 115/70 97 09/15/16 00:00 09/15/16 00:00 09/15/16 00:00 09/15/16 00:00 09/15/16 00:00 Intake and Output: 09/15/16 09/15/16 06:59 18:59 Intake Total 1100 1040 Output Total 900 Balance 200 1040 - Medications Medications: Current Medications Acetaminophen (Tylenol 325mg Tab) 650 mg PO Q6 PRN PRN Reason: Pain, Mild (1-3) Last Admin: 09/09/16 07:02 Dose: 650 mg Amiodarone HCl (Cordarone) 200 mg PO DAILY [facility] Last Admin: 09/15/16 10:07 Dose: Not Given Aspirin (Ecotrin) 81 mg PO DAILY [facility] Last Admin: 09/15/16 10:12 Dose: 81 mg Dabigatran (Pradaxa) 150 mg PO BID [facility] Last Admin: 09/15/16 10:13 Dose: 150 mg Ezetimibe (Zetia) 10 mg PO DAILY [facility] Last Admin: 09/15/16 10:13 Dose: 10 mg Hydrochlorothiazide (Hydrodiuril) 25 mg PO DAILY [facility] Last Admin: 09/15/16 10:07 Dose: Not Given Vancomycin/Sodium Chloride (Vancocin) 1 gm in 200 mls @ 133 mls/hr IVPB Q12H [facility] Stop: 09/17/16 08:01 Last Admin: 09/15/16 08:05 Dose: 133 mls/hr Meropenem 1 gm/ Sodium (Chloride) 100 mls @ 100 mls/hr IVPB Q8 [facility] Last Admin: 09/15/16 13:55 Dose: 100 mls/hr Insulin Aspart (Novolog) 0 unit SC ACHS [facility] PRN Reason: Protocol Last Admin: 09/15/16 12:17 Dose: 4 unit Insulin Aspart (Novolog) 15 unit SC TIDAC [facility] Last Admin: 09/15/16 12:17 Dose: 15 unit Insulin Glargine (Lantus) 30 unit SC HS [facility] Last Admin: 09/14/16 21:44 Dose: 30 unit Losartan Potassium (Cozaar) 100 mg PO DAILY [facility] Last Admin: 09/15/16 10:07 Dose: Not Given Quetiapine Fumarate (Seroquel) 200 mg PO HS [facility] Last Admin: 09/14/16 21:40 Dose: 200 mg Saccharomyces Boulardii (Florastor) 250 mg PO BID [facility] Last Admin: 09/15/16 10:13 Dose: 250 mg Venlafaxine HCl (Effexor Xr) 150 mg PO DAILY [facility] Last Admin: 09/15/16 10:13 Dose: 150 mg - Labs Labs: 09/15/16 08:05 09/15/16 08:05 PT 11.4 SECONDS (9.7-12.2) 09/09/16 07:22 INR 1.0 09/09/16 07:22 APTT 31 SECONDS (21-34) D 09/09/16 07:22 - Constitutional Appears: Well, Non-toxic, No Acute Distress - Extremities Exam Additional comments: left lower extremity focused exam: Vasc: DP and PT pulses palpable 1/4, TG warm to warm, CFT < 3 sec to all digits neuro: gross sensation intact derm: Open surgical site noted to left foot with packing noted within. No malodor, purulent drainage or erythematous border noted at this time. Red, granular base noted to surgical site. Left fifth digit is looking more dusky in color compared to yesterday most likely due to poor vascular perfusion ortho: pain on palpation to surgical site and left fifth digit - Neurological Exam Neurological Exam: Alert, Awake, Oriented x3 - Psychiatric Exam Psychiatric exam: Normal Affect, Normal Mood Assessment and Plan - Assessment and Plan (Free Text) Assessment: 55 year old man 2 days s/p left foot incision and drainage secondary to cellulitis with underlying abscess Plan: Patient seen and evaluated at bedside Charts, labs and vitals reviewed Plan discussed with attending Dr. Jo Packing within surgical site removed and replaced Site dressed with xeroform, 4x4, ABD, [employer]irl[employer], JUSTIN Patient to undergo peripheral angio tomorrow (09/16) Patient is aware Continue abx per ID Podiatry will continue to follow
[2016-09-15] MEDS: (Lantus) Insulin Glargine, Recombinant SC SCH (21:57)
[2016-09-16] MEDS: Meropenem 1 GM in Sodium Chloride 0.9% 100 ML IVPB SCH ×3 (05:29→21:52)
[2016-09-16 07:15] LABS: BASO # 0.1 K/uL (0.0-0.2); EOS # 0.2 K/uL (0.0-0.7); EOS % 2.1 % (0.0-4.0); HEMATOCRIT 28.8 % (35.0-51.0); LYMPH # 2.5 K/uL (1.0-4.3); LYMPH % 30.3 % (20.0-40.0); MEAN CELL VOLUME 86.6 fL (80.0-94.0); MEAN CORPUSCULAR HEMOGLOBIN 28.6 pg (27.0-31.0); MEAN PLATELET VOLUME 7.7 fL (7.2-11.7); MONO # 0.9 K/uL (0.0-0.8); MONO % 11.3 % (0.0-10.0); NRBC % 0.1 % (0.0-2.0); RED CELL DISTRIBUTION WIDTH 12.7 % (11.5-14.5); WHITE BLOOD COUNT 8.3 K/uL (4.8-10.8)
[2016-09-16 07:41] LABS: CHLORIDE 97 mmol/L (98-107); SODIUM 139 mmol/L (132-148)
[2016-09-16 07:43] LABS: AST/SGOT 31 U/L (17-59); BILIRUBIN,TOTAL 0.3 mg/dL (0.2-1.3); CARBON DIOXIDE 30 mmol/L (22-30); GFR AFRICAN-AMERICAN > 60
[2016-09-16 07:44] LABS: ALB/GLOB RATIO 0.9 (1.0-2.1); ALKALINE PHOSPHATASE 69 U/L (38-126); ALT/SGPT 40 U/L (21-72); BLOOD UREA NITROGEN 10 mg/dL (9-20); CALCIUM 8.6 mg/dl (8.6-10.4); GLUCOSE,RANDOM 201 mg/dL (75-110); MAGNESIUM 1.8 mg/dL (1.6-2.3); PHOSPHOROUS 3.2 mg/dL (2.5-4.5); TOTAL PROTEIN 6.3 g/dL (6.3-8.3)
[2016-09-16] MEDS: (Novolog) Insulin Aspart, Recombinant 100 u/ml 10 ml vial SC SCH ×7 (08:07→21:52)
[2016-09-16] MEDS: Vancomycin 1 gm/NS 200 ml 1 GM/200 ML BAG IVPB SCH ×2 (08:30→20:09)
[2016-09-16] MEDS: Saccharomyces Boulardi 250 mg Cap PO SCH ×2 (09:06→18:39)
[2016-09-16] MEDS: Venlafaxine 150 mg ER Cap PO SCH (09:08)
[2016-09-16] MEDS ORDERED: DiphenhydrAMINE 50 mg/ml Inj ONE (13:21)
--- NOTE | 2016-09-16 13:57 | CP.PCM.PN ---
<Desi Guadarrama - Last Filed: 09/16/16 13:54> Subjective - Date & Time of Evaluation Date of Evaluation: 09/16/16 Time of Evaluation: 07:00 - Subjective Subjective: Medicine Note for Dr. Gabriel Patient was seen and examined at bedside. Pain is still present but well controlled with pain medications. Plan is for angiogram today. Dressings are being changed daily by podiatry. Denied fever, chills, headache, chest pain, abdominal pain, n/v/d/c, or urinary symptoms. Objective - Vital Signs/Intake and Output Vital Signs (last 24 hours): Temp Pulse Resp BP Pulse Ox 98.3 F 62 20 113/67 99 09/16/16 00:00 09/16/16 00:00 09/16/16 00:00 09/16/16 00:00 09/16/16 00:00 Intake and Output: 09/16/16 09/16/16 06:59 18:59 Intake Total 1100 Balance 1100 - Medications Medications: Current Medications Acetaminophen (Tylenol 325mg Tab) 650 mg PO Q6 PRN PRN Reason: Pain, Mild (1-3) Last Admin: 09/09/16 07:02 Dose: 650 mg Amiodarone HCl (Cordarone) 200 mg PO DAILY [facility] Last Admin: 09/16/16 09:06 Dose: 200 mg Aspirin (Ecotrin) 81 mg PO DAILY [facility] Last Admin: 09/16/16 09:06 Dose: 81 mg Dabigatran (Pradaxa) 150 mg PO BID [facility] Last Admin: 09/15/16 17:52 Dose: 150 mg Ezetimibe (Zetia) 10 mg PO DAILY [facility] Last Admin: 09/16/16 09:06 Dose: 10 mg Hydrochlorothiazide (Hydrodiuril) 25 mg PO DAILY [facility] Last Admin: 09/16/16 09:06 Dose: 25 mg Vancomycin/Sodium Chloride (Vancocin) 1 gm in 200 mls @ 133 mls/hr IVPB Q12H [facility] Stop: 09/17/16 08:01 Last Admin: 09/16/16 08:30 Dose: 133 mls/hr Meropenem 1 gm/ Sodium (Chloride) 100 mls @ 100 mls/hr IVPB Q8 [facility] Last Admin: 09/16/16 05:29 Dose: 100 mls/hr Insulin Aspart (Novolog) 0 unit SC ACHS [facility] PRN Reason: Protocol Last Admin: 09/16/16 12:00 Dose: Not Given Insulin Aspart (Novolog) 15 unit SC TIDAC [facility] Last Admin: 09/16/16 12:00 Dose: Not Given Insulin Glargine (Lantus) 30 unit SC HS [facility] Last Admin: 09/15/16 21:57 Dose: Not Given Losartan Potassium (Cozaar) 100 mg PO DAILY [facility] Last Admin: 09/16/16 09:06 Dose: 100 mg Oxycodone/Acetaminophen (Percocet 5/325 Mg Tab) 2 tab PO Q6H PRN PRN Reason: Pain, severe (8-10) Stop: 09/18/16 16:27 Last Admin: 09/15/16 22:41 Dose: 2 tab Quetiapine Fumarate (Seroquel) 200 mg PO [facility] Last Admin: 09/15/16 21:29 Dose: 200 mg Saccharomyces Boulardii (Florastor) 250 mg PO BID [facility] Last Admin: 09/16/16 09:06 Dose: 250 mg Venlafaxine HCl (Effexor Xr) 150 mg PO DAILY [facility] Last Admin: 09/16/16 09:08 Dose: 150 mg - Labs Labs: 09/16/16 07:00 09/16/16 07:00 PT 11.4 SECONDS (9.7-12.2) 09/09/16 07:22 INR 1.0 09/09/16 07:22 APTT 31 SECONDS (21-34) D 09/09/16 07:22 - Constitutional Appears: No Acute Distress - Head Exam Head Exam: NORMAL INSPECTION, NORMOCEPHALIC - Eye Exam Eye Exam: EOMI, Normal appearance, PERRL Pupil Exam: NORMAL ACCOMODATION - ENT Exam ENT Exam: Mucous Membranes Moist, Normal Exam - Respiratory Exam Respiratory Exam: Clear to Ausculation Bilateral, NORMAL BREATHING PATTERN. absent: Wheezes - Cardiovascular Exam Cardiovascular Exam: REGULAR RHYTHM, RRR, +S1, +S2 - GI/Abdominal Exam GI & Abdominal Exam: Soft, Normal Bowel Sounds. absent: Distended, Tenderness - Extremities Exam Extremities Exam: Normal Inspection. absent: Pedal Edema, Tenderness - Neurological Exam Neurological Exam: Alert, Awake, Oriented x3 - Psychiatric Exam Psychiatric exam: Normal Affect, Normal Mood - Skin Skin Exam: Dry, Intact, Normal Color, Warm Assessment and Plan - Assessment and Plan (Free Text) Plan: Cellulitis of foot, left Assessment and Plan: Patient received Vanc and Clindamycin in the ED. Perococet PRN and Tylenol PRN for pain Left foot xray - no osteo Podiatry recommendations: applied betadine, DSD to left foot, continue current regimen BC- no growth Bone Scan of Left Foot (patient refuses to have MRI done due to claustrophobia) : NO OSTEOMYELITIS Wound Culture: grew Proteus + ID consulted for persistent leukocytosis - Dr. Asher- help appreciated - IV antibiotics switched to Meropenem 1gram IVP Q8H, continued Vancomycin. Patient is medically stable for I&D tomorrow. Pt has a Detsky score of 5, Class 1 low risk of perioperative cardiovascular event. Podiatry and Anesthesia to explain the risks and benefits of procedure. S/P I/D - podiatry taking care of dressing changes Status: Acute PVD Assessment and Plan: Arterial PVR/ SEG B/L: mild to moderate BL arterial insufficiency beginning at SFA left with more disease than right, L> R. Surgery Consulted- Dr. Sanders - help appreciated CT Ab ileofem angiography: BL excessive atherosclertic disease. B/L SFA multifocal mild to moderate high grade stenosis. Plan for angiogram Friday09/16/16 - pending post op report Status: Chronic Diabetes Mellitus Assessment and Plan: Accuchecks HbgA1c = 13.3 Will hold home meds: Januvia 100mg QHS and Metformin 1000mg PO BID, and Prandin 1mg PO BID (confirmed with Pharmacy). According to the patient he takes Lantus 20mg SC BID (however the pharmacy did not confirm this). Started on: Lantus increased to 30 units HS, Novolog increased to 15 units TID, and Medium dose sliding scale DM counseling ordered Status: Chronic History of quadriple vessel bypass surgery Assessment and Plan: Currently asymptomatic Continue Pradaxa, Cozaar, Zetia Started on ASA daily Lipid Panel - WNL Status: Acute Atrial fibrillation Assessment and Plan: Amiodarone daily TSH, T4 - WNL Currently rate controlled and asymptomatic Cont to monitor Status: Acute HTN (hypertension) Assessment and Plan: Continue Cozaar and HCTZ Patient normally takes Diovan at home but non-formulary here. Status: Acute Prophylactic measure Assessment and Plan: DVT VTE c/i since patient is already on anticoagulation for AFib GI prophylaxis not indicated at this time PT evaluation- recommend TCU Status: Acute Disposition: Patient will be discharged to [facility] once medically stable. DW Dr. Nova, Chiara SHEPPARD, PGY-1 <Alphonso Nova - Last Filed: 09/16/16 14:47> Objective - Vital Signs/Intake and Output Vital Signs (last 24 hours): Temp Pulse Resp BP Pulse Ox 98.2 F 61 20 148/89 99 09/16/16 08:05 09/16/16 08:05 09/16/16 08:05 09/16/16 08:05 09/16/16 08:05 Intake and Output: 09/16/16 09/16/16 06:59 18:59 Intake Total 1100 950 Balance 1100 950 - Medications Medications: Current Medications Acetaminophen (Tylenol 325mg Tab) 650 mg PO Q6 PRN PRN Reason: Pain, Mild (1-3) Last Admin: 09/09/16 07:02 Dose: 650 mg Amiodarone HCl (Cordarone) 200 mg PO DAILY [facility] Last Admin: 09/16/16 09:06 Dose: 200 mg Aspirin (Ecotrin) 81 mg PO DAILY [facility] Last Admin: 09/16/16 09:06 Dose: 81 mg Dabigatran (Pradaxa) 150 mg PO BID [facility] Last Admin: 09/15/16 17:52 Dose: 150 mg Ezetimibe (Zetia) 10 mg PO DAILY [facility] Last Admin: 09/16/16 09:06 Dose: 10 mg Hydrochlorothiazide (Hydrodiuril) 25 mg PO DAILY [facility] Last Admin: 09/16/16 09:06 Dose: 25 mg Vancomycin/Sodium Chloride (Vancocin) 1 gm in 200 mls @ 133 mls/hr IVPB Q12H [facility] Stop: 09/17/16 08:01 Last Admin: 09/16/16 08:30 Dose: 133 mls/hr Meropenem 1 gm/ Sodium (Chloride) 100 mls @ 100 mls/hr IVPB Q8 [facility] Last Admin: 09/16/16 14:02 Dose: Not Given Insulin Aspart (Novolog) 0 unit SC ACHS [facility] PRN Reason: Protocol Last Admin: 09/16/16 12:00 Dose: Not Given Insulin Aspart (Novolog) 15 unit SC TIDAC [facility] Last Admin: 09/16/16 12:00 Dose: Not Given Insulin Glargine (Lantus) 30 unit SC [facility] Last Admin: 09/15/16 21:57 Dose: Not Given Losartan Potassium (Cozaar) 100 mg PO DAILY [facility] Last Admin: 09/16/16 09:06 Dose: 100 mg Oxycodone/Acetaminophen (Percocet 5/325 Mg Tab) 2 tab PO Q6H PRN PRN Reason: Pain, severe (8-10) Stop: 09/18/16 16:27 Last Admin: 09/15/16 22:41 Dose: 2 tab Quetiapine Fumarate (Seroquel) 200 mg PO [facility] Last Admin: 09/15/16 21:29 Dose: 200 mg Saccharomyces Boulardii (Florastor) 250 mg PO BID [facility] Last Admin: 09/16/16 09:06 Dose: 250 mg Venlafaxine HCl (Effexor Xr) 150 mg PO DAILY [facility] Last Admin: 09/16/16 09:08 Dose: 150 mg - Labs Labs: 09/16/16 07:00 09/16/16 07:00 PT 11.4 SECONDS (9.7-12.2) 09/09/16 07:22 INR 1.0 09/09/16 07:22 APTT 31 SECONDS (21-34) D 09/09/16 07:22 Attending/Attestation - Attestation I have personally seen and examined this patient.: Yes I have fully participated in the care of the patient.: Yes I have reviewed all pertinent clinical information, including history, physical exam and plan: Yes Notes (Text): Medical attending: Patient was seen and examined by me, agrees the above note by medical office asst. As mentioned previously the patient had x-ray as well as a bone scan to assess for osteomyelitis of that lower extremity and these have been negative. He remains on IV antibiotics at this time, previous ankle- brachial indexes suggests that he has a lot of peripheral arterial disease. So today the patient is going to have angiography with vascular surgery as he may need balloon her stenting done for his left lower extremity. When we spoke with him with the help of grocery clerk selling he does say that he has a lot of paresthesia and that extremity also feels cold to him. The patient does have a lot of history of coronary artery disease including a history of CABG surgery in the past Thank you very much, Alphonso Nova
[2016-09-16] MEDS ORDERED: Midazolam 2 MG/2 ML VIAL ONE ×3 (14:29→16:09)
[2016-09-16] MEDS ORDERED: Propofol 10 mg/ml Inj (20 ML) ONE (14:31)
[2016-09-16] MEDS ORDERED: Iodixanol 320 MG/ML 100 ML BOTTLE IV ONE (14:37)
[2016-09-16] MEDS ORDERED: Lidocaine 2% Inj (20ml) ONE (14:37)
--- NOTE | 2016-09-16 17:25 | PCM.SURG1 ---
Surgeon's Initial Post Op Note - Surgeon's Notes Surgeon: gilmar Production Support Manager: 0 Type of Anesthesia: IV Sedation Anesthesia Administered By: lorenza Pre-Operative Diagnosis: gangrene left foot Operative Findings: calcified left sfa occlusion unable to cross despite use of ocelot. left teaching supervisor thrombosed during procedure and required tpa and angiojet. pt major vessel to foot. 3 vessels patent proximally Post-Operative Diagnosis: same Operation Performed: aortofemoral angiogram. selective catherization of left femoral artery. balloon angioplasty of teaching supervisor/ profonda with 6 and 5 balloons. angiojet mechanical thrombolysis of left teaching supervisor. with tpa. perclose right groin Specimen/Specimens Removed: 0 Estimated Blood Loss: EBL {In ML}: 50 Blood Products Given: N/A Drains Used: No Drains Post-Op Condition: Good Date of Surgery/Procedure: 09/16/16 Time of Surgery/Procedure: 17:28
[2016-09-16] MEDS ORDERED: Heparin25000 units/250ml 1/2NS 25,000 UNITS/250 ML BAG IV PRN (17:29)
[2016-09-16 18:16] LABS: INR 1.2
--- NOTE | 2016-09-16 19:21 | CP.PCM.CON ---
History of Present Illness - History of Present Illness History of Present Illness: CC: foot pain HPI: 55 year old male with PMHx significant for HTN, DM, atrial fibrillation and quadruple bypass surgery presents with complaints of left lower extremity pain of 3 day duration. Patient states that there is some drainage between the webs of his feet and discoloration noted as well. Per son, patient rolled in on his ankle, but denies any physical trauma to the affected foot. Nonetheless, patient did not have associated swelling immediately after the incident. Patient states that he waited to seek evaluation because he was not sure whether he needed to go to the hospital. He eventually came in for further treatment when his symptoms did not improve. Patient states that he has not been complying with a healthy diet in the past few weeks. Patient admits to tenderness to affected area with palpation. He denies any insect bites, nausea, vomiting, diarrhea, constipation, chest pain, headaches, palpitations, subjective fevers or chills PMHx- as noted above Surgical Hx- 4 vessel disease cardiac bypass in 2016 with lower extremity vessel grafting Fam Hx- Several brothers have diabetes Medications- Januvia, Metformin, Novolog ( unknown dose), Oradaxa, Amiodarone, Zetia, Valsartan-HCTZ, Venlafaxine, Seroquel. Please refer to MAR for dosing information Social Hx- Smoked 3-4packs of cigarettes a day for 9 years but has since quit; Patient denies alcohol use; He denies illicit drug use Allergies- Patient denied however medical record indicates shellfish allergy that results in vomiting PMD- Dr. Vines Patient underwent surgical procedure. aortofemoral angiogram. selective catherization of left femoral artery. balloon angioplasty of saxophone player/ profonda with 6 and 5 balloons. angiojet mechanical thrombolysis of left saxophone player. with tpa. perclose right groin On examination stable currently. Alert and awake. Vital signs reviewed No neck vein distention noted Chest good air entry bilaterally, no wheezing or rales noted CVS regular heart sound, no murmur noted Abdomen soft, nontender. Extremities no pedal edema DIRECTOR INTERNAL COMMUNICATIONS alert awake oriented 3, no functional neurological deficit We'll continue the current treatment. Close monitoring, H&H. We'll follow the patient. Past Patient History - Past Medical History & Family History Past Medical History?: Yes - Past Social History Smoking Status: Former Smoker - CARDIAC Hx Hypercholesterolemia: Yes Hx Hypertension: Yes - PULMONARY Hx Asthma: Yes - NEUROLOGICAL Hx Seizures: No - ENDOCRINE/METABOLIC Hx Diabetes Mellitus Type 1: Yes - HEMATOLOGICAL/ONCOLOGICAL Hx Blood Transfusions: No Hx Blood Transfusion Reaction: No - MUSCULOSKELETAL/RHEUMATOLOGICAL Hx Arthritis: Yes - PSYCHIATRIC Hx Substance Use: No - SURGICAL HISTORY Hx Coronary Artery Bypass Graft: Yes (12/26) - ANESTHESIA Hx Anesthesia: Yes Hx Anesthesia Reactions: No Meds Allergies/Adverse Reactions: Allergies Allergy/AdvReac Type Severity Reaction Status Date / Time shellfish derived Allergy Intermediate VOMITING Verified 09/08/16 19:06 - Medications Medications: Current Medications Acetaminophen (Tylenol 325mg Tab) 650 mg PO Q6 PRN PRN Reason: Pain, Mild (1-3) Last Admin: 09/09/16 07:02 Dose: 650 mg Amiodarone HCl (Cordarone) 200 mg PO DAILY [facility] Last Admin: 09/16/16 09:06 Dose: 200 mg Aspirin (Ecotrin) 81 mg PO DAILY [facility] Last Admin: 09/16/16 09:06 Dose: 81 mg Dabigatran (Pradaxa) 150 mg PO BID [facility] Last Admin: 09/15/16 17:52 Dose: 150 mg Ezetimibe (Zetia) 10 mg PO DAILY [facility] Last Admin: 09/16/16 09:06 Dose: 10 mg Hydrochlorothiazide (Hydrodiuril) 25 mg PO DAILY [facility] Last Admin: 09/16/16 09:06 Dose: 25 mg Vancomycin/Sodium Chloride (Vancocin) 1 gm in 200 mls @ 133 mls/hr IVPB Q12H [facility] Stop: 09/17/16 08:01 Last Admin: 09/16/16 08:30 Dose: 133 mls/hr Meropenem 1 gm/ Sodium (Chloride) 100 mls @ 100 mls/hr IVPB Q8 [facility] Last Admin: 09/16/16 14:02 Dose: Not Given Heparin Sodium/Sodium Chloride (Heparin 16913 Units/250ml 1/2 Normal Saline) 25 ,000 units in 250 mls @ 15.105 mls/hr IV .[id number] PRN; Protocol; 18 UNITS/KG/HR PRN Reason: ADJUST RATE PER PROTOCOL Last Admin: 09/16/16 18:41 Dose: 18 units/kg/hr, 15.105 mls/hr Insulin Aspart (Novolog) 0 unit SC ACHS [facility] PRN Reason: Protocol Last Admin: 09/16/16 18:15 Dose: 6 unit Insulin Aspart (Novolog) 15 unit SC TIDAC [facility] Last Admin: 09/16/16 18:13 Dose: 15 unit Insulin Glargine (Lantus) 30 unit SC HS [facility] Last Admin: 09/15/16 21:57 Dose: Not Given Losartan Potassium (Cozaar) 100 mg PO DAILY [facility] Last Admin: 09/16/16 09:06 Dose: 100 mg Oxycodone/Acetaminophen (Percocet 5/325 Mg Tab) 2 tab PO Q6H PRN PRN Reason: Pain, severe (8-10) Stop: 09/18/16 16:27 Last Admin: 09/15/16 22:41 Dose: 2 tab Quetiapine Fumarate (Seroquel) 200 mg PO [facility] Last Admin: 09/15/16 21:29 Dose: 200 mg Saccharomyces Boulardii (Florastor) 250 mg PO BID [facility] Last Admin: 09/16/16 18:39 Dose: 250 mg Venlafaxine HCl (Effexor Xr) 150 mg PO DAILY [facility] Last Admin: 09/16/16 09:08 Dose: 150 mg Results - Vital Signs Recent Vital Signs: Last Vital Signs Temp 98 F 09/16/16 18:00 Pulse 70 09/16/16 18:20 Resp 16 09/16/16 18:20 BP 179/80 H 09/16/16 18:10 Pulse Ox 100 09/16/16 18:20 - Labs Result Diagrams: 09/16/16 07:00 09/16/16 07:00 Labs: Laboratory Results - last 24 hr 09/15/16 09/16/16 09/16/16 21:53 07:00 07:00 WBC 8.3 RBC 3.33 L Hgb 9.5 L Hct 28.8 L MCV 86.6 MCH 28.6 MCHC 33.0 RDW 12.7 Plt Count 347 MPV 7.7 Neut % (Auto) 55.3 Lymph % (Auto) 30.3 [place] % (Auto) 11.3 H Eos % (Auto) 2.1 Baso % (Auto) 1.0 Neut # 4.6 Lymph # 2.5 [place] # 0.9 H Eos # 0.2 Baso # 0.1 PT INR APTT Sodium 139 Potassium 4.0 Chloride 97 L Carbon Dioxide 30 Anion Gap 16 BUN 10 Creatinine 0.7 L Est GFR ( Amer) > 60 Est GFR (Non-Af Amer) > 60 POC Glucose (mg/dL) 165 H Random Glucose 201 H Calcium 8.6 Phosphorus 3.2 Magnesium 1.8 Total Bilirubin 0.3 AST 31 ALT 40 Alkaline Phosphatase 69 Total Protein 6.3 Albumin 3.0 L Globulin 3.3 Albumin/Globulin Ratio 0.9 L Vancomycin Trough 09/16/16 09/16/16 09/16/16 07:00 07:14 11:06 WBC RBC Hgb Hct MCV MCH MCHC RDW Plt Count MPV Neut % (Auto) Lymph % (Auto) [place] % (Auto) Eos % (Auto) Baso % (Auto) Neut # Lymph # [place] # Eos # Baso # PT INR APTT Sodium Potassium Chloride Carbon Dioxide Anion Gap BUN Creatinine Est GFR ( Amer) Est GFR (Non-Af Amer) POC Glucose (mg/dL) 220 H 220 H Random Glucose Calcium Phosphorus Magnesium Total Bilirubin AST ALT Alkaline Phosphatase Total Protein Albumin Globulin Albumin/Globulin Ratio Vancomycin Trough 10.3 H 09/16/16 09/16/16 17:44 18:03 WBC RBC Hgb Hct MCV MCH MCHC RDW Plt Count MPV Neut % (Auto) Lymph % (Auto) [place] % (Auto) Eos % (Auto) Baso % (Auto) Neut # Lymph # [place] # Eos # Baso # PT 13.2 H INR 1.2 APTT 56 H Sodium Potassium Chloride Carbon Dioxide Anion Gap BUN Creatinine Est GFR ( Amer) Est GFR (Non-Af Amer) POC Glucose (mg/dL) 303 H Random Glucose Calcium Phosphorus Magnesium Total Bilirubin AST ALT Alkaline Phosphatase Total Protein Albumin Globulin Albumin/Globulin Ratio Vancomycin Trough
[2016-09-16 20:06] LABS: BASO % 0.4 % (0.0-2.0); EOS % 0.3 % (0.0-4.0); HEMATOCRIT 29.2 % (35.0-51.0); LYMPH # 0.8 K/uL (1.0-4.3); LYMPH % 7.4 % (20.0-40.0); MEAN CELL VOLUME 86.9 fL (80.0-94.0); MEAN CORPUSCULAR HGB CONC 33.4 g/dL (33.0-37.0); MEAN PLATELET VOLUME 7.1 fL (7.2-11.7); MONO # 0.2 K/uL (0.0-0.8); MONO % 2.4 % (0.0-10.0); PLATELET COUNT 340 K/uL (130-400); WHITE BLOOD COUNT 10.4 K/uL (4.8-10.8)
[2016-09-16] MEDS: Sodium Chloride 0.9% 1,000 ML IV SCH (20:09)
[2016-09-16 20:44] LABS: NEUTROPHIL 88 % (50-75); TOTAL CELLS COUNTED 100
[2016-09-16] MEDS: (Lantus) Insulin Glargine, Recombinant SC SCH (21:53)
--- NOTE | 2016-09-17 04:42 | VAS ---
OPERATIVE ANGIOGRAM REPORT DATE: 09/16/2016 PREOPERATIVE DIAGNOSIS: Gangrene of the left foot. POSTOPERATIVE DIAGNOSIS: Gangrene of the left foot. PROCEDURE CARRIED OUT: Aortofemoral angiogram of the right groin with selective catheterization of the left femoral artery, a balloon angioplasty of the proximal portion of the left femoral artery, and then subsequently mechanical thrombolysis with the TPA and the AngioJet device of the common femoral artery. SURGEON: Dieter Sanders Jr., MD. BIOLOGY TEACHER: None. ANESTHESIOLOGIST: Dr. Gaytan. INDICATIONS: The patient is a 55-year-old man with a history of previous heart bypass surgery and vein harvest of both legs who is here for vascular evaluation because of the gangrenous ulcer of the left foot between the fourth and fifth toes. OPERATIVE FINDINGS: 1. The aorta, renal arteries, iliac arteries, internal iliac arteries, external iliac arteries, and common femoral arteries are free of significant occlusive disease. 2. On the right side, the superficial femoral artery was patent with minor degrees of stenosis and a critical area of stenosis over 90% and just at Aki's canal. Below this, the trifurcation was intact with disease being seen in the vessels where the anterior tibial appeared to be the major vessel into the foot. 3. On the left side, the trifurcation was patent. There was excellent development of collaterals. The profunda femoris was widely open. The superficial femoral artery was heavily calcified and reconstituted above the knee joint with three-vessel runoff in its proximal portion and posterior tibial being the major vessel into the foot. PROCEDURE AND FINDINGS: Subsequent to the performance of the diagnostic arteriogram, a stiff-angled Glidewire was advanced over the aortic bifurcation and a catheter positioned in the distal portion of the external iliac artery. Using roadmapping techniques, we attempted to cross the lesion including a variety of devices including the oscillate device, but we were unable to cross this heavily calcified lesion in the distal SFA. Attempts were then abandoned. On attempting to remove the devices, we saw that thrombus had formed in the left common femoral artery. Using TPA and the AngioJet device, we then went through this area again, suctioned, and aspirated the clots that were out and reconstitution of most of the major branches, which were seen previously. Some of the smaller branches were not seen after the thrombolysis. We then took the completion film again below in the area of the knees. So, that the popliteal artery where target area was widely patent without any thrombosis in this area. Subsequently, we then ballooned using a 5 and a 6 mm balloon, the origin of the profunda femoris artery on the left side as there appeared to be some stenosis in this region. The subsequent films showed excellent results. A Perclose device was then deployed in the right groin. PROCEDURE CARRIED OUT: 1. Aortofemoral angiogram with selective catheterization of the left femoral artery from the right groin. 2. Balloon angioplasty of the left common femoral and profunda femoris artery. 3. Mechanical thrombolysis with the TPA and the AngioJet device of the common femoral artery. 4. Perclose device in the right groin. The patient is a candidate for bypass surgery on the lower portion of his to restore flow into his leg. This procedure was not successful in reopening up the superficial femoral artery or increasing flow activity to the popliteal origin. Dieter Sanders Jr., MD
[2016-09-17] MEDS: Meropenem 1 GM in Sodium Chloride 0.9% 100 ML IVPB SCH ×3 (05:13→22:00)
[2016-09-17 07:18] LABS: BASO # 0.2 K/uL (0.0-0.2); BASO % 1.3 % (0.0-2.0); EOS % 0.1 % (0.0-4.0); HEMATOCRIT 28.4 % (35.0-51.0); LYMPH # 2.1 K/uL (1.0-4.3); LYMPH % 15.3 % (20.0-40.0); MEAN CELL VOLUME 86.6 fL (80.0-94.0); MEAN CORPUSCULAR HEMOGLOBIN 28.3 pg (27.0-31.0); MEAN CORPUSCULAR HGB CONC 32.7 g/dL (33.0-37.0); MEAN PLATELET VOLUME 7.6 fL (7.2-11.7); MONO # 1.5 K/uL (0.0-0.8); MONO % 10.6 % (0.0-10.0); RED CELL DISTRIBUTION WIDTH 13.6 % (11.5-14.5); WHITE BLOOD COUNT 13.6 K/uL (4.8-10.8)
[2016-09-17] MEDS: (Novolog) Insulin Aspart, Recombinant 100 u/ml 10 ml vial SC SCH ×7 (08:15→22:45)
--- NOTE | 2016-09-17 08:17 | CP.PCM.PN ---
Subjective - Date & Time of Evaluation Date of Evaluation: 09/17/16 Time of Evaluation: 07:45 - Subjective Subjective: Vascular Surgery- Dr. Sanders Pt S&E at bedside this AM. No acute events overnight. Pt tolerated angioplasty well yesterday. pain manageable around entry site. Denies N/V F/C CP/SOB. Dressing C/D/I Objective - Vital Signs/Intake and Output Vital Signs (last 24 hours): Temp Pulse Resp BP Pulse Ox 98.1 F 55 L 13 166/82 H 96 09/17/16 00:00 09/17/16 07:00 09/17/16 07:00 09/17/16 06:21 09/17/16 07:00 Intake and Output: 09/17/16 09/17/16 06:59 18:59 Intake Total 1681.1 265.1 Output Total 1800 Balance -118.9 265.1 - Medications Medications: Current Medications Acetaminophen (Tylenol 325mg Tab) 650 mg PO Q6 PRN PRN Reason: Pain, Mild (1-3) Last Admin: 09/09/16 07:02 Dose: 650 mg Amiodarone HCl (Cordarone) 200 mg PO DAILY [facility] Last Admin: 09/16/16 09:06 Dose: 200 mg Aspirin (Ecotrin) 81 mg PO DAILY [facility] Last Admin: 09/16/16 09:06 Dose: 81 mg Dabigatran (Pradaxa) 150 mg PO BID [facility] Last Admin: 09/15/16 17:52 Dose: 150 mg Ezetimibe (Zetia) 10 mg PO DAILY [facility] Last Admin: 09/16/16 09:06 Dose: 10 mg Hydrochlorothiazide (Hydrodiuril) 25 mg PO DAILY [facility] Last Admin: 09/16/16 09:06 Dose: 25 mg Meropenem 1 gm/ Sodium (Chloride) 100 mls @ 100 mls/hr IVPB Q8 [facility] Last Admin: 09/17/16 05:13 Dose: 100 mls/hr Sodium Chloride (Sodium Chloride 0.9%) 1,000 mls @ 50 mls/hr IV .Q20H [facility] Last Admin: 09/16/16 20:09 Dose: 50 mls/hr Insulin Aspart (Novolog) 0 unit SC ACHS [facility] PRN Reason: Protocol Last Admin: 09/16/16 21:52 Dose: 2 unit Insulin Aspart (Novolog) 15 unit SC TIDAC [facility] Last Admin: 09/16/16 18:13 Dose: 15 unit Insulin Glargine (Lantus) 30 unit SC [facility] Last Admin: 09/16/16 21:53 Dose: 30 unit Losartan Potassium (Cozaar) 100 mg PO DAILY [facility] Last Admin: 09/16/16 09:06 Dose: 100 mg Oxycodone/Acetaminophen (Percocet 5/325 Mg Tab) 2 tab PO Q6H PRN PRN Reason: Pain, severe (8-10) Stop: 09/18/16 16:27 Last Admin: 09/15/16 22:41 Dose: 2 tab Quetiapine Fumarate (Seroquel) 200 mg PO [facility] Last Admin: 09/16/16 21:52 Dose: 200 mg Saccharomyces Boulardii (Florastor) 250 mg PO BID [facility] Last Admin: 09/16/16 18:39 Dose: 250 mg Venlafaxine HCl (Effexor Xr) 150 mg PO DAILY [facility] Last Admin: 09/16/16 09:08 Dose: 150 mg - Labs Labs: 09/17/16 07:11 09/16/16 07:00 PT 13.2 SECONDS (9.7-12.2) H 09/16/16 18:03 INR 1.2 09/16/16 18:03 APTT 57 SECONDS (21-34) H 09/17/16 07:11 - Constitutional Appears: No Acute Distress - Head Exam Head Exam: ATRAUMATIC - Eye Exam Eye Exam: EOMI - Respiratory Exam Respiratory Exam: NORMAL BREATHING PATTERN. absent: Accessory Muscle Use, Rales , Wheezes - Cardiovascular Exam Cardiovascular Exam: +S1, +S2 - GI/Abdominal Exam GI & Abdominal Exam: Soft, Normal Bowel Sounds. absent: Distended, Tenderness - Extremities Exam Additional comments: Dressing around left foot Biphasic doppler pulses on right Dressing C/D/I right groin - Neurological Exam Neurological Exam: Awake, Oriented x3 - Psychiatric Exam Psychiatric exam: Normal Affect - Skin Skin Exam: Normal Color Assessment and Plan - Assessment and Plan (Free Text) Assessment: 55M w/ PVD s/p aortofemoral angio cath of L fem A. 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 Marilyn Loya/W Dr. Marilyn Forbes PGY1
[2016-09-17] MEDS ORDERED: Heparin25000 units/250ml 1/2NS 25,000 UNITS/250 ML BAG IV PRN (08:28)
[2016-09-17] MEDS: Vancomycin 1 gm/NS 200 ml 1 GM/200 ML BAG IVPB SCH (08:45)
[2016-09-17 09:09] LABS: CHLORIDE 95 mmol/L (98-107)
[2016-09-17 09:10] LABS: SODIUM 134 mmol/L (132-148)
[2016-09-17 09:11] LABS: POTASSIUM 3.7 mmol/L (3.6-5.2)
[2016-09-17 09:12] LABS: ALB/GLOB RATIO 0.8 (1.0-2.1); ALKALINE PHOSPHATASE 62 U/L (38-126); AST/SGOT 59 U/L (17-59); BILIRUBIN,TOTAL 1.2 mg/dL (0.2-1.3); BLOOD UREA NITROGEN 15 mg/dL (9-20); CARBON DIOXIDE 30 mmol/L (22-30); GFR AFRICAN-AMERICAN > 60; GLUCOSE,RANDOM 271 mg/dL (75-110); TOTAL PROTEIN 6.8 g/dL (6.3-8.3)
[2016-09-17 09:13] LABS: ALT/SGPT 22 U/L (21-72); CALCIUM 8.4 mg/dl (8.6-10.4); PHOSPHOROUS 2.8 mg/dL (2.5-4.5)
--- NOTE | 2016-09-17 09:29 | CP.PCM.PN ---
<Maggi Acosta - Last Filed: 09/17/16 13:00> Subjective - Date & Time of Evaluation Date of Evaluation: 09/17/16 Time of Evaluation: 09:29 - Subjective Subjective: 55 year old male was seen and evaluated at bedside 4 days s/p left foot I and D. Patient is AAOx3 and NAD. Patient denies any acute overnight events and states that he is feeling well. Patient denies N/V/F/C/CP/SOB. Patient denies any further pedal complaints at this time. Objective - Vital Signs/Intake and Output Vital Signs (last 24 hours): Temp Pulse Resp BP Pulse Ox 98.1 F 56 L 16 143/51 L 100 09/17/16 00:00 09/17/16 08:22 09/17/16 08:22 09/17/16 08:22 09/17/16 08:22 Intake and Output: 09/17/16 09/17/16 06:59 18:59 Intake Total 1681.1 810.2 Output Total 1800 800 Balance -118.9 10.2 - Medications Medications: Current Medications Acetaminophen (Tylenol 325mg Tab) 650 mg PO Q6 PRN PRN Reason: Pain, Mild (1-3) Last Admin: 09/09/16 07:02 Dose: 650 mg Amiodarone HCl (Cordarone) 200 mg PO DAILY [facility] Last Admin: 09/17/16 08:33 Dose: 200 mg Aspirin (Ecotrin) 81 mg PO DAILY [facility] Last Admin: 09/16/16 09:06 Dose: 81 mg Dabigatran (Pradaxa) 150 mg PO BID [facility] Last Admin: 09/15/16 17:52 Dose: 150 mg Ezetimibe (Zetia) 10 mg PO DAILY [facility] Last Admin: 09/16/16 09:06 Dose: 10 mg Hydrochlorothiazide (Hydrodiuril) 25 mg PO DAILY [facility] Last Admin: 09/16/16 09:06 Dose: 25 mg Meropenem 1 gm/ Sodium (Chloride) 100 mls @ 100 mls/hr IVPB Q8 [facility] Last Admin: 09/17/16 05:13 Dose: 100 mls/hr Sodium Chloride (Sodium Chloride 0.9%) 1,000 mls @ 50 mls/hr IV .Q20H [facility] Last Admin: 09/16/16 20:09 Dose: 50 mls/hr Heparin Sodium/Sodium Chloride (Heparin 23885 Units/250ml 1/2 Normal Saline) 25 ,000 units in 250 mls @ 15.105 mls/hr IV .[id number] PRN; Protocol; 18 UNITS/KG/HR PRN Reason: PROTOCOL Insulin Aspart (Novolog) 0 unit SC ACHS [facility] PRN Reason: Protocol Insulin Aspart (Novolog) 18 unit SC TIDAC [facility] Insulin Glargine (Lantus) 30 unit SC HS [facility] Last Admin: 09/16/16 21:53 Dose: 30 unit Losartan Potassium (Cozaar) 100 mg PO DAILY [facility] Last Admin: 09/17/16 08:33 Dose: 100 mg Oxycodone/Acetaminophen (Percocet 5/325 Mg Tab) 2 tab PO Q6H PRN PRN Reason: Pain, severe (8-10) Stop: 09/18/16 16:27 Last Admin: 09/15/16 22:41 Dose: 2 tab Quetiapine Fumarate (Seroquel) 200 mg PO HS [facility] Last Admin: 09/16/16 21:52 Dose: 200 mg Saccharomyces Boulardii (Florastor) 250 mg PO BID [facility] Last Admin: 09/16/16 18:39 Dose: 250 mg Venlafaxine HCl (Effexor Xr) 150 mg PO DAILY [facility] Last Admin: 09/16/16 09:08 Dose: 150 mg - Labs Labs: 09/17/16 07:11 09/17/16 08:49 PT 13.2 SECONDS (9.7-12.2) H 09/16/16 18:03 INR 1.2 09/16/16 18:03 APTT 57 SECONDS (21-34) H 09/17/16 07:11 - Constitutional Appears: Well, Non-toxic, No Acute Distress - Extremities Exam Additional comments: left lower extremity focused exam: Vasc: DP and PT pulses non-palpable, TG warm to warm, CFT < 3 sec to all digits neuro: gross sensation intact derm: Open surgical site noted to left foot with granular base. Lateral aspect of 5th digit has some necrotic tissue. Mild malodor noted. No purulent drainage or erythematous border noted at this time. Left fifth digit is dusky in color most likely due to poor vascular perfusion ortho: tenderness on palpation to surgical site and left fifth digit - Neurological Exam Neurological Exam: Alert, Awake, Oriented x3 - Psychiatric Exam Psychiatric exam: Normal Affect, Normal Mood Assessment and Plan - Assessment and Plan (Free Text) Assessment: 55 year old man 4 days s/p left foot incision and drainage secondary to cellulitis with underlying abscess Plan: Patient seen and evaluated at bedside Discussed in detail with Dr. Jo Charts, labs and vitals reviewed Surgical site to left foot cleansed with normal sterile saline Site dressed with xeroform, 4x4, ABD, Kerlix Patient to undergo bypass with Vascular Continue IV abx per ID Podiatry will continue to follow <Frederick Jo - Last Filed: 09/17/16 21:54> Objective - Vital Signs/Intake and Output Vital Signs (last 24 hours): Temp Pulse Resp BP Pulse Ox 98.1 F 57 L 16 155/74 H 99 09/17/16 00:00 09/17/16 19:00 09/17/16 19:00 09/17/16 18:21 09/17/16 19:00 Intake and Output: 09/17/16 09/18/16 18:59 06:59 Intake Total 3836.1 305.1 Output Total 3950 300 Balance -113.9 5.1 - Medications Medications: Current Medications Acetaminophen (Tylenol 325mg Tab) 650 mg PO Q6 PRN PRN Reason: Pain, Mild (1-3) Last Admin: 09/09/16 07:02 Dose: 650 mg Amiodarone HCl (Cordarone) 200 mg PO DAILY [facility] Last Admin: 09/17/16 12:41 Dose: Not Given Aspirin (Ecotrin) 81 mg PO DAILY [facility] Last Admin: 09/17/16 10:54 Dose: 81 mg Dabigatran (Pradaxa) 150 mg PO BID [facility] Last Admin: 09/15/16 17:52 Dose: 150 mg Ezetimibe (Zetia) 10 mg PO DAILY [facility] Last Admin: 09/17/16 10:55 Dose: 10 mg Hydrochlorothiazide (Hydrodiuril) 25 mg PO DAILY [facility] Last Admin: 09/17/16 10:55 Dose: 25 mg Meropenem 1 gm/ Sodium (Chloride) 100 mls @ 100 mls/hr IVPB Q8 [facility] Last Admin: 09/17/16 14:30 Dose: 100 mls/hr Sodium Chloride (Sodium Chloride 0.9%) 1,000 mls @ 50 mls/hr IV .Q20H [facility] Last Admin: 09/17/16 16:13 Dose: Not Given Heparin Sodium/Sodium Chloride (Heparin 34017 Units/250ml 1/2 Normal Saline) 25 ,000 units in 250 mls @ 15.105 mls/hr IV .[id number] PRN; Protocol; 18 UNITS/KG/HR PRN Reason: ADJUST RATE PER PROTOCOL Last Admin: 09/17/16 10:47 Dose: 18 units/kg/hr, 15.105 mls/hr Insulin Aspart (Novolog) 0 unit SC ACHS [facility] PRN Reason: Protocol Last Admin: 09/17/16 17:00 Dose: 6 unit Insulin Aspart (Novolog) 18 unit SC TIDAC [facility] Last Admin: 09/17/16 17:19 Dose: 18 unit Insulin Glargine (Lantus) 30 unit SC HS [facility] Last Admin: 09/16/16 21:53 Dose: 30 unit Losartan Potassium (Cozaar) 100 mg PO DAILY [facility] Last Admin: 09/17/16 10:52 Dose: Not Given Oxycodone/Acetaminophen (Percocet 5/325 Mg Tab) 2 tab PO Q6H PRN PRN Reason: Pain, severe (8-10) Stop: 09/18/16 16:27 Last Admin: 09/15/16 22:41 Dose: 2 tab Quetiapine Fumarate (Seroquel) 200 mg PO HS [facility] Last Admin: 09/16/16 21:52 Dose: 200 mg Saccharomyces Boulardii (Florastor) 250 mg PO BID [facility] Last Admin: 09/17/16 17:25 Dose: 250 mg Venlafaxine HCl (Effexor Xr) 150 mg PO DAILY [facility] Last Admin: 09/17/16 10:54 Dose: 150 mg - Labs Labs: 09/17/16 07:11 09/17/16 08:49 PT 13.2 SECONDS (9.7-12.2) H 09/16/16 18:03 INR 1.2 09/16/16 18:03 APTT 57 SECONDS (21-34) H 09/17/16 07:11 Assessment and Plan - Assessment and Plan (Free Text) Plan: seen at bedside this pm . less pain noted . base of wound somewhat improved but pale granular tissue and needs more help . Awaiting further intervention by vascular . DR Jo.
[2016-09-17] MEDS: Heparin25000 units/250ml 1/2NS 25,000 UNITS/250 ML BAG IV PRN (10:47)
--- NOTE | 2016-09-17 10:49 | CP.PCM.PN ---
<Maru Guadarramaa - Last Filed: 09/17/16 10:47> Subjective - Date & Time of Evaluation Date of Evaluation: 09/17/16 Time of Evaluation: 07:00 - Subjective Subjective: Medicine Note for Dr. Nova Patient was seen and examined at bedside. S/P angiogram with Dr. Sanders. Venous mapping scheduled for today and OR on for possible bypass. Patient reports no more pain. Foot was evaluated with podiatry as dressing changes were being done today. Denied fever, chills, headache, chest pain, abdominal pain, n/v/d/c, or urinary symptoms. Objective - Vital Signs/Intake and Output Vital Signs (last 24 hours): Temp Pulse Resp BP Pulse Ox 98.1 F 56 L 16 143/51 L 100 09/17/16 00:00 09/17/16 08:22 09/17/16 08:22 09/17/16 08:22 09/17/16 08:22 Intake and Output: 09/17/16 09/17/16 06:59 18:59 Intake Total 1681.1 810.2 Output Total 1800 800 Balance -118.9 10.2 - Medications Medications: Current Medications Acetaminophen (Tylenol 325mg Tab) 650 mg PO Q6 PRN PRN Reason: Pain, Mild (1-3) Last Admin: 09/09/16 07:02 Dose: 650 mg Amiodarone HCl (Cordarone) 200 mg PO DAILY [facility] Last Admin: 09/17/16 08:33 Dose: 200 mg Aspirin (Ecotrin) 81 mg PO DAILY [facility] Last Admin: 09/16/16 09:06 Dose: 81 mg Dabigatran (Pradaxa) 150 mg PO BID [facility] Last Admin: 09/15/16 17:52 Dose: 150 mg Ezetimibe (Zetia) 10 mg PO DAILY [facility] Last Admin: 09/16/16 09:06 Dose: 10 mg Hydrochlorothiazide (Hydrodiuril) 25 mg PO DAILY [facility] Last Admin: 09/16/16 09:06 Dose: 25 mg Meropenem 1 gm/ Sodium (Chloride) 100 mls @ 100 mls/hr IVPB Q8 [facility] Last Admin: 09/17/16 05:13 Dose: 100 mls/hr Sodium Chloride (Sodium Chloride 0.9%) 1,000 mls @ 50 mls/hr IV .Q20H [facility] Last Admin: 09/16/16 20:09 Dose: 50 mls/hr Heparin Sodium/Sodium Chloride (Heparin 85063 Units/250ml 1/2 Normal Saline) 25 ,000 units in 250 mls @ 15.105 mls/hr IV .[id number] PRN; Protocol; 18 UNITS/KG/HR PRN Reason: ADJUST RATE PER PROTOCOL Insulin Aspart (Novolog) 0 unit SC ACHS [facility] PRN Reason: Protocol Insulin Aspart (Novolog) 18 unit SC TIDAC [facility] Insulin Glargine (Lantus) 30 unit SC HS [facility] Last Admin: 09/16/16 21:53 Dose: 30 unit Losartan Potassium (Cozaar) 100 mg PO DAILY [facility] Last Admin: 09/17/16 08:33 Dose: 100 mg Oxycodone/Acetaminophen (Percocet 5/325 Mg Tab) 2 tab PO Q6H PRN PRN Reason: Pain, severe (8-10) Stop: 09/18/16 16:27 Last Admin: 09/15/16 22:41 Dose: 2 tab Quetiapine Fumarate (Seroquel) 200 mg PO HS [facility] Last Admin: 09/16/16 21:52 Dose: 200 mg Saccharomyces Boulardii (Florastor) 250 mg PO BID [facility] Last Admin: 09/16/16 18:39 Dose: 250 mg Venlafaxine HCl (Effexor Xr) 150 mg PO DAILY [facility] Last Admin: 09/16/16 09:08 Dose: 150 mg - Labs Labs: 09/17/16 07:11 09/17/16 08:49 PT 13.2 SECONDS (9.7-12.2) H 09/16/16 18:03 INR 1.2 09/16/16 18:03 APTT 57 SECONDS (21-34) H 09/17/16 07:11 - Constitutional Appears: No Acute Distress - Head Exam Head Exam: NORMAL INSPECTION, NORMOCEPHALIC - Eye Exam Eye Exam: EOMI, Normal appearance, PERRL Pupil Exam: NORMAL ACCOMODATION - ENT Exam ENT Exam: Mucous Membranes Moist, Normal Exam - Respiratory Exam Respiratory Exam: Clear to Ausculation Bilateral, NORMAL BREATHING PATTERN - Cardiovascular Exam Cardiovascular Exam: REGULAR RHYTHM, RRR, +S1, +S2 - GI/Abdominal Exam GI & Abdominal Exam: Soft, Normal Bowel Sounds. absent: Distended, Tenderness - Extremities Exam Extremities Exam: Normal Inspection. absent: Pedal Edema, Tenderness Additional comments: Open surgical site noted to left foot with packing noted within. Malodorous, purulent drainage or erythematous border noted at this time. Red, granular base noted to surgical site. Left fifth digit is looking more dusky in color compared to yesterday most likely due to poor vascular perfusion - Neurological Exam Neurological Exam: Alert, Awake, Oriented x3 - Psychiatric Exam Psychiatric exam: Normal Affect, Normal Mood - Skin Skin Exam: Dry, Intact, Normal Color, Warm Assessment and Plan - Assessment and Plan (Free Text) Plan: Cellulitis of foot, left Assessment and Plan: Patient received Vanc and Clindamycin in the ED. Perococet PRN and Tylenol PRN for pain Left foot xray - no osteo Podiatry recommendations: applied betadine, DSD to left foot, continue current regimen BC- no growth Bone Scan of Left Foot (patient refuses to have MRI done due to claustrophobia) : NO OSTEOMYELITIS Wound Culture: grew Proteus + ID consulted for persistent leukocytosis - Dr. Asher- help appreciated - IV antibiotics switched to Meropenem 1gram IVP Q8H Patient is medically stable for I&D tomorrow. Pt has a Detsky score of 5, Class 1 low risk of perioperative cardiovascular event. Podiatry and Anesthesia to explain the risks and benefits of procedure. S/P I/D - podiatry taking care of dressing changes S/P Aortofemoral angiogram. selective catherization of left femoral artery. balloon angioplasty of hand launderer/ profonda with 6 and 5 balloons. angiojet mechanical thrombolysis of left hand launderer. with tpa. perclose right groin Vein mapping today of LLE. Plan for bypass on 09/19/16 Status: Acute PVD Assessment and Plan: Arterial PVR/ SEG B/L: mild to moderate BL arterial insufficiency beginning at SFA left with more disease than right, L> R. Surgery Consulted- Dr. Sanders - help appreciated CT Ab ileofem angiography: BL excessive atherosclertic disease. B/L SFA multifocal mild to moderate high grade stenosis. S/P Aortofemoral angiogram. selective catherization of left femoral artery. balloon angioplasty of hand launderer/ profonda with 6 and 5 balloons. angiojet mechanical thrombolysis of left hand launderer. with tpa. perclose right groin Vein mapping today of LLE. Plan for bypass on 09/19/16 Heparin drip started, pradaxa currently on hold due to anticipating surgical procedures. Status: Chronic Diabetes Mellitus Assessment and Plan: Accuchecks HbgA1c = 13.3 Will hold home meds: Januvia 100mg QHS and Metformin 1000mg PO BID, and Prandin 1mg PO BID (confirmed with Pharmacy). According to the patient he takes Lantus 20mg SC BID (however the pharmacy did not confirm this). Started on: Lantus increased to 30 units HS, Novolog increased to 18 units TID, and HIGH dose sliding scale DM counseling ordered Status: Chronic History of quadriple vessel bypass surgery Assessment and Plan: Currently asymptomatic Continue Pradaxa, Cozaar, Zetia - pradaxa currently on hold due to anticipating surgical procedures. Started on ASA daily Lipid Panel - WNL Status: Acute Atrial fibrillation Assessment and Plan: Amiodarone daily TSH, T4 - WNL Currently rate controlled and asymptomatic Cont to monitor Status: Acute HTN (hypertension) Assessment and Plan: Continue Cozaar and HCTZ Patient normally takes Diovan at home but non-formulary here. Status: Acute Prophylactic measure Assessment and Plan: DVT VTE c/i since patient is already on anticoagulation for AFib GI prophylaxis not indicated at this time PT evaluation- recommend TCU Status: Acute Disposition: Patient will be discharged to [facility] once medically stable. Chiara Valerio Dr., DO, PGY-1 <Alphonso Nova - Last Filed: 09/17/16 12:03> Objective - Vital Signs/Intake and Output Vital Signs (last 24 hours): Temp Pulse Resp BP Pulse Ox 98.1 F 56 L 15 130/68 100 09/17/16 00:00 09/17/16 11:00 09/17/16 11:00 09/17/16 10:27 09/17/16 11:00 Intake and Output: 09/17/16 09/17/16 06:59 18:59 Intake Total 1681.1 1360.4 Output Total 1800 1150 Balance -118.9 210.4 - Medications Medications: Current Medications Acetaminophen (Tylenol 325mg Tab) 650 mg PO Q6 PRN PRN Reason: Pain, Mild (1-3) Last Admin: 09/09/16 07:02 Dose: 650 mg Amiodarone HCl (Cordarone) 200 mg PO DAILY [facility] Last Admin: 09/17/16 10:56 Dose: 200 mg Aspirin (Ecotrin) 81 mg PO DAILY [facility] Last Admin: 09/17/16 10:54 Dose: 81 mg Dabigatran (Pradaxa) 150 mg PO BID [facility] Last Admin: 09/15/16 17:52 Dose: 150 mg Ezetimibe (Zetia) 10 mg PO DAILY [facility] Last Admin: 09/17/16 10:55 Dose: 10 mg Hydrochlorothiazide (Hydrodiuril) 25 mg PO DAILY [facility] Last Admin: 09/17/16 10:55 Dose: 25 mg Meropenem 1 gm/ Sodium (Chloride) 100 mls @ 100 mls/hr IVPB Q8 [facility] Last Admin: 09/17/16 05:13 Dose: 100 mls/hr Sodium Chloride (Sodium Chloride 0.9%) 1,000 mls @ 50 mls/hr IV .Q20H [facility] Last Admin: 09/16/16 20:09 Dose: 50 mls/hr Heparin Sodium/Sodium Chloride (Heparin 05704 Units/250ml 1/2 Normal Saline) 25 ,000 units in 250 mls @ 15.105 mls/hr IV .[id number] PRN; Protocol; 18 UNITS/KG/HR PRN Reason: ADJUST RATE PER PROTOCOL Last Admin: 09/17/16 10:47 Dose: 18 units/kg/hr, 15.105 mls/hr Insulin Aspart (Novolog) 0 unit SC ACHS [facility] PRN Reason: Protocol Insulin Aspart (Novolog) 18 unit SC TIDAC [facility] Insulin Glargine (Lantus) 30 unit SC HS [facility] Last Admin: 09/16/16 21:53 Dose: 30 unit Losartan Potassium (Cozaar) 100 mg PO DAILY [facility] Last Admin: 09/17/16 10:52 Dose: Not Given Oxycodone/Acetaminophen (Percocet 5/325 Mg Tab) 2 tab PO Q6H PRN PRN Reason: Pain, severe (8-10) Stop: 09/18/16 16:27 Last Admin: 09/15/16 22:41 Dose: 2 tab Quetiapine Fumarate (Seroquel) 200 mg PO [facility] Last Admin: 09/16/16 21:52 Dose: 200 mg Saccharomyces Boulardii (Florastor) 250 mg PO BID [facility] Last Admin: 09/17/16 10:55 Dose: 250 mg Venlafaxine HCl (Effexor Xr) 150 mg PO DAILY [facility] Last Admin: 09/17/16 10:54 Dose: 150 mg - Labs Labs: 09/17/16 07:11 09/17/16 08:49 PT 13.2 SECONDS (9.7-12.2) H 09/16/16 18:03 INR 1.2 09/16/16 18:03 APTT 57 SECONDS (21-34) H 09/17/16 07:11 Attending/Attestation - Attestation I have personally seen and examined this patient.: Yes I have fully participated in the care of the patient.: Yes I have reviewed all pertinent clinical information, including history, physical exam and plan: Yes Notes (Text): Medical attending: Patient was seen and examined by me, agree with the above note by medical attendant. Today I was able to inspect the wound as the podiatry team was changing the left foot dressing. It is a deep area into the muscle and bones there is malodorous discharge as well The patient will be undergoing a venous mapping today and I understand the plan is for a femoral-popliteal bypass potentially this . Is currently on a heparin drip at this time At this time the patient remains on IV antibiotics. He denied having any fevers or chills overnight. He did not have elevated temperature. His white blood cell count is 13 at this time were to continue to monitor this Thank you very much, Alphonso Nova
[2016-09-17] MEDS: Venlafaxine 150 mg ER Cap PO SCH (10:54)
[2016-09-17] MEDS: Saccharomyces Boulardi 250 mg Cap PO SCH ×2 (10:55→17:25)
--- NOTE | 2016-09-17 11:12 | CP.PCM.PN ---
Subjective - Date & Time of Evaluation Date of Evaluation: 09/17/16 Time of Evaluation: 08:00 - Subjective Subjective: S/P angiogram with Dr. Sanders. Venous mapping scheduled for today and OR on for possible bypass. Patient reports no more pain. Objective - Vital Signs/Intake and Output Vital Signs (last 24 hours): Temp Pulse Resp BP Pulse Ox 98.1 F 56 L 15 130/68 100 09/17/16 00:00 09/17/16 11:00 09/17/16 11:00 09/17/16 10:27 09/17/16 11:00 Intake and Output: 09/17/16 09/17/16 06:59 18:59 Intake Total 1681.1 1360.4 Output Total 1800 1150 Balance -118.9 210.4 - Medications Medications: Current Medications Acetaminophen (Tylenol 325mg Tab) 650 mg PO Q6 PRN PRN Reason: Pain, Mild (1-3) Last Admin: 09/09/16 07:02 Dose: 650 mg Amiodarone HCl (Cordarone) 200 mg PO DAILY [facility] Last Admin: 09/17/16 10:56 Dose: 200 mg Aspirin (Ecotrin) 81 mg PO DAILY [facility] Last Admin: 09/17/16 10:54 Dose: 81 mg Dabigatran (Pradaxa) 150 mg PO BID [facility] Last Admin: 09/15/16 17:52 Dose: 150 mg Ezetimibe (Zetia) 10 mg PO DAILY [facility] Last Admin: 09/17/16 10:55 Dose: 10 mg Hydrochlorothiazide (Hydrodiuril) 25 mg PO DAILY [facility] Last Admin: 09/17/16 10:55 Dose: 25 mg Meropenem 1 gm/ Sodium (Chloride) 100 mls @ 100 mls/hr IVPB Q8 [facility] Last Admin: 09/17/16 05:13 Dose: 100 mls/hr Sodium Chloride (Sodium Chloride 0.9%) 1,000 mls @ 50 mls/hr IV .Q20H [facility] Last Admin: 09/16/16 20:09 Dose: 50 mls/hr Heparin Sodium/Sodium Chloride (Heparin 07085 Units/250ml 1/2 Normal Saline) 25 ,000 units in 250 mls @ 15.105 mls/hr IV .[id number] PRN; Protocol; 18 UNITS/KG/HR PRN Reason: ADJUST RATE PER PROTOCOL Last Admin: 09/17/16 10:47 Dose: 18 units/kg/hr, 15.105 mls/hr Insulin Aspart (Novolog) 0 unit SC ACHS [facility] PRN Reason: Protocol Insulin Aspart (Novolog) 18 unit SC TIDAC [facility] Insulin Glargine (Lantus) 30 unit SC HS [facility] Last Admin: 09/16/16 21:53 Dose: 30 unit Losartan Potassium (Cozaar) 100 mg PO DAILY [facility] Last Admin: 09/17/16 10:52 Dose: Not Given Oxycodone/Acetaminophen (Percocet 5/325 Mg Tab) 2 tab PO Q6H PRN PRN Reason: Pain, severe (8-10) Stop: 09/18/16 16:27 Last Admin: 09/15/16 22:41 Dose: 2 tab Quetiapine Fumarate (Seroquel) 200 mg PO HS [facility] Last Admin: 09/16/16 21:52 Dose: 200 mg Saccharomyces Boulardii (Florastor) 250 mg PO BID [facility] Last Admin: 09/17/16 10:55 Dose: 250 mg Venlafaxine HCl (Effexor Xr) 150 mg PO DAILY [facility] Last Admin: 09/17/16 10:54 Dose: 150 mg - Labs Labs: 09/17/16 07:11 09/17/16 08:49 PT 13.2 SECONDS (9.7-12.2) H 09/16/16 18:03 INR 1.2 09/16/16 18:03 APTT 57 SECONDS (21-34) H 09/17/16 07:11 - Constitutional Appears: Non-toxic, Chronically Ill - Head Exam Head Exam: NORMOCEPHALIC - Eye Exam Eye Exam: PERRL - ENT Exam ENT Exam: Mucous Membranes Dry - Neck Exam Neck Exam: absent: Lymphadenopathy - Respiratory Exam Respiratory Exam: Decreased Breath Sounds, Clear to Ausculation Bilateral - Cardiovascular Exam Cardiovascular Exam: REGULAR RHYTHM - GI/Abdominal Exam GI & Abdominal Exam: Distended, Soft Assessment and Plan (1) Atrial fibrillation Status: Acute (2) Cellulitis of foot, left Status: Acute (3) HTN (hypertension) Status: Acute (4) History of heart bypass surgery Status: Acute (5) Hyperglycemia without ketosis Status: Acute
[2016-09-17] MEDS: Sodium Chloride 0.9% 1,000 ML IV SCH (16:13)
--- NOTE | 2016-09-17 21:58 | CP.PCM.PN ---
Subjective - Date & Time of Evaluation Date of Evaluation: 09/17/16 Time of Evaluation: 09:50 - Subjective Subjective: Pt seen at bedside in ICU .States he feel much better and less pain. Wound is somewhat improved but granular tissue is of poor quality and wound has necrotic edges .Awaiting vascular intervention . Objective - Vital Signs/Intake and Output Vital Signs (last 24 hours): Temp Pulse Resp BP Pulse Ox 98.1 F 57 L 16 155/74 H 99 09/17/16 00:00 09/17/16 19:00 09/17/16 19:00 09/17/16 18:21 09/17/16 19:00 Intake and Output: 09/17/16 09/18/16 18:59 06:59 Intake Total 3836.1 675.3 Output Total 3950 650 Balance -113.9 25.3 - Medications Medications: Current Medications Acetaminophen (Tylenol 325mg Tab) 650 mg PO Q6 PRN PRN Reason: Pain, Mild (1-3) Last Admin: 09/09/16 07:02 Dose: 650 mg Amiodarone HCl (Cordarone) 200 mg PO DAILY [facility] Last Admin: 09/17/16 12:41 Dose: Not Given Aspirin (Ecotrin) 81 mg PO DAILY [facility] Last Admin: 09/17/16 10:54 Dose: 81 mg Dabigatran (Pradaxa) 150 mg PO BID [facility] Last Admin: 09/15/16 17:52 Dose: 150 mg Ezetimibe (Zetia) 10 mg PO DAILY [facility] Last Admin: 09/17/16 10:55 Dose: 10 mg Hydrochlorothiazide (Hydrodiuril) 25 mg PO DAILY [facility] Last Admin: 09/17/16 10:55 Dose: 25 mg Meropenem 1 gm/ Sodium (Chloride) 100 mls @ 100 mls/hr IVPB Q8 [facility] Last Admin: 09/17/16 14:30 Dose: 100 mls/hr Sodium Chloride (Sodium Chloride 0.9%) 1,000 mls @ 50 mls/hr IV .Q20H [facility] Last Admin: 09/17/16 16:13 Dose: Not Given Heparin Sodium/Sodium Chloride (Heparin 69945 Units/250ml 1/2 Normal Saline) 25 ,000 units in 250 mls @ 15.105 mls/hr IV .[id number] PRN; Protocol; 18 UNITS/KG/HR PRN Reason: ADJUST RATE PER PROTOCOL Last Admin: 09/17/16 10:47 Dose: 18 units/kg/hr, 15.105 mls/hr Insulin Aspart (Novolog) 0 unit SC ACHS [facility] PRN Reason: Protocol Last Admin: 09/17/16 17:00 Dose: 6 unit Insulin Aspart (Novolog) 18 unit SC TIDAC [facility] Last Admin: 09/17/16 17:19 Dose: 18 unit Insulin Glargine (Lantus) 30 unit SC HS [facility] Last Admin: 09/16/16 21:53 Dose: 30 unit Losartan Potassium (Cozaar) 100 mg PO DAILY [facility] Last Admin: 09/17/16 10:52 Dose: Not Given Oxycodone/Acetaminophen (Percocet 5/325 Mg Tab) 2 tab PO Q6H PRN PRN Reason: Pain, severe (8-10) Stop: 09/18/16 16:27 Last Admin: 09/15/16 22:41 Dose: 2 tab Quetiapine Fumarate (Seroquel) 200 mg PO HS [facility] Last Admin: 09/16/16 21:52 Dose: 200 mg Saccharomyces Boulardii (Florastor) 250 mg PO BID [facility] Last Admin: 09/17/16 17:25 Dose: 250 mg Venlafaxine HCl (Effexor Xr) 150 mg PO DAILY [facility] Last Admin: 09/17/16 10:54 Dose: 150 mg - Labs Labs: 09/17/16 07:11 09/17/16 08:49 PT 13.2 SECONDS (9.7-12.2) H 09/16/16 18:03 INR 1.2 09/16/16 18:03 APTT 57 SECONDS (21-34) H 09/17/16 07:11
[2016-09-17] MEDS: (Lantus) Insulin Glargine, Recombinant SC SCH (22:43)
[2016-09-18] MEDS: Sodium Chloride 0.9% 1,000 ML IV SCH (03:26)
[2016-09-18] MEDS: Heparin25000 units/250ml 1/2NS 25,000 UNITS/250 ML BAG IV PRN ×2 (03:30→20:19)
[2016-09-18] MEDS: Meropenem 1 GM in Sodium Chloride 0.9% 100 ML IVPB SCH ×3 (05:47→21:41)
[2016-09-18 06:39] LABS: BASO # 0.1 K/uL (0.0-0.2); EOS # 0.1 K/uL (0.0-0.7); EOS % 1.1 % (0.0-4.0); HEMATOCRIT 27.8 % (35.0-51.0); LYMPH # 3.8 K/uL (1.0-4.3); LYMPH % 28.6 % (20.0-40.0); MEAN CELL VOLUME 85.8 fL (80.0-94.0); MEAN CORPUSCULAR HEMOGLOBIN 28.2 pg (27.0-31.0); MEAN CORPUSCULAR HGB CONC 32.9 g/dL (33.0-37.0); MEAN PLATELET VOLUME 7.7 fL (7.2-11.7); MONO # 1.1 K/uL (0.0-0.8); NRBC % 0.4 % (0.0-2.0); RED CELL DISTRIBUTION WIDTH 13.1 % (11.5-14.5); WHITE BLOOD COUNT 13.2 K/uL (4.8-10.8)
[2016-09-18 06:50] LABS: ALKALINE PHOSPHATASE 70 U/L (38-126); ALT/SGPT 53 U/L (21-72); AST/SGOT 78 U/L (17-59); BILIRUBIN,TOTAL 0.4 mg/dL (0.2-1.3); BLOOD UREA NITROGEN 15 mg/dL (9-20); CALCIUM 8.4 mg/dl (8.6-10.4); CARBON DIOXIDE 32 mmol/L (22-30); CHLORIDE 97 mmol/L (98-107); GFR AFRICAN-AMERICAN > 60; GLUCOSE,RANDOM 105 mg/dL (75-110); PHOSPHOROUS 3.5 mg/dL (2.5-4.5); POTASSIUM 3.2 mmol/L (3.6-5.2); SODIUM 136 mmol/L (132-148)
--- NOTE | 2016-09-18 07:04 | CP.PCM.PN ---
<Desi Guadarrama - Last Filed: 09/18/16 07:01> Subjective - Date & Time of Evaluation Date of Evaluation: 09/18/16 Time of Evaluation: 07:00 - Subjective Subjective: Medicine Note for Dr. Nova Patient was seen and examined at bedside. S/P angiogram with Dr. Sanders. Venous mapping was performed yesterday. Plan for fempop bypass on . Patient reports no more pain. Dressing changes are done daily by Podiatry. Denied fever, chills, headache, chest pain, abdominal pain, n/v/d/c, or urinary symptoms. Objective - Vital Signs/Intake and Output Vital Signs (last 24 hours): Temp Pulse Resp BP Pulse Ox 98.9 F 57 L 22 155/74 H 97 09/18/16 04:00 09/17/16 19:00 09/18/16 04:00 09/17/16 18:21 09/18/16 04:00 Intake and Output: 09/18/16 09/18/16 06:59 18:59 Intake Total 1535.9 Output Total 2850 Balance -1314.1 - Medications Medications: Current Medications Acetaminophen (Tylenol 325mg Tab) 650 mg PO Q6 PRN PRN Reason: Pain, Mild (1-3) Last Admin: 09/09/16 07:02 Dose: 650 mg Amiodarone HCl (Cordarone) 200 mg PO DAILY [facility] Last Admin: 09/17/16 12:41 Dose: Not Given Aspirin (Ecotrin) 81 mg PO DAILY [facility] Last Admin: 09/17/16 10:54 Dose: 81 mg Dabigatran (Pradaxa) 150 mg PO BID [facility] Last Admin: 09/15/16 17:52 Dose: 150 mg Ezetimibe (Zetia) 10 mg PO DAILY [facility] Last Admin: 09/17/16 10:55 Dose: 10 mg Hydrochlorothiazide (Hydrodiuril) 25 mg PO DAILY [facility] Last Admin: 09/17/16 10:55 Dose: 25 mg Meropenem 1 gm/ Sodium (Chloride) 100 mls @ 100 mls/hr IVPB Q8 [facility] Last Admin: 09/18/16 05:47 Dose: 100 mls/hr Sodium Chloride (Sodium Chloride 0.9%) 1,000 mls @ 50 mls/hr IV .Q20H [facility] Last Admin: 09/18/16 03:26 Dose: 50 mls/hr Heparin Sodium/Sodium Chloride (Heparin 86800 Units/250ml 1/2 Normal Saline) 25 ,000 units in 250 mls @ 15.105 mls/hr IV .[id number] PRN; Protocol; 18 UNITS/KG/HR PRN Reason: ADJUST RATE PER PROTOCOL Last Admin: 09/18/16 03:30 Dose: 18 units/kg/hr, 15.105 mls/hr Insulin Aspart (Novolog) 0 unit SC ACHS [facility] PRN Reason: Protocol Last Admin: 09/17/16 22:45 Dose: Not Given Insulin Aspart (Novolog) 18 unit SC TIDAC [facility] Last Admin: 09/17/16 17:19 Dose: 18 unit Insulin Glargine (Lantus) 30 unit SC HS [facility] Last Admin: 09/17/16 22:43 Dose: 30 unit Losartan Potassium (Cozaar) 100 mg PO DAILY [facility] Last Admin: 09/17/16 10:52 Dose: Not Given Oxycodone/Acetaminophen (Percocet 5/325 Mg Tab) 2 tab PO Q6H PRN PRN Reason: Pain, severe (8-10) Stop: 09/18/16 16:27 Last Admin: 09/15/16 22:41 Dose: 2 tab Potassium Chloride (K-Dur 20 Meq Er Tab) 40 meq PO BID [facility] Stop: 09/19/16 10:01 Quetiapine Fumarate (Seroquel) 200 mg PO HS [facility] Last Admin: 09/17/16 22:42 Dose: 200 mg Saccharomyces Boulardii (Florastor) 250 mg PO BID [facility] Last Admin: 09/17/16 17:25 Dose: 250 mg Venlafaxine HCl (Effexor Xr) 150 mg PO DAILY [facility] Last Admin: 09/17/16 10:54 Dose: 150 mg - Labs Labs: 09/18/16 06:27 09/18/16 06:27 PT 13.2 SECONDS (9.7-12.2) H 09/16/16 18:03 INR 1.2 09/16/16 18:03 APTT 50 SECONDS (21-34) H D 09/18/16 06:27 - Constitutional Appears: No Acute Distress - Head Exam Head Exam: NORMAL INSPECTION, NORMOCEPHALIC - Eye Exam Eye Exam: EOMI, Normal appearance, PERRL Pupil Exam: NORMAL ACCOMODATION - ENT Exam ENT Exam: Mucous Membranes Moist, Normal Exam - Respiratory Exam Respiratory Exam: Clear to Ausculation Bilateral, NORMAL BREATHING PATTERN - Cardiovascular Exam Cardiovascular Exam: REGULAR RHYTHM, RRR, +S1, +S2 - GI/Abdominal Exam GI & Abdominal Exam: Distended, Soft, Tenderness, Normal Bowel Sounds - Extremities Exam Extremities Exam: Normal Inspection. absent: Pedal Edema, Tenderness - Neurological Exam Neurological Exam: Alert, Awake, Oriented x3 - Psychiatric Exam Psychiatric exam: Normal Affect, Normal Mood - Skin Skin Exam: Dry, Intact, Normal Color, Warm Assessment and Plan - Assessment and Plan (Free Text) Plan: Cellulitis of foot, left Assessment and Plan: Patient received Vanc and Clindamycin in the ED. Perococet PRN and Tylenol PRN for pain Left foot xray - no osteo Podiatry recommendations: applied betadine, DSD to left foot, continue current regimen BC- no growth Bone Scan of Left Foot (patient refuses to have MRI done due to claustrophobia) : NO OSTEOMYELITIS Wound Culture: grew Proteus + ID consulted for persistent leukocytosis - Dr. Asher- help appreciated - IV antibiotics switched to Meropenem 1gram IVP Q8H Patient is medically stable for I&D tomorrow. Pt has a Detsky score of 5, Class 1 low risk of perioperative cardiovascular event. Podiatry and Anesthesia to explain the risks and benefits of procedure. S/P I/D - podiatry taking care of dressing changes S/P Aortofemoral angiogram. selective catherization of left femoral artery. balloon angioplasty of short goods drier/ profonda with 6 and 5 balloons. angiojet mechanical thrombolysis of left short goods drier. with tpa. perclose right groin Vein mapping of LLE was done yesterday Plan for bypass on 09/19/16 Status: Acute PVD Assessment and Plan: Arterial PVR/ SEG B/L: mild to moderate BL arterial insufficiency beginning at SFA left with more disease than right, L> R. Surgery Consulted- Dr. Sanders - help appreciated CT Ab ileofem angiography: BL excessive atherosclertic disease. B/L SFA multifocal mild to moderate high grade stenosis. S/P Aortofemoral angiogram. selective catherization of left femoral artery. balloon angioplasty of short goods drier/ profonda with 6 and 5 balloons. angiojet mechanical thrombolysis of left short goods drier. with tpa. perclose right groin Vein mapping today of LLE. Heparin drip started 09/17/16, pradaxa currently on hold due to anticipating surgical procedures. Plan for bypass on 09/19/16 Status: Chronic Diabetes Mellitus Assessment and Plan: Accuchecks HbgA1c = 13.3 Will hold home meds: Januvia 100mg QHS and Metformin 1000mg PO BID, and Prandin 1mg PO BID (confirmed with Pharmacy). According to the patient he takes Lantus 20mg SC BID (however the pharmacy did not confirm this). Started on: Lantus increased to 30 units HS, Novolog increased to 18 units TID, and HIGH dose sliding scale DM counseling ordered Status: Chronic History of quadriple vessel bypass surgery Assessment and Plan: Currently asymptomatic Continue Pradaxa, Cozaar, Zetia - pradaxa currently on hold due to anticipating surgical procedures. Started on ASA daily Lipid Panel - WNL Status: Acute Atrial fibrillation Assessment and Plan: Amiodarone daily TSH, T4 - WNL Currently rate controlled and asymptomatic Cont to monitor Status: Acute HTN (hypertension) Assessment and Plan: Continue Cozaar and HCTZ Patient normally takes Diovan at home but non-formulary here. Status: Acute Prophylactic measure Assessment and Plan: DVT VTE c/i since patient is already on anticoagulation GI prophylaxis not indicated at this time PT evaluation- recommend TCU Status: Acute Disposition: Patient will be discharged to [place] [facility] once medically stable. Chiara Valerio Dr., DO, PGY-1 <Alphonso Nova - Last Filed: 09/18/16 15:42> Objective - Vital Signs/Intake and Output Vital Signs (last 24 hours): Temp Pulse Resp BP Pulse Ox 97.8 F 66 17 94/54 L 98 09/18/16 07:20 09/18/16 07:20 09/18/16 07:20 09/18/16 07:20 09/18/16 07:20 Intake and Output: 09/18/16 09/18/16 06:59 18:59 Intake Total 1535.9 667.1 Output Total 2850 Balance -1314.1 667.1 - Medications Medications: Current Medications Acetaminophen (Tylenol 325mg Tab) 650 mg PO Q6 PRN PRN Reason: Pain, Mild (1-3) Last Admin: 09/09/16 07:02 Dose: 650 mg Amiodarone HCl (Cordarone) 200 mg PO DAILY [facility] Last Admin: 09/18/16 09:50 Dose: 200 mg Aspirin (Ecotrin) 81 mg PO DAILY [facility] Last Admin: 09/18/16 09:50 Dose: 81 mg Dabigatran (Pradaxa) 150 mg PO BID [facility] Last Admin: 09/15/16 17:52 Dose: 150 mg Ezetimibe (Zetia) 10 mg PO DAILY [facility] Last Admin: 09/18/16 09:49 Dose: 10 mg Hydrochlorothiazide (Hydrodiuril) 25 mg PO DAILY [facility] Last Admin: 09/18/16 09:50 Dose: 25 mg Meropenem 1 gm/ Sodium (Chloride) 100 mls @ 100 mls/hr IVPB Q8 [facility] Last Admin: 09/18/16 13:12 Dose: 100 mls/hr Sodium Chloride (Sodium Chloride 0.9%) 1,000 mls @ 50 mls/hr IV .Q20H [facility] Last Admin: 09/18/16 03:26 Dose: 50 mls/hr Heparin Sodium/Sodium Chloride (Heparin 33046 Units/250ml 1/2 Normal Saline) 25 ,000 units in 250 mls @ 15.105 mls/hr IV .[id number] PRN; Protocol; 18 UNITS/KG/HR PRN Reason: ADJUST RATE PER PROTOCOL Last Admin: 09/18/16 03:30 Dose: 18 units/kg/hr, 15.105 mls/hr Insulin Aspart (Novolog) 0 unit SC ACHS [facility] PRN Reason: Protocol Last Admin: 09/18/16 12:15 Dose: Not Given Insulin Aspart (Novolog) 18 unit SC TIDAC [facility] Last Admin: 09/18/16 12:15 Dose: 18 unit Insulin Glargine (Lantus) 30 unit SC HS [facility] Last Admin: 09/17/16 22:43 Dose: 30 unit Losartan Potassium (Cozaar) 100 mg PO DAILY [facility] Last Admin: 09/18/16 09:50 Dose: 100 mg Oxycodone/Acetaminophen (Percocet 5/325 Mg Tab) 2 tab PO Q6H PRN PRN Reason: Pain, severe (8-10) Stop: 09/18/16 16:27 Last Admin: 09/15/16 22:41 Dose: 2 tab Potassium Chloride (K-Dur 20 Meq Er Tab) 40 meq PO BID [facility] Stop: 09/19/16 10:01 Last Admin: 09/18/16 09:50 Dose: 40 meq Quetiapine Fumarate (Seroquel) 200 mg PO HS [facility] Last Admin: 09/17/16 22:42 Dose: 200 mg Saccharomyces Boulardii (Florastor) 250 mg PO BID [facility] Last Admin: 09/18/16 09:50 Dose: 250 mg Venlafaxine HCl (Effexor Xr) 150 mg PO DAILY [facility] Last Admin: 09/18/16 09:49 Dose: 150 mg - Labs Labs: 09/18/16 06:27 09/18/16 06:27 PT 13.2 SECONDS (9.7-12.2) H 09/16/16 18:03 INR 1.2 09/16/16 18:03 APTT 50 SECONDS (21-34) H D 09/18/16 06:27 Attending/Attestation - Attestation I have personally seen and examined this patient.: Yes I have fully participated in the care of the patient.: Yes I have reviewed all pertinent clinical information, including history, physical exam and plan: Yes Notes (Text): Medical attending: Patient was seen and examined by me, agree with the above note by medical communication specialist. The patient underwent vein mapping today, at this moment the plan is to go for potential femoral-popliteal surgery sometime tomorrow. He remains on IV abx this time. He is not on oral anticoagulation at this time, and currently is on heparin drip. Hopefully at some point surgery will have continued care at a TCU Thank you very much, Alphonso Nova
[2016-09-18] MEDS: (Novolog) Insulin Aspart, Recombinant 100 u/ml 10 ml vial SC SCH ×7 (07:49→21:40)
[2016-09-18] MEDS: Venlafaxine 150 mg ER Cap PO SCH (09:49)
[2016-09-18] MEDS: Saccharomyces Boulardi 250 mg Cap PO SCH ×2 (09:50→18:09)
[2016-09-18] MEDS: Potassium Chloride 20 mEq ER Tab PO SCH ×2 (09:50→18:09)
--- NOTE | 2016-09-18 11:10 | CP.PCM.PN ---
Subjective - Date & Time of Evaluation Date of Evaluation: 09/18/16 Time of Evaluation: 08:00 - Subjective Subjective: Vascular Surgery- Dr. Sanders Pt S&E at bedside this AM. No acute events overnight. Denies N/V F/C CP/SOB. left foot dressing on, Dressing C/D/I Objective - Vital Signs/Intake and Output Vital Signs (last 24 hours): Temp Pulse Resp BP Pulse Ox 97.8 F 66 17 94/54 L 98 09/18/16 07:20 09/18/16 07:20 09/18/16 07:20 09/18/16 07:20 09/18/16 07:20 Intake and Output: 09/18/16 09/18/16 06:59 18:59 Intake Total 1535.9 667.1 Output Total 2850 Balance -1314.1 667.1 - Medications Medications: Current Medications Acetaminophen (Tylenol 325mg Tab) 650 mg PO Q6 PRN PRN Reason: Pain, Mild (1-3) Last Admin: 09/09/16 07:02 Dose: 650 mg Amiodarone HCl (Cordarone) 200 mg PO DAILY [facility] Last Admin: 09/18/16 09:50 Dose: 200 mg Aspirin (Ecotrin) 81 mg PO DAILY [facility] Last Admin: 09/18/16 09:50 Dose: 81 mg Dabigatran (Pradaxa) 150 mg PO BID [facility] Last Admin: 09/15/16 17:52 Dose: 150 mg Ezetimibe (Zetia) 10 mg PO DAILY [facility] Last Admin: 09/18/16 09:49 Dose: 10 mg Hydrochlorothiazide (Hydrodiuril) 25 mg PO DAILY [facility] Last Admin: 09/18/16 09:50 Dose: 25 mg Meropenem 1 gm/ Sodium (Chloride) 100 mls @ 100 mls/hr IVPB Q8 [facility] Last Admin: 09/18/16 05:47 Dose: 100 mls/hr Sodium Chloride (Sodium Chloride 0.9%) 1,000 mls @ 50 mls/hr IV .Q20H [facility] Last Admin: 09/18/16 03:26 Dose: 50 mls/hr Heparin Sodium/Sodium Chloride (Heparin 96569 Units/250ml 1/2 Normal Saline) 25 ,000 units in 250 mls @ 15.105 mls/hr IV .[id number] PRN; Protocol; 18 UNITS/KG/HR PRN Reason: ADJUST RATE PER PROTOCOL Last Admin: 09/18/16 03:30 Dose: 18 units/kg/hr, 15.105 mls/hr Insulin Aspart (Novolog) 0 unit SC ACHS [facility] PRN Reason: Protocol Last Admin: 09/18/16 07:49 Dose: Not Given Insulin Aspart (Novolog) 18 unit SC TIDAC [facility] Last Admin: 09/18/16 08:00 Dose: 18 unit Insulin Glargine (Lantus) 30 unit SC HS [facility] Last Admin: 09/17/16 22:43 Dose: 30 unit Losartan Potassium (Cozaar) 100 mg PO DAILY [facility] Last Admin: 09/18/16 09:50 Dose: 100 mg Oxycodone/Acetaminophen (Percocet 5/325 Mg Tab) 2 tab PO Q6H PRN PRN Reason: Pain, severe (8-10) Stop: 09/18/16 16:27 Last Admin: 09/15/16 22:41 Dose: 2 tab Potassium Chloride (K-Dur 20 Meq Er Tab) 40 meq PO BID [facility] Stop: 09/19/16 10:01 Last Admin: 09/18/16 09:50 Dose: 40 meq Quetiapine Fumarate (Seroquel) [address] [facility] Last Admin: 09/17/16 22:42 Dose: 200 mg Saccharomyces Boulardii (Florastor) 250 mg PO BID [facility] Last Admin: 09/18/16 09:50 Dose: 250 mg Venlafaxine HCl (Effexor Xr) 150 mg PO DAILY [facility] Last Admin: 09/18/16 09:49 Dose: 150 mg - Labs Labs: 09/18/16 06:27 09/18/16 06:27 PT 13.2 SECONDS (9.7-12.2) H 09/16/16 18:03 INR 1.2 09/16/16 18:03 APTT 50 SECONDS (21-34) H D 09/18/16 06:27 - Constitutional Appears: No Acute Distress - Head Exam Head Exam: ATRAUMATIC - Respiratory Exam Respiratory Exam: NORMAL BREATHING PATTERN. absent: Accessory Muscle Use, Chest Wall Tenderness, Rhonchi, Wheezes - Cardiovascular Exam Cardiovascular Exam: +S1, +S2 - GI/Abdominal Exam GI & Abdominal Exam: Soft, Normal Bowel Sounds. absent: Tenderness - Extremities Exam Additional comments: Skin necrosis around the left 5th digit - Neurological Exam Neurological Exam: Alert, Awake, Oriented x3 Assessment and Plan - Assessment and Plan (Free Text) Assessment: 55M w/ PVD Plan: - Fem-Pop Bypass tomorrow () - OOB - further recs per Dr. Sanders D/W Dr. Marilyn Forbes PGY1
--- NOTE | 2016-09-18 11:21 | VASCLAB ---
PROCEDURE: Lower Extremity Vein mapping. HISTORY: Pre op leg bypass PRIORS: None. TECHNIQUE: Bilateral common femoral, femoral, popliteal and posterior tibial, peroneal and great saphenous veins were evaluated. Flow was assessed with color Doppler, compressibility, assessment of phasic flow and augmentation response. Report prepared by GIRISH Cummings FINDINGS: RIGHT: 1. Common Femoral Vein: Compressibility - Fully compressible: Thrombus - None : Flow - Phasic: Augmentation -Normal: Reflux - None. 2. Femoral Vein:Compressibility - Fully compressible: Thrombus - None 3. Popliteal Vein: Compressibility - Fully compressible: Thrombus - None 4. Posterior Tibial Vein: Compressibility - Fully compressible: Thrombus - None 5. Peroneal Vein:Compressibility - Fully compressible: Thrombus - None 6. Greater Saphenous Vein: Previously harvested. LEFT: 1. Common Femoral Vein: Compressibility - Fully compressible: Thrombus - None : Flow - Phasic: Augmentation -Normal: Reflux - None. 2. Femoral Vein:Compressibility - Fully compressible: Thrombus - None 3. Popliteal Vein: Compressibility - Fully compressible: Thrombus - None 4. Posterior Tibial Vein: Compressibility - Fully compressible: Thrombus - None 5. Peroneal Vein:Compressibility - Fully compressible: Thrombus - None 6. Greater Saphenous Vein: Compressibility - Fully compressible: Thrombus - None 6.1. Thigh - Proximal Diameter: 0.31cm. Mid Diameter: 0.27cm. Distal Diameter: 0.19cm. 6.2. Calf - Proximal Diameter: 0.18cm. Multiple branching distally. OTHER FINDINGS: Right: None. Left: None. IMPRESSION: 1. No evidence of deep or superficial vein thrombosis in bilateral lower extremities. 2. Please refer to the above listed measurements, for vein size.
--- NOTE | 2016-09-18 12:22 | CP.PCM.PN ---
Subjective - Date & Time of Evaluation Date of Evaluation: 09/18/16 Time of Evaluation: 12:19 - Subjective Subjective: 55 year old male was seen and evaluated at bedside 5 days s/p left foot I and D. Patient is AAOx3 and NAD. Patient denies any acute overnight events and states that he is feeling well. He states that his left foot pain is getting better. He is aware he is going for a bypass tomorrow with Vascular. Patient denies N/V/F/C/CP/SOB. Objective - Vital Signs/Intake and Output Vital Signs (last 24 hours): Temp Pulse Resp BP Pulse Ox 97.8 F 66 17 94/54 L 98 09/18/16 07:20 09/18/16 07:20 09/18/16 07:20 09/18/16 07:20 09/18/16 07:20 Intake and Output: 09/18/16 09/18/16 06:59 18:59 Intake Total 1535.9 667.1 Output Total 2850 Balance -1314.1 667.1 - Medications Medications: Current Medications Acetaminophen (Tylenol 325mg Tab) 650 mg PO Q6 PRN PRN Reason: Pain, Mild (1-3) Last Admin: 09/09/16 07:02 Dose: 650 mg Amiodarone HCl (Cordarone) 200 mg PO DAILY [facility] Last Admin: 09/18/16 09:50 Dose: 200 mg Aspirin (Ecotrin) 81 mg PO DAILY [facility] Last Admin: 09/18/16 09:50 Dose: 81 mg Dabigatran (Pradaxa) 150 mg PO BID [facility] Last Admin: 09/15/16 17:52 Dose: 150 mg Ezetimibe (Zetia) 10 mg PO DAILY [facility] Last Admin: 09/18/16 09:49 Dose: 10 mg Hydrochlorothiazide (Hydrodiuril) 25 mg PO DAILY [facility] Last Admin: 09/18/16 09:50 Dose: 25 mg Meropenem 1 gm/ Sodium (Chloride) 100 mls @ 100 mls/hr IVPB Q8 [facility] Last Admin: 09/18/16 05:47 Dose: 100 mls/hr Sodium Chloride (Sodium Chloride 0.9%) 1,000 mls @ 50 mls/hr IV .Q20H [facility] Last Admin: 09/18/16 03:26 Dose: 50 mls/hr Heparin Sodium/Sodium Chloride (Heparin 13183 Units/250ml 1/2 Normal Saline) 25 ,000 units in 250 mls @ 15.105 mls/hr IV .[id number] PRN; Protocol; 18 UNITS/KG/HR PRN Reason: ADJUST RATE PER PROTOCOL Last Admin: 09/18/16 03:30 Dose: 18 units/kg/hr, 15.105 mls/hr Insulin Aspart (Novolog) 0 unit SC ACHS [facility] PRN Reason: Protocol Last Admin: 09/18/16 07:49 Dose: Not Given Insulin Aspart (Novolog) 18 unit SC TIDAC [facility] Last Admin: 09/18/16 08:00 Dose: 18 unit Insulin Glargine (Lantus) 30 unit SC HS [facility] Last Admin: 09/17/16 22:43 Dose: 30 unit Losartan Potassium (Cozaar) 100 mg PO DAILY [facility] Last Admin: 09/18/16 09:50 Dose: 100 mg Oxycodone/Acetaminophen (Percocet 5/325 Mg Tab) 2 tab PO Q6H PRN PRN Reason: Pain, severe (8-10) Stop: 09/18/16 16:27 Last Admin: 09/15/16 22:41 Dose: 2 tab Potassium Chloride (K-Dur 20 Meq Er Tab) 40 meq PO BID [facility] Stop: 09/19/16 10:01 Last Admin: 09/18/16 09:50 Dose: 40 meq Quetiapine Fumarate (Seroquel) 200 mg PO HS [facility] Last Admin: 09/17/16 22:42 Dose: 200 mg Saccharomyces Boulardii (Florastor) 250 mg PO BID [facility] Last Admin: 09/18/16 09:50 Dose: 250 mg Venlafaxine HCl (Effexor Xr) 150 mg PO DAILY [facility] Last Admin: 09/18/16 09:49 Dose: 150 mg - Labs Labs: 09/18/16 06:27 09/18/16 06:27 PT 13.2 SECONDS (9.7-12.2) H 09/16/16 18:03 INR 1.2 09/16/16 18:03 APTT 50 SECONDS (21-34) H D 09/18/16 06:27 - Constitutional Appears: Well, Non-toxic, No Acute Distress - Extremities Exam Additional comments: Left lower extremity focused exam: Vasc: DP and PT pulses non-palpable, TG warm to warm, CFT < 3 sec to all digits neuro: gross sensation intact derm: Open surgical site noted to left foot with granular base, mildly macerated borders. Lateral aspect of 5th digit has some necrotic tissue. Mild malodor noted. No purulent drainage or erythematous border noted at this time. Left fifth digit is dusky in color most likely due to poor vascular perfusion ortho: tenderness on palpation to surgical site and left fifth digit - Neurological Exam Neurological Exam: Alert, Awake, Oriented x3 - Psychiatric Exam Psychiatric exam: Normal Affect, Normal Mood Assessment and Plan - Assessment and Plan (Free Text) Assessment: 55 year old male 5 days s/p left foot incision and drainage secondary to cellulitis with underlying abscess Plan: Patient seen and evaluated at bedside Discussed in detail with Dr. Jo Charts, labs and vitals reviewed Surgical site to left foot cleansed with normal sterile saline Site dressed with 4x4, ABD, Kerlix Patient to undergo bypass with Vascular Continue IV abx per ID Podiatry will continue to follow while patient in house
--- NOTE | 2016-09-18 17:39 | CP.PCM.PN ---
Subjective - Date & Time of Evaluation Date of Evaluation: 09/18/16 Time of Evaluation: 08:00 - Subjective Subjective: denies fever/ pain for OR in am Objective - Vital Signs/Intake and Output Vital Signs (last 24 hours): Temp Pulse Resp BP Pulse Ox 97.9 F 68 20 108/64 99 09/18/16 15:12 09/18/16 15:12 09/18/16 15:12 09/18/16 15:12 09/18/16 15:12 Intake and Output: 09/18/16 09/18/16 06:59 18:59 Intake Total 1535.9 1287.9 Output Total 2850 Balance -1314.1 1287.9 - Medications Medications: Current Medications Acetaminophen (Tylenol 325mg Tab) 650 mg PO Q6 PRN PRN Reason: Pain, Mild (1-3) Last Admin: 09/09/16 07:02 Dose: 650 mg Amiodarone HCl (Cordarone) 200 mg PO DAILY [facility] Last Admin: 09/18/16 09:50 Dose: 200 mg Aspirin (Ecotrin) 81 mg PO DAILY [facility] Last Admin: 09/18/16 09:50 Dose: 81 mg Dabigatran (Pradaxa) 150 mg PO BID [facility] Last Admin: 09/15/16 17:52 Dose: 150 mg Ezetimibe (Zetia) 10 mg PO DAILY [facility] Last Admin: 09/18/16 09:49 Dose: 10 mg Hydrochlorothiazide (Hydrodiuril) 25 mg PO DAILY [facility] Last Admin: 09/18/16 09:50 Dose: 25 mg Meropenem 1 gm/ Sodium (Chloride) 100 mls @ 100 mls/hr IVPB Q8 [facility] Last Admin: 09/18/16 13:12 Dose: 100 mls/hr Sodium Chloride (Sodium Chloride 0.9%) 1,000 mls @ 50 mls/hr IV .Q20H [facility] Last Admin: 09/18/16 03:26 Dose: 50 mls/hr Heparin Sodium/Sodium Chloride (Heparin 48055 Units/250ml 1/2 Normal Saline) 25 ,000 units in 250 mls @ 15.105 mls/hr IV .[id number] PRN; Protocol; 18 UNITS/KG/HR PRN Reason: ADJUST RATE PER PROTOCOL Last Admin: 09/18/16 03:30 Dose: 18 units/kg/hr, 15.105 mls/hr Insulin Aspart (Novolog) 0 unit SC ACHS [facility] PRN Reason: Protocol Last Admin: 09/18/16 12:15 Dose: Not Given Insulin Aspart (Novolog) 18 unit SC TIDAC [facility] Last Admin: 09/18/16 12:15 Dose: 18 unit Insulin Glargine (Lantus) 30 unit SC HS [facility] Last Admin: 09/17/16 22:43 Dose: 30 unit Losartan Potassium (Cozaar) 100 mg PO DAILY [facility] Last Admin: 09/18/16 09:50 Dose: 100 mg Potassium Chloride (K-Dur 20 Meq Er Tab) 40 meq PO BID [facility] Stop: 09/19/16 10:01 Last Admin: 09/18/16 09:50 Dose: 40 meq Quetiapine Fumarate (Seroquel) 200 mg PO [facility] Last Admin: 09/17/16 22:42 Dose: 200 mg Saccharomyces Boulardii (Florastor) 250 mg PO BID [facility] Last Admin: 09/18/16 09:50 Dose: 250 mg Venlafaxine HCl (Effexor Xr) 150 mg PO DAILY [facility] Last Admin: 09/18/16 09:49 Dose: 150 mg - Labs Labs: 09/18/16 06:27 09/18/16 06:27 PT 13.2 SECONDS (9.7-12.2) H 09/16/16 18:03 INR 1.2 09/16/16 18:03 APTT 50 SECONDS (21-34) H D 09/18/16 06:27 - Constitutional Appears: Non-toxic, Chronically Ill - Head Exam Head Exam: NORMOCEPHALIC - Eye Exam Eye Exam: PERRL. absent: Scleral icterus - ENT Exam ENT Exam: Mucous Membranes Dry - Neck Exam Neck Exam: absent: Lymphadenopathy - Respiratory Exam Respiratory Exam: Decreased Breath Sounds - Cardiovascular Exam Cardiovascular Exam: REGULAR RHYTHM - GI/Abdominal Exam GI & Abdominal Exam: Distended, Soft - Rectal Exam Rectal Exam: Deferred - Exam Exam: NORMAL INSPECTION - Extremities Exam Additional comments: Left lower extremity focused exam: Vasc: DP and PT pulses non-palpable, TG warm to warm, CFT < 3 sec to all digits neuro: gross sensation intact derm: Open surgical site noted to left foot with granular base, mildly macerated borders. Lateral aspect of 5th digit has some necrotic tissue. Mild malodor noted. No purulent drainage or erythematous border noted at this time. Left fifth digit is dusky in color most likely due to poor vascular perfusion ortho: tenderness on palpation to surgical site and left fifth digit - Back Exam Back Exam: absent: CVA tenderness (L), CVA tenderness (R) - Neurological Exam Neurological Exam: Alert, Awake, Oriented x3 - Psychiatric Exam Psychiatric exam: Normal Mood - Skin Skin Exam: Dry Assessment and Plan (1) Atrial fibrillation Status: Acute (2) Cellulitis of foot, left Status: Acute (3) HTN (hypertension) Status: Acute (4) History of heart bypass surgery Status: Acute (5) Hyperglycemia without ketosis Status: Acute
[2016-09-18] MEDS: (Lantus) Insulin Glargine, Recombinant SC SCH (22:00)
[2016-09-18] MEDS ORDERED: (Lantus) Insulin Glargine, Recombinant SC ONE (22:13)
[2016-09-19] MEDS: Meropenem 1 GM in Sodium Chloride 0.9% 100 ML IVPB SCH ×3 (06:27→22:43)
[2016-09-19] MEDS: Sodium Chloride 0.9% 1,000 ML IV SCH ×3 (06:28→22:08)
[2016-09-19 07:23] LABS: BASO # 0.1 K/uL (0.0-0.2); BASO % 0.9 % (0.0-2.0); EOS # 0.1 K/uL (0.0-0.7); EOS % 1.1 % (0.0-4.0); HEMATOCRIT 26.3 % (35.0-51.0); LYMPH # 3.5 K/uL (1.0-4.3); LYMPH % 27.3 % (20.0-40.0); MEAN CELL VOLUME 86.7 fL (80.0-94.0); MEAN CORPUSCULAR HEMOGLOBIN 28.7 pg (27.0-31.0); MEAN PLATELET VOLUME 7.6 fL (7.2-11.7); MONO # 1.2 K/uL (0.0-0.8); MONO % 9.4 % (0.0-10.0); NRBC % 0.7 % (0.0-2.0); RED CELL DISTRIBUTION WIDTH 13.1 % (11.5-14.5)
[2016-09-19 08:09] LABS: ALB/GLOB RATIO 0.9 (1.0-2.1); ALKALINE PHOSPHATASE 75 U/L (38-126); ALT/SGPT 60 U/L (21-72); AST/SGOT 63 U/L (17-59); BILIRUBIN,TOTAL 0.4 mg/dL (0.2-1.3); BLOOD UREA NITROGEN 13 mg/dL (9-20); CALCIUM 8.6 mg/dl (8.6-10.4); CARBON DIOXIDE 34 mmol/L (22-30); CHLORIDE 96 mmol/L (98-107); GFR AFRICAN-AMERICAN > 60; GLUCOSE,RANDOM 184 mg/dL (75-110); MAGNESIUM 1.9 mg/dL (1.6-2.3); PHOSPHOROUS 3.5 mg/dL (2.5-4.5); POTASSIUM 4.2 mmol/L (3.6-5.2); SODIUM 135 mmol/L (132-148); TOTAL PROTEIN 6.1 g/dL (6.3-8.3)
[2016-09-19] MEDS: (Novolog) Insulin Aspart, Recombinant 100 u/ml 10 ml vial SC SCH ×3 (08:15→21:57)
--- NOTE | 2016-09-19 09:18 | CP.PCM.PN ---
<Desi Guadarrama - Last Filed: 09/19/16 09:15> Subjective - Date & Time of Evaluation Date of Evaluation: 09/19/16 Time of Evaluation: 07:00 - Subjective Subjective: Medicine Note for Dr. Nova Patient was seen and examined at bedside. No acute complaints, pain is significantly reduced since I&D. NPO for Fem Pop Bypass today. Denied fever, chills, headache, chest pain, abdominal pain, n/v/d/c, or urinary symptoms. Objective - Vital Signs/Intake and Output Vital Signs (last 24 hours): Temp Pulse Resp BP Pulse Ox 97.9 F 62 18 122/73 99 09/19/16 07:45 09/19/16 07:45 09/19/16 07:45 09/19/16 07:45 09/19/16 07:45 Intake and Output: 09/19/16 09/19/16 06:59 18:59 Intake Total 805.7 Output Total 500 Balance 305.7 - Medications Medications: Current Medications Acetaminophen (Tylenol 325mg Tab) 650 mg PO Q6 PRN PRN Reason: Pain, Mild (1-3) Last Admin: 09/09/16 07:02 Dose: 650 mg Amiodarone HCl (Cordarone) [address] [facility] Last Admin: 09/18/16 09:50 Dose: 200 mg Aspirin (Ecotrin) [address] [facility] Last Admin: 09/18/16 09:50 Dose: 81 mg Dabigatran (Pradaxa) [address] [facility] Last Admin: 09/15/16 17:52 Dose: 150 mg Ezetimibe (Zetia) [address] [facility] Last Admin: 09/18/16 09:49 Dose: 10 mg Hydrochlorothiazide (Hydrodiuril) [address] [facility] Last Admin: 09/18/16 09:50 Dose: 25 mg Meropenem 1 gm/ Sodium (Chloride) 100 mls @ 100 mls/hr IVPB Q8 [facility] Last Admin: 09/19/16 06:27 Dose: 100 mls/hr Insulin Aspart (Novolog) [address] [facility] PRN Reason: Protocol Last Admin: 09/18/16 21:40 Dose: Not Given Insulin Aspart (Novolog) [address] [facility] Last Admin: 09/18/16 17:30 Dose: 18 unit Insulin Glargine (Lantus) 30 unit SC [facility] Last Admin: 09/18/16 22:00 Dose: Not Given Losartan Potassium (Cozaar) [address] [facility] Last Admin: 09/18/16 09:50 Dose: 100 mg Potassium Chloride (K-Dur 20 Meq Er Tab) [address] [facility] Stop: 09/19/16 10:01 Last Admin: 09/18/16 18:09 Dose: 40 meq Quetiapine Fumarate (Seroquel) 200 mg PO [facility] Last Admin: 09/18/16 22:28 Dose: 200 mg Saccharomyces Boulardii (Florastor) [address] [facility] Last Admin: 09/18/16 18:09 Dose: 250 mg Venlafaxine HCl (Effexor Xr) [address] [facility] Last Admin: 09/18/16 09:49 Dose: 150 mg - Labs Labs: 09/19/16 06:51 09/19/16 06:51 PT 13.2 SECONDS (9.7-12.2) H 09/16/16 18:03 INR 1.2 09/16/16 18:03 APTT 45 SECONDS (21-34) H D 09/19/16 06:51 - Constitutional Appears: No Acute Distress - Head Exam Head Exam: NORMAL INSPECTION, NORMOCEPHALIC - Eye Exam Eye Exam: EOMI, Normal appearance, PERRL - ENT Exam ENT Exam: Mucous Membranes Moist, Normal Exam - Respiratory Exam Respiratory Exam: Clear to Ausculation Bilateral, NORMAL BREATHING PATTERN. absent: Wheezes - Cardiovascular Exam Cardiovascular Exam: REGULAR RHYTHM, RRR, +S1, +S2 - GI/Abdominal Exam GI & Abdominal Exam: Soft, Normal Bowel Sounds. absent: Tenderness - Extremities Exam Extremities Exam: Normal Inspection. absent: Pedal Edema, Tenderness - Neurological Exam Neurological Exam: Alert, Awake, Oriented x3 - Skin Skin Exam: Dry, Intact, Normal Color, Warm Assessment and Plan - Assessment and Plan (Free Text) Plan: Cellulitis of foot, left Assessment and Plan: Patient received Vanc and Clindamycin in the ED. Perococet PRN and Tylenol PRN for pain Left foot xray - no osteo Podiatry recommendations: applied betadine, DSD to left foot, continue current regimen BC- no growth Bone Scan of Left Foot (patient refuses to have MRI done due to claustrophobia) : NO OSTEOMYELITIS Wound Culture: grew Proteus + ID consulted for persistent leukocytosis - Dr. Asher- help appreciated - IV antibiotics switched to Meropenem 1gram IVP Q8H Patient is medically stable for I&D tomorrow. Pt has a Detsky score of 5, Class 1 low risk of perioperative cardiovascular event. Podiatry and Anesthesia to explain the risks and benefits of procedure. S/P I/D - podiatry taking care of dressing changes S/P Aortofemoral angiogram. selective catherization of left femoral artery. balloon angioplasty of competitive athlete/ profonda with 6 and 5 balloons. angiojet mechanical thrombolysis of left competitive athlete. with tpa. perclose right groin Vein mapping of LLE was done yesterday Plan for bypass on 09/19/16 Status: Acute PVD Assessment and Plan: Arterial PVR/ SEG B/L: mild to moderate BL arterial insufficiency beginning at SFA left with more disease than right, L> R. Surgery Consulted- Dr. Sanders - help appreciated CT Ab ileofem angiography: BL excessive atherosclertic disease. B/L SFA multifocal mild to moderate high grade stenosis. S/P Aortofemoral angiogram. selective catherization of left femoral artery. balloon angioplasty of competitive athlete/ profonda with 6 and 5 balloons. angiojet mechanical thrombolysis of left competitive athlete. with tpa. perclose right groin Vein mapping today of LLE. Heparin drip started 09/17/16, pradaxa currently on hold due to anticipating surgical procedures. Plan for bypass on 09/19/16 Status: Chronic Diabetes Mellitus Assessment and Plan: Accuchecks HbgA1c = 13.3 Will hold home meds: Januvia 100mg QHS and Metformin 1000mg PO BID, and Prandin 1mg PO BID (confirmed with Pharmacy). According to the patient he takes Lantus 20mg SC BID (however the pharmacy did not confirm this). Started on: Lantus increased to 30 units HS, Novolog increased to 18 units TID, and HIGH dose sliding scale DM counseling ordered Status: Chronic History of quadriple vessel bypass surgery Assessment and Plan: Currently asymptomatic Continue Pradaxa, Cozaar, Zetia - pradaxa currently on hold due to anticipating surgical procedures. Started on ASA daily Lipid Panel - WNL Status: Acute Atrial fibrillation Assessment and Plan: Amiodarone daily TSH, T4 - WNL Currently rate controlled and asymptomatic Cont to monitor Status: Acute HTN (hypertension) Assessment and Plan: Continue Cozaar and HCTZ Patient normally takes Diovan at home but non-formulary here. Status: Acute Prophylactic measure Assessment and Plan: DVT VTE c/i since patient is already on anticoagulation GI prophylaxis not indicated at this time PT evaluation- recommend TCU Status: Acute Disposition: Patient will be discharged to [facility] once medically stable. DW Dr. Nova, Chiara SHEPPARD, PGY-1 <Alphonso Nova H - Last Filed: 09/19/16 12:14> Objective - Vital Signs/Intake and Output Vital Signs (last 24 hours): Temp Pulse Resp BP Pulse Ox 97.9 F 62 18 122/73 99 09/19/16 07:45 09/19/16 07:45 09/19/16 07:45 09/19/16 07:45 09/19/16 07:45 Intake and Output: 09/19/16 09/19/16 06:59 18:59 Intake Total 805.7 Output Total 500 Balance 305.7 - Medications Medications: Current Medications Acetaminophen (Tylenol 325mg Tab) 650 mg PO Q6 PRN PRN Reason: Pain, Mild (1-3) Last Admin: 09/09/16 07:02 Dose: 650 mg Amiodarone HCl (Cordarone) [address] [facility] Last Admin: 09/19/16 10:03 Dose: 200 mg Aspirin (Ecotrin) [address] [facility] Last Admin: 09/19/16 09:53 Dose: Not Given Dabigatran (Pradaxa) [address] [facility] Last Admin: 09/15/16 17:52 Dose: 150 mg Ezetimibe (Zetia) [address] [facility] Last Admin: 09/19/16 09:54 Dose: Not Given Hydrochlorothiazide (Hydrodiuril) [address] [facility] Last Admin: 09/19/16 09:53 Dose: Not Given Meropenem 1 gm/ Sodium (Chloride) 100 mls @ 100 mls/hr IVPB Q8 [facility] Last Admin: 09/19/16 06:27 Dose: 100 mls/hr Vancomycin HCl 1 gm/ Sodium (Chloride) 250 mls @ 166.7 mls/hr IVPB Q24H [facility] Insulin Aspart (Novolog) [address] [facility] PRN Reason: Protocol Last Admin: 09/19/16 08:15 Dose: 2 unit Insulin Aspart (Novolog) [address] [facility] Last Admin: 09/18/16 17:30 Dose: 18 unit Insulin Glargine (Lantus) [address] [facility] Last Admin: 09/18/16 22:00 Dose: Not Given Losartan Potassium (Cozaar) [address] [facility] Last Admin: 09/19/16 10:04 Dose: 100 mg Quetiapine Fumarate (Seroquel) [address] [facility] Last Admin: 09/18/16 22:28 Dose: 200 mg Saccharomyces Boulardii (Florastor) [address] [facility] Last Admin: 09/19/16 09:53 Dose: Not Given Venlafaxine HCl (Effexor Xr) [address] [facility] Last Admin: 09/19/16 09:53 Dose: Not Given - Labs Labs: 09/19/16 06:51 09/19/16 06:51 PT 13.2 SECONDS (9.7-12.2) H 09/16/16 18:03 INR 1.2 09/16/16 18:03 APTT 45 SECONDS (21-34) H D 09/19/16 06:51 Attending/Attestation - Attestation I have personally seen and examined this patient.: Yes I have fully participated in the care of the patient.: Yes I have reviewed all pertinent clinical information, including history, physical exam and plan: Yes Notes (Text): Medical attending: Patient was seen and examined by me, agree with the above note by medical record assistant. At this time were to continue IV anti biotics for the left lower extremity. The patient will be undergoing further vascular (femoral-popliteal bypass) of the lower extremity in case he needs any balloon or stenting to be done. Is currently nothing by mouth heparin drip was held earlier this morning Thank you very much, Alphonso Nova
[2016-09-19] MEDS: Venlafaxine 150 mg ER Cap PO SCH (09:53)
[2016-09-19] MEDS: Saccharomyces Boulardi 250 mg Cap PO SCH (09:53)
[2016-09-19] MEDS: Potassium Chloride 20 mEq ER Tab PO SCH (09:54)
--- NOTE | 2016-09-19 11:03 | CP.PCM.PN ---
Subjective - Date & Time of Evaluation Date of Evaluation: 09/19/16 Time of Evaluation: 11:00 - Subjective Subjective: 55 year old male was seen at bedside 6 days s/p left foot I and D. Patient is AAOx3 and is in NAD. Patient denies any acute overnight events and states that he is feeling well. Patient states that he is having pain in his foot but its not severe and he is managing it well. He is aware he is going for a bypass today with Vascular. Patient denies any F/N/V/C/SOB/CP. Objective - Vital Signs/Intake and Output Vital Signs (last 24 hours): Temp Pulse Resp BP Pulse Ox 97.9 F 62 18 122/73 99 09/19/16 07:45 09/19/16 07:45 09/19/16 07:45 09/19/16 07:45 09/19/16 07:45 Intake and Output: 09/19/16 09/19/16 06:59 18:59 Intake Total 805.7 Output Total 500 Balance 305.7 - Medications Medications: Current Medications Acetaminophen (Tylenol 325mg Tab) 650 mg PO Q6 PRN PRN Reason: Pain, Mild (1-3) Last Admin: 09/09/16 07:02 Dose: 650 mg Amiodarone HCl (Cordarone) 200 mg PO DAILY [facility] Last Admin: 09/19/16 10:03 Dose: 200 mg Aspirin (Ecotrin) 81 mg PO DAILY [facility] Last Admin: 09/19/16 09:53 Dose: Not Given Dabigatran (Pradaxa) 150 mg PO BID [facility] Last Admin: 09/15/16 17:52 Dose: 150 mg Ezetimibe (Zetia) 10 mg PO DAILY [facility] Last Admin: 09/19/16 09:54 Dose: Not Given Hydrochlorothiazide (Hydrodiuril) 25 mg PO DAILY [facility] Last Admin: 09/19/16 09:53 Dose: Not Given Meropenem 1 gm/ Sodium (Chloride) 100 mls @ 100 mls/hr IVPB Q8 [facility] Last Admin: 09/19/16 06:27 Dose: 100 mls/hr Vancomycin HCl 1 gm/ Sodium (Chloride) 250 mls @ 166.7 mls/hr IVPB Q24H [facility] Insulin Aspart (Novolog) 0 unit SC ACHS [facility] PRN Reason: Protocol Last Admin: 09/19/16 08:15 Dose: 2 unit Insulin Aspart (Novolog) 18 unit SC TIDAC [facility] Last Admin: 09/18/16 17:30 Dose: 18 unit Insulin Glargine (Lantus) 30 unit SC [facility] Last Admin: 09/18/16 22:00 Dose: Not Given Losartan Potassium (Cozaar) 100 mg PO DAILY [facility] Last Admin: 09/19/16 10:04 Dose: 100 mg Quetiapine Fumarate (Seroquel) 200 mg PO [facility] Last Admin: 09/18/16 22:28 Dose: 200 mg Saccharomyces Boulardii (Florastor) 250 mg PO BID [facility] Last Admin: 09/19/16 09:53 Dose: Not Given Venlafaxine HCl (Effexor Xr) 150 mg PO DAILY [facility] Last Admin: 09/19/16 09:53 Dose: Not Given - Labs Labs: 09/19/16 06:51 09/19/16 06:51 PT 13.2 SECONDS (9.7-12.2) H 09/16/16 18:03 INR 1.2 09/16/16 18:03 APTT 45 SECONDS (21-34) H D 09/19/16 06:51 - Constitutional Appears: Well, Non-toxic, No Acute Distress - Extremities Exam Additional comments: Left lower extremity focused exam: VASC: DP and PT pulses are non-palpable, TG warm to warm from proximal to distal , CFT < 3 sec to all digits, no pitting or non-pitting edema noted DERM: Open surgical site noted to left foot with granular base, mildly macerated borders. Lateral aspect of 5th digit has some necrotic tissue. Minimal malodor noted. No purulent drainage or erythematous border noted at this time. Left fifth digit is dusky in color most likely due to poor vascular perfusion NEURO: Protective sensation grossly intact ORTHO: tenderness on palpation to surgical site and left fifth digit - Neurological Exam Neurological Exam: Alert, Awake, Oriented x3 - Psychiatric Exam Psychiatric exam: Normal Affect, Normal Mood Assessment and Plan - Assessment and Plan (Free Text) Assessment: 55 year old male 6 days s/p left foot incision and drainage secondary to cellulitis with underlying abscess Plan: Patient seen and evaluated at bedside Patient discussed in detail with attending Dr. Jo Charts, labs and vitals reviewed (afebrile, WBC @ 13.0) Surgical site to left foot cleansed with normal sterile saline Site dressed with 4x4, ABD, Kerlix Patient to undergo bypass today with Vascular Continue IV abx per ID Podiatry will continue to follow while patient in house
[2016-09-19] MEDS ORDERED: Silver Sulfadiazine 1% Cream (20 gm) ONE (13:03)
[2016-09-19] MEDS ORDERED: HEPARIN-NS 5,000 UNITS/500 ML 10,000 UNIT/1,000 ML BAG IV ONE (13:03)
[2016-09-19] MEDS ORDERED: ceFAZolin IV 2 gm in Dextrose 0 GM/0 ML BAG IVPB ONE (13:03)
[2016-09-19] MEDS ORDERED: Iodixanol 320 MG/ML 200 ML BOTTLE IV ONE (13:04)
[2016-09-19] MEDS ORDERED: Thrombin Topical 20,000 Intl Units Spray Kit TOP ONE (13:04)
[2016-09-19] MEDS ORDERED: Propofol 10 mg/ml Inj (20 ML) ONE (13:31)
[2016-09-19] MEDS ORDERED: Midazolam 2 MG/2 ML VIAL ONE (13:31)
[2016-09-19] MEDS ORDERED: Lactated Ringer's 1,000 ML IV ONE ×2 (13:40→16:47)
[2016-09-19] MEDS ORDERED: Sodium Chloride 0.9% 500 ML IV ONE ×2 (13:40→15:50)
[2016-09-19] MEDS ORDERED: Bacitracin 50,000 UNIT in Sodium Chloride 0.9% Irrig 1,000 ML IR SCH (14:18)
[2016-09-19] MEDS ORDERED: Rocuronium 10 mg/ml (5 ml) ONE (14:52)
[2016-09-19] MEDS ORDERED: Sodium Chloride 0.9% 1,000 ML IV ONE ×2 (15:50→19:50)
[2016-09-19] MEDS ORDERED: HEPARIN-NS 5,000 UNITS/500 ML 5,000 UNIT/500 ML BAG IV ONE (16:41)
[2016-09-19] MEDS: HYDROmorphone 0.5 mg/0.5 ml ISec IVP PRN ×4 (18:15→21:00)
--- NOTE | 2016-09-19 18:32 | PCM.SURG1 ---
Surgeon's Initial Post Op Note - Surgeon's Notes Surgeon: Dr. Marilyn MELCHOR Juice Standardizer: Dr. Felix PGY4, PGY1 Pre-Operative Diagnosis: Perhipheral Vascular Disease Operative Findings: See Op Note Post-Operative Diagnosis: same Operation Performed: Left Femoral Popliteal Bypass Specimen/Specimens Removed: none Estimated Blood Loss: EBL {In ML}: 600 Blood Products Given: PRBC Post-Op Condition: Good Date of Surgery/Procedure: 09/19/16 Time of Surgery/Procedure: 14:30
[2016-09-19 19:17] LABS: BASO # 0.2 K/uL (0.0-0.2); EOS # 0.1 K/uL (0.0-0.7); EOS % 0.6 % (0.0-4.0); HEMATOCRIT 31.3 % (35.0-51.0); LYMPH # 3.6 K/uL (1.0-4.3); LYMPH % 20.4 % (20.0-40.0); MEAN CELL VOLUME 85.6 fL (80.0-94.0); MEAN CORPUSCULAR HEMOGLOBIN 27.3 pg (27.0-31.0); MEAN CORPUSCULAR HGB CONC 31.9 g/dL (33.0-37.0); MEAN PLATELET VOLUME 7.2 fL (7.2-11.7); MONO # 1.1 K/uL (0.0-0.8); MONO % 6.1 % (0.0-10.0); NRBC % 0.2 % (0.0-2.0); RED CELL DISTRIBUTION WIDTH 13.8 % (11.5-14.5); WHITE BLOOD COUNT 17.5 K/uL (4.8-10.8)
--- NOTE | 2016-09-19 20:28 | CP.PCM.CON ---
History of Present Illness - History of Present Illness History of Present Illness: 55 YOM admitted with left leg pain, on work up he has sever PAD left leg and underwent left fem-pop bypass. Estimated blood loss 600 ml, his hb dropped from 9.2 to 8.7 and he already has received 2 unit blood transfusion. Hb is now 10.0. No c/o chest pain, sob, no leg pain at the moment. Has h/o DM and CAD. Review of Systems - Review of Systems Systems not reviewed;Unavailable: Other - Constitutional Constitutional: As Per HPI - EENT Eyes: As Per HPI Past Patient History - Past Medical History & Family History Past Medical History?: Yes - Past Social History Smoking Status: Former Smoker - CARDIAC Hx Hypercholesterolemia: Yes Hx Hypertension: Yes - PULMONARY Hx Asthma: Yes - NEUROLOGICAL Hx Seizures: No - ENDOCRINE/METABOLIC Hx Diabetes Mellitus Type 1: Yes - HEMATOLOGICAL/ONCOLOGICAL Hx Blood Transfusions: No Hx Blood Transfusion Reaction: No - MUSCULOSKELETAL/RHEUMATOLOGICAL Hx Arthritis: Yes - PSYCHIATRIC Hx Substance Use: No - SURGICAL HISTORY Hx Coronary Artery Bypass Graft: Yes (12/26) - ANESTHESIA Hx Anesthesia: Yes Hx Anesthesia Reactions: No Meds Allergies/Adverse Reactions: Allergies Allergy/AdvReac Type Severity Reaction Status Date / Time shellfish derived Allergy Intermediate VOMITING Verified 09/08/16 19:06 - Medications Medications: Current Medications Acetaminophen (Tylenol 325mg Tab) 975 mg PO Q6 PRN PRN Reason: Pain, Mild (1-3) Amiodarone HCl (Cordarone) 200 mg PO DAILY [facility] Last Admin: 09/19/16 10:03 Dose: 200 mg Aspirin (Ecotrin) 81 mg PO DAILY [facility] Last Admin: 09/19/16 09:53 Dose: Not Given Dabigatran (Pradaxa) 150 mg PO BID [facility] Last Admin: 09/15/16 17:52 Dose: 150 mg Ezetimibe (Zetia) 10 mg PO DAILY [facility] Last Admin: 09/19/16 09:54 Dose: Not Given Heparin Sodium (Porcine) (Heparin) 5,000 units SC Q8 [facility] Hydrochlorothiazide (Hydrodiuril) 25 mg PO DAILY [facility] Last Admin: 09/19/16 09:53 Dose: Not Given Meropenem 1 gm/ Sodium (Chloride) 100 mls @ 100 mls/hr IVPB Q8 [facility] Last Admin: 09/19/16 14:05 Dose: 100 mls Vancomycin HCl 1 gm/ Sodium (Chloride) 250 mls @ 166.7 mls/hr IVPB Q24H [facility] Last Admin: 09/19/16 14:05 Dose: 250 mls Sodium Chloride (Sodium Chloride 0.9%) 1,000 mls @ 150 mls/hr IV .[id number] [facility] Insulin Aspart (Novolog) 0 unit SC ACHS [facility] PRN Reason: Protocol Last Admin: 09/19/16 12:25 Dose: 4 unit Insulin Aspart (Novolog) 18 unit SC TIDAC [facility] Last Admin: 09/18/16 17:30 Dose: 18 unit Insulin Glargine (Lantus) 30 unit SC HS [facility] Last Admin: 09/18/16 22:00 Dose: Not Given Losartan Potassium (Cozaar) 100 mg PO DAILY [facility] Last Admin: 09/19/16 10:04 Dose: 100 mg Ondansetron HCl (Zofran Inj) 4 mg IVP Q4 PRN PRN Reason: Nausea/Vomiting Quetiapine Fumarate (Seroquel) 200 mg PO [facility] Last Admin: 09/18/16 22:28 Dose: 200 mg Saccharomyces Boulardii (Florastor) 250 mg PO BID [facility] Last Admin: 09/19/16 09:53 Dose: Not Given Tramadol HCl (Ultram) 25 mg PO TID PRN PRN Reason: Pain, moderate (4-7) Venlafaxine HCl (Effexor Xr) 150 mg PO DAILY [facility] Last Admin: 09/19/16 09:53 Dose: Not Given Physical Exam - Head Exam Head Exam: ATRAUMATIC - Eye Exam Eye Exam: Normal appearance - ENT Exam ENT Exam: Mucous Membranes Moist - Neck Exam Neck exam: Positive for: Full Rom - Respiratory Exam Respiratory Exam: NORMAL BREATHING PATTERN - Cardiovascular Exam Cardiovascular Exam: REGULAR RHYTHM - GI/Abdominal Exam GI & Abdominal Exam: Normal Bowel Sounds - Extremities Exam Extremities exam: Positive for: normal inspection Results - Vital Signs Recent Vital Signs: Last Vital Signs Temp 97.4 F L 09/19/16 19:45 Pulse 77 09/19/16 19:45 Resp 11 L 09/19/16 19:45 BP 137/72 09/19/16 19:45 Pulse Ox 100 09/19/16 19:45 - Labs Result Diagrams: 09/19/16 19:20 09/19/16 06:51 Labs: Laboratory Results - last 24 hr 09/18/16 09/18/16 09/19/16 11:41 21:15 06:23 WBC RBC Hgb Hct MCV MCH MCHC RDW Plt Count MPV Neut % (Auto) Lymph % (Auto) [place] % (Auto) Eos % (Auto) Baso % (Auto) Neut # Lymph # [place] # Eos # Baso # APTT Sodium Potassium Chloride Carbon Dioxide Anion Gap BUN Creatinine Est GFR ( Amer) Est GFR (Non-Af Amer) POC Glucose (mg/dL) 272 H 196 H Random Glucose Calcium Phosphorus Magnesium Total Bilirubin AST ALT Alkaline Phosphatase Total Protein Albumin Globulin Albumin/Globulin Ratio Blood Type A NEGATIVE Blood Type Confirm A NEGATIVE Antibody Screen Negative 09/19/16 09/19/16 09/19/16 06:51 06:51 06:51 WBC 13.0 H RBC 3.04 L Hgb 8.7 L Hct 26.3 L MCV 86.7 MCH 28.7 MCHC 33.0 RDW 13.1 Plt Count 365 MPV 7.6 Neut % (Auto) 61.3 Lymph % (Auto) 27.3 [place] % (Auto) 9.4 Eos % (Auto) 1.1 Baso % (Auto) 0.9 Neut # 8.0 H Lymph # 3.5 [place] # 1.2 H Eos # 0.1 Baso # 0.1 APTT 45 H D Sodium 135 Potassium 4.2 Chloride 96 L Carbon Dioxide 34 H Anion Gap 9 L BUN 13 Creatinine 0.7 L Est GFR ( Amer) > 60 Est GFR (Non-Af Amer) > 60 POC Glucose (mg/dL) Random Glucose 184 H Calcium 8.6 Phosphorus 3.5 Magnesium 1.9 Total Bilirubin 0.4 AST 63 H ALT 60 Alkaline Phosphatase 75 Total Protein 6.1 L Albumin 2.9 L Globulin 3.2 Albumin/Globulin Ratio 0.9 L Blood Type Blood Type Confirm Antibody Screen 09/19/16 09/19/16 09/19/16 11:08 18:20 19:20 WBC 17.5 H RBC 3.66 L Hgb 10.0 L Hct 31.3 L MCV 85.6 MCH 27.3 MCHC 31.9 L RDW 13.8 Plt Count 323 MPV 7.2 Neut % (Auto) 71.9 Lymph % (Auto) 20.4 [place] % (Auto) 6.1 Eos % (Auto) 0.6 Baso % (Auto) 1.0 Neut # 12.6 H Lymph # 3.6 [place] # 1.1 H Eos # 0.1 Baso # 0.2 APTT Sodium Potassium Chloride Carbon Dioxide Anion Gap BUN Creatinine Est GFR ( Amer) Est GFR (Non-Af Amer) POC Glucose (mg/dL) 246 H 230 H Random Glucose Calcium Phosphorus Magnesium Total Bilirubin AST ALT Alkaline Phosphatase Total Protein Albumin Globulin Albumin/Globulin Ratio Blood Type Blood Type Confirm Antibody Screen Assessment & Plan - Assessment and Plan (Free Text) Assessment: PAD: s/p left fem-pop bypass: stable extubated Anemia: blood loss during surgery Hypotension: improved, has received 2 units, on IVF now DM CAD: h/o CABG Plan: Admit to ICU for close monitoring IVF NS at 75 cc/h Repeat Hb in 4 hours and then in am Blood work in am. Continue current meds, reviewed If Hb remained stable and BP remained stable will be transfer out of [facility] in am
[2016-09-19] MEDS: Tramadol 25 mg PO PRN (22:01)
[2016-09-20] MEDS: Sodium Chloride 0.9% 1,000 ML IV SCH ×3 (02:42→23:40)
[2016-09-20] MEDS ORDERED: HYDROmorphone 0.5 mg/0.5 ml ISec IVP ONE (02:45)
[2016-09-20] MEDS: Tramadol 25 mg PO PRN ×2 (05:08→12:50)
[2016-09-20 06:02] LABS: BASO # 0.1 K/uL (0.0-0.2); BASO % 0.5 % (0.0-2.0); EOS % 0.1 % (0.0-4.0); LYMPH % 6.2 % (20.0-40.0); MEAN CELL VOLUME 86.1 fL (80.0-94.0); MEAN CORPUSCULAR HEMOGLOBIN 28.3 pg (27.0-31.0); MEAN CORPUSCULAR HGB CONC 32.8 g/dL (33.0-37.0); MEAN PLATELET VOLUME 7.3 fL (7.2-11.7); MONO # 1.4 K/uL (0.0-0.8); NRBC % 0.2 % (0.0-2.0); PLATELET COUNT 309 K/uL (130-400); RED CELL DISTRIBUTION WIDTH 13.9 % (11.5-14.5); WHITE BLOOD COUNT 15.4 K/uL (4.8-10.8)
[2016-09-20 06:08] LABS: INR 1.1
[2016-09-20 06:13] LABS: ALKALINE PHOSPHATASE 71 U/L (38-126); ALT/SGPT 59 U/L (21-72); AST/SGOT 35 U/L (17-59); BILIRUBIN,TOTAL 0.3 mg/dL (0.2-1.3); BLOOD UREA NITROGEN 9 mg/dL (9-20); CARBON DIOXIDE 28 mmol/L (22-30); CHLORIDE 93 mmol/L (98-107); GFR AFRICAN-AMERICAN > 60; GLUCOSE,RANDOM 258 mg/dL (75-110); MAGNESIUM 1.7 mg/dL (1.6-2.3); PHOSPHOROUS 3.8 mg/dL (2.5-4.5); POTASSIUM 4.3 mmol/L (3.6-5.2); SODIUM 130 mmol/L (132-148); TOTAL PROTEIN 5.9 g/dL (6.3-8.3)
[2016-09-20] MEDS: Meropenem 1 GM in Sodium Chloride 0.9% 100 ML IVPB SCH ×3 (06:30→22:37)
[2016-09-20] MEDS: (Novolog) Insulin Aspart, Recombinant 100 u/ml 10 ml vial SC SCH ×4 (07:47→22:00)
[2016-09-20 08:22] LABS: METAMYELOCYTE 1 % (0-0); NEUTROPHIL 68 % (50-75); TOTAL CELLS COUNTED 100
--- NOTE | 2016-09-20 08:50 | RAD ---
PROCEDURE: INTRAOPERATIVE FLUOROSCOPY: HISTORY: PVD COMPARISON: NONE TECHNIQUE: Intra under fluoroscopy was were provided to the referring physician to assist in vascular procedure. FINDINGS: Three spot fluoroscopic images are submitted documenting apparent left lower extremity arterial bypass procedure. Total radiation dose 1.66 mGy in 24 seconds of fluoroscopy time. IMPRESSION: As discussed above and please see operative report for greater detail.
--- NOTE | 2016-09-20 09:10 | CP.PCM.PN ---
Subjective - Date & Time of Evaluation Date of Evaluation: 09/20/16 Time of Evaluation: 09:00 - Subjective Subjective: Patient was seen and examined by me. Overnight he had 2 units of PRBCs following the femoral popliteal procedure. Hgb is 10.2 at this time Today he reports he is doing well besides the pain. Start Percocet PO for pain. He remains on IV abx Vancomycin as well as IV Meropenom Objective - Vital Signs/Intake and Output Vital Signs (last 24 hours): Temp Pulse Resp BP Pulse Ox 98.0 F 70 16 126/69 99 09/20/16 04:00 09/20/16 06:12 09/20/16 06:12 09/20/16 06:12 09/20/16 06:12 Intake and Output: 09/20/16 09/20/16 06:59 18:59 Intake Total 950 175 Output Total 1150 250 Balance -200 -75 - Medications Medications: Current Medications Acetaminophen (Tylenol 325mg Tab) 975 mg PO Q6 PRN PRN Reason: Pain, Mild (1-3) Amiodarone HCl (Cordarone) 200 mg PO DAILY [facility] Last Admin: 09/19/16 10:03 Dose: 200 mg Aspirin (Ecotrin) 81 mg PO DAILY [facility] Last Admin: 09/19/16 09:53 Dose: Not Given Dabigatran (Pradaxa) 150 mg PO BID [facility] Last Admin: 09/15/16 17:52 Dose: 150 mg Ezetimibe (Zetia) 10 mg PO DAILY [facility] Last Admin: 09/19/16 09:54 Dose: Not Given Heparin Sodium (Porcine) (Heparin) 5,000 units SC Q8 [facility] Hydrochlorothiazide (Hydrodiuril) 25 mg PO DAILY [facility] Last Admin: 09/19/16 09:53 Dose: Not Given Meropenem 1 gm/ Sodium (Chloride) 100 mls @ 100 mls/hr IVPB Q8 [facility] Last Admin: 09/20/16 06:30 Dose: 100 mls/hr Vancomycin HCl 1 gm/ Sodium (Chloride) 250 mls @ 166.7 mls/hr IVPB Q24H [facility] Last Admin: 09/19/16 14:05 Dose: 250 mls Sodium Chloride (Sodium Chloride 0.9%) 1,000 mls @ 75 mls/hr IV .[id number] [facility] Last Admin: 09/19/16 20:00 Dose: 75 mls/hr Insulin Aspart (Novolog) 0 unit SC ACHS [facility] PRN Reason: Protocol Last Admin: 09/20/16 07:47 Dose: 6 unit Insulin Aspart (Novolog) 18 unit SC TIDAC [facility] Last Admin: 09/18/16 17:30 Dose: 18 unit Insulin Glargine (Lantus) 30 unit SC HS [facility] Last Admin: 09/18/16 22:00 Dose: Not Given Losartan Potassium (Cozaar) 100 mg PO DAILY [facility] Last Admin: 09/19/16 10:04 Dose: 100 mg Ondansetron HCl (Zofran Inj) 4 mg IVP Q4 PRN PRN Reason: Nausea/Vomiting Oxycodone/Acetaminophen (Percocet 5/325 Mg Tab) 1 tab PO Q4H PRN PRN Reason: Pain, moderate (4-7) Stop: 09/23/16 09:08 Quetiapine Fumarate (Seroquel) 200 mg PO [facility] Last Admin: 09/19/16 22:43 Dose: 200 mg Saccharomyces Boulardii (Florastor) 250 mg PO BID [facility] Last Admin: 09/19/16 09:53 Dose: Not Given Tramadol HCl (Ultram) 25 mg PO TID PRN PRN Reason: Pain, moderate (4-7) Last Admin: 09/20/16 05:08 Dose: 25 mg Venlafaxine HCl (Effexor Xr) 150 mg PO DAILY [facility] Last Admin: 09/19/16 09:53 Dose: Not Given - Labs Labs: 09/20/16 05:55 09/20/16 05:55 PT 12.6 SECONDS (9.7-12.2) H 09/20/16 05:55 INR 1.1 09/20/16 05:55 APTT 26 SECONDS (21-34) D 09/20/16 05:55 - Constitutional Appears: Well, No Acute Distress - Head Exam Head Exam: NORMAL INSPECTION - ENT Exam ENT Exam: Mucous Membranes Moist - Respiratory Exam Respiratory Exam: Clear to Ausculation Bilateral, NORMAL BREATHING PATTERN - Cardiovascular Exam Cardiovascular Exam: REGULAR RHYTHM - GI/Abdominal Exam GI & Abdominal Exam: Soft, Normal Bowel Sounds - Extremities Exam Additional comments: Dressing is intact, some of it has minimal drainage - clear color. No bleeding - Neurological Exam Neurological Exam: Alert, Awake, Oriented x3 Neuro motor strength exam: Left Upper Extremity: 5, Right Upper Extremity: 5 - Psychiatric Exam Psychiatric exam: Normal Affect, Normal Mood - Skin Skin Exam: Normal Color, Warm Assessment and Plan - Assessment and Plan (Free Text) Assessment: Cellulitis of foot, left Assessment and Plan: 09/20: Status post POD 1 of Femoral Popliteal bypass, currently on IV Vancomycin and also IV Meropenom Perococet PRN and Tramadol PRN for pain Left foot xray - no osteo Podiatry recommendations: applied betadine, DSD to left foot, continue current regimen BC- no growth Bone Scan of Left Foot (patient refuses to have MRI done due to claustrophobia) : NO OSTEOMYELITIS Wound Culture: grew Proteus + ID consulted for persistent leukocytosis - Dr. Asher- help appreciated - IV antibiotics switched to Meropenem 1gram IVP Q8H Patient is medically stable for I&D tomorrow. Pt has a Detsky score of 5, Class 1 low risk of perioperative cardiovascular event. Podiatry and Anesthesia to explain the risks and benefits of procedure. S/P I/D - podiatry taking care of dressing changes S/P Aortofemoral angiogram. selective catherization of left femoral artery. balloon angioplasty of weight control engineer/ profonda with 6 and 5 balloons. angiojet mechanical thrombolysis of left weight control engineer. with tpa. perclose right groin PVD Assessment and Plan: 09/20: S/P Fem pop Arterial PVR/ SEG B/L: mild to moderate BL arterial insufficiency beginning at SFA left with more disease than right, L> R. Surgery Consulted- Dr. Sanders - help appreciated CT Ab ileofem angiography: BL excessive atherosclertic disease. B/L SFA multifocal mild to moderate high grade stenosis. S/P Aortofemoral angiogram. selective catherization of left femoral artery. balloon angioplasty of weight control engineer/ profonda with 6 and 5 balloons. angiojet mechanical thrombolysis of left weight control engineer. with tpa. perclose right groin Vein mapping today of [facility]. Diabetes Mellitus Assessment and Plan: Accuchecks HbgA1c = 13.3 Will hold home meds: Januvia 100mg QHS and Metformin 1000mg PO BID, and Prandin 1mg PO BID (confirmed with Pharmacy). According to the patient he takes Lantus 20mg SC BID (however the pharmacy did not confirm this). Started on: Lantus increased to 30 units HS, Novolog increased to 18 units TID, and HIGH dose sliding scale DM counseling ordered History of quadriple vessel bypass surgery Assessment and Plan: 09/20: Now restarted on Pradaxa, continue cholesterol medications. Currently asymptomatic Continue Pradaxa, Cozaar, Zetia - pradaxa currently on hold due to anticipating surgical procedures. Started on ASA daily Lipid Panel - WNL Atrial fibrillation Assessment and Plan: 09/20: Now restarted on Pradaxa Amiodarone daily TSH, T4 - WNL Currently rate controlled and asymptomatic Cont to monitor HTN (hypertension) Assessment and Plan: Continue Cozaar and HCTZ Patient normally takes Diovan at home but non-formulary here. Prophylactic measure Assessment and Plan: DVT VTE c/i since patient is already on anticoagulation GI prophylaxis not indicated at this time PT evaluation- recommend TCU Disposition: Patient will be discharged to [place] [facility] once medically stable.
[2016-09-20] MEDS: Oxycodone/Acetaminophen 5/325 mg Tab PO PRN (09:27)
[2016-09-20] MEDS: Saccharomyces Boulardi 250 mg Cap PO SCH ×2 (09:29→17:10)
[2016-09-20] MEDS: Venlafaxine 150 mg ER Cap PO SCH (09:30)
[2016-09-20] MEDS ORDERED: Tramadol 25 mg PO SCH (10:00)
--- NOTE | 2016-09-20 11:44 | CP.PCM.PN ---
Subjective - Date & Time of Evaluation Date of Evaluation: 09/20/16 Time of Evaluation: 07:45 - Subjective Subjective: Vascular Surgery- Dr. Sanders Pt S&E at bedside this AM. No acute events overnight. Pt states pain in LLE overnight. Pain was relieved after Dilaudid was given. Denies N/V CP/SOB, numbness or tingling in the extremities. Dressings C/D/I. LLE DP pulse biphasic Objective - Vital Signs/Intake and Output Vital Signs (last 24 hours): Temp Pulse Resp BP Pulse Ox 98.0 F 70 16 126/69 99 09/20/16 04:00 09/20/16 06:12 09/20/16 06:12 09/20/16 06:12 09/20/16 06:12 Intake and Output: 09/20/16 09/20/16 06:59 18:59 Intake Total 950 175 Output Total 1150 250 Balance -200 -75 - Medications Medications: Current Medications Acetaminophen (Tylenol 325mg Tab) 975 mg PO Q6 PRN PRN Reason: Pain, Mild (1-3) Amiodarone HCl (Cordarone) 200 mg PO DAILY [facility] Last Admin: 09/20/16 09:31 Dose: 200 mg Aspirin (Ecotrin) 81 mg PO DAILY [facility] Last Admin: 09/20/16 09:31 Dose: 81 mg Dabigatran (Pradaxa) 150 mg PO BID [facility] Last Admin: 09/15/16 17:52 Dose: 150 mg Ezetimibe (Zetia) 10 mg PO DAILY [facility] Last Admin: 09/20/16 09:29 Dose: 10 mg Heparin Sodium (Porcine) (Heparin) 5,000 units SC Q8 [facility] Last Admin: 09/20/16 09:27 Dose: 5,000 units Hydrochlorothiazide (Hydrodiuril) 25 mg PO DAILY [facility] Last Admin: 09/20/16 09:31 Dose: 25 mg Meropenem 1 gm/ Sodium (Chloride) 100 mls @ 100 mls/hr IVPB Q8 [facility] Last Admin: 09/20/16 06:30 Dose: 100 mls/hr Vancomycin HCl 1 gm/ Sodium (Chloride) 250 mls @ 166.7 mls/hr IVPB Q24H [facility] Last Admin: 09/19/16 14:05 Dose: 250 mls Sodium Chloride (Sodium Chloride 0.9%) 1,000 mls @ 75 mls/hr IV .[id number] [facility] Last Admin: 09/19/16 20:00 Dose: 75 mls/hr Insulin Aspart (Novolog) 0 unit SC ACHS [facility] PRN Reason: Protocol Last Admin: 09/20/16 07:47 Dose: 6 unit Insulin Aspart (Novolog) 18 unit SC TIDAC [facility] Last Admin: 09/18/16 17:30 Dose: 18 unit Insulin Glargine (Lantus) 30 unit SC HS [facility] Last Admin: 09/18/16 22:00 Dose: Not Given Losartan Potassium (Cozaar) 100 mg PO DAILY [facility] Last Admin: 09/20/16 11:25 Dose: 100 mg Ondansetron HCl (Zofran Inj) 4 mg IVP Q4 PRN PRN Reason: Nausea/Vomiting Oxycodone/Acetaminophen (Percocet 5/325 Mg Tab) 1 tab PO Q4H PRN PRN Reason: Pain, severe (8-10) Stop: 09/23/16 09:08 Last Admin: 09/20/16 09:27 Dose: 1 tab Quetiapine Fumarate (Seroquel) 200 mg PO [facility] Last Admin: 09/19/16 22:43 Dose: 200 mg Saccharomyces Boulardii (Florastor) 250 mg PO BID [facility] Last Admin: 09/20/16 09:29 Dose: 250 mg Tramadol HCl (Ultram) 25 mg PO TID PRN PRN Reason: Pain, moderate (4-7) Last Admin: 09/20/16 05:08 Dose: 25 mg Venlafaxine HCl (Effexor Xr) 150 mg PO DAILY [facility] Last Admin: 09/20/16 09:30 Dose: 150 mg - Labs Labs: 09/20/16 05:55 09/20/16 05:55 PT 12.6 SECONDS (9.7-12.2) H 09/20/16 05:55 INR 1.1 09/20/16 05:55 APTT 26 SECONDS (21-34) D 09/20/16 05:55 - Constitutional Appears: No Acute Distress - Head Exam Head Exam: ATRAUMATIC - Respiratory Exam Respiratory Exam: NORMAL BREATHING PATTERN. absent: Accessory Muscle Use, Rhonchi, Wheezes - Cardiovascular Exam Cardiovascular Exam: +S1, +S2 - GI/Abdominal Exam GI & Abdominal Exam: Soft, Normal Bowel Sounds. absent: Distended, Tenderness - Extremities Exam Additional comments: LLE Calf, mid-thigh and groin dressing C/D/I no strikethrough. Pulses Dopplerable DP PT bi-phasic - Neurological Exam Neurological Exam: Awake, Oriented x3 - Psychiatric Exam Psychiatric exam: Normal Affect - Skin Skin Exam: Normal Color, Warm Assessment and Plan - Assessment and Plan (Free Text) Assessment: 55M w/ PVD s/p Left Femoral popliteal bypass POD1 Plan: - continue to monitor pressure and pulses - DVT ppx - pain control - OOB & IC - PT eval for tomorrow - Monitor H/H - D/C [facility] and A-line - medical management - D/W Dr. Marilyn Forbes PGY1
--- NOTE | 2016-09-20 13:10 | OP ---
PROCEDURE DATE: 09/19/2016 PREOPERATIVE DIAGNOSIS: Gangrene of the left foot. PROCEDURE CARRIED OUT: Left femoral popliteal bypass using reverse saphenous vein (CryoVein) with intraoperative arteriogram. SURGEON: Dr. Sanders. COMMERCIAL SHRIMPING CAPTAIN: Dr. Ott. ANESTHESIOLOGIST: *------* and Lanette Gaytan. INDICATIONS: The patient is a 55-year-old male with previous recent heart bypass surgery, who presents with gangrene of the foot, initially drained. Attempts were made with endovascular intervention, which were unsuccessful. OPERATIVE FINDINGS: Preoperatively, the patient had vein mapping done and did not have adequate sized veins with which do a bypass and most of his veins had already been harvested for his heart bypass operation. In addition, during the operation, when we were doing the distal anastomosis with tourniquet control and after the patient had been heparinized, there was some clot formation in the vessels, which is quite troubling in view of the events that occurred during his endovascular intervention. Nonetheless, we doubled the dose of heparin, and from that point further, we did not see any evidence clots forming in the blood vessels. We then completed the distal anastomosis using loupe magnification, heparin anticoagulation and tourniquet control. The completion of angiogram was satisfactory. We then brought the graft up to the groin and anastomosed it to the common femoral artery relatively smooth portion. Problem in the groin was we had bleeding, which we could not account for as we controlled a lot of bleeding from veins, vessels, etc. This led to an abrupt blood loss of 200 mL or more. Nonetheless, at this point, we completed the proximal and distal anastomoses, we had taken an angiogram, we had excellent flow, excellent visualization distally. We terminated the procedure after obtaining hemostasis, and closing the wounds. Blood loss of the procedure was approximately 700 to 800 mL. The operation carried out was a left femoral popliteal bypass using a reverse saphenous (CryoVein) with intraoperative arteriogram. Dieter Sanders Jr., MD cc: Dr. Jo
--- NOTE | 2016-09-20 14:55 | CP.CCUPN ---
<Alix Cabral - Last Filed: 09/20/16 14:59> CCU Subjective - Physician Review Subjective (Free Text): Patient was seen and examined in the morning in no acute distress. Patient reports having pain in his left leg after his surgery. Patient denies having chest pain, abdominal pain, nausea, vomiting, fevers, diarrhea, and constipation. Patient is stable for transfer to the floor. 09/20/16 14:52 CCU Objective - Vital Signs / Intake & Output Intake and Output (Last 8hrs): Intake & Output 09/19/16 09/20/16 09/20/16 22:59 06:59 14:59 Intake Total 900 700 675 Output Total 1050 800 625 Balance -150 -100 50 Intake: Intake, IV Amount 250 700 375 Left Wrist 100 100 Right PICC 150 600 375 Oral 300 Blood Product 650 Output: Urine 1050 800 625 Urine, Voided 200 800 625 Other: # Bowel Movements 1 - Physical Exam Head: Positive for: Atraumatic, Normocephalic Extroacular Muscles: Positive for: EOMI Conjunctiva: Positive for: Normal Mouth: Positive for: Moist Mucous Membranes Neck: Positive for: Normal Range of Motion Respiratory/Chest: Positive for: Clear to Auscultation. Negative for: Respiratory Distress, Wheezes, Rales, Rhonchi Cardiovascular: Positive for: Regular Rate and Rhythm, Normal S1, S2 Abdomen: Positive for: Normal Bowel Sounds. Negative for: Tenderness, Distention Upper Extremity: Negative for: Normal Inspection, Edema Lower Extremity: Negative for: Normal Inspection (banadaged from left groin to left foot; s/p surgery for left foot cellulitis and s/p fem-pop bypass) Skin: Positive for: Warm, Normal Color Psychiatric: Positive for: Alert, Oriented x 3 - Medications Active Medications: Active Medications Generic Name Dose Route Start Last Admin Trade Name Freq PRN Reason Stop Dose Admin Acetaminophen 975 mg 09/20/16 14:00 Tylenol 325mg Tab PO Q8 RUDOLPH Amiodarone HCl 200 mg 09/09/16 10:00 09/20/16 09:31 Cordarone PO 200 mg DAILY RUDOLPH Administration Aspirin 81 mg 09/09/16 10:00 09/20/16 09:31 Ecotrin PO 81 mg DAILY RUDOLPH Administration Dabigatran 150 mg 09/09/16 10:00 09/15/16 17:52 Pradaxa PO 150 mg BID RUDOLPH Administration Ezetimibe 10 mg 09/09/16 10:00 09/20/16 09:29 Zetia PO 10 mg DAILY RUDOLPH Administration Heparin Sodium (Porcine) 5,000 units 09/20/16 10:00 09/20/16 09:27 Heparin SC 5,000 units Q8 RUDOLPH Administration Hydrochlorothiazide 25 mg 09/09/16 10:00 09/20/16 09:31 Hydrodiuril PO 25 mg DAILY RUDOLPH Administration Meropenem 1 gm/ Sodium 100 mls @ 100 mls/hr 09/12/16 22:00 09/20/16 06:30 Chloride IVPB 100 mls/hr Q8 RUDOLPH Administration Vancomycin HCl 1 gm/ Sodium 250 mls @ 166.7 mls/hr 09/19/16 12:00 09/20/16 13 :06 Chloride IVPB 166.7 mls/hr Q24H RUDOLPH Administration Sodium Chloride 1,000 mls @ 75 mls/hr 09/19/16 21:00 09/20/16 13:10 Sodium Chloride 0.9% IV 75 mls/hr .[id number] RUDOLPH Administration Insulin Aspart 0 unit 09/17/16 08:46 09/20/16 12:59 Novolog SC 8 unit ACHS RUDOLPH Administration Protocol Insulin Aspart 18 unit 09/17/16 11:30 09/18/16 17:30 Novolog SC 18 unit TIDAC RUDOLPH Administration Insulin Glargine 30 unit 09/11/16 22:00 09/18/16 22:00 Lantus SC Not Given HS [facility] Losartan Potassium 100 mg 09/09/16 10:00 09/20/16 11:25 Cozaar PO 100 mg DAILY RUDOLPH Administration Ondansetron HCl 4 mg 09/19/16 18:26 Zofran Inj IVP Q4 PRN Nausea/Vomiting Oxycodone/Acetaminophen 1 tab 09/20/16 09:07 09/20/16 09:27 Percocet 5/325 Mg Tab PO 09/23/16 09:08 1 tab Q4H PRN Administration Pain, severe (8-10) Quetiapine Fumarate 200 mg 09/09/16 22:00 09/19/16 22:43 Seroquel PO 200 mg HS RUDOLPH Administration Saccharomyces Boulardii 250 mg 09/12/16 10:00 09/20/16 09:29 Florastor PO 250 mg BID RUDOLPH Administration Tramadol HCl 25 mg 09/19/16 18:28 09/20/16 12:50 Ultram PO 25 mg TID PRN Administration Pain, moderate (4-7) Venlafaxine HCl 150 mg 09/09/16 10:00 09/20/16 09:30 Effexor Xr PO 150 mg DAILY RUDOLPH Administration - Patient Studies Lab Studies: Microbiology Studies 09/18/16 06:00 MRSA Culture - Final Nose MRSA NOT DETECTED 09/17/16 14:35 Stool Culture - Final Stool NO SALMONELLA, SHIGELLA OR CAMPYLOBACTER ISOLATED. Lab Studies 09/20/16 09/20/16 09/20/16 Range/Units 11:23 07:13 05:55 WBC (4.8-10.8) K/uL RBC (4.40-5.90) Mil/uL Hgb (12.0-18.0) g/dL Hct (35.0-51.0) % MCV (80.0-94.0) fL MCH (27.0-31.0) pg MCHC (33.0-37.0) g/dL RDW (11.5-14.5) % Plt Count (130-400) K/uL MPV (7.2-11.7) fL Neut % (Auto) (50.0-75.0) % Lymph % (Auto) (20.0-40.0) % [place] % (Auto) (0.0-10.0) % Eos % (Auto) (0.0-4.0) % Baso % (Auto) (0.0-2.0) % Neut # (1.8-7.0) K/uL Lymph # (1.0-4.3) K/uL [place] # (0.0-0.8) K/uL Eos # (0.0-0.7) K/uL Baso # (0.0-0.2) K/uL Neutrophils % (Manual) (50-75) % Band Neutrophils % (0-2) % Lymphocytes % (Manual) (20-40) % Monocytes % (Manual) (0-10) % Metamyelocytes % (0-0) % Platelet Estimate (NORMAL) RBC Morphology PT 12.6 H (9.7-12.2) SECONDS INR 1.1 APTT 26 D (21-34) SECONDS Sodium (132-148) mmol/L Potassium (3.6-5.2) mmol/L Chloride (98-107) mmol/L Carbon Dioxide (22-30) mmol/L Anion Gap (10-20) BUN (9-20) mg/dL Creatinine (0.8-1.5) MG/DL Est GFR ( Amer) Est GFR (Non-Af Amer) POC Glucose (mg/dL) 336 H 289 H (65-110) mg/dL Random Glucose (75-110) mg/dL Calcium (8.6-10.4) mg/dl Phosphorus (2.5-4.5) mg/dL Magnesium (1.6-2.3) mg/dL Total Bilirubin (0.2-1.3) mg/dL AST (17-59) U/L ALT (21-72) U/L Alkaline Phosphatase (38-126) U/L Total Protein (6.3-8.3) g/dL Albumin (3.5-5.0) g/dL Globulin (2.2-3.9) gm/dL Albumin/Globulin Ratio (1.0-2.1) Blood Type Blood Type Confirm Antibody Screen 09/20/16 09/20/16 09/19/16 Range/Units 05:55 05:55 21:14 WBC 15.4 H (4.8-10.8) K/uL RBC 3.60 L (4.40-5.90) Mil/uL Hgb 10.2 L (12.0-18.0) g/dL Hct 31.0 L (35.0-51.0) % MCV 86.1 (80.0-94.0) fL MCH 28.3 (27.0-31.0) pg MCHC 32.8 L (33.0-37.0) g/dL RDW 13.9 (11.5-14.5) % Plt Count 309 (130-400) K/uL MPV 7.3 (7.2-11.7) fL Neut % (Auto) 84.2 H (50.0-75.0) % Lymph % (Auto) 6.2 L (20.0-40.0) % [place] % (Auto) 9.0 (0.0-10.0) % Eos % (Auto) 0.1 (0.0-4.0) % Baso % (Auto) 0.5 (0.0-2.0) % Neut # 13.0 H (1.8-7.0) K/uL Lymph # 1.0 (1.0-4.3) K/uL [place] # 1.4 H (0.0-0.8) K/uL Eos # 0.0 (0.0-0.7) K/uL Baso # 0.1 (0.0-0.2) K/uL Neutrophils % (Manual) 68 (50-75) % Band Neutrophils % 12 H* (0-2) % Lymphocytes % (Manual) 9 L (20-40) % Monocytes % (Manual) 10 (0-10) % Metamyelocytes % 1 H (0-0) % Platelet Estimate Normal (NORMAL) RBC Morphology Normal PT (9.7-12.2) SECONDS INR APTT (21-34) SECONDS Sodium 130 L (132-148) mmol/L Potassium 4.3 (3.6-5.2) mmol/L Chloride 93 L (98-107) mmol/L Carbon Dioxide 28 (22-30) mmol/L Anion Gap 13 (10-20) BUN 9 (9-20) mg/dL Creatinine 0.6 L (0.8-1.5) MG/DL Est GFR ( Amer) > 60 Est GFR (Non-Af Amer) > 60 POC Glucose (mg/dL) 238 H (65-110) mg/dL Random Glucose 258 H (75-110) mg/dL Calcium 8.0 L (8.6-10.4) mg/dl Phosphorus 3.8 (2.5-4.5) mg/dL Magnesium 1.7 (1.6-2.3) mg/dL Total Bilirubin 0.3 (0.2-1.3) mg/dL AST 35 (17-59) U/L ALT 59 (21-72) U/L Alkaline Phosphatase 71 (38-126) U/L Total Protein 5.9 L (6.3-8.3) g/dL Albumin 3.0 L (3.5-5.0) g/dL Globulin 2.9 (2.2-3.9) gm/dL Albumin/Globulin Ratio 1.0 (1.0-2.1) Blood Type Blood Type Confirm Antibody Screen 09/19/16 09/19/16 09/18/16 Range/Units 19:20 18:20 11:41 WBC 17.5 H (4.8-10.8) K/uL RBC 3.66 L (4.40-5.90) Mil/uL Hgb 10.0 L (12.0-18.0) g/dL Hct 31.3 L (35.0-51.0) % MCV 85.6 (80.0-94.0) fL MCH 27.3 (27.0-31.0) pg MCHC 31.9 L (33.0-37.0) g/dL RDW 13.8 (11.5-14.5) % Plt Count 323 (130-400) K/uL MPV 7.2 (7.2-11.7) fL Neut % (Auto) 71.9 (50.0-75.0) % Lymph % (Auto) 20.4 (20.0-40.0) % [place] % (Auto) 6.1 (0.0-10.0) % Eos % (Auto) 0.6 (0.0-4.0) % Baso % (Auto) 1.0 (0.0-2.0) % Neut # 12.6 H (1.8-7.0) K/uL Lymph # 3.6 (1.0-4.3) K/uL [place] # 1.1 H (0.0-0.8) K/uL Eos # 0.1 (0.0-0.7) K/uL Baso # 0.2 (0.0-0.2) K/uL Neutrophils % (Manual) (50-75) % Band Neutrophils % (0-2) % Lymphocytes % (Manual) (20-40) % Monocytes % (Manual) (0-10) % Metamyelocytes % (0-0) % Platelet Estimate (NORMAL) RBC Morphology PT (9.7-12.2) SECONDS INR APTT (21-34) SECONDS Sodium (132-148) mmol/L Potassium (3.6-5.2) mmol/L Chloride (98-107) mmol/L Carbon Dioxide (22-30) mmol/L Anion Gap (10-20) BUN (9-20) mg/dL Creatinine (0.8-1.5) MG/DL Est GFR ( Amer) Est GFR (Non-Af Amer) POC Glucose (mg/dL) 230 H (65-110) mg/dL Random Glucose (75-110) mg/dL Calcium (8.6-10.4) mg/dl Phosphorus (2.5-4.5) mg/dL Magnesium (1.6-2.3) mg/dL Total Bilirubin (0.2-1.3) mg/dL AST (17-59) U/L ALT (21-72) U/L Alkaline Phosphatase (38-126) U/L Total Protein (6.3-8.3) g/dL Albumin (3.5-5.0) g/dL Globulin (2.2-3.9) gm/dL Albumin/Globulin Ratio (1.0-2.1) Blood Type A NEGATIVE Blood Type Confirm A NEGATIVE Antibody Screen Negative Laboratory Results - last 24 hr 09/18/16 09/19/16 09/19/16 11:41 18:20 19:20 WBC 17.5 H RBC 3.66 L Hgb 10.0 L Hct 31.3 L MCV 85.6 MCH 27.3 MCHC 31.9 L RDW 13.8 Plt Count 323 MPV 7.2 Neut % (Auto) 71.9 Lymph % (Auto) 20.4 [place] % (Auto) 6.1 Eos % (Auto) 0.6 Baso % (Auto) 1.0 Neut # 12.6 H Lymph # 3.6 [place] # 1.1 H Eos # 0.1 Baso # 0.2 Neutrophils % (Manual) Band Neutrophils % Lymphocytes % (Manual) Monocytes % (Manual) Metamyelocytes % Platelet Estimate RBC Morphology PT INR APTT Sodium Potassium Chloride Carbon Dioxide Anion Gap BUN Creatinine Est GFR ( Amer) Est GFR (Non-Af Amer) POC Glucose (mg/dL) 230 H Random Glucose Calcium Phosphorus Magnesium Total Bilirubin AST ALT Alkaline Phosphatase Total Protein Albumin Globulin Albumin/Globulin Ratio Blood Type A NEGATIVE Blood Type Confirm A NEGATIVE Antibody Screen Negative 09/19/16 09/20/16 09/20/16 21:14 05:55 05:55 WBC 15.4 H RBC 3.60 L Hgb 10.2 L Hct 31.0 L MCV 86.1 MCH 28.3 MCHC 32.8 L RDW 13.9 Plt Count 309 MPV 7.3 Neut % (Auto) 84.2 H Lymph % (Auto) 6.2 L [place] % (Auto) 9.0 Eos % (Auto) 0.1 Baso % (Auto) 0.5 Neut # 13.0 H Lymph # 1.0 [place] # 1.4 H Eos # 0.0 Baso # 0.1 Neutrophils % (Manual) 68 Band Neutrophils % 12 H* Lymphocytes % (Manual) 9 L Monocytes % (Manual) 10 Metamyelocytes % 1 H Platelet Estimate Normal RBC Morphology Normal PT INR APTT Sodium 130 L Potassium 4.3 Chloride 93 L Carbon Dioxide 28 Anion Gap 13 BUN 9 Creatinine 0.6 L Est GFR ( Amer) > 60 Est GFR (Non-Af Amer) > 60 POC Glucose (mg/dL) 238 H Random Glucose 258 H Calcium 8.0 L Phosphorus 3.8 Magnesium 1.7 Total Bilirubin 0.3 AST 35 ALT 59 Alkaline Phosphatase 71 Total Protein 5.9 L Albumin 3.0 L Globulin 2.9 Albumin/Globulin Ratio 1.0 Blood Type Blood Type Confirm Antibody Screen 09/20/16 09/20/16 09/20/16 05:55 07:13 11:23 WBC RBC Hgb Hct MCV MCH MCHC RDW Plt Count MPV Neut % (Auto) Lymph % (Auto) [place] % (Auto) Eos % (Auto) Baso % (Auto) Neut # Lymph # [place] # Eos # Baso # Neutrophils % (Manual) Band Neutrophils % Lymphocytes % (Manual) Monocytes % (Manual) Metamyelocytes % Platelet Estimate RBC Morphology PT 12.6 H INR 1.1 APTT 26 D Sodium Potassium Chloride Carbon Dioxide Anion Gap BUN Creatinine Est GFR ( Amer) Est GFR (Non-Af Amer) POC Glucose (mg/dL) 289 H 336 H Random Glucose Calcium Phosphorus Magnesium Total Bilirubin AST ALT Alkaline Phosphatase Total Protein Albumin Globulin Albumin/Globulin Ratio Blood Type Blood Type Confirm Antibody Screen Fingerstick Blood Sugar Results: 238 Review of Systems - Constitutional Constitutional: absent: Fever - Cardiovascular Cardiovascular: absent: Chest Pain, Dyspnea - Respiratory Respiratory: absent: Cough, Dyspnea - Gastrointestinal Gastrointestinal: absent: Abdominal Pain, Constipation, Diarrhea, Nausea, Vomiting - Genitourinary Genitourinary: absent: Dysuria - Musculoskeletal Musculoskeletal: Other (pain in left LE) - Integumentary Integumentary: Wounds (left LE, femoral/groin region, foot) - Neurological Neurological: absent: Dizziness, Headaches Critical Care Progress Note - Nutrition Nutrition: Nutrition Category Date Time Status Heart Healthy Diet [DIET] Diets 09/19/16 Dinner Active Assessment/Plan - Assessment and Plan (Free Text) Assessment: 55 year old male with past medical history of DM, CAD, quadruple by pass, Afib, HTN, severe PAD, left foot cellulitis, underwent left fem-pop bypass with Dr. Sanders. Patient received 2 units transfusion for 600cc blood loss during operation. Hgb has improved. Patient was admitted to ICU for close monitoring. Patient H/H and BP are stable. Patient is stable for transfer to the floor. Neuro: alert and orientedx3 Pulm: no acute issues CV: hemodynamically stable - IVF NS at 75cc/hr - monitor vitals - continue asa 81mg, amiodarone, zetia, HCTZ, Endo: - Hx of DM: monitor blood glucose - ISS, Lantus 30 Heme: - 600cc blood loss during operation. received 2 units blood transfusion - Monitor H/H GI: - no acute issues Renal: no acute issues ID: - Left foot abscess, i&d 09/13/16 - Vanco Prophylaxis: - DVT: heparin sc <David Jimenez S - Last Filed: 09/20/16 18:11> CCU Objective - Vital Signs / Intake & Output Intake and Output (Last 8hrs): Intake & Output 09/20/16 09/20/16 09/20/16 06:59 14:59 22:59 Intake Total 700 1084 275 Output Total 800 1175 400 Balance -100 -91 -125 Intake: Intake, IV Amount 700 784 225 Left Wrist 100 Right PICC 600 784 225 Oral 300 50 Output: Urine 800 1175 400 Urine, Voided 800 1175 400 Other: # Bowel Movements 1 - Medications Active Medications: Active Medications Generic Name Dose Route Start Last Admin Trade Name Freq PRN Reason Stop Dose Admin Acetaminophen 975 mg 09/20/16 14:00 09/20/16 15:04 Tylenol 325mg Tab PO 975 mg Q8 RUDOLPH Administration Amiodarone HCl 200 mg 09/09/16 10:00 09/20/16 09:31 Cordarone PO 200 mg DAILY RUDOLPH Administration Aspirin 81 mg 09/09/16 10:00 09/20/16 09:31 Ecotrin PO 81 mg DAILY RUDOLPH Administration Dabigatran 150 mg 09/09/16 10:00 09/15/16 17:52 Pradaxa PO 150 mg BID RUDOLPH Administration Ezetimibe 10 mg 09/09/16 10:00 09/20/16 09:29 Zetia PO 10 mg DAILY RUDOLPH Administration Heparin Sodium (Porcine) 5,000 units 09/20/16 10:00 09/20/16 15:06 Heparin SC 5,000 units Q8 RUDOLPH Administration Hydrochlorothiazide 25 mg 09/09/16 10:00 09/20/16 09:31 Hydrodiuril PO 25 mg DAILY RUDOLPH Administration Meropenem 1 gm/ Sodium 100 mls @ 100 mls/hr 09/12/16 22:00 09/20/16 15:06 Chloride IVPB 100 mls/hr Q8 RUDOLPH Administration Vancomycin HCl 1 gm/ Sodium 250 mls @ 166.7 mls/hr 09/19/16 12:00 09/20/16 13 :06 Chloride IVPB 166.7 mls/hr Q24H RUDOLPH Administration Sodium Chloride 1,000 mls @ 75 mls/hr 09/19/16 21:00 09/20/16 13:10 Sodium Chloride 0.9% IV 75 mls/hr .[id number] RUDOLPH Administration Insulin Aspart 0 unit 09/17/16 08:46 09/20/16 17:07 Novolog SC 8 unit ACHS RUDOLPH Administration Protocol Insulin Aspart 18 unit 09/17/16 11:30 09/18/16 17:30 Novolog SC 18 unit TIDAC RUDOLPH Administration Insulin Glargine 30 unit 09/11/16 22:00 09/18/16 22:00 Lantus SC Not Given HS [facility] Losartan Potassium 100 mg 09/09/16 10:00 09/20/16 11:25 Cozaar PO 100 mg DAILY RUDOLPH Administration Ondansetron HCl 4 mg 09/19/16 18:26 Zofran Inj IVP Q4 PRN Nausea/Vomiting Oxycodone/Acetaminophen 1 tab 09/20/16 09:07 09/20/16 09:27 Percocet 5/325 Mg Tab PO 09/23/16 09:08 1 tab Q4H PRN Administration Pain, severe (8-10) Quetiapine Fumarate 200 mg 09/09/16 22:00 09/19/16 22:43 Seroquel PO 200 mg HS RUDOLPH Administration Saccharomyces Boulardii 250 mg 09/12/16 10:00 09/20/16 17:10 Florastor PO 250 mg BID RUDOLPH Administration Tramadol HCl 25 mg 09/19/16 18:28 09/20/16 12:50 Ultram PO 25 mg TID PRN Administration Pain, moderate (4-7) Venlafaxine HCl 150 mg 09/09/16 10:00 09/20/16 09:30 Effexor Xr PO 150 mg DAILY RUDOLPH Administration - Patient Studies Lab Studies: Microbiology Studies 09/18/16 06:00 MRSA Culture - Final Nose MRSA NOT DETECTED Lab Studies 09/20/16 09/20/16 09/20/16 Range/Units 16:31 11:23 07:13 WBC (4.8-10.8) K/uL RBC (4.40-5.90) Mil/uL Hgb (12.0-18.0) g/dL Hct (35.0-51.0) % MCV (80.0-94.0) fL MCH (27.0-31.0) pg MCHC (33.0-37.0) g/dL RDW (11.5-14.5) % Plt Count (130-400) K/uL MPV (7.2-11.7) fL Neut % (Auto) (50.0-75.0) % Lymph % (Auto) (20.0-40.0) % [place] % (Auto) (0.0-10.0) % Eos % (Auto) (0.0-4.0) % Baso % (Auto) (0.0-2.0) % Neut # (1.8-7.0) K/uL Lymph # (1.0-4.3) K/uL [place] # (0.0-0.8) K/uL Eos # (0.0-0.7) K/uL Baso # (0.0-0.2) K/uL Neutrophils % (Manual) (50-75) % Band Neutrophils % (0-2) % Lymphocytes % (Manual) (20-40) % Monocytes % (Manual) (0-10) % Metamyelocytes % (0-0) % Platelet Estimate (NORMAL) RBC Morphology PT (9.7-12.2) SECONDS INR APTT (21-34) SECONDS Sodium (132-148) mmol/L Potassium (3.6-5.2) mmol/L Chloride (98-107) mmol/L Carbon Dioxide (22-30) mmol/L Anion Gap (10-20) BUN (9-20) mg/dL Creatinine (0.8-1.5) MG/DL Est GFR ( Amer) Est GFR (Non-Af Amer) POC Glucose (mg/dL) 314 H 336 H 289 H (65-110) mg/dL Random Glucose (75-110) mg/dL Calcium (8.6-10.4) mg/dl Phosphorus (2.5-4.5) mg/dL Magnesium (1.6-2.3) mg/dL Total Bilirubin (0.2-1.3) mg/dL AST (17-59) U/L ALT (21-72) U/L Alkaline Phosphatase (38-126) U/L Total Protein (6.3-8.3) g/dL Albumin (3.5-5.0) g/dL Globulin (2.2-3.9) gm/dL Albumin/Globulin Ratio (1.0-2.1) Blood Type Blood Type Confirm Antibody Screen 09/20/16 09/20/16 09/20/16 Range/Units 05:55 05:55 05:55 WBC 15.4 H (4.8-10.8) K/uL RBC 3.60 L (4.40-5.90) Mil/uL Hgb 10.2 L (12.0-18.0) g/dL Hct 31.0 L (35.0-51.0) % MCV 86.1 (80.0-94.0) fL MCH 28.3 (27.0-31.0) pg MCHC 32.8 L (33.0-37.0) g/dL RDW 13.9 (11.5-14.5) % Plt Count 309 (130-400) K/uL MPV 7.3 (7.2-11.7) fL Neut % (Auto) 84.2 H (50.0-75.0) % Lymph % (Auto) 6.2 L (20.0-40.0) % [place] % (Auto) 9.0 (0.0-10.0) % Eos % (Auto) 0.1 (0.0-4.0) % Baso % (Auto) 0.5 (0.0-2.0) % Neut # 13.0 H (1.8-7.0) K/uL Lymph # 1.0 (1.0-4.3) K/uL [place] # 1.4 H (0.0-0.8) K/uL Eos # 0.0 (0.0-0.7) K/uL Baso # 0.1 (0.0-0.2) K/uL Neutrophils % (Manual) 68 (50-75) % Band Neutrophils % 12 H* (0-2) % Lymphocytes % (Manual) 9 L (20-40) % Monocytes % (Manual) 10 (0-10) % Metamyelocytes % 1 H (0-0) % Platelet Estimate Normal (NORMAL) RBC Morphology Normal PT 12.6 H (9.7-12.2) SECONDS INR 1.1 APTT 26 D (21-34) SECONDS Sodium 130 L (132-148) mmol/L Potassium 4.3 (3.6-5.2) mmol/L Chloride 93 L (98-107) mmol/L Carbon Dioxide 28 (22-30) mmol/L Anion Gap 13 (10-20) BUN 9 (9-20) mg/dL Creatinine 0.6 L (0.8-1.5) MG/DL Est GFR ( Amer) > 60 Est GFR (Non-Af Amer) > 60 POC Glucose (mg/dL) (65-110) mg/dL Random Glucose 258 H (75-110) mg/dL Calcium 8.0 L (8.6-10.4) mg/dl Phosphorus 3.8 (2.5-4.5) mg/dL Magnesium 1.7 (1.6-2.3) mg/dL Total Bilirubin 0.3 (0.2-1.3) mg/dL AST 35 (17-59) U/L ALT 59 (21-72) U/L Alkaline Phosphatase 71 (38-126) U/L Total Protein 5.9 L (6.3-8.3) g/dL Albumin 3.0 L (3.5-5.0) g/dL Globulin 2.9 (2.2-3.9) gm/dL Albumin/Globulin Ratio 1.0 (1.0-2.1) Blood Type Blood Type Confirm Antibody Screen 09/19/16 09/19/16 09/19/16 Range/Units 21:14 19:20 18:20 WBC 17.5 H (4.8-10.8) K/uL RBC 3.66 L (4.40-5.90) Mil/uL Hgb 10.0 L (12.0-18.0) g/dL Hct 31.3 L (35.0-51.0) % MCV 85.6 (80.0-94.0) fL MCH 27.3 (27.0-31.0) pg MCHC 31.9 L (33.0-37.0) g/dL RDW 13.8 (11.5-14.5) % Plt Count 323 (130-400) K/uL MPV 7.2 (7.2-11.7) fL Neut % (Auto) 71.9 (50.0-75.0) % Lymph % (Auto) 20.4 (20.0-40.0) % [place] % (Auto) 6.1 (0.0-10.0) % Eos % (Auto) 0.6 (0.0-4.0) % Baso % (Auto) 1.0 (0.0-2.0) % Neut # 12.6 H (1.8-7.0) K/uL Lymph # 3.6 (1.0-4.3) K/uL [place] # 1.1 H (0.0-0.8) K/uL Eos # 0.1 (0.0-0.7) K/uL Baso # 0.2 (0.0-0.2) K/uL Neutrophils % (Manual) (50-75) % Band Neutrophils % (0-2) % Lymphocytes % (Manual) (20-40) % Monocytes % (Manual) (0-10) % Metamyelocytes % (0-0) % Platelet Estimate (NORMAL) RBC Morphology PT (9.7-12.2) SECONDS INR APTT (21-34) SECONDS Sodium (132-148) mmol/L Potassium (3.6-5.2) mmol/L Chloride (98-107) mmol/L Carbon Dioxide (22-30) mmol/L Anion Gap (10-20) BUN (9-20) mg/dL Creatinine (0.8-1.5) MG/DL Est GFR ( Amer) Est GFR (Non-Af Amer) POC Glucose (mg/dL) 238 H 230 H (65-110) mg/dL Random Glucose (75-110) mg/dL Calcium (8.6-10.4) mg/dl Phosphorus (2.5-4.5) mg/dL Magnesium (1.6-2.3) mg/dL Total Bilirubin (0.2-1.3) mg/dL AST (17-59) U/L ALT (21-72) U/L Alkaline Phosphatase (38-126) U/L Total Protein (6.3-8.3) g/dL Albumin (3.5-5.0) g/dL Globulin (2.2-3.9) gm/dL Albumin/Globulin Ratio (1.0-2.1) Blood Type Blood Type Confirm Antibody Screen 09/18/16 Range/Units 11:41 WBC (4.8-10.8) K/uL RBC (4.40-5.90) Mil/uL Hgb (12.0-18.0) g/dL Hct (35.0-51.0) % MCV (80.0-94.0) fL MCH (27.0-31.0) pg MCHC (33.0-37.0) g/dL RDW (11.5-14.5) % Plt Count (130-400) K/uL MPV (7.2-11.7) fL Neut % (Auto) (50.0-75.0) % Lymph % (Auto) (20.0-40.0) % [place] % (Auto) (0.0-10.0) % Eos % (Auto) (0.0-4.0) % Baso % (Auto) (0.0-2.0) % Neut # (1.8-7.0) K/uL Lymph # (1.0-4.3) K/uL [place] # (0.0-0.8) K/uL Eos # (0.0-0.7) K/uL Baso # (0.0-0.2) K/uL Neutrophils % (Manual) (50-75) % Band Neutrophils % (0-2) % Lymphocytes % (Manual) (20-40) % Monocytes % (Manual) (0-10) % Metamyelocytes % (0-0) % Platelet Estimate (NORMAL) RBC Morphology PT (9.7-12.2) SECONDS INR APTT (21-34) SECONDS Sodium (132-148) mmol/L Potassium (3.6-5.2) mmol/L Chloride (98-107) mmol/L Carbon Dioxide (22-30) mmol/L Anion Gap (10-20) BUN (9-20) mg/dL Creatinine (0.8-1.5) MG/DL Est GFR ( Amer) Est GFR (Non-Af Amer) POC Glucose (mg/dL) (65-110) mg/dL Random Glucose (75-110) mg/dL Calcium (8.6-10.4) mg/dl Phosphorus (2.5-4.5) mg/dL Magnesium (1.6-2.3) mg/dL Total Bilirubin (0.2-1.3) mg/dL AST (17-59) U/L ALT (21-72) U/L Alkaline Phosphatase (38-126) U/L Total Protein (6.3-8.3) g/dL Albumin (3.5-5.0) g/dL Globulin (2.2-3.9) gm/dL Albumin/Globulin Ratio (1.0-2.1) Blood Type A NEGATIVE Blood Type Confirm A NEGATIVE Antibody Screen Negative Laboratory Results - last 24 hr 09/18/16 09/19/16 09/19/16 11:41 18:20 19:20 WBC 17.5 H RBC 3.66 L Hgb 10.0 L Hct 31.3 L MCV 85.6 MCH 27.3 MCHC 31.9 L RDW 13.8 Plt Count 323 MPV 7.2 Neut % (Auto) 71.9 Lymph % (Auto) 20.4 [place] % (Auto) 6.1 Eos % (Auto) 0.6 Baso % (Auto) 1.0 Neut # 12.6 H Lymph # 3.6 [place] # 1.1 H Eos # 0.1 Baso # 0.2 Neutrophils % (Manual) Band Neutrophils % Lymphocytes % (Manual) Monocytes % (Manual) Metamyelocytes % Platelet Estimate RBC Morphology PT INR APTT Sodium Potassium Chloride Carbon Dioxide Anion Gap BUN Creatinine Est GFR ( Amer) Est GFR (Non-Af Amer) POC Glucose (mg/dL) 230 H Random Glucose Calcium Phosphorus Magnesium Total Bilirubin AST ALT Alkaline Phosphatase Total Protein Albumin Globulin Albumin/Globulin Ratio Blood Type A NEGATIVE Blood Type Confirm A NEGATIVE Antibody Screen Negative 09/19/16 09/20/16 09/20/16 21:14 05:55 05:55 WBC 15.4 H RBC 3.60 L Hgb 10.2 L Hct 31.0 L MCV 86.1 MCH 28.3 MCHC 32.8 L RDW 13.9 Plt Count 309 MPV 7.3 Neut % (Auto) 84.2 H Lymph % (Auto) 6.2 L [place] % (Auto) 9.0 Eos % (Auto) 0.1 Baso % (Auto) 0.5 Neut # 13.0 H Lymph # 1.0 [place] # 1.4 H Eos # 0.0 Baso # 0.1 Neutrophils % (Manual) 68 Band Neutrophils % 12 H* Lymphocytes % (Manual) 9 L Monocytes % (Manual) 10 Metamyelocytes % 1 H Platelet Estimate Normal RBC Morphology Normal PT INR APTT Sodium 130 L Potassium 4.3 Chloride 93 L Carbon Dioxide 28 Anion Gap 13 BUN 9 Creatinine 0.6 L Est GFR ( Amer) > 60 Est GFR (Non-Af Amer) > 60 POC Glucose (mg/dL) 238 H Random Glucose 258 H Calcium 8.0 L Phosphorus 3.8 Magnesium 1.7 Total Bilirubin 0.3 AST 35 ALT 59 Alkaline Phosphatase 71 Total Protein 5.9 L Albumin 3.0 L Globulin 2.9 Albumin/Globulin Ratio 1.0 Blood Type Blood Type Confirm Antibody Screen 09/20/16 09/20/16 09/20/16 05:55 07:13 11:23 WBC RBC Hgb Hct MCV MCH MCHC RDW Plt Count MPV Neut % (Auto) Lymph % (Auto) [place] % (Auto) Eos % (Auto) Baso % (Auto) Neut # Lymph # [place] # Eos # Baso # Neutrophils % (Manual) Band Neutrophils % Lymphocytes % (Manual) Monocytes % (Manual) Metamyelocytes % Platelet Estimate RBC Morphology PT 12.6 H INR 1.1 APTT 26 D Sodium Potassium Chloride Carbon Dioxide Anion Gap BUN Creatinine Est GFR ( Amer) Est GFR (Non-Af Amer) POC Glucose (mg/dL) 289 H 336 H Random Glucose Calcium Phosphorus Magnesium Total Bilirubin AST ALT Alkaline Phosphatase Total Protein Albumin Globulin Albumin/Globulin Ratio Blood Type Blood Type Confirm Antibody Screen 09/20/16 16:31 WBC RBC Hgb Hct MCV MCH MCHC RDW Plt Count MPV Neut % (Auto) Lymph % (Auto) [place] % (Auto) Eos % (Auto) Baso % (Auto) Neut # Lymph # [place] # Eos # Baso # Neutrophils % (Manual) Band Neutrophils % Lymphocytes % (Manual) Monocytes % (Manual) Metamyelocytes % Platelet Estimate RBC Morphology PT INR APTT Sodium Potassium Chloride Carbon Dioxide Anion Gap BUN Creatinine Est GFR ( Amer) Est GFR (Non-Af Amer) POC Glucose (mg/dL) 314 H Random Glucose Calcium Phosphorus Magnesium Total Bilirubin AST ALT Alkaline Phosphatase Total Protein Albumin Globulin Albumin/Globulin Ratio Blood Type Blood Type Confirm Antibody Screen Critical Care Progress Note - Nutrition Nutrition: Nutrition Category Date Time Status Heart Healthy Diet [DIET] Diets 09/19/16 Dinner Active Attending/Attestation - Attestation I have personally seen and examined this patient.: Yes I have fully participated in the care of the patient.: Yes I have reviewed all pertinent clinical information: Yes Notes (Text): 09/20/16 18:11 Patient seen and examined in the intensive care unit. Case discussed with house staff in the morning rounds. Stable for transfer to floor
--- NOTE | 2016-09-20 17:27 | CP.PCM.PN ---
Subjective - Date & Time of Evaluation Date of Evaluation: 09/20/16 Time of Evaluation: 09:00 - Subjective Subjective: seen in ICU will likely need further surgery right foot to discuss with dr moreno Objective - Vital Signs/Intake and Output Vital Signs (last 24 hours): Temp Pulse Resp BP Pulse Ox 98.0 F 70 16 126/69 99 09/20/16 04:00 09/20/16 06:12 09/20/16 06:12 09/20/16 06:12 09/20/16 06:12 Intake and Output: 09/20/16 09/20/16 06:59 18:59 Intake Total 950 1084 Output Total 1150 1175 Balance -200 -91 - Medications Medications: Current Medications Acetaminophen (Tylenol 325mg Tab) 975 mg PO Q8 REPLACED BY [facility] Last Admin: 09/20/16 15:04 Dose: 975 mg Amiodarone HCl (Cordarone) 200 mg PO DAILY REPLACED BY [facility] Last Admin: 09/20/16 09:31 Dose: 200 mg Aspirin (Ecotrin) 81 mg PO DAILY REPLACED BY [facility] Last Admin: 09/20/16 09:31 Dose: 81 mg Dabigatran (Pradaxa) 150 mg PO BID REPLACED BY [facility] Last Admin: 09/15/16 17:52 Dose: 150 mg Ezetimibe (Zetia) 10 mg PO DAILY REPLACED BY [facility] Last Admin: 09/20/16 09:29 Dose: 10 mg Heparin Sodium (Porcine) (Heparin) 5,000 units SC Q8 REPLACED BY [facility] Last Admin: 09/20/16 15:06 Dose: 5,000 units Hydrochlorothiazide (Hydrodiuril) 25 mg PO DAILY REPLACED BY [facility] Last Admin: 09/20/16 09:31 Dose: 25 mg Meropenem 1 gm/ Sodium (Chloride) 100 mls @ 100 mls/hr IVPB Q8 REPLACED BY [facility] Last Admin: 09/20/16 15:06 Dose: 100 mls/hr Vancomycin HCl 1 gm/ Sodium (Chloride) 250 mls @ 166.7 mls/hr IVPB Q24H REPLACED BY [facility] Last Admin: 09/20/16 13:06 Dose: 166.7 mls/hr Sodium Chloride (Sodium Chloride 0.9%) 1,000 mls @ 75 mls/hr IV .[id number] REPLACED BY [facility] Last Admin: 09/20/16 13:10 Dose: 75 mls/hr Insulin Aspart (Novolog) 0 unit SC ACHS REPLACED BY [facility] PRN Reason: Protocol Last Admin: 09/20/16 17:07 Dose: 8 unit Insulin Aspart (Novolog) 18 unit SC TIDAC REPLACED BY [facility] Last Admin: 09/18/16 17:30 Dose: 18 unit Insulin Glargine (Lantus) 30 unit SC HS REPLACED BY [facility] Last Admin: 09/18/16 22:00 Dose: Not Given Losartan Potassium (Cozaar) 100 mg PO DAILY REPLACED BY [facility] Last Admin: 09/20/16 11:25 Dose: 100 mg Ondansetron HCl (Zofran Inj) 4 mg IVP Q4 PRN PRN Reason: Nausea/Vomiting Oxycodone/Acetaminophen (Percocet 5/325 Mg Tab) 1 tab PO Q4H PRN PRN Reason: Pain, severe (8-10) Stop: 09/23/16 09:08 Last Admin: 09/20/16 09:27 Dose: 1 tab Quetiapine Fumarate (Seroquel) 200 mg PO [facility] Last Admin: 09/19/16 22:43 Dose: 200 mg Saccharomyces Boulardii (Florastor) 250 mg PO BID REPLACED BY [facility] Last Admin: 09/20/16 17:10 Dose: 250 mg Tramadol HCl (Ultram) 25 mg PO TID PRN PRN Reason: Pain, moderate (4-7) Last Admin: 09/20/16 12:50 Dose: 25 mg Venlafaxine HCl (Effexor Xr) 150 mg PO DAILY REPLACED BY [facility] Last Admin: 09/20/16 09:30 Dose: 150 mg - Labs Labs: 09/20/16 05:55 09/20/16 05:55 PT 12.6 SECONDS (9.7-12.2) H 09/20/16 05:55 INR 1.1 09/20/16 05:55 APTT 26 SECONDS (21-34) D 09/20/16 05:55 - Constitutional Appears: Non-toxic, Chronically Ill - Head Exam Head Exam: NORMOCEPHALIC - Eye Exam Eye Exam: PERRL. absent: Scleral icterus - ENT Exam ENT Exam: Mucous Membranes Dry - Neck Exam Neck Exam: absent: Lymphadenopathy - Respiratory Exam Respiratory Exam: Decreased Breath Sounds - Cardiovascular Exam Cardiovascular Exam: REGULAR RHYTHM - GI/Abdominal Exam GI & Abdominal Exam: Soft. absent: Tenderness - Rectal Exam Rectal Exam: Deferred Assessment and Plan (1) Atrial fibrillation Status: Acute (2) Cellulitis of foot, left Status: Acute (3) HTN (hypertension) Status: Acute (4) History of heart bypass surgery Status: Acute (5) Hyperglycemia without ketosis Status: Acute
--- NOTE | 2016-09-20 18:52 | CP.PCM.PN ---
Subjective - Date & Time of Evaluation Date of Evaluation: 09/20/16 Time of Evaluation: 18:47 - Subjective Subjective: 55 year old male was seen at bedside 7 days s/p left foot I and D. Patient is AAOx3 and is in NAD. Patient denies any acute overnight events and states that he is feeling well. Patient denies any pain in his foot today however is experiencing in his right thigh from the bypass. Patient denies any F/N/V/C/SOB/ CP. No other pedal complaints at this time. Objective - Vital Signs/Intake and Output Vital Signs (last 24 hours): Temp Pulse Resp BP Pulse Ox 98.0 F 70 16 126/69 99 09/20/16 04:00 09/20/16 06:12 09/20/16 06:12 09/20/16 06:12 09/20/16 06:12 Intake and Output: 09/20/16 09/20/16 06:59 18:59 Intake Total 950 1359 Output Total 1150 1575 Balance -200 -216 - Medications Medications: Current Medications Acetaminophen (Tylenol 325mg Tab) 975 mg PO Q8 [facility] Last Admin: 09/20/16 15:04 Dose: 975 mg Amiodarone HCl (Cordarone) 200 mg PO DAILY [facility] Last Admin: 09/20/16 09:31 Dose: 200 mg Aspirin (Ecotrin) 81 mg PO DAILY [facility] Last Admin: 09/20/16 09:31 Dose: 81 mg Dabigatran (Pradaxa) 150 mg PO BID [facility] Last Admin: 09/15/16 17:52 Dose: 150 mg Ezetimibe (Zetia) 10 mg PO DAILY [facility] Last Admin: 09/20/16 09:29 Dose: 10 mg Heparin Sodium (Porcine) (Heparin) 5,000 units SC Q8 [facility] Last Admin: 09/20/16 15:06 Dose: 5,000 units Hydrochlorothiazide (Hydrodiuril) 25 mg PO DAILY [facility] Last Admin: 09/20/16 09:31 Dose: 25 mg Meropenem 1 gm/ Sodium (Chloride) 100 mls @ 100 mls/hr IVPB Q8 [facility] Last Admin: 09/20/16 15:06 Dose: 100 mls/hr Vancomycin HCl 1 gm/ Sodium (Chloride) 250 mls @ 166.7 mls/hr IVPB Q24H [facility] Last Admin: 09/20/16 13:06 Dose: 166.7 mls/hr Sodium Chloride (Sodium Chloride 0.9%) 1,000 mls @ 75 mls/hr IV .[id number] [facility] Last Admin: 09/20/16 13:10 Dose: 75 mls/hr Insulin Aspart (Novolog) 0 unit SC ACHS [facility] PRN Reason: Protocol Last Admin: 09/20/16 17:07 Dose: 8 unit Insulin Aspart (Novolog) 18 unit SC TIDAC [facility] Last Admin: 09/18/16 17:30 Dose: 18 unit Insulin Glargine (Lantus) 30 unit SC HS [facility] Last Admin: 09/18/16 22:00 Dose: Not Given Losartan Potassium (Cozaar) 100 mg PO DAILY [facility] Last Admin: 09/20/16 11:25 Dose: 100 mg Ondansetron HCl (Zofran Inj) 4 mg IVP Q4 PRN PRN Reason: Nausea/Vomiting Oxycodone/Acetaminophen (Percocet 5/325 Mg Tab) 1 tab PO Q4H PRN PRN Reason: Pain, severe (8-10) Stop: 09/23/16 09:08 Last Admin: 09/20/16 09:27 Dose: 1 tab Quetiapine Fumarate (Seroquel) 200 mg PO [facility] Last Admin: 09/19/16 22:43 Dose: 200 mg Saccharomyces Boulardii (Florastor) 250 mg PO BID [facility] Last Admin: 09/20/16 17:10 Dose: 250 mg Tramadol HCl (Ultram) 25 mg PO TID PRN PRN Reason: Pain, moderate (4-7) Last Admin: 09/20/16 12:50 Dose: 25 mg Venlafaxine HCl (Effexor Xr) 150 mg PO DAILY [facility] Last Admin: 09/20/16 09:30 Dose: 150 mg - Labs Labs: 09/20/16 05:55 09/20/16 05:55 PT 12.6 SECONDS (9.7-12.2) H 09/20/16 05:55 INR 1.1 09/20/16 05:55 APTT 26 SECONDS (21-34) D 09/20/16 05:55 - Constitutional Appears: Well, Non-toxic, No Acute Distress - Extremities Exam Additional comments: Left lower extremity focused exam: VASC: DP and PT pulses are non-palpable, TG warm to warm from proximal to distal , CFT < 3 sec to all digits, nonpitting edema noted to dorsum of foot DERM: Open surgical site noted to left foot with granular base, no maceration noted at this visit. Lateral aspect of 5th digit has some necrotic tissue. No malodor noted. No purulent drainage or erythematous border noted at this time. Left fifth digit is less dusky in color since yesterday. NEURO: Protective sensation grossly intact ORTHO: No tenderness on palpation to surgical site and left fifth digit - Neurological Exam Neurological Exam: Alert, Awake, Oriented x3 - Psychiatric Exam Psychiatric exam: Normal Affect, Normal Mood Assessment and Plan - Assessment and Plan (Free Text) Assessment: 55 year old male 7 days s/p left foot incision and drainage secondary to cellulitis with underlying abscess Plan: Patient seen and evaluated at bedside Patient discussed in detail with attending Dr. Jo Charts, labs and vitals reviewed (afebrile, WBC @ 15.4) Surgical site to left foot cleansed with normal sterile saline Site dressed with 4x4, ABD, Kerlix Continue IV abx per ID Podiatry will continue to follow while patient in house
[2016-09-20] MEDS: (Lantus) Insulin Glargine, Recombinant SC SCH (22:36)
[2016-09-21] MEDS: Meropenem 1 GM in Sodium Chloride 0.9% 100 ML IVPB SCH ×3 (05:30→21:22)
[2016-09-21 06:32] LABS: BASO # 0.1 K/uL (0.0-0.2); BASO % 0.4 % (0.0-2.0); EOS # 0.1 K/uL (0.0-0.7); EOS % 1.1 % (0.0-4.0); HEMATOCRIT 30.3 % (35.0-51.0); LYMPH # 1.8 K/uL (1.0-4.3); LYMPH % 14.3 % (20.0-40.0); MEAN CELL VOLUME 85.6 fL (80.0-94.0); MEAN CORPUSCULAR HEMOGLOBIN 28.4 pg (27.0-31.0); MEAN CORPUSCULAR HGB CONC 33.1 g/dL (33.0-37.0); MEAN PLATELET VOLUME 7.4 fL (7.2-11.7); MONO # 1.4 K/uL (0.0-0.8); MONO % 10.8 % (0.0-10.0); RED CELL DISTRIBUTION WIDTH 14.1 % (11.5-14.5); WHITE BLOOD COUNT 12.7 K/uL (4.8-10.8)
[2016-09-21 06:49] LABS: ALKALINE PHOSPHATASE 79 U/L (38-126); ALT/SGPT 52 U/L (21-72); AST/SGOT 24 U/L (17-59); BILIRUBIN,TOTAL 0.4 mg/dL (0.2-1.3); BLOOD UREA NITROGEN 9 mg/dL (9-20); CALCIUM 8.5 mg/dl (8.6-10.4); CARBON DIOXIDE 32 mmol/L (22-30); CHLORIDE 91 mmol/L (98-107); GFR AFRICAN-AMERICAN > 60; GLUCOSE,RANDOM 242 mg/dL (75-110); PHOSPHOROUS 2.7 mg/dL (2.5-4.5); POTASSIUM 3.7 mmol/L (3.6-5.2); SODIUM 131 mmol/L (132-148); TOTAL PROTEIN 6.2 g/dL (6.3-8.3)
[2016-09-21] MEDS: (Novolog) Insulin Aspart, Recombinant 100 u/ml 10 ml vial SC SCH ×8 (08:00→21:26)
--- NOTE | 2016-09-21 08:25 | CP.PCM.PN ---
Subjective - Date & Time of Evaluation Date of Evaluation: 09/21/16 Time of Evaluation: 08:00 - Subjective Subjective: No acute events overnight per staff. He denied having fever or chills. The patient reported mild pain of thigh area. He was able to move his toes. Denied difficulty breathing, denied chest pain, denied abdominal pain, and denied Hgb is stable, he previously had 2 units of PRBC given after surgery. Remains on IV abx, Meropenom and Vancomycin Objective - Vital Signs/Intake and Output Vital Signs (last 24 hours): Temp Pulse Resp BP Pulse Ox 98.7 F 85 18 101/57 L 98 09/21/16 06:00 09/21/16 06:00 09/21/16 06:00 09/21/16 06:00 09/21/16 06:00 Intake and Output: 09/21/16 09/21/16 06:59 18:59 Intake Total 950 75 Output Total 3025 250 Balance -2075 -175 - Medications Medications: Current Medications Amiodarone HCl (Cordarone) 200 mg PO DAILY [facility] Last Admin: 09/20/16 09:31 Dose: 200 mg Aspirin (Ecotrin) 81 mg PO DAILY [facility] Last Admin: 09/20/16 09:31 Dose: 81 mg Dabigatran (Pradaxa) 150 mg PO BID [facility] Last Admin: 09/15/16 17:52 Dose: 150 mg Ezetimibe (Zetia) 10 mg PO DAILY [facility] Last Admin: 09/20/16 09:29 Dose: 10 mg Heparin Sodium (Porcine) (Heparin) 5,000 units SC Q8 [facility] Last Admin: 09/21/16 05:29 Dose: 5,000 units Hydrochlorothiazide (Hydrodiuril) 25 mg PO DAILY [facility] Last Admin: 09/20/16 09:31 Dose: 25 mg Meropenem 1 gm/ Sodium (Chloride) 100 mls @ 100 mls/hr IVPB Q8 [facility] Last Admin: 09/21/16 05:30 Dose: 100 mls/hr Vancomycin HCl 1 gm/ Sodium (Chloride) 250 mls @ 166.7 mls/hr IVPB Q24H [facility] Last Admin: 09/20/16 13:06 Dose: 166.7 mls/hr Sodium Chloride (Sodium Chloride 0.9%) 1,000 mls @ 75 mls/hr IV .[id number] [facility] Last Admin: 09/20/16 23:40 Dose: 75 mls/hr Insulin Aspart (Novolog) 0 unit SC ACHS [facility] PRN Reason: Protocol Last Admin: 09/20/16 22:00 Dose: Not Given Insulin Aspart (Novolog) 18 unit SC TIDAC [facility] Last Admin: 09/18/16 17:30 Dose: 18 unit Insulin Glargine (Lantus) 30 unit SC [facility] Last Admin: 09/20/16 22:36 Dose: 30 unit Losartan Potassium (Cozaar) 100 mg PO DAILY [facility] Last Admin: 09/20/16 11:25 Dose: 100 mg Ondansetron HCl (Zofran Inj) 4 mg IVP Q4 PRN PRN Reason: Nausea/Vomiting Oxycodone/Acetaminophen (Percocet 5/325 Mg Tab) 1 tab PO Q4H PRN PRN Reason: Pain, severe (8-10) Stop: 09/23/16 09:08 Last Admin: 09/20/16 09:27 Dose: 1 tab Quetiapine Fumarate (Seroquel) 200 mg PO [facility] Last Admin: 09/20/16 22:36 Dose: 200 mg Saccharomyces Boulardii (Florastor) 250 mg PO BID [facility] Last Admin: 09/20/16 17:10 Dose: 250 mg Tramadol HCl (Ultram) 25 mg PO TID PRN PRN Reason: Pain, moderate (4-7) Last Admin: 09/20/16 12:50 Dose: 25 mg Venlafaxine HCl (Effexor Xr) 150 mg PO DAILY [facility] Last Admin: 09/20/16 09:30 Dose: 150 mg - Labs Labs: 09/21/16 06:23 09/21/16 06:23 PT 12.6 SECONDS (9.7-12.2) H 09/20/16 05:55 INR 1.1 09/20/16 05:55 APTT 26 SECONDS (21-34) D 09/20/16 05:55 - Constitutional Appears: Well, Non-toxic - Head Exam Head Exam: NORMAL INSPECTION - Eye Exam Eye Exam: EOMI, Normal appearance - ENT Exam ENT Exam: Mucous Membranes Moist - Respiratory Exam Respiratory Exam: Clear to Ausculation Bilateral, NORMAL BREATHING PATTERN - Cardiovascular Exam Cardiovascular Exam: REGULAR RHYTHM - GI/Abdominal Exam GI & Abdominal Exam: Soft, Normal Bowel Sounds - Extremities Exam Extremities Exam: Tenderness. absent: Joint Swelling, Pedal Edema Additional comments: Able to move toes, the dressing over ankle, thigh and groin area appear dry and clean. - Neurological Exam Neurological Exam: Alert, Awake, Oriented x3 Neuro motor strength exam: Left Upper Extremity: 5, Right Upper Extremity: 5 - Psychiatric Exam Psychiatric exam: Normal Affect, Normal Mood - Skin Skin Exam: Normal Color, Warm Assessment and Plan - Assessment and Plan (Free Text) Assessment: Assessment and Plan: Cellulitis of Left Foot 09/21: POD, stable Hgb and Hct. Per surgery and podiatry no further plans or interventions at this time. Continue on IV abx. Afebrile. Currently pain control with PO Percocet and Tramadol PRN 09/20: Status post POD 1 of Femoral Popliteal bypass, currently on IV Vancomycin and also IV Meropenom Perococet PRN and Tramadol PRN for pain Left foot xray - no osteo Podiatry recommendations: applied betadine, DSD to left foot, continue current regimen BC- no growth Bone Scan of Left Foot (patient refuses to have MRI done due to claustrophobia) : NO OSTEOMYELITIS Wound Culture: grew Proteus + ID consulted for persistent leukocytosis - Dr. Asher- help appreciated - IV antibiotics switched to Meropenem 1gram IVP Q8H Patient is medically stable for I&D tomorrow. Pt has a Detsky score of 5, Class 1 low risk of perioperative cardiovascular event. Podiatry and Anesthesia to explain the risks and benefits of procedure. S/P I/D - podiatry taking care of dressing changes S/P Aortofemoral angiogram. selective catherization of left femoral artery. balloon angioplasty of fact checker/ profonda with 6 and 5 balloons. angiojet mechanical thrombolysis of left fact checker. with tpa. perclose right groin Diabetes Mellitus Assessment and Plan: 09/21: Accucheks are 230s to 310s. Will increase Lantus to 35 and resume Novolog to 18 TID Accuchecks HbgA1c = 13.3 Will hold home meds: Januvia 100mg QHS and Metformin 1000mg PO BID, and Prandin 1mg PO BID (confirmed with Pharmacy). According to the patient he takes Lantus 20mg SC BID (however the pharmacy did not confirm this). DM counseling ordered PVD Assessment and Plan: 09/21: 09/20: S/P Fem pop Arterial PVR/ SEG B/L: mild to moderate BL arterial insufficiency beginning at SFA left with more disease than right, L> R. Surgery Consulted- Dr. Sanders - help appreciated CT Ab ileofem angiography: BL excessive atherosclertic disease. B/L SFA multifocal mild to moderate high grade stenosis. S/P Aortofemoral angiogram. selective catherization of left femoral artery. balloon angioplasty of fact checker/ profonda with 6 and 5 balloons. angiojet mechanical thrombolysis of left fact checker. with tpa. perclose right groin Vein mapping today of LLE. History of quadriple vessel bypass surgery Assessment and Plan: 09/20: Now restarted on Pradaxa, continue cholesterol medications. Currently asymptomatic Continue Pradaxa, Cozaar, Zetia - pradaxa currently on hold due to anticipating surgical procedures. Started on ASA daily Lipid Panel - WNL Atrial fibrillation Assessment and Plan: 09/20: Now restarted on Pradaxa Amiodarone daily TSH, T4 - WNL Currently rate controlled and asymptomatic Cont to monitor HTN (hypertension) Assessment and Plan: Continue Cozaar and HCTZ Patient normally takes Diovan at home but non-formulary here. Prophylactic measure Assessment and Plan: DVT VTE c/i since patient is already on anticoagulation GI prophylaxis not indicated at this time PT evaluation- recommend TCU Disposition: Patient will be discharged to [facility] once medically stable.
--- NOTE | 2016-09-21 08:44 | CP.PCM.PN ---
<Frdeerick Jo - Last Filed: 09/21/16 08:41> Subjective - Date & Time of Evaluation Date of Evaluation: 09/21/16 Time of Evaluation: 08:35 - Subjective Subjective: pt seen for wound left dorsum foot s/p debridement .Pt is s/p bypass as per . Pt seen with Resident . Objective - Vital Signs/Intake and Output Vital Signs (last 24 hours): Temp Pulse Resp BP Pulse Ox 98.7 F 85 18 101/57 L 98 09/21/16 06:00 09/21/16 06:00 09/21/16 06:00 09/21/16 06:00 09/21/16 06:00 Intake and Output: 09/21/16 09/21/16 06:59 18:59 Intake Total 950 75 Output Total 3025 250 Balance -1992 -175 - Medications Medications: Current Medications Amiodarone HCl (Cordarone) 200 mg PO DAILY [facility] Last Admin: 09/20/16 09:31 Dose: 200 mg Aspirin (Ecotrin) 81 mg PO DAILY [facility] Last Admin: 09/20/16 09:31 Dose: 81 mg Dabigatran (Pradaxa) 150 mg PO BID [facility] Last Admin: 09/15/16 17:52 Dose: 150 mg Ezetimibe (Zetia) 10 mg PO DAILY [facility] Last Admin: 09/20/16 09:29 Dose: 10 mg Heparin Sodium (Porcine) (Heparin) 5,000 units SC Q8 [facility] Last Admin: 09/21/16 05:29 Dose: 5,000 units Hydrochlorothiazide (Hydrodiuril) 25 mg PO DAILY [facility] Last Admin: 09/20/16 09:31 Dose: 25 mg Meropenem 1 gm/ Sodium (Chloride) 100 mls @ 100 mls/hr IVPB Q8 [facility] Last Admin: 09/21/16 05:30 Dose: 100 mls/hr Vancomycin HCl 1 gm/ Sodium (Chloride) 250 mls @ 166.7 mls/hr IVPB Q24H [facility] Last Admin: 09/20/16 13:06 Dose: 166.7 mls/hr Sodium Chloride (Sodium Chloride 0.9%) 1,000 mls @ 75 mls/hr IV .[id number] [facility] Last Admin: 09/20/16 23:40 Dose: 75 mls/hr Insulin Aspart (Novolog) 0 unit SC ACHS [facility] PRN Reason: Protocol Last Admin: 09/21/16 08:25 Dose: 4 unit Insulin Aspart (Novolog) 18 unit SC TIDAC [facility] Last Admin: 09/18/16 17:30 Dose: 18 unit Insulin Glargine (Lantus) 35 unit SC HS [facility] Losartan Potassium (Cozaar) 100 mg PO DAILY [facility] Last Admin: 09/20/16 11:25 Dose: 100 mg Ondansetron HCl (Zofran Inj) 4 mg IVP Q4 PRN PRN Reason: Nausea/Vomiting Oxycodone/Acetaminophen (Percocet 5/325 Mg Tab) 1 tab PO Q4H PRN PRN Reason: Pain, severe (8-10) Stop: 09/23/16 09:08 Last Admin: 09/20/16 09:27 Dose: 1 tab Quetiapine Fumarate (Seroquel) 200 mg PO HS [facility] Last Admin: 09/20/16 22:36 Dose: 200 mg Saccharomyces Boulardii (Florastor) 250 mg PO BID [facility] Last Admin: 09/20/16 17:10 Dose: 250 mg Tramadol HCl (Ultram) 25 mg PO TID PRN PRN Reason: Pain, moderate (4-7) Last Admin: 09/20/16 12:50 Dose: 25 mg Venlafaxine HCl (Effexor Xr) 150 mg PO DAILY [facility] Last Admin: 09/20/16 09:30 Dose: 150 mg - Labs Labs: 09/21/16 06:23 09/21/16 06:23 PT 12.6 SECONDS (9.7-12.2) H 09/20/16 05:55 INR 1.1 09/20/16 05:55 APTT 26 SECONDS (21-34) D 09/20/16 05:55 <KaylaBrendon Autumn - Last Filed: 09/21/16 09:34> Subjective - Subjective Subjective: 55 year old male was seen at bedside 8 days s/p left foot I and D. Patient is AAOx3 and is in NAD. Patient denies any acute overnight events. Patient denies reports some left foot pain and right thigh from the bypass. Patient denies any F/N/V/C/SOB/CP. No other pedal complaints at this time. Objective - Vital Signs/Intake and Output Vital Signs (last 24 hours): Temp Pulse Resp BP Pulse Ox 98.7 F 85 18 101/57 L 98 09/21/16 06:00 09/21/16 06:00 09/21/16 06:00 09/21/16 06:00 09/21/16 06:00 Intake and Output: 09/21/16 09/21/16 06:59 18:59 Intake Total 950 225 Output Total 3025 450 Balance -2075 -225 - Medications Medications: Current Medications Amiodarone HCl (Cordarone) 200 mg PO DAILY [facility] Last Admin: 09/20/16 09:31 Dose: 200 mg Aspirin (Ecotrin) 81 mg PO DAILY [facility] Last Admin: 09/20/16 09:31 Dose: 81 mg Dabigatran (Pradaxa) 150 mg PO BID [facility] Last Admin: 09/15/16 17:52 Dose: 150 mg Ezetimibe (Zetia) 10 mg PO DAILY [facility] Last Admin: 09/20/16 09:29 Dose: 10 mg Heparin Sodium (Porcine) (Heparin) 5,000 units SC Q8 [facility] Last Admin: 09/21/16 05:29 Dose: 5,000 units Hydrochlorothiazide (Hydrodiuril) 25 mg PO DAILY [facility] Last Admin: 09/20/16 09:31 Dose: 25 mg Meropenem 1 gm/ Sodium (Chloride) 100 mls @ 100 mls/hr IVPB Q8 [facility] Last Admin: 09/21/16 05:30 Dose: 100 mls/hr Vancomycin HCl 1 gm/ Sodium (Chloride) 250 mls @ 166.7 mls/hr IVPB Q24H [facility] Last Admin: 09/20/16 13:06 Dose: 166.7 mls/hr Sodium Chloride (Sodium Chloride 0.9%) 1,000 mls @ 75 mls/hr IV .[id number] [facility] Last Admin: 09/20/16 23:40 Dose: 75 mls/hr Insulin Aspart (Novolog) 0 unit SC ACHS [facility] PRN Reason: Protocol Last Admin: 09/21/16 08:25 Dose: 4 unit Insulin Aspart (Novolog) 18 unit SC TIDAC [facility] Last Admin: 09/18/16 17:30 Dose: 18 unit Insulin Glargine (Lantus) 35 unit SC HS [facility] Losartan Potassium (Cozaar) 100 mg PO DAILY [facility] Last Admin: 09/20/16 11:25 Dose: 100 mg Ondansetron HCl (Zofran Inj) 4 mg IVP Q4 PRN PRN Reason: Nausea/Vomiting Oxycodone/Acetaminophen (Percocet 5/325 Mg Tab) 1 tab PO Q4H PRN PRN Reason: Pain, severe (8-10) Stop: 09/23/16 09:08 Last Admin: 09/20/16 09:27 Dose: 1 tab Quetiapine Fumarate (Seroquel) 200 mg PO HS [facility] Last Admin: 09/20/16 22:36 Dose: 200 mg Saccharomyces Boulardii (Florastor) 250 mg PO BID [facility] Last Admin: 09/20/16 17:10 Dose: 250 mg Tramadol HCl (Ultram) 25 mg PO TID PRN PRN Reason: Pain, moderate (4-7) Last Admin: 09/20/16 12:50 Dose: 25 mg Venlafaxine HCl (Effexor Xr) 150 mg PO DAILY [facility] Last Admin: 09/20/16 09:30 Dose: 150 mg - Labs Labs: 09/21/16 06:23 09/21/16 06:23 PT 12.6 SECONDS (9.7-12.2) H 09/20/16 05:55 INR 1.1 09/20/16 05:55 APTT 26 SECONDS (21-34) D 09/20/16 05:55 - Constitutional Appears: Well, Non-toxic, No Acute Distress - Extremities Exam Additional comments: Left lower extremity focused exam: VASC: DP and PT pulses are non-palpable, TG warm to warm from proximal to distal , CFT < 3 sec to all digits, nonpitting edema noted to dorsum of foot DERM: Open surgical site noted to left foot with granular base, no maceration noted at this visit. Lateral aspect of 5th digit has some necrotic tissue. No malodor noted. No purulent drainage noted or erythematous border noted at this time. Hyperpigmentated noted to skin surround left 5th digit. Left fifth digit is less dusky in color since the previous encounters, appears to be improving. NEURO: Protective sensation grossly intact ORTHO: Tenderness on palpation to surgical site and left fifth digit - Neurological Exam Neurological Exam: Alert, Awake, Oriented x3 - Psychiatric Exam Psychiatric exam: Normal Affect, Normal Mood Assessment and Plan - Assessment and Plan (Free Text) Assessment: 55 year old male with left foot ulceration 8 days s/p left foot incision and drainage secondary to cellulitis with underlying abscess Plan: Patient seen and evaluated at bedside with attending Dr. Jo Charts, labs and vitals reviewed - afebrile, WBC is trending down 12.7 today ( WBC is 15.4 on 09/20/16) Surgical site to left foot cleansed with normal sterile saline Site dressed with xeroform, 4x4, ABD, and loose Kerlix Bactroban ordered- will apply with Bactroban with dressing change Patient is less dusky from previous encounters; patient is improving s/p bypass Continue IV abx per ID Podiatry will continue to follow while patient in house Podiatry will hold any surgery at this time
[2016-09-21] MEDS: Oxycodone/Acetaminophen 5/325 mg Tab PO PRN ×3 (10:30→21:28)
[2016-09-21] MEDS: Venlafaxine 150 mg ER Cap PO SCH (10:37)
[2016-09-21] MEDS: Saccharomyces Boulardi 250 mg Cap PO SCH ×2 (10:39→19:17)
[2016-09-21] MEDS: Sodium Chloride 0.9% 1,000 ML IV SCH (13:47)
--- NOTE | 2016-09-21 18:56 | CP.PCM.PN ---
Subjective - Date & Time of Evaluation Date of Evaluation: 09/21/16 Time of Evaluation: 08:40 - Subjective Subjective: Patient seen and examined. No acute events over night. No complaints. DP/PT pulses + on doppler. Tolerating diet. Objective - Vital Signs/Intake and Output Vital Signs (last 24 hours): Temp Pulse Resp BP Pulse Ox 97.8 F 87 19 118/74 99 09/21/16 18:00 09/21/16 18:00 09/21/16 18:00 09/21/16 18:00 09/21/16 18:00 Intake and Output: 09/21/16 09/21/16 06:59 18:59 Intake Total 950 3245 Output Total 3025 2600 Balance -2075 645 - Medications Medications: Current Medications Amiodarone HCl (Cordarone) 200 mg PO DAILY [facility] Last Admin: 09/21/16 10:35 Dose: 200 mg Aspirin (Ecotrin) 81 mg PO DAILY [facility] Last Admin: 09/21/16 10:35 Dose: 81 mg Dabigatran (Pradaxa) 150 mg PO BID [facility] Last Admin: 09/21/16 10:36 Dose: 150 mg Ezetimibe (Zetia) 10 mg PO DAILY [facility] Last Admin: 09/21/16 10:47 Dose: 10 mg Heparin Sodium (Porcine) (Heparin) 5,000 units SC Q8 [facility] Last Admin: 09/21/16 13:53 Dose: 5,000 units Hydrochlorothiazide (Hydrodiuril) 25 mg PO DAILY [facility] Last Admin: 09/21/16 10:31 Dose: 25 mg Meropenem 1 gm/ Sodium (Chloride) 100 mls @ 100 mls/hr IVPB Q8 [facility] Last Admin: 09/21/16 13:49 Dose: 100 mls/hr Vancomycin HCl 1 gm/ Sodium (Chloride) 250 mls @ 166.7 mls/hr IVPB Q24H [facility] Last Admin: 09/21/16 12:30 Dose: 166.7 mls/hr Sodium Chloride (Sodium Chloride 0.9%) 1,000 mls @ 75 mls/hr IV .[id number] [facility] Last Admin: 09/21/16 13:47 Dose: 75 mls/hr Insulin Aspart (Novolog) 0 unit SC ACHS [facility] PRN Reason: Protocol Last Admin: 08/12/17 17:15 Dose: 4 unit Insulin Aspart (Novolog) 18 unit SC TIDAC [facility] Last Admin: 09/21/16 17:13 Dose: 18 unit Insulin Glargine (Lantus) 35 unit SC [facility] Losartan Potassium (Cozaar) 100 mg PO DAILY [facility] Last Admin: 09/21/16 10:34 Dose: 100 mg Mupirocin (Bactroban Ointment) 0 gm TOP BID [facility] Last Admin: 09/21/16 13:47 Dose: Not Given Ondansetron HCl (Zofran Inj) 4 mg IVP Q4 PRN PRN Reason: Nausea/Vomiting Oxycodone/Acetaminophen (Percocet 5/325 Mg Tab) 1 tab PO Q4H PRN PRN Reason: Pain, severe (8-10) Stop: 09/23/16 09:08 Last Admin: 09/21/16 17:17 Dose: 1 tab Quetiapine Fumarate (Seroquel) 200 mg PO [facility] Last Admin: 09/20/16 22:36 Dose: 200 mg Saccharomyces Boulardii (Florastor) 250 mg PO BID [facility] Last Admin: 09/21/16 10:39 Dose: 250 mg Tramadol HCl (Ultram) 25 mg PO TID PRN PRN Reason: Pain, moderate (4-7) Last Admin: 09/20/16 12:50 Dose: 25 mg Venlafaxine HCl (Effexor Xr) 150 mg PO DAILY [facility] Last Admin: 09/21/16 10:37 Dose: 150 mg - Labs Labs: 09/21/16 06:23 09/21/16 06:23 PT 12.6 SECONDS (9.7-12.2) H 09/20/16 05:55 INR 1.1 09/20/16 05:55 APTT 26 SECONDS (21-34) D 09/20/16 05:55 - Constitutional Appears: No Acute Distress - Head Exam Head Exam: NORMOCEPHALIC - Eye Exam Eye Exam: Normal appearance - ENT Exam ENT Exam: Mucous Membranes Moist - Respiratory Exam Respiratory Exam: NORMAL BREATHING PATTERN - Cardiovascular Exam Cardiovascular Exam: +S1, +S2 - GI/Abdominal Exam GI & Abdominal Exam: Soft. absent: Tenderness - Extremities Exam Extremities Exam: absent: Pedal Edema - Neurological Exam Neurological Exam: Alert, Awake, Oriented x3 - Psychiatric Exam Psychiatric exam: Normal Mood - Skin Skin Exam: Dry, Warm Assessment and Plan - Assessment and Plan (Free Text) Assessment: 55M w/ PVD s/p Left Femoral popliteal bypass POD2 - continue to monitor pressure and pulses - DVT ppx - pain control - OOB -Physical Therapy - medical management -Patient to be transferred to [facility] TCU - D/W Dr. Marilyn Morris PGY-2
[2016-09-21] MEDS: (Lantus) Insulin Glargine, Recombinant SC SCH (21:19)
[2016-09-22] MEDS: Sodium Chloride 0.9% 1,000 ML IV SCH (02:20)
[2016-09-22] MEDS: Meropenem 1 GM in Sodium Chloride 0.9% 100 ML IVPB SCH ×3 (05:14→21:45)
[2016-09-22 06:43] LABS: BASO # 0.1 K/uL (0.0-0.2); BASO % 0.6 % (0.0-2.0); EOS # 0.1 K/uL (0.0-0.7); EOS % 1.2 % (0.0-4.0); HEMATOCRIT 29.3 % (35.0-51.0); LYMPH # 2.1 K/uL (1.0-4.3); LYMPH % 18.9 % (20.0-40.0); MEAN CELL VOLUME 85.5 fL (80.0-94.0); MEAN CORPUSCULAR HEMOGLOBIN 28.2 pg (27.0-31.0); MEAN PLATELET VOLUME 7.5 fL (7.2-11.7); MONO % 9.2 % (0.0-10.0); NRBC % 0.1 % (0.0-2.0); RED CELL DISTRIBUTION WIDTH 13.9 % (11.5-14.5); WHITE BLOOD COUNT 11.3 K/uL (4.8-10.8)
[2016-09-22 06:52] LABS: ALKALINE PHOSPHATASE 72 U/L (38-126); ALT/SGPT 44 U/L (21-72); AST/SGOT 17 U/L (17-59); BILIRUBIN,TOTAL 0.4 mg/dL (0.2-1.3); BLOOD UREA NITROGEN 11 mg/dL (9-20); CALCIUM 8.8 mg/dl (8.6-10.4); CARBON DIOXIDE 34 mmol/L (22-30); CHLORIDE 89 mmol/L (98-107); GFR AFRICAN-AMERICAN > 60; GLUCOSE,RANDOM 159 mg/dL (75-110); PHOSPHOROUS 2.7 mg/dL (2.5-4.5); POTASSIUM 3.4 mmol/L (3.6-5.2); SODIUM 131 mmol/L (132-148); TOTAL PROTEIN 6.2 g/dL (6.3-8.3)
[2016-09-22] MEDS: (Novolog) Insulin Aspart, Recombinant 100 u/ml 10 ml vial SC SCH ×7 (07:46→22:00)
[2016-09-22] MEDS: Oxycodone/Acetaminophen 5/325 mg Tab PO PRN ×3 (07:49→20:38)
--- NOTE | 2016-09-22 09:23 | CP.PCM.PN ---
<Steven Lyn - Last Filed: 09/22/16 09:36> Subjective - Date & Time of Evaluation Date of Evaluation: 09/22/16 Time of Evaluation: 09:21 - Subjective Subjective: PGY1 Medicine Note for Dr. Nova Patient seen and examined at beside this morning. Patient reports some moderate pain in his left thigh, but states is has no other complaints beside that. He is in good spirits. Denies f/c, n/v, sob or cp. Patient still on IV abx, meropenem and vanco. Objective - Vital Signs/Intake and Output Vital Signs (last 24 hours): Temp Pulse Resp BP Pulse Ox 97.9 F 85 18 108/60 95 09/22/16 04:00 09/22/16 07:35 09/22/16 04:00 09/22/16 04:00 09/22/16 04:00 Intake and Output: 09/22/16 09/22/16 06:59 18:59 Intake Total 1495 Output Total 2250 Balance -755 - Medications Medications: Current Medications Amiodarone HCl (Cordarone) 200 mg PO DAILY [facility] Last Admin: 09/21/16 10:35 Dose: 200 mg Aspirin (Ecotrin) 81 mg PO DAILY [facility] Last Admin: 09/21/16 10:35 Dose: 81 mg Dabigatran (Pradaxa) 150 mg PO BID [facility] Last Admin: 09/21/16 10:36 Dose: 150 mg Ezetimibe (Zetia) 10 mg PO DAILY [facility] Last Admin: 09/21/16 10:47 Dose: 10 mg Heparin Sodium (Porcine) (Heparin) 5,000 units SC Q8 [facility] Last Admin: 09/22/16 06:04 Dose: 5,000 units Hydrochlorothiazide (Hydrodiuril) 25 mg PO DAILY [facility] Last Admin: 09/21/16 10:31 Dose: 25 mg Meropenem 1 gm/ Sodium (Chloride) 100 mls @ 100 mls/hr IVPB Q8 [facility] Last Admin: 09/22/16 05:14 Dose: 100 mls/hr Vancomycin HCl 1 gm/ Sodium (Chloride) 250 mls @ 166.7 mls/hr IVPB Q24H [facility] Last Admin: 09/21/16 12:30 Dose: 166.7 mls/hr Sodium Chloride (Sodium Chloride 0.9%) 1,000 mls @ 75 mls/hr IV .[id number] [facility] Last Admin: 09/22/16 02:20 Dose: Not Given Insulin Aspart (Novolog) 0 unit SC ACHS [facility] PRN Reason: Protocol Last Admin: 09/22/16 07:46 Dose: 2 unit Insulin Aspart (Novolog) 18 unit SC TIDAC [facility] Last Admin: 09/22/16 07:46 Dose: 18 unit Insulin Glargine (Lantus) 35 unit SC HS [facility] Last Admin: 09/21/16 21:19 Dose: 35 u Losartan Potassium (Cozaar) 100 mg PO DAILY [facility] Last Admin: 09/21/16 10:34 Dose: 100 mg Mupirocin (Bactroban Ointment) 0 gm TOP BID [facility] Last Admin: 09/21/16 19:16 Dose: Not Given Ondansetron HCl (Zofran Inj) 4 mg IVP Q4 PRN PRN Reason: Nausea/Vomiting Oxycodone/Acetaminophen (Percocet 5/325 Mg Tab) 1 tab PO Q4H PRN PRN Reason: Pain, severe (8-10) Stop: 09/23/16 09:08 Last Admin: 09/22/16 07:49 Dose: 1 tab Potassium Chloride (K-Dur 20 Meq Er Tab) 40 meq PO ONCE ONE Stop: 09/22/16 10:01 Quetiapine Fumarate (Seroquel) 200 mg PO [facility] Last Admin: 09/21/16 21:18 Dose: 200 mg Saccharomyces Boulardii (Florastor) 250 mg PO BID [facility] Last Admin: 09/21/16 19:17 Dose: Not Given Tramadol HCl (Ultram) 25 mg PO TID PRN PRN Reason: Pain, moderate (4-7) Last Admin: 09/20/16 12:50 Dose: 25 mg Venlafaxine HCl (Effexor Xr) 150 mg PO DAILY [facility] Last Admin: 09/21/16 10:37 Dose: 150 mg - Labs Labs: 09/22/16 06:32 09/22/16 06:32 PT 12.6 SECONDS (9.7-12.2) H 09/20/16 05:55 INR 1.1 09/20/16 05:55 APTT 26 SECONDS (21-34) D 09/20/16 05:55 - Constitutional Appears: Non-toxic, No Acute Distress - Head Exam Head Exam: ATRAUMATIC, NORMOCEPHALIC - Eye Exam Eye Exam: EOMI, Normal appearance - ENT Exam ENT Exam: Mucous Membranes Moist - Respiratory Exam Respiratory Exam: Clear to Ausculation Bilateral, NORMAL BREATHING PATTERN. absent: Accessory Muscle Use, Respiratory Distress - Cardiovascular Exam Cardiovascular Exam: REGULAR RHYTHM, +S1, +S2 - GI/Abdominal Exam GI & Abdominal Exam: Soft, Normal Bowel Sounds. absent: Distended, Tenderness - Extremities Exam Extremities Exam: Tenderness. absent: Joint Swelling, Pedal Edema Additional comments: Has ability to wiggle toes. Dressing over ankle, thigh and groin area c/d/i - Neurological Exam Neurological Exam: Alert, Awake, Oriented x3 - Psychiatric Exam Psychiatric exam: Normal Affect, Normal Mood - Skin Skin Exam: Dry, Normal Color, Warm Assessment and Plan - Assessment and Plan (Free Text) Plan: Cellulitis of Left Foot 09/22: POD3, Hgb stable at 9.7 from 10.0, continue to monitor. Surgery has cleared for transfer to TCU. Continue on IV Vancomycin and IV Meropenom for total of 7-10 days. 09/21: POD2, stable Hgb and Hct. Per surgery and podiatry no further plans or interventions at this time. Continue on IV abx. Afebrile. Currently pain control with PO Percocet and Tramadol PRN 09/20: Status post POD 1 of Femoral Popliteal bypass, currently on IV Vancomycin and also IV Meropenom Perococet PRN and Tramadol PRN for pain Left foot xray - no osteo Podiatry recommendations: applied betadine, DSD to left foot, continue current regimen BC- no growth Bone Scan of Left Foot (patient refuses to have MRI done due to claustrophobia) : NO OSTEOMYELITIS Wound Culture: grew Proteus + ID consulted for persistent leukocytosis - Dr. Asher- help appreciated - IV antibiotics switched to Meropenem 1gram IVP Q8H Patient is medically stable for I&D tomorrow. Pt has a Detsky score of 5, Class 1 low risk of perioperative cardiovascular event. Podiatry and Anesthesia to explain the risks and benefits of procedure. S/P I/D - podiatry taking care of dressing changes S/P Aortofemoral angiogram. selective catherization of left femoral artery. balloon angioplasty of senior mobile developer/ profonda with 6 and 5 balloons. angiojet mechanical thrombolysis of left senior mobile developer. with tpa. perclose right groin Diabetes Mellitus Assessment and Plan: 09/21: Accucheks are 150s to 200. Will increase Lantus to 35 and resume Novolog to 18 TID Accuchecks HbgA1c = 13.3 Will hold home meds: Januvia 100mg QHS and Metformin 1000mg PO BID, and Prandin 1mg PO BID (confirmed with Pharmacy). According to the patient he takes Lantus 20mg SC BID (however the pharmacy did not confirm this). DM counseling ordered PVD Assessment and Plan: 09/20: S/P Fem pop Arterial PVR/ SEG B/L: mild to moderate BL arterial insufficiency beginning at SFA left with more disease than right, L> R. Surgery Consulted- Dr. Sanders - help appreciated CT Ab ileofem angiography: BL excessive atherosclertic disease. B/L SFA multifocal mild to moderate high grade stenosis. S/P Aortofemoral angiogram. selective catherization of left femoral artery. balloon angioplasty of senior mobile developer/ profonda with 6 and 5 balloons. angiojet mechanical thrombolysis of left senior mobile developer. with tpa. perclose right groin Vein mapping today of LLE. History of quadriple vessel bypass surgery Assessment and Plan: 09/20: Now restarted on Pradaxa, continue cholesterol medications. Currently asymptomatic Continue Pradaxa, Cozaar, Zetia - pradaxa currently on hold due to anticipating surgical procedures. Started on ASA daily Lipid Panel - WNL Atrial fibrillation Assessment and Plan: 09/20: Now restarted on Pradaxa Amiodarone daily TSH, T4 - WNL Currently rate controlled and asymptomatic Cont to monitor HTN (hypertension) Assessment and Plan: Continue Cozaar and HCTZ Patient normally takes Diovan at home but non-formulary here. Prophylactic measure Assessment and Plan: DVT VTE c/i since patient is already on anticoagulation GI prophylaxis not indicated at this time PT evaluation- recommend TCU Disposition: Patient will be discharged to [place] [facility] once medically stable. Continue on IV Vancomycin and IV Meropenom for total of 7-10 days[address] Will discuss with Dr. Rohini Lyn PGY1 <Nova,Peter H - Last Filed: 09/22/16 11:39> Objective - Vital Signs/Intake and Output Vital Signs (last 24 hours): Temp Pulse Resp BP Pulse Ox 97.9 F 85 18 108/60 95 09/22/16 08:00 09/22/16 07:35 09/22/16 04:00 09/22/16 04:00 09/22/16 04:00 Intake and Output: 09/22/16 09/22/16 06:59 18:59 Intake Total 1495 Output Total 2250 Balance -755 - Medications Medications: Current Medications Amiodarone HCl (Cordarone) 200 mg PO DAILY [facility] Last Admin: 09/22/16 09:41 Dose: 200 mg Aspirin (Ecotrin) 81 mg PO DAILY [facility] Last Admin: 09/22/16 09:41 Dose: 81 mg Dabigatran (Pradaxa) 150 mg PO BID [facility] Last Admin: 09/21/16 10:36 Dose: 150 mg Ezetimibe (Zetia) 10 mg PO DAILY [facility] Last Admin: 09/22/16 09:40 Dose: 10 mg Heparin Sodium (Porcine) (Heparin) 5,000 units SC Q8 [facility] Last Admin: 09/22/16 06:04 Dose: 5,000 units Hydrochlorothiazide (Hydrodiuril) 25 mg PO DAILY [facility] Last Admin: 09/22/16 09:43 Dose: 25 mg Meropenem 1 gm/ Sodium (Chloride) 100 mls @ 100 mls/hr IVPB Q8 [facility] Last Admin: 09/22/16 05:14 Dose: 100 mls/hr Vancomycin HCl 1 gm/ Sodium (Chloride) 250 mls @ 166.7 mls/hr IVPB Q24H [facility] Last Admin: 09/21/16 12:30 Dose: 166.7 mls/hr Sodium Chloride (Sodium Chloride 0.9%) 1,000 mls @ 75 mls/hr IV .[id number] [facility] Last Admin: 09/22/16 02:20 Dose: Not Given Insulin Aspart (Novolog) 0 unit SC ACHS [facility] PRN Reason: Protocol Last Admin: 09/22/16 07:46 Dose: 2 unit Insulin Aspart (Novolog) 18 unit SC TIDAC [facility] Last Admin: 09/22/16 07:46 Dose: 18 unit Insulin Glargine (Lantus) 35 unit SC HS [facility] Last Admin: 09/21/16 21:19 Dose: 35 u Losartan Potassium (Cozaar) 100 mg PO DAILY [facility] Last Admin: 09/22/16 09:39 Dose: 100 mg Mupirocin (Bactroban Ointment) 0 gm TOP BID [facility] Last Admin: 09/22/16 09:38 Dose: 1 applic Ondansetron HCl (Zofran Inj) 4 mg IVP Q4 PRN PRN Reason: Nausea/Vomiting Oxycodone/Acetaminophen (Percocet 5/325 Mg Tab) 1 tab PO Q4H PRN PRN Reason: Pain, severe (8-10) Stop: 09/23/16 09:08 Last Admin: 09/22/16 07:49 Dose: 1 tab Quetiapine Fumarate (Seroquel) 200 mg PO [facility] Last Admin: 09/21/16 21:18 Dose: 200 mg Saccharomyces Boulardii (Florastor) 250 mg PO BID [facility] Last Admin: 09/22/16 09:40 Dose: 250 mg Tramadol HCl (Ultram) 25 mg PO TID PRN PRN Reason: Pain, moderate (4-7) Last Admin: 09/20/16 12:50 Dose: 25 mg Venlafaxine HCl (Effexor Xr) 150 mg PO DAILY [facility] Last Admin: 09/22/16 09:40 Dose: 150 mg - Labs Labs: 09/22/16 06:32 09/22/16 06:32 PT 12.6 SECONDS (9.7-12.2) H 09/20/16 05:55 INR 1.1 09/20/16 05:55 APTT 26 SECONDS (21-34) D 09/20/16 05:55 Attending/Attestation - Attestation I have personally seen and examined this patient.: Yes I have fully participated in the care of the patient.: Yes I have reviewed all pertinent clinical information, including history, physical exam and plan: Yes Notes (Text): 09/22/16 11:38 Medical Attending: Patient was seen and examined by me. Agree with the above note by the resident. The patient reported no acute events overnight. Pain is controlled at this time. The Hgb is 9.7 stable. Continue with IV abx for now [facility] thank you Alphonso Nova
[2016-09-22] MEDS: Saccharomyces Boulardi 250 mg Cap PO SCH ×2 (09:40→17:57)
[2016-09-22] MEDS: Venlafaxine 150 mg ER Cap PO SCH (09:40)
[2016-09-22] MEDS ORDERED: Potassium Chloride 20 mEq ER Tab PO ONE (10:00)
--- NOTE | 2016-09-22 12:27 | CP.PCM.PN ---
Subjective - Date & Time of Evaluation Date of Evaluation: 09/22/16 Time of Evaluation: 08:00 - Subjective Subjective: afebrile nad iv rx renewed Objective - Vital Signs/Intake and Output Vital Signs (last 24 hours): Temp Pulse Resp BP Pulse Ox 97.9 F 85 18 108/60 95 09/22/16 08:00 09/22/16 07:35 09/22/16 04:00 09/22/16 04:00 09/22/16 04:00 Intake and Output: 09/22/16 09/22/16 06:59 18:59 Intake Total 1495 Output Total 2250 Balance -755 - Medications Medications: Current Medications Amiodarone HCl (Cordarone) 200 mg PO DAILY [facility] Last Admin: 09/22/16 09:41 Dose: 200 mg Aspirin (Ecotrin) 81 mg PO DAILY [facility] Last Admin: 09/22/16 09:41 Dose: 81 mg Dabigatran (Pradaxa) 150 mg PO BID [facility] Last Admin: 09/22/16 12:04 Dose: 150 mg Ezetimibe (Zetia) 10 mg PO DAILY [facility] Last Admin: 09/22/16 09:40 Dose: 10 mg Heparin Sodium (Porcine) (Heparin) 5,000 units SC Q8 [facility] Last Admin: 09/22/16 06:04 Dose: 5,000 units Hydrochlorothiazide (Hydrodiuril) 25 mg PO DAILY [facility] Last Admin: 09/22/16 09:43 Dose: 25 mg Meropenem 1 gm/ Sodium (Chloride) 100 mls @ 100 mls/hr IVPB Q8 [facility] Last Admin: 09/22/16 05:14 Dose: 100 mls/hr Vancomycin HCl 1 gm/ Sodium (Chloride) 250 mls @ 166.7 mls/hr IVPB Q24H [facility] Last Admin: 09/22/16 12:07 Dose: 166.7 mls/hr Sodium Chloride (Sodium Chloride 0.9%) 1,000 mls @ 75 mls/hr IV .[id number] [facility] Last Admin: 09/22/16 02:20 Dose: Not Given Insulin Aspart (Novolog) 0 unit SC ACHS [facility] PRN Reason: Protocol Last Admin: 09/22/16 11:30 Dose: Not Given Insulin Aspart (Novolog) 10 unit SC TIDAC [facility] Insulin Glargine (Lantus) 35 unit SC HS [facility] Last Admin: 09/21/16 21:19 Dose: 35 u Losartan Potassium (Cozaar) 100 mg PO DAILY [facility] Last Admin: 09/22/16 09:39 Dose: 100 mg Mupirocin (Bactroban Ointment) 0 gm TOP BID [facility] Last Admin: 09/22/16 09:38 Dose: 1 applic Ondansetron HCl (Zofran Inj) 4 mg IVP Q4 PRN PRN Reason: Nausea/Vomiting Oxycodone/Acetaminophen (Percocet 5/325 Mg Tab) 1 tab PO Q4H PRN PRN Reason: Pain, severe (8-10) Stop: 09/23/16 09:08 Last Admin: 09/22/16 07:49 Dose: 1 tab Quetiapine Fumarate (Seroquel) 200 mg PO [facility] Last Admin: 09/21/16 21:18 Dose: 200 mg Saccharomyces Boulardii (Florastor) 250 mg PO BID [facility] Last Admin: 09/22/16 09:40 Dose: 250 mg Tramadol HCl (Ultram) 25 mg PO TID PRN PRN Reason: Pain, moderate (4-7) Last Admin: 09/20/16 12:50 Dose: 25 mg Venlafaxine HCl (Effexor Xr) 150 mg PO DAILY [facility] Last Admin: 09/22/16 09:40 Dose: 150 mg - Labs Labs: 09/22/16 06:32 09/22/16 06:32 PT 12.6 SECONDS (9.7-12.2) H 09/20/16 05:55 INR 1.1 09/20/16 05:55 APTT 26 SECONDS (21-34) D 09/20/16 05:55 - Constitutional Appears: Non-toxic, Chronically Ill - Head Exam Head Exam: NORMOCEPHALIC - Eye Exam Eye Exam: absent: Scleral icterus - ENT Exam ENT Exam: Mucous Membranes Dry, Normal External Ear Exam - Neck Exam Neck Exam: absent: Lymphadenopathy - Respiratory Exam Respiratory Exam: Decreased Breath Sounds, Rhonchi - Cardiovascular Exam Cardiovascular Exam: REGULAR RHYTHM - GI/Abdominal Exam GI & Abdominal Exam: Distended, Soft - Rectal Exam Rectal Exam: Deferred - Extremities Exam Extremities Exam: absent: Pedal Edema - Back Exam Back Exam: absent: CVA tenderness (L), CVA tenderness (R) Assessment and Plan (1) Atrial fibrillation Status: Acute (2) Cellulitis of foot, left Status: Acute (3) HTN (hypertension) Status: Acute (4) History of heart bypass surgery Status: Acute (5) Hyperglycemia without ketosis Status: Acute
--- NOTE | 2016-09-22 13:02 | CP.PCM.PN ---
Subjective - Date & Time of Evaluation Date of Evaluation: 09/22/16 Time of Evaluation: 11:50 - Subjective Subjective: Vascular surgery Progress Note for Dr. Sanders Patient seen and examined at bedside this AM. No acute events overnight. Patient sitting comfortably in chair at bedside. Patient still experinceing pain at incision site. DP/PT pulses + on doppler. Patieint is tolerating diet. Denies fever/chills, cp, sob, abd pain, n/v/d. Objective - Vital Signs/Intake and Output Vital Signs (last 24 hours): Temp Pulse Resp BP Pulse Ox 97.9 F 85 18 108/60 95 09/22/16 08:00 09/22/16 07:35 09/22/16 04:00 09/22/16 04:00 09/22/16 04:00 Intake and Output: 09/22/16 09/22/16 06:59 18:59 Intake Total 1495 Output Total 2250 Balance -755 - Medications Medications: Current Medications Amiodarone HCl (Cordarone) 200 mg PO DAILY [facility] Last Admin: 09/22/16 09:41 Dose: 200 mg Aspirin (Ecotrin) 81 mg PO DAILY [facility] Last Admin: 09/22/16 09:41 Dose: 81 mg Dabigatran (Pradaxa) 150 mg PO BID [facility] Last Admin: 09/22/16 12:04 Dose: 150 mg Ezetimibe (Zetia) 10 mg PO DAILY [facility] Last Admin: 09/22/16 09:40 Dose: 10 mg Heparin Sodium (Porcine) (Heparin) 5,000 units SC Q8 [facility] Last Admin: 09/22/16 06:04 Dose: 5,000 units Hydrochlorothiazide (Hydrodiuril) 25 mg PO DAILY [facility] Last Admin: 09/22/16 09:43 Dose: 25 mg Meropenem 1 gm/ Sodium (Chloride) 100 mls @ 100 mls/hr IVPB Q8 [facility] Last Admin: 09/22/16 05:14 Dose: 100 mls/hr Sodium Chloride (Sodium Chloride 0.9%) 1,000 mls @ 75 mls/hr IV .[id number] [facility] Last Admin: 09/22/16 02:20 Dose: Not Given Vancomycin HCl 1,000 mg/ (Sodium Chloride) 250 mls @ 166.6 mls/hr IVPB Q12H [facility] Insulin Aspart (Novolog) 0 unit SC ACHS [facility] PRN Reason: Protocol Last Admin: 09/22/16 11:30 Dose: Not Given Insulin Aspart (Novolog) 10 unit SC TIDAC [facility] Insulin Glargine (Lantus) 35 unit SC [facility] Last Admin: 09/21/16 21:19 Dose: 35 u Losartan Potassium (Cozaar) 100 mg PO DAILY [facility] Last Admin: 09/22/16 09:39 Dose: 100 mg Mupirocin (Bactroban Ointment) 0 gm TOP BID [facility] Last Admin: 09/22/16 09:38 Dose: 1 applic Ondansetron HCl (Zofran Inj) 4 mg IVP Q4 PRN PRN Reason: Nausea/Vomiting Oxycodone/Acetaminophen (Percocet 5/325 Mg Tab) 1 tab PO Q4H PRN PRN Reason: Pain, severe (8-10) Stop: 09/23/16 09:08 Last Admin: 09/22/16 07:49 Dose: 1 tab Quetiapine Fumarate (Seroquel) 200 [address] PO [facility] Last Admin: 09/21/16 21:18 Dose: 200 mg Saccharomyces Boulardii (Florastor) 250 mg PO BID [facility] Last Admin: 09/22/16 09:40 Dose: 250 mg Tramadol HCl (Ultram) 25 mg PO TID PRN PRN Reason: Pain, moderate (4-7) Last Admin: 09/20/16 12:50 Dose: 25 mg Venlafaxine HCl (Effexor Xr) 150 mg PO DAILY [facility] Last Admin: 09/22/16 09:40 Dose: 150 mg - Labs Labs: 09/22/16 06:32 09/22/16 06:32 PT 12.6 SECONDS (9.7-12.2) H 09/20/16 05:55 INR 1.1 09/20/16 05:55 APTT 26 SECONDS (21-34) D 09/20/16 05:55 - Constitutional Appears: No Acute Distress - Head Exam Head Exam: ATRAUMATIC, NORMOCEPHALIC - Eye Exam Eye Exam: EOMI - ENT Exam ENT Exam: Mucous Membranes Moist - Respiratory Exam Respiratory Exam: NORMAL BREATHING PATTERN - Cardiovascular Exam Cardiovascular Exam: REGULAR RHYTHM - GI/Abdominal Exam GI & Abdominal Exam: Soft. absent: Distended, Firm, Guarding, Tenderness, Rebound - Extremities Exam Extremities Exam: Tenderness (LLE at incision). absent: Pedal Edema Additional comments: +DP/PT pulses with doppler on LLE Neurovascularly intact - Neurological Exam Neurological Exam: Alert, Awake, Oriented x3 - Psychiatric Exam Psychiatric exam: Normal Affect, Normal Mood - Skin Skin Exam: Dry, Normal Color, Warm Assessment and Plan - Assessment and Plan (Free Text) Plan: 55 M with PMH of PVD s/p Left Femoral popliteal bypass POD #3 - continue to monitor pressure and pulses - DVT ppx - pain control - OOB - Physical Therapy - medical management - Patient to be transferred to [facility] - Isauro Amaya PGY1
[2016-09-22] MEDS: (Lantus) Insulin Glargine, Recombinant SC SCH (21:44)
--- NOTE | 2016-09-22 22:24 | CP.PCM.PN ---
Subjective - Date & Time of Evaluation Date of Evaluation: 09/22/16 Time of Evaluation: 10:00 - Subjective Subjective: 55 year old male was seen at bedside 9 days s/p left foot I and D. Patient is AAOx3 and is in NAD. Patient denies any acute overnight events. Patient denies reports some left foot pain and right thigh from the bypass. Patient denies any F/N/V/C/SOB/CP. No other pedal complaints at this time. Family was at bedside during visitation. Objective - Vital Signs/Intake and Output Vital Signs (last 24 hours): Temp Pulse Resp BP Pulse Ox 98.0 F 76 18 108/60 95 09/22/16 16:00 09/22/16 18:00 09/22/16 04:00 09/22/16 04:00 09/22/16 04:00 Intake and Output: 09/22/16 09/23/16 18:59 06:59 Intake Total 700 Output Total 460 Balance 240 - Medications Medications: Current Medications Amiodarone HCl (Cordarone) 200 mg PO DAILY [facility] Last Admin: 09/22/16 09:41 Dose: 200 mg Aspirin (Ecotrin) 81 mg PO DAILY [facility] Last Admin: 09/22/16 09:41 Dose: 81 mg Dabigatran (Pradaxa) 150 mg PO BID [facility] Last Admin: 09/22/16 18:55 Dose: 150 mg Ezetimibe (Zetia) 10 mg PO DAILY [facility] Last Admin: 09/22/16 09:40 Dose: 10 mg Heparin Sodium (Porcine) (Heparin) 5,000 units SC Q8 [facility] Last Admin: 09/22/16 21:45 Dose: 5,000 units Hydrochlorothiazide (Hydrodiuril) 25 mg PO DAILY [facility] Last Admin: 09/22/16 09:43 Dose: 25 mg Meropenem 1 gm/ Sodium (Chloride) 100 mls @ 100 mls/hr IVPB Q8 [facility] Last Admin: 09/22/16 21:45 Dose: 100 mls/hr Vancomycin HCl 1,000 mg/ (Sodium Chloride) 250 mls @ 166.6 mls/hr IVPB Q12H [facility] Last Admin: 09/22/16 12:30 Dose: Not Given Insulin Aspart (Novolog) 0 unit SC ACHS [facility] PRN Reason: Protocol Last Admin: 09/22/16 18:01 Dose: 2 unit Insulin Aspart (Novolog) 10 unit SC TIDAC [facility] Last Admin: 09/22/16 18:00 Dose: 10 unit Insulin Glargine (Lantus) 35 unit SC [facility] Last Admin: 09/22/16 21:44 Dose: 35 u Losartan Potassium (Cozaar) 100 mg PO DAILY [facility] Last Admin: 09/22/16 09:39 Dose: 100 mg Mupirocin (Bactroban Ointment) 0 gm TOP BID [facility] Last Admin: 09/22/16 18:07 Dose: Not Given Ondansetron HCl (Zofran Inj) 4 mg IVP Q4 PRN PRN Reason: Nausea/Vomiting Oxycodone/Acetaminophen (Percocet 5/325 Mg Tab) 1 tab PO Q4H PRN PRN Reason: Pain, severe (8-10) Stop: 09/23/16 09:08 Last Admin: 09/22/16 20:38 Dose: 1 tab Quetiapine Fumarate (Seroquel) 200 mg PO [facility] Last Admin: 09/22/16 21:51 Dose: 200 mg Saccharomyces Boulardii (Florastor) 250 mg PO BID [facility] Last Admin: 09/22/16 17:57 Dose: 250 mg Tramadol HCl (Ultram) 25 mg PO TID PRN PRN Reason: Pain, moderate (4-7) Last Admin: 09/20/16 12:50 Dose: 25 mg Venlafaxine HCl (Effexor Xr) 150 mg PO DAILY [facility] Last Admin: 09/22/16 09:40 Dose: 150 mg - Labs Labs: 09/22/16 06:32 09/22/16 06:32 PT 12.6 SECONDS (9.7-12.2) H 09/20/16 05:55 INR 1.1 09/20/16 05:55 APTT 26 SECONDS (21-34) D 09/20/16 05:55 - Constitutional Appears: Well, Non-toxic, No Acute Distress - Extremities Exam Additional comments: Left lower extremity focused exam: VASC: DP and PT pulses are non-palpable, TG warm to warm from proximal to distal , CFT < 3 sec to all digits, nonpitting edema noted to dorsum of foot DERM: Open surgical site noted to left foot with granular base, no maceration noted at this visit. Lateral aspect of 5th digit has some necrotic tissue. No malodor noted. No purulent drainage noted or erythematous border noted at this time. Hyperpigmentated noted to skin surround left 5th digit. Left fifth digit is less dusky in color since the previous encounters, appears to be improving. NEURO: Protective sensation grossly intact ORTHO: Tenderness on palpation to surgical site and left fifth digit - Neurological Exam Neurological Exam: Alert, Awake, Oriented x3 - Psychiatric Exam Psychiatric exam: Normal Affect, Normal Mood Assessment and Plan - Assessment and Plan (Free Text) Assessment: 55 year old male with left foot ulceration 9 days s/p left foot incision and drainage secondary to cellulitis with underlying abscess Plan: Patient seen and evaluated Charts, labs and vitals reviewed - afebrile, WBC is trending down 11.3 today Discussed plan in detail with Dr. Jo Surgical site to left foot cleansed with normal sterile saline Site dressed with xeroform, Bactroban, 4x4, ABD, and loose Kerlix Patient is less dusky from previous encounters; patient is improving s/p bypass Continue IV abx per ID Podiatry will continue to follow while patient in house Podiatry will hold any surgery at this time Patient is stable from podiatry standpoint
[2016-09-23] MEDS: Meropenem 1 GM in Sodium Chloride 0.9% 100 ML IVPB SCH ×2 (05:03→14:09)
[2016-09-23 08:03] LABS: BASO # 0.1 K/uL (0.0-0.2); BASO % 0.6 % (0.0-2.0); EOS # 0.1 K/uL (0.0-0.7); EOS % 1.5 % (0.0-4.0); HEMATOCRIT 28.8 % (35.0-51.0); MEAN CELL VOLUME 85.7 fL (80.0-94.0); MEAN CORPUSCULAR HEMOGLOBIN 28.5 pg (27.0-31.0); MEAN CORPUSCULAR HGB CONC 33.2 g/dL (33.0-37.0); MEAN PLATELET VOLUME 7.3 fL (7.2-11.7); MONO # 0.8 K/uL (0.0-0.8); MONO % 8.6 % (0.0-10.0); NRBC % 0.1 % (0.0-2.0); RED CELL DISTRIBUTION WIDTH 14.1 % (11.5-14.5); WHITE BLOOD COUNT 9.1 K/uL (4.8-10.8)
[2016-09-23 08:04] LABS: CHLORIDE 94 mmol/L (98-107)
[2016-09-23 08:05] LABS: POTASSIUM 3.8 mmol/L (3.6-5.2); SODIUM 135 mmol/L (132-148)
[2016-09-23 08:07] LABS: ALB/GLOB RATIO 0.9 (1.0-2.1); ALKALINE PHOSPHATASE 78 U/L (38-126); AST/SGOT 29 U/L (17-59); BILIRUBIN,TOTAL 0.5 mg/dL (0.2-1.3); BLOOD UREA NITROGEN 11 mg/dL (9-20); CARBON DIOXIDE 33 mmol/L (22-30); GFR AFRICAN-AMERICAN > 60; GLUCOSE,RANDOM 154 mg/dL (75-110); TOTAL PROTEIN 6.5 g/dL (6.3-8.3)
[2016-09-23 08:08] LABS: ALT/SGPT 40 U/L (21-72); CALCIUM 8.9 mg/dl (8.6-10.4)
[2016-09-23] MEDS: Oxycodone/Acetaminophen 5/325 mg Tab PO PRN (08:14)
[2016-09-23] MEDS: (Novolog) Insulin Aspart, Recombinant 100 u/ml 10 ml vial SC SCH ×6 (08:14→17:12)
[2016-09-23] MEDS: Sodium Chloride 0.9% 1,000 ML IV SCH (08:16)
--- NOTE | 2016-09-23 08:29 | CP.PCM.PN ---
Subjective - Date & Time of Evaluation Date of Evaluation: 09/23/16 Time of Evaluation: 07:30 - Subjective Subjective: Vascular Surgery- Dr. Sanders PT S&E at bedside this AM. No acute events overnight. Pt stating pain is manageable however continuing in the left leg at the incision site. Biphasic Doppler DP and PT pulses. Tolerating diet. Denies F/C CP/SOB N/V/D numbness or tingling in the extremities. Objective - Vital Signs/Intake and Output Vital Signs (last 24 hours): Temp Pulse Resp BP Pulse Ox 97.5 F L 72 14 121/67 96 09/23/16 04:00 09/23/16 00:00 09/23/16 00:00 09/23/16 04:00 09/23/16 04:00 Intake and Output: 09/23/16 09/23/16 06:59 18:59 Intake Total 1180 Output Total 1500 Balance -320 - Medications Medications: Current Medications Amiodarone HCl (Cordarone) 200 mg PO DAILY [facility] Last Admin: 09/22/16 09:41 Dose: 200 mg Aspirin (Ecotrin) 81 mg PO DAILY [facility] Last Admin: 09/22/16 09:41 Dose: 81 mg Dabigatran (Pradaxa) 150 mg PO BID [facility] Last Admin: 09/22/16 18:55 Dose: 150 mg Ezetimibe (Zetia) 10 mg PO DAILY [facility] Last Admin: 09/22/16 09:40 Dose: 10 mg Heparin Sodium (Porcine) (Heparin) 5,000 units SC Q8 [facility] Last Admin: 09/23/16 05:03 Dose: 5,000 units Hydrochlorothiazide (Hydrodiuril) 25 mg PO DAILY [facility] Last Admin: 09/22/16 09:43 Dose: 25 mg Meropenem 1 gm/ Sodium (Chloride) 100 mls @ 100 mls/hr IVPB Q8 [facility] Last Admin: 09/23/16 05:03 Dose: 100 mls/hr Vancomycin HCl 1,000 mg/ (Sodium Chloride) 250 mls @ 166.6 mls/hr IVPB Q12H [facility] Last Admin: 09/23/16 00:30 Dose: 166.6 mls/hr Insulin Aspart (Novolog) 0 unit SC ACHS [facility] PRN Reason: Protocol Last Admin: 09/23/16 08:14 Dose: 2 unit Insulin Aspart (Novolog) 10 unit SC TIDAC [facility] Last Admin: 09/23/16 08:18 Dose: 10 unit Insulin Glargine (Lantus) 35 unit SC [facility] Last Admin: 09/22/16 21:44 Dose: 35 u Losartan Potassium (Cozaar) 100 mg PO DAILY [facility] Last Admin: 09/22/16 09:39 Dose: 100 mg Mupirocin (Bactroban Ointment) 0 gm TOP BID [facility] Last Admin: 09/22/16 18:07 Dose: Not Given Ondansetron HCl (Zofran Inj) 4 mg IVP Q4 PRN PRN Reason: Nausea/Vomiting Oxycodone/Acetaminophen (Percocet 5/325 Mg Tab) 1 tab PO Q4H PRN PRN Reason: Pain, severe (8-10) Stop: 09/23/16 09:08 Last Admin: 09/23/16 08:14 Dose: 1 tab Quetiapine Fumarate (Seroquel) 200 mg PO [facility] Last Admin: 09/22/16 21:51 Dose: 200 mg Saccharomyces Boulardii (Florastor) 250 mg PO BID [facility] Last Admin: 09/22/16 17:57 Dose: 250 mg Tramadol HCl (Ultram) 25 mg PO TID PRN PRN Reason: Pain, moderate (4-7) Last Admin: 09/20/16 12:50 Dose: 25 mg Venlafaxine HCl (Effexor Xr) 150 mg PO DAILY [facility] Last Admin: 09/22/16 09:40 Dose: 150 mg - Labs Labs: 09/23/16 07:46 09/23/16 07:46 PT 12.6 SECONDS (9.7-12.2) H 09/20/16 05:55 INR 1.1 09/20/16 05:55 APTT 26 SECONDS (21-34) D 09/20/16 05:55 - Constitutional Appears: No Acute Distress - Head Exam Head Exam: ATRAUMATIC - ENT Exam ENT Exam: Mucous Membranes Moist - Respiratory Exam Respiratory Exam: NORMAL BREATHING PATTERN. absent: Accessory Muscle Use, Rhonchi, Wheezes - Cardiovascular Exam Cardiovascular Exam: REGULAR RHYTHM, +S1, +S2 - GI/Abdominal Exam GI & Abdominal Exam: Soft. absent: Distended, Tenderness Assessment and Plan - Assessment and Plan (Free Text) Assessment: 55 M with PMH of PVD s/p Left Femoral popliteal bypass POD #4 Plan: - continue to monitor pressure and pulses - DVT ppx - pain control - medical management - Patient surgically stable and cleared to be transferred to [facility] - further recs per Dr. Marilyn Forbes PGY1
[2016-09-23 09:06] VITALS: RESP 20; O2SAT 100
[2016-09-23] MEDS: Venlafaxine 150 mg ER Cap PO SCH (10:00)
[2016-09-23] MEDS: Saccharomyces Boulardi 250 mg Cap PO SCH ×2 (10:01→17:11)
--- NOTE | 2016-09-23 10:44 | CP.PCM.PN ---
Subjective - Date & Time of Evaluation Date of Evaluation: 09/23/16 Time of Evaluation: 08:00 - Subjective Subjective: wbc trending down iv rx renewed Objective - Vital Signs/Intake and Output Vital Signs (last 24 hours): Temp Pulse Resp BP Pulse Ox 98.4 F 72 20 135/70 100 09/23/16 08:00 09/23/16 08:00 09/23/16 08:00 09/23/16 08:00 09/23/16 08:00 Intake and Output: 09/23/16 09/23/16 06:59 18:59 Intake Total 1180 980 Output Total 1500 700 Balance -320 280 - Medications Medications: Current Medications Amiodarone HCl (Cordarone) 200 mg PO DAILY [facility] Last Admin: 09/23/16 10:01 Dose: 200 mg Aspirin (Ecotrin) 81 mg PO DAILY [facility] Last Admin: 09/23/16 10:01 Dose: 81 mg Dabigatran (Pradaxa) 150 mg PO BID [facility] Last Admin: 09/23/16 10:01 Dose: 150 mg Ezetimibe (Zetia) 10 mg PO DAILY [facility] Last Admin: 09/23/16 10:00 Dose: 10 mg Hydrochlorothiazide (Hydrodiuril) 25 mg PO DAILY [facility] Last Admin: 09/22/16 09:43 Dose: 25 mg Meropenem 1 gm/ Sodium (Chloride) 100 mls @ 100 mls/hr IVPB Q8 [facility] Last Admin: 09/23/16 05:03 Dose: 100 mls/hr Vancomycin HCl 1,000 mg/ (Sodium Chloride) 250 mls @ 166.6 mls/hr IVPB Q12H [facility] Last Admin: 09/23/16 00:30 Dose: 166.6 mls/hr Insulin Aspart (Novolog) 0 unit SC ACHS [facility] PRN Reason: Protocol Last Admin: 09/23/16 08:14 Dose: 2 unit Insulin Aspart (Novolog) 10 unit SC TIDAC [facility] Last Admin: 09/23/16 08:18 Dose: 10 unit Insulin Glargine (Lantus) 35 unit SC HS [facility] Last Admin: 09/22/16 21:44 Dose: 35 u Losartan Potassium (Cozaar) 100 mg PO DAILY [facility] Last Admin: 09/23/16 10:00 Dose: 100 mg Mupirocin (Bactroban Ointment) 0 gm TOP BID [facility] Last Admin: 09/23/16 10:02 Dose: 1 applic Ondansetron HCl (Zofran Inj) 4 mg IVP Q4 PRN PRN Reason: Nausea/Vomiting Quetiapine Fumarate (Seroquel) 200 mg PO HS [facility] Last Admin: 09/22/16 21:51 Dose: 200 mg Saccharomyces Boulardii (Florastor) 250 mg PO BID [facility] Last Admin: 09/23/16 10:01 Dose: 250 mg Tramadol HCl (Ultram) 25 mg PO TID PRN PRN Reason: Pain, moderate (4-7) Last Admin: 09/20/16 12:50 Dose: 25 mg Venlafaxine HCl (Effexor Xr) 150 mg PO DAILY [facility] Last Admin: 09/23/16 10:00 Dose: 150 mg - Labs Labs: 09/23/16 07:46 09/23/16 07:46 PT 12.6 SECONDS (9.7-12.2) H 09/20/16 05:55 INR 1.1 09/20/16 05:55 APTT 26 SECONDS (21-34) D 09/20/16 05:55 - Constitutional Appears: Non-toxic, Chronically Ill - Head Exam Head Exam: ATRAUMATIC, NORMOCEPHALIC - Eye Exam Eye Exam: PERRL - ENT Exam ENT Exam: Mucous Membranes Dry - Neck Exam Neck Exam: absent: Lymphadenopathy - Respiratory Exam Respiratory Exam: Decreased Breath Sounds, Clear to Ausculation Bilateral - Cardiovascular Exam Cardiovascular Exam: REGULAR RHYTHM - GI/Abdominal Exam GI & Abdominal Exam: Distended, Soft. absent: Tenderness - Rectal Exam Rectal Exam: NORMAL INSPECTION - Exam Exam: NORMAL INSPECTION - Extremities Exam Extremities Exam: Pedal Edema, Tenderness. absent: Calf Tenderness Assessment and Plan (1) Atrial fibrillation Status: Acute (2) Cellulitis of foot, left Status: Acute (3) HTN (hypertension) Status: Acute (4) History of heart bypass surgery Status: Acute (5) Hyperglycemia without ketosis Status: Acute - Assessment and Plan (Free Text) Assessment: 5th digit slow to improve s/p bypass cont iv rx consider mri foot
--- NOTE | 2016-09-23 15:28 | CP.PCM.DIS ---
<Desi Guadarrama - Last Filed: 09/23/16 15:29> Provider - Provider Date of Admission: 09/08/16 21:40 Attending physician: Reid Gabriel MD Time Spent in preparation of Discharge (in minutes): 55 Hospital Course - Lab Results Lab Results: Micro Results 09/19/16 06:00 Nose MRSA Culture (Admit) - Final MRSA NOT DETECTED 09/18/16 06:00 Nose MRSA Culture - Final MRSA NOT DETECTED 09/17/16 14:35 Stool Stool Culture - Final NO SALMONELLA, SHIGELLA OR CAMPYLOBACTER ISOLATED. 09/16/16 17:51 Naris MRSA Culture (Admit) - Final MRSA NOT DETECTED 09/13/16 Unknown Abscess - Foot Gram Stain - Final 09/13/16 Unknown Abscess - Foot Wound Culture - Final Strep Anginosus/Constellatus 09/09/16 10:30 Toe Gram Stain - Final 09/09/16 10:30 Toe Wound Culture - Final Proteus Mirabilis 09/11/16 18:30 Stool Stool Culture - Final NO SALMONELLA, SHIGELLA OR CAMPYLOBACTER ISOLATED. 09/09/16 10:30 Toe Gram Stain - Final 09/09/16 10:30 Toe Wound Culture - Final Proteus Mirabilis Group G Streptococcus Most Recent Lab Values WBC 9.1 K/uL (4.8-10.8) 09/23/16 07:46 RBC 3.36 Mil/uL (4.40-5.90) L 09/23/16 07:46 Hgb 9.6 g/dL (12.0-18.0) L 09/23/16 07:46 Hct 28.8 % (35.0-51.0) L 09/23/16 07:46 MCV 85.7 fL (80.0-94.0) 09/23/16 07:46 MCH 28.5 pg (27.0-31.0) 09/23/16 07:46 MCHC 33.2 g/dL (33.0-37.0) 09/23/16 07:46 RDW 14.1 % (11.5-14.5) 09/23/16 07:46 Plt Count 414 K/uL (130-400) H 09/23/16 07:46 MPV 7.3 fL (7.2-11.7) 09/23/16 07:46 Neut % (Auto) 67.3 % (50.0-75.0) 09/23/16 07:46 Lymph % (Auto) 22.0 % (20.0-40.0) 09/23/16 07:46 [place] % (Auto) 8.6 % (0.0-10.0) 09/23/16 07:46 Eos % (Auto) 1.5 % (0.0-4.0) 09/23/16 07:46 Baso % (Auto) 0.6 % (0.0-2.0) 09/23/16 07:46 Neut # 6.1 K/uL (1.8-7.0) 09/23/16 07:46 Lymph # 2.0 K/uL (1.0-4.3) 09/23/16 07:46 [place] # 0.8 K/uL (0.0-0.8) 09/23/16 07:46 Eos # 0.1 K/uL (0.0-0.7) 09/23/16 07:46 Baso # 0.1 K/uL (0.0-0.2) 09/23/16 07:46 Neutrophils % (Manual) 68 % (50-75) 09/20/16 05:55 Band Neutrophils % 12 % (0-2) H* 09/20/16 05:55 Lymphocytes % (Manual) 9 % (20-40) L 09/20/16 05:55 Monocytes % (Manual) 10 % (0-10) 09/20/16 05:55 Metamyelocytes % 1 % (0-0) H 09/20/16 05:55 Platelet Estimate Normal (NORMAL) 09/20/16 05:55 RBC Morphology Normal 09/20/16 05:55 PT 12.6 SECONDS (9.7-12.2) H 09/20/16 05:55 INR 1.1 09/20/16 05:55 APTT 26 SECONDS (21-34) D 09/20/16 05:55 pO2 19 mm/Hg (30-55) L 09/08/16 19:55 VBG pH 7.34 (7.32-7.43) 09/08/16 19:55 VBG pCO2 53 mmHg (40-60) 09/08/16 19:55 VBG HCO3 24.4 mmol/L 09/08/16 19:55 VBG Total CO2 30.2 mmol/L (22-28) H 09/08/16 19:55 VBG O2 Sat (Calc) 28.4 % (40-65) L 09/08/16 19:55 VBG Base Excess 1.8 mmol/L (0.0-2.0) 09/08/16 19:55 VBG Potassium 4.5 mmol/L (3.6-5.2) 09/08/16 19:55 Sodium 128.0 mmol/l (132-148) L 09/08/16 19:55 Chloride 91.0 mmol/L (98-107) L 09/08/16 19:55 Glucose 355 mg/dl (75-110) H 09/08/16 19:55 Lactate 1.8 mmol/L (0.7-2.1) 09/08/16 19:55 Sodium 135 mmol/L (132-148) 09/23/16 07:46 Potassium 3.8 mmol/L (3.6-5.2) 09/23/16 07:46 Chloride 94 mmol/L (98-107) L 09/23/16 07:46 Carbon Dioxide 33 mmol/L (22-30) H 09/23/16 07:46 Anion Gap 12 (10-20) 09/23/16 07:46 BUN 11 mg/dL (9-20) 09/23/16 07:46 Creatinine 0.6 MG/DL (0.8-1.5) L 09/23/16 07:46 Est GFR ( Amer) > 60 09/23/16 07:46 Est GFR (Non-Af Amer) > 60 09/23/16 07:46 POC Glucose (mg/dL) 190 mg/dL (65-110) H 09/23/16 11:58 Random Glucose 154 mg/dL (75-110) H 09/23/16 07:46 Hemoglobin A1c 13.3 % (4.2-6.5) H 09/09/16 07:22 Calcium 8.9 mg/dl (8.6-10.4) 09/23/16 07:46 Phosphorus 3.0 mg/dL (2.5-4.5) 09/23/16 07:46 Magnesium 2.0 mg/dL (1.6-2.3) 09/23/16 07:46 Total Bilirubin 0.5 mg/dL (0.2-1.3) 09/23/16 07:46 AST 29 U/L (17-59) 09/23/16 07:46 ALT 40 U/L (21-72) 09/23/16 07:46 Alkaline Phosphatase 78 U/L (38-126) 09/23/16 07:46 Total Creatine Kinase 59 U/L (55-170) 09/08/16 20:40 Total Protein 6.5 g/dL (6.3-8.3) 09/23/16 07:46 Albumin 3.0 g/dL (3.5-5.0) L 09/23/16 07:46 Globulin 3.5 gm/dL (2.2-3.9) 09/23/16 07:46 Albumin/Globulin Ratio 0.9 (1.0-2.1) L 09/23/16 07:46 Triglycerides 109 mg/dL (0-149) 09/09/16 07:22 Cholesterol 78 mg/dL (0-199) 09/09/16 07:22 LDL Cholesterol Direct < 30 mg/dL (0-129) 09/09/16 07:22 HDL Cholesterol 34 mg/dL (30-70) 09/09/16 07:22 Lipase 489 U/L (23-300) H 09/08/16 20:40 Free T4 2.01 ng/dL (0.78-2.19) 09/09/16 07:22 TSH 3rd Generation 0.73 mIU/L (0.46-4.68) 09/09/16 07:22 Venous Blood Potassium 4.5 mmol/L (3.6-5.2) 09/08/16 19:55 Urine Color Straw (YELLOW) 09/08/16 20:05 Urine Clarity Clear (Clear) 09/08/16 20:05 Urine pH 5.0 (5.0-8.0) 09/08/16 20:05 Ur Specific [place] 1.018 (1.003-1.030) 09/08/16 20:05 Urine Protein Negative mg/dL (NEGATIVE) 09/08/16 20:05 Urine Glucose (UA) 3+ mg/dL (Normal) H 09/08/16 20:05 Urine Ketones Negative mg/dL (NEGATIVE) 09/08/16 20:05 Urine Blood Negative (NEGATIVE) 09/08/16 20:05 Urine Nitrate Negative (NEGATIVE) 09/08/16 20:05 Urine Bilirubin Negative (NEGATIVE) 09/08/16 20:05 Urine Urobilinogen Normal mg/dL (0.2-1.0) 09/08/16 20:05 Ur Leukocyte Esterase Neg Jose/uL (Negative) 09/08/16 20:05 Urine WBC (Auto) < 1 /hpf (0-5) 09/08/16 20:05 Urine RBC (Auto) < 1 /hpf (0-3) 09/08/16 20:05 Ur Transition Epith Cell < 1 /hpf (0-3) 09/08/16 20:05 Urine Bacteria Rare (<OCC) 09/08/16 20:05 Vancomycin Trough < 5.0 ug/mL (5.0-10.0) L 09/21/16 06:23 Serum Ketones Negative (NEGATIVE) 09/08/16 20:40 C. difficile Ag & Toxin Negative (NEGATIVE) 09/17/16 14:35 Blood Type A NEGATIVE 09/18/16 11:41 Blood Type Confirm A NEGATIVE 09/18/16 11:41 Antibody Screen Negative 09/18/16 11:41 - Hospital Course Hospital Course: Upon Admission: Pt was seen and evaluated at approximately 22:15PM on 09/08/16. CC: foot pain HPI: 55 year old male with PMHx significant for HTN, DM, atrial fibrillation and quadruple bypass surgery presents with complaints of left lower extremity pain of 3 day duration. Patient states that there is some drainage between the webs of his feet and discoloration noted as well. Per son, patient rolled in on his ankle, but denies any physical trauma to the affected foot. Nonetheless, patient did not have associated swelling immediately after the incident. Patient states that he waited to seek evaluation because he was not sure whether he needed to go to the hospital. He eventually came in for further treatment when his symptoms did not improve. Patient states that he has not been complying with a healthy diet in the past few weeks. Patient admits to tenderness to affected area with palpation. He denies any insect bites, nausea, vomiting, diarrhea, constipation, chest pain, headaches, palpitations, subjective fevers or chills PMHx- as noted above Surgical Hx- 4 vessel disease cardiac bypass in 2016 with lower extremity vessel grafting Fam Hx- Several brothers have diabetes Medications- Januvia, Metformin, Novolog ( unknown dose), Oradaxa, Amiodarone, Zetia, Valsartan-HCTZ, Venlafaxine, Seroquel. Please refer to MAR for dosing information Social Hx- Smoked 3-4packs of cigarettes a day for 9 years but has since quit; Patient denies alcohol use; He denies illicit drug use Allergies- Patient denied however medical record indicates shellfish allergy that results in vomiting Throughout Hospital Course: Patient was admitted for Hyperglycemia and left foot cellulitis. Patient was given IV insulin and then started on a similar regimen as his home medications, which were altered throughout his hospital course to better control his sugars. Patient was started on IV antiobiotics for the left foot cellulitis. Patient was evaluated by Podiatry, who performed an I & D of the left foot cellulitis that developed into an abscess. Bone Scan of Left Foot (patient refuses to have MRI done due to claustrophobia): NO OSTEOMYELITIS. Vascular was consulted due to the decrease in circulation of both legs. Patient underwent an angiogram which showed bilateral stenosis of the SFA, L> R. An aortofemoral angiogram was done and a balloon angioplasty of uniforms sales representative/ profonda with 6 and 5 balloons. angiojet mechanical thrombolysis of left uniforms sales representative. with tpa. perclose right groin. Patient then underwent a fem pop bypass, to restore circulation to the left leg. Patient tolerated the procedure well. He is to be discharged to [facility]. This is a brief summary of the patient's hospital course. Please review EMR for full record. Discharge Exam - Head Exam Head Exam: ATRAUMATIC, NORMOCEPHALIC - Eye Exam Eye Exam: EOMI, Normal appearance, PERRL Pupil Exam: NORMAL ACCOMODATION - Respiratory Exam Respiratory Exam: Clear to PA & Lateral, NORMAL BREATHING PATTERN. absent: Decreased Breath Sounds - Cardiovascular Exam Cardiovascular Exam: REGULAR RHYTHM, RRR, +S1, +S2 - GI/Abdominal Exam GI & Abdominal Exam: Normal Bowel Sounds, Soft. absent: Distended, Tenderness - Extremities Exam Extremities exam: normal inspection, pedal pulses present - Neurological Exam Neurological exam: Alert, CN II-XII Intact, Oriented x3 - Psychiatric Exam Psychiatric exam: Normal Affect, Normal Mood - Skin Skin Exam: Dry, Intact, Normal Color, Warm Discharge Plan - Discharge Medications Prescriptions: Ciprofloxacin Lactate [Ciprofloxacin] 400 mg IV Q12H 10 Days - Follow Up Plan Condition: FAIR Disposition: REHAB FACILITY/REHAB UNIT Instructions: Cellulitis (DC), Cellulitis (GEN), Meal Planning with Diabetes Exchanges (DC), Chronic Wound Care (DC) Additional Instructions: Patient is to resume on current medications as listed. As per ID, patient is to continue Vancomycin 1gram IVP Q12H and Ciprofloxacin 400mg IVP Q12H for 10 additional days after discharge from [facility]. Patient has picc line in Right arm. Patient is to continue with PT at [facility]. Have patient follow up with PMD after discharge from [facility]. Patient is to follow up with Dr. Jo, once discharged from [facility]. Please return to the ED if your symptoms worsen or return. Referrals: Frederick Jo, MILO [Staff Provider] - <Reid Gabriel - Last Filed: 09/23/16 16:15> Provider - Provider Date of Admission: 09/08/16 21:40 Attending physician: Reid Gabriel MD Hospital Course - Lab Results Lab Results: Micro Results 09/19/16 06:00 Nose MRSA Culture (Admit) - Final MRSA NOT DETECTED 09/18/16 06:00 Nose MRSA Culture - Final MRSA NOT DETECTED 09/17/16 14:35 Stool Stool Culture - Final NO SALMONELLA, SHIGELLA OR CAMPYLOBACTER ISOLATED. 09/16/16 17:51 Naris MRSA Culture (Admit) - Final MRSA NOT DETECTED 09/13/16 Unknown Abscess - Foot Gram Stain - Final 09/13/16 Unknown Abscess - Foot Wound Culture - Final Strep Anginosus/Constellatus 09/09/16 10:30 Toe Gram Stain - Final 09/09/16 10:30 Toe Wound Culture - Final Proteus Mirabilis 09/11/16 18:30 Stool Stool Culture - Final NO SALMONELLA, SHIGELLA OR CAMPYLOBACTER ISOLATED. 09/09/16 10:30 Toe Gram Stain - Final 09/09/16 10:30 Toe Wound Culture - Final Proteus Mirabilis Group G Streptococcus Most Recent Lab Values WBC 9.1 K/uL (4.8-10.8) 09/23/16 07:46 RBC 3.36 Mil/uL (4.40-5.90) L 09/23/16 07:46 Hgb 9.6 g/dL (12.0-18.0) L 09/23/16 07:46 Hct 28.8 % (35.0-51.0) L 09/23/16 07:46 MCV 85.7 fL (80.0-94.0) 09/23/16 07:46 MCH 28.5 pg (27.0-31.0) 09/23/16 07:46 MCHC 33.2 g/dL (33.0-37.0) 09/23/16 07:46 RDW 14.1 % (11.5-14.5) 09/23/16 07:46 Plt Count 414 K/uL (130-400) H 09/23/16 07:46 MPV 7.3 fL (7.2-11.7) 09/23/16 07:46 Neut % (Auto) 67.3 % (50.0-75.0) 09/23/16 07:46 Lymph % (Auto) 22.0 % (20.0-40.0) 09/23/16 07:46 [place] % (Auto) 8.6 % (0.0-10.0) 09/23/16 07:46 Eos % (Auto) 1.5 % (0.0-4.0) 09/23/16 07:46 Baso % (Auto) 0.6 % (0.0-2.0) 09/23/16 07:46 Neut # 6.1 K/uL (1.8-7.0) 09/23/16 07:46 Lymph # 2.0 K/uL (1.0-4.3) 09/23/16 07:46 Sierra # 0.8 K/uL (0.0-0.8) 09/23/16 07:46 Eos # 0.1 K/uL (0.0-0.7) 09/23/16 07:46 Baso # 0.1 K/uL (0.0-0.2) 09/23/16 07:46 Neutrophils % (Manual) 68 % (50-75) 09/20/16 05:55 Band Neutrophils % 12 % (0-2) H* 09/20/16 05:55 Lymphocytes % (Manual) 9 % (20-40) L 09/20/16 05:55 Monocytes % (Manual) 10 % (0-10) 09/20/16 05:55 Metamyelocytes % 1 % (0-0) H 09/20/16 05:55 Platelet Estimate Normal (NORMAL) 09/20/16 05:55 RBC Morphology Normal 09/20/16 05:55 PT 12.6 SECONDS (9.7-12.2) H 09/20/16 05:55 INR 1.1 09/20/16 05:55 APTT 26 SECONDS (21-34) D 09/20/16 05:55 pO2 19 mm/Hg (30-55) L 09/08/16 19:55 VBG pH 7.34 (7.32-7.43) 09/08/16 19:55 VBG pCO2 53 mmHg (40-60) 09/08/16 19:55 VBG HCO3 24.4 mmol/L 09/08/16 19:55 VBG Total CO2 30.2 mmol/L (22-28) H 09/08/16 19:55 VBG O2 Sat (Calc) 28.4 % (40-65) L 09/08/16 19:55 VBG Base Excess 1.8 mmol/L (0.0-2.0) 09/08/16 19:55 VBG Potassium 4.5 mmol/L (3.6-5.2) 09/08/16 19:55 Sodium 128.0 mmol/l (132-148) L 09/08/16 19:55 Chloride 91.0 mmol/L (98-107) L 09/08/16 19:55 Glucose 355 mg/dl (75-110) H 09/08/16 19:55 Lactate 1.8 mmol/L (0.7-2.1) 09/08/16 19:55 Sodium 135 mmol/L (132-148) 09/23/16 07:46 Potassium 3.8 mmol/L (3.6-5.2) 09/23/16 07:46 Chloride 94 mmol/L (98-107) L 09/23/16 07:46 Carbon Dioxide 33 mmol/L (22-30) H 09/23/16 07:46 Anion Gap 12 (10-20) 09/23/16 07:46 BUN 11 mg/dL (9-20) 09/23/16 07:46 Creatinine 0.6 MG/DL (0.8-1.5) L 09/23/16 07:46 Est GFR ( Amer) > 60 09/23/16 07:46 Est GFR (Non-Af Amer) > 60 09/23/16 07:46 POC Glucose (mg/dL) 190 mg/dL (65-110) H 09/23/16 11:58 Random Glucose 154 mg/dL (75-110) H 09/23/16 07:46 Hemoglobin A1c 13.3 % (4.2-6.5) H 09/09/16 07:22 Calcium 8.9 mg/dl (8.6-10.4) 09/23/16 07:46 Phosphorus 3.0 mg/dL (2.5-4.5) 09/23/16 07:46 Magnesium 2.0 mg/dL (1.6-2.3) 09/23/16 07:46 Total Bilirubin 0.5 mg/dL (0.2-1.3) 09/23/16 07:46 AST 29 U/L (17-59) 09/23/16 07:46 ALT 40 U/L (21-72) 09/23/16 07:46 Alkaline Phosphatase 78 U/L (38-126) 09/23/16 07:46 Total Creatine Kinase 59 U/L (55-170) 09/08/16 20:40 Total Protein 6.5 g/dL (6.3-8.3) 09/23/16 07:46 Albumin 3.0 g/dL (3.5-5.0) L 09/23/16 07:46 Globulin 3.5 gm/dL (2.2-3.9) 09/23/16 07:46 Albumin/Globulin Ratio 0.9 (1.0-2.1) L 09/23/16 07:46 Triglycerides 109 mg/dL (0-149) 09/09/16 07:22 Cholesterol 78 mg/dL (0-199) 09/09/16 07:22 LDL Cholesterol Direct < 30 mg/dL (0-129) 09/09/16 07:22 HDL Cholesterol 34 mg/dL (30-70) 09/09/16 07:22 Lipase 489 U/L (23-300) H 09/08/16 20:40 Free T4 2.01 ng/dL (0.78-2.19) 09/09/16 07:22 TSH 3rd Generation 0.73 mIU/L (0.46-4.68) 09/09/16 07:22 Venous Blood Potassium 4.5 mmol/L (3.6-5.2) 09/08/16 19:55 Urine Color Straw (YELLOW) 09/08/16 20:05 Urine Clarity Clear (Clear) 09/08/16 20:05 Urine pH 5.0 (5.0-8.0) 09/08/16 20:05 Ur Specific [place] 1.018 (1.003-1.030) 09/08/16 20:05 Urine Protein Negative mg/dL (NEGATIVE) 09/08/16 20:05 Urine Glucose (UA) 3+ mg/dL (Normal) H 09/08/16 20:05 Urine Ketones Negative mg/dL (NEGATIVE) 09/08/16 20:05 Urine Blood Negative (NEGATIVE) 09/08/16 20:05 Urine Nitrate Negative (NEGATIVE) 09/08/16 20:05 Urine Bilirubin Negative (NEGATIVE) 09/08/16 20:05 Urine Urobilinogen Normal mg/dL (0.2-1.0) 09/08/16 20:05 Ur Leukocyte Esterase Neg Jose/uL (Negative) 09/08/16 20:05 Urine WBC (Auto) < 1 /hpf (0-5) 09/08/16 20:05 Urine RBC (Auto) < 1 /hpf (0-3) 09/08/16 20:05 Ur Transition Epith Cell < 1 /hpf (0-3) 09/08/16 20:05 Urine Bacteria Rare (<OCC) 09/08/16 20:05 Vancomycin Trough < 5.0 ug/mL (5.0-10.0) L 09/21/16 06:23 Serum Ketones Negative (NEGATIVE) 09/08/16 20:40 C. difficile Ag & Toxin Negative (NEGATIVE) 09/17/16 14:35 Blood Type A NEGATIVE 09/18/16 11:41 Blood Type Confirm A NEGATIVE 09/18/16 11:41 Antibody Screen Negative 09/18/16 11:41 Attending/Attestation - Attestation I have personally seen and examined this patient.: Yes I have fully participated in the care of the patient.: Yes I have reviewed all pertinent clinical information, including history, physical exam and plan: Yes Notes (Text): 09/23/16 16:14 Patient was seen and examined at bedside with the resident Patient is stable for discharge to TCU. Continue IV antibiotics in the TCU as per recommendations of ID I discussed the plan of care with the resident and agree with discharge note by the resident.
--- NOTE | 2016-09-23 16:33 | CP.PCM.PN ---
Subjective - Date & Time of Evaluation Date of Evaluation: 09/23/16 Time of Evaluation: 10:45 - Subjective Subjective: 55 year old male was seen at bedside with attending Dr. Jo 10 days s/p left foot I and D. Patient is AAOx3 and is in NAD. Patient denies any acute overnight events. Patient denies any F/N/V/C/SOB/CP. No other pedal complaints at this time. Pt states that he feels that the wound is getter better. Objective - Vital Signs/Intake and Output Vital Signs (last 24 hours): Temp Pulse Resp BP Pulse Ox 97.5 F L 63 20 113/54 L 100 09/23/16 12:00 09/23/16 12:00 09/23/16 12:00 09/23/16 14:00 09/23/16 08:00 Intake and Output: 09/23/16 09/23/16 06:59 18:59 Intake Total 1180 1680 Output Total 1500 1000 Balance -320 680 - Medications Medications: Current Medications Amiodarone HCl (Cordarone) 200 mg PO DAILY [facility] Last Admin: 09/23/16 10:01 Dose: 200 mg Aspirin (Ecotrin) 81 mg PO DAILY [facility] Last Admin: 09/23/16 10:01 Dose: 81 mg Dabigatran (Pradaxa) 150 mg PO BID [facility] Last Admin: 09/23/16 10:01 Dose: 150 mg Ezetimibe (Zetia) 10 mg PO DAILY [facility] Last Admin: 09/23/16 10:00 Dose: 10 mg Hydrochlorothiazide (Hydrodiuril) 25 mg PO DAILY [facility] Last Admin: 09/23/16 12:40 Dose: 25 mg Meropenem 1 gm/ Sodium (Chloride) 100 mls @ 100 mls/hr IVPB Q8 [facility] Last Admin: 09/23/16 14:09 Dose: 100 mls/hr Vancomycin HCl 1,000 mg/ (Sodium Chloride) 250 mls @ 166.6 mls/hr IVPB Q12H [facility] Last Admin: 09/23/16 12:39 Dose: 166.6 mls/hr Insulin Aspart (Novolog) 0 unit SC ACHS [facility] PRN Reason: Protocol Last Admin: 09/23/16 12:40 Dose: 2 unit Insulin Aspart (Novolog) 10 unit SC TIDAC [facility] Last Admin: 09/23/16 12:41 Dose: 10 unit Insulin Glargine (Lantus) 35 unit SC [facility] Last Admin: 09/22/16 21:44 Dose: 35 u Losartan Potassium (Cozaar) 100 mg PO DAILY [facility] Last Admin: 09/23/16 10:00 Dose: Not Given Mupirocin (Bactroban Ointment) 0 gm TOP BID [facility] Last Admin: 09/23/16 10:02 Dose: 1 applic Ondansetron HCl (Zofran Inj) 4 mg IVP Q4 PRN PRN Reason: Nausea/Vomiting Quetiapine Fumarate (Seroquel) 200 mg PO HS [facility] Last Admin: 09/22/16 21:51 Dose: 200 mg Saccharomyces Boulardii (Florastor) 250 mg PO BID [facility] Last Admin: 09/23/16 10:01 Dose: 250 mg Tramadol HCl (Ultram) 25 mg PO TID PRN PRN Reason: Pain, moderate (4-7) Last Admin: 09/20/16 12:50 Dose: 25 mg Venlafaxine HCl (Effexor Xr) 150 mg PO DAILY [facility] Last Admin: 09/23/16 10:00 Dose: 150 mg - Labs Labs: 09/23/16 07:46 09/23/16 07:46 PT 12.6 SECONDS (9.7-12.2) H 09/20/16 05:55 INR 1.1 09/20/16 05:55 APTT 26 SECONDS (21-34) D 09/20/16 05:55 - Constitutional Appears: Well, Non-toxic, No Acute Distress - Extremities Exam Additional comments: Left lower extremity focused exam: VASC: DP and PT pulses are faintly palpable, TG warm to warm from proximal to distal, CFT < 3 sec to all digits, nonpitting edema noted to dorsum of foot DERM: Open surgical site noted to left foot with granular base, no maceration noted at this visit. Lateral aspect of 5th digit has some necrotic tissue. No malodor noted. No purulent drainage noted or erythematous border noted at this time. Hyperpigmentation noted to skin surround left 5th digit. Left fifth digit is less dusky in color since the previous encounters, appears to be improving. NEURO: Protective sensation grossly intact ORTHO: Tenderness on palpation to surgical site and left fifth digit - Neurological Exam Neurological Exam: Alert, Awake, Oriented x3 - Psychiatric Exam Psychiatric exam: Normal Affect, Normal Mood Assessment and Plan - Assessment and Plan (Free Text) Assessment: 55 year old male with left foot ulceration 10 days s/p left foot incision and drainage secondary to cellulitis with underlying abscess Plan: Patient seen and evaluated at bedside with attending Dr. Jo Charts, labs and vitals reviewed - afebrile, WBC @ 9.1 today Surgical site to left foot cleansed with normal sterile saline Site dressed with xeroform, Bactroban, 4x4, ABD, and loose Kerlix Patient is less dusky from previous encounters; patient is improving s/p bypass Continue IV abx per ID Podiatry will continue to follow while patient in house Podiatry will hold any surgery at this time Patient is stable from podiatry standpoint
[2016-09-23] MEDS: Tramadol 25 mg PO PRN (17:54)
[2016-09-23 18:07] VITALS: PULSE 64
[2016-09-23 18:17] VITALS: BP 130/64; TEMP 98.2
== END 2016-09-23 18:00 | DRG 253 ==
LOC: C.ER 18:34 → C.9E 21:40 → C.5T 22:53 → C.3T 09-10 10:09 → C.9I 09-16 16:48 → C.6T 09-18 07:10 → C.9S 09-19 19:56 → C.9I 09-19 19:58
PROVIDERS: ADMIT Internal Medicine; ATTEND Internal Medicine
PROC: 02HV33Z Insertion of Infusion Device into Superior Vena Cava, Percutaneous Approach (ICD-10-PCS; 2016-09-11)
PROC: B518ZZA Fluoroscopy of Superior Vena Cava, Guidance (ICD-10-PCS; 2016-09-11)
PROC: 0JBR0ZZ Excision of Left Foot Subcutaneous Tissue and Fascia, Open Approach (ICD-10-PCS; 2016-09-13)
PROC: 0H9NXZZ Drainage of Left Foot Skin, External Approach (ICD-10-PCS; 2016-09-13)
PROC: 3E05317 Introduction of Other Thrombolytic into Peripheral Artery, Percutaneous Approach (ICD-10-PCS; 2016-09-16)
PROC: 047L3ZZ Dilation of Left Femoral Artery, Percutaneous Approach (ICD-10-PCS; principal; 2016-09-16 13:30)
PROC: 041 Lower Arteries, Bypass (ICD-10-PCS; 2016-09-19)
PROC: 30233N1 Transfusion of Nonautologous Red Blood Cells into Peripheral Vein, Percutaneous Approach (ICD-10-PCS; 2016-09-19)
DX: E10.52 Type 1 diabetes mellitus with diabetic peripheral angiopathy with gangrene (principal); E10.621 Type 1 diabetes mellitus with foot ulcer; L03.116 Cellulitis of left lower limb; L02.612 Cutaneous abscess of left foot; L97.529 Non-pressure chronic ulcer of other part of left foot with unspecified severity; I74.3 Embolism and thrombosis of arteries of the lower extremities; I77.1 Stricture of artery; E10.65 Type 1 diabetes mellitus with hyperglycemia; D62 Acute posthemorrhagic anemia; E86.0 Dehydration; I10 Essential (primary) hypertension; I48.91 Unspecified atrial fibrillation; I25.10 Atherosclerotic heart disease of native coronary artery without angina pectoris; E78.00 Pure hypercholesterolemia, unspecified; F40.240 Claustrophobia; J45.909 Unspecified asthma, uncomplicated; M19.90 Unspecified osteoarthritis, unspecified site; Z95.1 Presence of aortocoronary bypass graft; Z79.01 Long term (current) use of anticoagulants; Z79.4 Long term (current) use of insulin; Z79.82 Long term (current) use of aspirin; Z87.891 Personal history of nicotine dependence; Z91.013 Allergy to seafood

== ENCOUNTER 2016-10-24 10:14 | Emergency (ER) | payer MEDICARE, MEDICAID ==
[2016-10-24 10:15] VITALS: BMI 31.9
--- NOTE | 2016-10-24 11:52 | C.PDOC ---
History Of Present Illness 56 y/o male, s/p vascular surgery on left leg in September 2016, presents to the ED with complaints of redness and discharge from the wound to his left groin. Patient states he was re-evaluated by Dr. Sanders around 4 days ago. Patient denies fever, chills, abdominal pain. Time Seen by Provider: 10/24/16 10:43 Chief Complaint (Nursing): Abnormal Skin Integrity History Per: Patient History/Exam Limitations: no limitations Onset/Duration Of Symptoms: Days Current Symptoms Are (Timing): Still Present Quality Of Symptoms: Draining Additional History Per: Patient Past Medical History Reviewed: Historical Data, Nursing Documentation, Vital Signs Vital Signs: Last Vital Signs Temp 97.7 F 10/24/16 15:03 Pulse 65 10/24/16 17:07 Resp 18 10/24/16 17:07 BP 120/74 10/24/16 17:07 Pulse Ox 100 10/25/16 06:56 - Medical History PMH: Arthritis, Asthma, Diabetes, HTN, Hypercholesterolemia Surgical History: CABG (12/26) - [facility] Procedures BYPASS L FEM ART TO POPLIT ART W AUTOL VN, PERC ENDO (09/08/16) DILATION OF LEFT FEMORAL ARTERY, PERCUTANEOUS APPROACH (09/08/16) DRAINAGE OF LEFT FOOT SKIN, EXTERNAL APPROACH (09/08/16) EXCISION OF L FOOT SUBCU/FASCIA, OPEN APPROACH (09/08/16) FLUOROSCOPY OF SUPERIOR VENA CAVA, GUIDANCE (09/08/16) INSERTION OF INFUSION DEV INTO SUP VENA CAVA, PERC APPROACH (09/08/16) INTRODUCE OF OTH THROMBOLYTIC INTO PERIPH ART, PERC APPROACH (09/08/16) TRANSFUSE NONAUT RED BLOOD CELLS IN PERIPH VEIN, PERC (09/08/16) Family History: States: Unknown Family Hx - Social History Hx Alcohol Use: No Hx Substance Use: No - Immunization History Hx Tetanus Toxoid Vaccination: No Hx Influenza Vaccination: Yes (01/2016) Hx Pneumococcal Vaccination: Yes (01/2016) Review Of Systems Constitutional: Negative for: Fever, Chills Skin: Positive for: Other (redness and discharge around wound site s/p femoral popliteal bypass surgery ) Physical Exam - Physical Exam Additional Physical Exam Comments: Constitutional: No acute distress. Head: Normocephalic. Atraumatic. Eyes: PERRL. EOMI ENT: Moist mucous membranes. Neck: Supple. Cardiovascular: Regular rate and rhythm. No murmur. Chest: No tenderness. Respiratory: Clear to auscultation bilaterally. No wheezing, rhonchi, or rales. GI: Soft. Nontender. Nondistended. Normoactive bowel sounds. Back: No CVA tenderness. Musculoskeletal: well healing incision along length of left leg Skin: Healing surgical wound to left groin. 1 inch wound dehiscence with small amount of bloody drainage, scant tenderness and mild surrounding erythema Pulse: Left femoral pulse and dp pulse palpable Neurologic: Alert, no gross focal deficit. ED Course And Treatment - Laboratory Results Result Diagrams: 10/24/16 12:02 10/24/16 12:02 O2 Sat by Pulse Oximetry: 100 (on RA) Pulse Ox Interpretation: Normal Medical Decision Making Medical Decision Making: Impression: 56 y/o male with redness and discharge from wound site s/p Femoral popliteal bypass surgery Plan: * labs * reassess and disposition Progress: labs ordered and reviewed. Pt seen by Dr Flynn, wants dressing change and f/u in opffice next week, will give antibiotics 240 pm pt notifies us that he is in rehab facility, will arrange for transport back. pt has bveen given insulin; will be given something to eat Disposition Discussed With Dr.: Dieter Sanders Jr. Doctor Will See Patient In The: Hospital Counseled Patient/Family Regarding: Studies Performed, Diagnosis, Need For Followup, Rx Given - Disposition Referrals: Dieter Sanders Jr., MD [Staff Provider] - Disposition: HOME/ ROUTINE Disposition Time: 14:32 Condition: STABLE Additional Instructions: Mantenga la herida limpia y seca; cambie la gasa diariamente. [place] los antibi ticos segn lo prescrito. Seguir con el Dr. Sanders la prxima semana. Preste shala atencin a los azcares en la zaina; se eleva en la ER hoy. Vuelva a la rose de emergencia si permanece elevada, cuando est tomando insulina segn lo prescrito. Prescriptions: Sulfamethoxazole/Trimethoprim [Bactrim DS 800 mg-160 mg] 1 tab PO BID #14 tab Instructions: Wound Dehiscence (ED) Forms: Gen Discharge Inst Egyptian, [facility] (Egyptian) Print Language: PANAMANIAN - Clinical Impression Clinical Impression: Wound dehiscence, surgical, Hyperglycemia - PA / [employer]INCIPAL [employer] OFFICER / Resident Statement MD/DO has reviewed & agrees with the documentation as recorded. - Scribe Statement The provider has reviewed the documentation as recorded by the Scribe (Irene James) All medical record entries made by the Scribe were at my direction and personally dictated by me. I have reviewed the chart and agree that the record accurately reflects my personal performance of the history, physical exam, medical decision making, and the department course for this patient. I have also personally directed, reviewed, and agree with the discharge instructions and disposition.
[2016-10-24 12:07] LABS: BASO # 0.1 K/uL (0.0-0.2); BASO % 0.7 % (0.0-2.0); EOS # 0.2 K/uL (0.0-0.7); EOS % 1.4 % (0.0-4.0); HEMATOCRIT 30.1 % (35.0-51.0); LYMPH # 1.9 K/uL (1.0-4.3); LYMPH % 17.2 % (20.0-40.0); MEAN CELL VOLUME 84.2 fL (80.0-94.0); MEAN CORPUSCULAR HEMOGLOBIN 27.2 pg (27.0-31.0); MEAN CORPUSCULAR HGB CONC 32.3 g/dL (33.0-37.0); MEAN PLATELET VOLUME 8.6 fL (7.2-11.7); MONO # 0.9 K/uL (0.0-0.8); MONO % 8.5 % (0.0-10.0); RED CELL DISTRIBUTION WIDTH 15.5 % (11.5-14.5); WHITE BLOOD COUNT 10.8 K/uL (4.8-10.8)
[2016-10-24 12:31] LABS: ALB/GLOB RATIO 1.1 (1.0-2.1); ALKALINE PHOSPHATASE 73 U/L (38-126); ALT/SGPT 29 U/L (21-72); AST/SGOT 15 U/L (17-59); BILIRUBIN,TOTAL 0.4 mg/dL (0.2-1.3); BLOOD UREA NITROGEN 14 mg/dL (9-20); CALCIUM 9.1 mg/dl (8.6-10.4); CARBON DIOXIDE 27 mmol/L (22-30); CHLORIDE 94 mmol/L (98-107); GFR AFRICAN-AMERICAN > 60; GLUCOSE,RANDOM 296 mg/dL (75-110); POTASSIUM 4.5 mmol/L (3.6-5.2); SODIUM 135 mmol/L (132-148); TOTAL PROTEIN 6.8 g/dL (6.3-8.3)
[2016-10-24] MEDS ORDERED: Sodium Chloride 0.9% 1,000 ML IV ONE (13:24)
[2016-10-24] MEDS ORDERED: (Novolin R) Insulin Human Regular 100 units/ml vial SC ONE (13:24)
[2016-10-24 13:26] VITALS: RESP 18
[2016-10-24] MEDS ORDERED: Tmp-Smz 800 mg-160 mg DS Tab PO STA (13:40)
[2016-10-24] MEDS ORDERED: Tmp-Smz 800 mg-160 mg DS Tab ONE (14:24)
[2016-10-24] MEDS ORDERED: (Novolin R) Insulin Human Regular 100 units/ml vial ONE (14:25)
[2016-10-24 14:34] VITALS: O2SAT 100
[2016-10-24 15:04] VITALS: TEMP 97.7
[2016-10-24 17:07] VITALS: BP 120/74; PULSE 65
--- NOTE | 2016-10-31 18:17 | CON ---
DATE: 10/24/2016 HISTORY OF PRESENT ILLNESS: The patient was seen in the emergency room. The patient previously had fem-pop bypass done of vein. He came to the emergency room because of some concern regarding the lateral portion of the groin wound has some separation. On examination, this appeared clean, dry, and there is no pus to be seen. There is no fever, etc. Our plan at present is to be monitor this, the patient will be discharged home and will follow up with me in the office. Dieter Sanders Jr., MD
== END 2016-10-24 17:10 | disposition home or self-care (01) ==
LOC: C.ER 10:14
DX: T81.31XA Disruption of external operation (surgical) wound, not elsewhere classified, initial encounter (principal); Y83.8 Other surgical procedures as the cause of abnormal reaction of the patient, or of later complication, without mention of misadventure at the time of the procedure; E11.65 Type 2 diabetes mellitus with hyperglycemia